=== PATIENT | female | born 1945 | race African-American/Black ===

== ENCOUNTER 2016-09-26 22:47 | Inpatient (IN) | payer MEDICARE, BC ==
[~2016-09-26] VITALS: Ht 157.5 cm; Wt 78.5 kg
[~2016-09-26 22:47] MED LIST: ATOR20TA PO; FURO80TA72 PO; ISOS60TA2 PO; LISI-338 PO; METO50TA2 PO; METO5TAB4 PO; NITR0.4T6 SL; NITR1PAT9 TD; OXYC-244 PO; POTA20TA12 PO
[2016-09-26 23:43] LABS: BASO % 0 % (0-3); EOS % 11 % (0-3); LYMPH # 1.3 x10^3/uL (1.0-4.8); LYMPH % 24 % (24-48); MEAN CORPUSCULAR HEMOGLOBIN 22 pg (25-35); MEAN CORPUSCULAR HGB CONC 33 g/dL (31-37); MEAN CORPUSCULAR VOLUME 68 fL (79-100); MONO % 6 % (0-9); NEUT % 59 % (31-73); PLATELET COUNT 396 x10^3/uL (140-400); RED BLOOD COUNT 2.91 x10^6/uL (3.50-5.40); RED CELL DISTRIBUTION WIDTH 16.3 % (11.5-14.5); WHITE BLOOD COUNT 5.6 x10^3/uL (4.0-11.0)
[2016-09-26] MEDS ORDERED: FUROSEMIDE 40 MG/4 ML VIAL. IV PRN (23:45)
[2016-09-26] MEDS ORDERED: ACETAMINOPHEN 325 MG TABLET. PO PRN (23:45)
[2016-09-27] VITALS (16 sets, daily range): BP systolic 112–156; BP diastolic 52–92
[2016-09-27] MEDS ORDERED: ONDANSETRON PF 4 MG/2 ML VIAL. IV PRN ×3 (00:45→11:00)
[2016-09-27] MEDS ORDERED: fentaNYL PF VIAL 100 MCG/2 ML VIAL IV PRN ×3 (01:30→11:00)
[2016-09-27] MEDS ORDERED: IV NORMAL SALINE 1000ML BAG 1,000 ML IV SCH (01:30)
[2016-09-27 01:52] LABS: HEMATOCRIT 19.8 % (36.0-47.0); HEMOGLOBIN 6.5 g/dL (12.0-15.5)
--- NOTE | 2016-09-27 02:04 | PHYS DOC ---
Past Medical History Past Medical History: GI Bleed, High Cholesterol, IA Past Surgical History: Hysterectomy Additional Past Surgical Histo: STOMACH SURGERY Alcohol Use: None Drug Use: None Adult General Chief Complaint Chief Complaint: GI PROBLEM HPI HPI Of note, [employer] system has been on downtime. A delay of care may be related to this downtime. Patient is a 71 year old female with a history significant for coronary artery disease, hypertension, cardiac myopathy, status post gastric bypass, status post hysterectomy, status post bilateral tubal ligation, status post stomach ulcer in the past, presents to the ER today secondary to a low hemoglobin that was documented by her primary care physician. Patient reports that on Saturday she would see her primary care physician secondary to blood that she noticed in the toilet paper. She reports she took to develop a particular family physician and he sent off a bunch of blood tests on her at that time. Patient reports that she was called on Saturday in order to see him secondary to low hemoglobin however she was unable to follow up until today. Patient reports that she went to the office today and he transferred her and recommended transfer to the ER for admission. She currently complains of some dizziness and weakness. Patient has any chest pain or shortness of breath. Patient has a nausea or vomiting. Patient has any fevers shakes chills. Patient complains of some mild midepigastric abdominal discomfort. Patient has a dysuria frequency or urgency. Patient denies any syncope. Patient's physical exam in the ER was significant for conjunctival pallor, skin appears to be pale, no diaphoresis. Patient's vital signs were normal. Patient' s heart rate was 75. It appears that this might be a paced rhythm as there looks to be pacer spikes on lead 2. Patient's rectal exam was brown heme positive stool. Patient's abdomen was soft nontender no rebound or guarding. There was no more color stool from the patient's rectum. There was no excessive bleeding at this time the patient's rectum. Patient's lungs were clear without any any evidence of wheezing rales or rhonchi. Assessment and plan. This is a 71-year-old female with a history significant for ulcers in the past as well as coronary disease and cardiac myopathy who presents here today with what appears to be a lower GI bleed and significant anemia. Patient's hemoglobin was 6.6 is noted in her doctor's office. Patient will be admitted to the hospital. Patient was typed and crossed for 2 units of packed red blood cells. Patient be admitted for further evaluation of her anemia. Critical care time of 35 minutes were utilizing a treatment and management of this patient's lower GI bleed and anemia. Review of Systems Review of Systems Constitutional: Denies fever or chills [] Eyes: Denies change in visual acuity, redness, or eye pain [] All other review systems are negative except as documented in the history of present illness portion. Current Medications Current Medications Current Medications Medications (Trade) Dose Ordered Sig/Catherine Start Time Stop Time Status Last Admin Dose Admin Acetaminophen (Tylenol) 650 mg 1X PRN PRN 09/26/16 23:45 09/27/16 23:44 Furosemide (Lasix) 40 mg 1X PRN PRN 09/26/16 23:45 09/27/16 23:44 Allergies Allergies Allergies Coded Allergies Type Severity Reaction Last Updated Verified aspirin Allergy Mild Nausea and Vomiting 08/17/15 Yes castor oil Allergy Mild Nausea and Vomiting 08/17/15 Yes Physical Exam Physical Exam Constitutional: Well developed, well nourished, no acute distress, non-toxic appearance. [] HENT: Normocephalic, atraumatic, bilateral external ears normal, oropharynx moist, no oral exudates, nose normal. [] Eyes: PERRLA, EOMI, conjunctiva normal, no discharge. [] Neck: Normal range of motion, no tenderness, supple, no stridor. [] Cardiovascular:Heart rate regular rhythm, Lungs & Thorax: Bilateral breath sounds clear to auscultation [] Abdomen: Bowel sounds normal, soft, no tenderness, no masses, no pulsatile masses. [] Skin: Warm, dry, no erythema, Back: No tenderness, no CVA tenderness. [] Extremities: No tenderness, no cyanosis, 1+ bipedal edema. Neurologic: Alert and oriented X 3, normal motor function, normal sensory function, no focal deficits noted. [] Psychologic: Affect normal, judgement normal, mood normal. [] Current Patient Data Vital Signs Vital Signs Date Time Temp Pulse Resp B/P (MAP) Pulse Ox O2 Delivery O2 Flow Rate FiO2 09/26/16 23:05 98.8 76 18 132/62 (85) 93 Room Air 98.8 EKG EKG [] Radiology/Procedures Radiology/Procedures [] Course & Med Decision Making Course & Med Decision Making Pertinent Labs and Imaging studies reviewed. (See chart for details) [] Dragon Disclaimer Dragon Disclaimer This electronic medical record was generated, in whole or in part, using a voice recognition dictation system. Departure Departure Impression: Primary Impression: Lower GI bleed Additional Impression: Anemia Disposition: ADMITTED INPATIENT Admitting Physician: Timmy Palacio Condition: GUARDED Referrals: BLAKE WHITNEY MD (PCP) Problem Qualifiers NEHEMIAH AGUILAR MD September 27, 2016 02:04
[2016-09-27 02:05] LABS: ALBUMIN/GLOBULIN RATIO 0.7 (1.0-1.7); CREATININE 2.6 mg/dL (0.6-1.0); GFR 21.8; POTASSIUM 4.5 mmol/L (3.5-5.1); TOTAL BILIRUBIN 0.5 mg/dL (0.2-1.0); TOTAL PROTEIN 7.4 g/dL (6.4-8.2)
[2016-09-27 02:58] LABS: NEG OBC FOB NEG; POS OBC FOB POS
[2016-09-27] MEDS: IV NORMAL SALINE 1000ML BAG 1,000 ML IV SCH ×3 (03:00→16:36)
[2016-09-27] MEDS ORDERED: DICY10CA3 PO (03:02)
[2016-09-27] MEDS ORDERED: POTA10TA12 PO (03:02)
[2016-09-27] MEDS ORDERED: NORT25CA PO (03:02)
[2016-09-27] MEDS ORDERED: LISI-338 PO (03:02)
[2016-09-27] MEDS ORDERED: OXYC-250 PO (03:02)
[2016-09-27] MEDS ORDERED: NITR1PAT9 TD (03:02)
[2016-09-27] MEDS ORDERED: DIAZ5TAB PO (03:02)
[2016-09-27] MEDS ORDERED: SUCR1TAB29 PO (03:02)
[2016-09-27] MEDS ORDERED: OMEP40CA5 PO (03:02)
[2016-09-27] MEDS: fentaNYL PF VIAL 100 MCG/2 ML VIAL IV PRN ×4 (03:26→13:38)
[2016-09-27 03:38] LABS: BILIRUBIN,URINE NEGATIVE (NEG); GLUCOSE,URINE NEGATIVE (NEG); NITRITE,URINE NEGATIVE (NEG); PH,URINE 7.5; PROTEIN,URINE NEGATIVE (NEG-TRACE); UROBILINOGEN,URINE 0.2 mg/dL (0.2 mg/dL)
[2016-09-27 03:39] LABS: BACTERIA,URINE FEW /HPF (0-FEW); RBC,URINE 0 /HPF (0-2); SQUAMOUS EPITHELIAL CELL,UR FEW /LPF
[2016-09-27 08:25] LABS: PLT ESTIMATE ADEQUATE (ADEQUATE)
[2016-09-27 08:26] LABS: ANISOCYTOSIS SLIGHT; HYPOCHROMIA MOD; MICROCYTOSIS MARKED
[2016-09-27] MEDS ORDERED: PANTOPRAZOLE IV PUSH 40 MG VIAL. IVP SCH (08:30)
--- NOTE | 2016-09-27 09:02 | PDOC2 ---
GI CONSULT Reason For Consult: GI bleed, anemia, blood in stool HPI: HPI: 71 y/o female admitted through the ER. Had previously seen PCP, was told she was anemic. Here, labs significant for Hgb 6.5 w/ low indices and elevated RDW. Hemoccult positive. For comparison, Hgb 9.9-11s a little over 1 year ago. BUN and Cr are elevated (34 and 2.6 respectively). Previously seen by nephrology for elevated Cr in 07/2015. Somewhat difficult history, tells me has seen streaks of bright red blood on the toilet tissue "for a long time." Usually flushes before she looks at stool itself. Vaguely describes abd pain but has "pain all over" attributed to RA for which she takes oxycodone. Denies NSAID use, says allergic to ASA. GI history significant for gastric bypass in the and PUD "a long time ago," although does recall a more recent EGD by Dr. Stacey Mera, believes normal. Takes omeprazole QD and carafate BID at home. H/o anemia, has previously had iron transfusions. Some nausea, no vomiting. No diarrhea or constipation. Has been eating, but mostly soups because she feels this "digests better." In general has "felt funny." Says no previous colonoscopy. PMH: PMH: gastric bypass, PUD, CHF, HTN, HLD, cardiomyopathy, [place], mitral/tricuspid regurg , renal insufficiency, arthritis - ?OA ?RA, anemia, PVD - ?Raynaud's, tubal ligation, hysterectomy, pacemaker FH: Family History: No pertinent hx Social History: Smoke: No ALCOHOL: none Drugs: None ROS: History difficult. GEN: Denies fevers, chills, sweats HEENT: Denies blurred vision, sore throat CV: Denies chest pain RESP: Denies shortness of air, cough GI: Per HPI : Denies hematuria, dysuria ENDO: Denies weight changes NEURO: +dizziness MSK: +generalized pain +weak SKIN: Denies jaundice, pruritus Vitals: Vitals: Vital Signs Date Time Temp Pulse Resp B/P (MAP) Pulse Ox O2 Delivery O2 Flow Rate FiO2 09/27/16 08:34 Room Air 09/27/16 07:55 97.9 67 16 119/52 97.9 09/27/16 06:19 94 Labs: Labs: Laboratory Tests Test 09/26/16 23:20 09/26/16 23:45 White Blood Count 5.6 x10^3/uL (4.0-11.0) Red Blood Count 2.91 x10^6/uL (3.50-5.40) Hemoglobin 6.5 g/dL (12.0-15.5) Hematocrit 19.8 % (36.0-47.0) Mean Corpuscular Volume 68 fL (79-100) Mean Corpuscular Hemoglobin 22 pg (25-35) Mean Corpuscular Hemoglobin Concent 33 g/dL (31-37) Red Cell Distribution Width 16.3 % (11.5-14.5) Platelet Count 396 x10^3/uL (140-400) Neutrophils (%) (Auto) 59 % (31-73) Lymphocytes (%) (Auto) 24 % (24-48) Monocytes (%) (Auto) 6 % (0-9) Eosinophils (%) (Auto) 11 % (0-3) Basophils (%) (Auto) 0 % (0-3) Neutrophils # (Auto) 3.3 x10^3uL (1.8-7.7) Lymphocytes # (Auto) 1.3 x10^3/uL (1.0-4.8) Monocytes # (Auto) 0.3 x10^3/uL (0.0-1.1) Eosinophils # (Auto) 0.6 x10^3/uL (0.0-0.7) Basophils # (Auto) 0.0 x10^3/uL (0.0-0.2) Platelet Estimate Adequate (ADEQUATE) Large Platelets Present Hypochromasia Mod Anisocytosis Slight Microcytosis Marked Prothrombin Time 13.0 SEC (11.7-14.0) Prothromb Time International Ratio 1.0 (0.8-1.1) Sodium Level 129 mmol/L (136-145) Potassium Level 4.5 mmol/L (3.5-5.1) Chloride Level 94 mmol/L (98-107) Carbon Dioxide Level 29 mmol/L (21-32) Anion Gap 6 (6-14) Blood Urea Nitrogen 34 mg/dL (7-20) Creatinine 2.6 mg/dL (0.6-1.0) Estimated GFR (Cockcroft-Gault) 21.8 BUN/Creatinine Ratio 13 (6-20) Glucose Level 99 mg/dL (70-99) Calcium Level 8.0 mg/dL (8.5-10.1) Total Bilirubin 0.5 mg/dL (0.2-1.0) Aspartate Amino Transf (AST/SGOT) 23 U/L (15-37) Alanine Aminotransferase (ALT/SGPT) 17 U/L (14-59) Alkaline Phosphatase 135 U/L (46-116) Troponin I Quantitative 0.025 ng/mL (0.000-0.055) EC-Osh-Z-Type Natriuretic Peptide 555 pg/mL (0-124) Total Protein 7.4 g/dL (6.4-8.2) Albumin 3.0 g/dL (3.4-5.0) Albumin/Globulin Ratio 0.7 (1.0-1.7) Lipase 157 U/L (73-393) Urine Collection Type Unknown Urine Color Yellow Urine Clarity Clear Urine pH 7.5 Urine Specific [place] 1.010 Urine Protein Negative mg/dL (NEG-TRACE) Urine Glucose (UA) Negative mg/dL (NEG) Urine Ketones (Stick) Negative mg/dL (NEG) Urine Blood Trace (NEG) Urine Nitrite Negative (NEG) Urine Bilirubin Negative (NEG) Urine Urobilinogen Dipstick 0.2 mg/dL (0.2 mg/dL) Urine Leukocyte Esterase Trace (NEG) Urine RBC 0 /HPF (0-2) Urine WBC 1-4 /HPF (0-4) Urine Squamous Epithelial Cells Few /LPF Urine Bacteria Few /HPF (0-FEW) Urine Hyaline Casts Moderate /HPF Stool Occult Blood Positive (NEG) Allergies: Coded Allergies: aspirin (Verified Allergy, Mild, Nausea and Vomiting, 08/17/15) castor oil (Verified Allergy, Mild, Nausea and Vomiting, 08/17/15) Medications: Current Medications Medications (Trade) Dose Ordered Sig/Catherine Route PRN Reason Start Time Stop Time Status Last Admin Dose Admin Furosemide (Lasix) 40 mg 1X PRN PRN IV blood transfusion 09/26/16 23:45 09/27/16 23:44 09/27/16 08:33 Fentanyl Citrate (Fentanyl 2ml Vial) 50 mcg PRN Q2HR PRN IV PAIN 09/27/16 00:45 09/28/16 00:44 09/27/16 08:34 Sodium Chloride 1,000 ml @ 125 mls/hr Q8H IV 09/27/16 00:36 09/28/16 00:35 09/27/16 03:00 Imaging: Imaging: - PE: GEN: NAD HEENT: Atraumatic, PERRL LUNGS: CTAB anteriorly HEART: distant ABD: diffusely tender EXTREMITY: No edema SKIN: No rashes, no jaundice NEURO/PSYCH: A & O 3, speaks slowly A/P: A/P: Anemia, rectal bleeding/hemoccult positive stool -Hgb 6.5, transfusions in process -reports streaks of bright red blood on the toilet tissue for "a long time" H/o gastric bypass, PUD, ?anorexia, nausea -on PPI + carafate at home -previous EGD w/ Dr. Stacey Mera -no NSAID use CRC screen -?no previous colonoscopy Elevated Cr CHF Chronic pain -- Keep NPO for EGD this afternoon. D/w RN, GI lab. Will give IV PPI and check anemia parameters. Will ask nephrology to see. CHRIS OLIVER September 27, 2016 09:02
--- NOTE | 2016-09-27 09:58 | RAD ---
Indication: Shortness of air. Time of exam 0055 hours. No prior studies available for comparison. The heart size is stable. Right hemidiaphragm is significantly elevated. Mild bibasilar subsegmental atelectasis is seen. No infiltrate, effusion or pneumothorax is detected. Impression: Right hemidiaphragmatic elevation with bibasilar subsegmental atelectasis.
[2016-09-27 10:17] LABS: % SAT IRON 24 % (15-34); IRON,SERUM 93 ug/dL (50-170)
--- NOTE | 2016-09-27 10:22 | EKG ---
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
[2016-09-27] MEDS ORDERED: IV RINGERS,LACTATED 1000ML 1,000 ML IV SCH (10:54)
[2016-09-27] MEDS ORDERED: HYDROmorphone 2 MG/ML VIAL IV PRN (11:00)
[2016-09-27] MEDS ORDERED: PROCHLORPERAZINE 10 MG/2 ML VIAL. IV PRN (11:00)
[2016-09-27] MEDS ORDERED: MORPHINE SULFATE 2 MG/ML DISP.SYRIN. IV PRN (11:00)
[2016-09-27] MEDS ORDERED: LIDOCAINE 1% 1 ML SYRINGE. ID PRN (11:00)
--- NOTE | 2016-09-27 11:28 | PDOC2 ---
CONSULT Date of Consult Date of Consult DATE: 09/27/16 TIME: 11:24 Reason for Consult Reason for Consult: GURPREET Referring Physician Referring Physician: FOREIGN Identification/Chief Complaint Chief Complaint ABD PAIN AND ABNORMAL LABS Source Source: Chart review, Patient History of Present Illness Reason for Visit: THIS IS A 71 YR OLD ADMITTED WITH ABD PAIN AND ANEMIA WITH A HGB OF 6.5. SHE HAS HAD A HX OF ULCER DZ. HER CR IS 2.6 NOW. HER USUAL CR IS 1.3-1.4 C/W STAGE 3 CKD. CKD MOST LIKELY DUE TO HTN RELATED ARTERIONEPHROSCLEROSIS Past Medical History Cardiovascular: HTN, Other Psych: Anxiety Renal/: Chronic renal insuff Family History Family History: No Significant Social History No ALCOHOL: none Drugs: None Current Problem List Problem List Problems Medical Problems: (1) Anemia Status: Acute (2) Lower GI bleed Status: Acute Current Medications Current Medications Current Medications Acetaminophen (Tylenol) 650 mg 1X PRN PRN PO PRN prior to blood transfusion; Start 09/26/16 at 23:45; Stop 09/27/16 at 23:44 Furosemide (Lasix) 40 mg 1X PRN PRN IV blood transfusion Last administered on 08:33; Start 09/26/16 at 23:45; Stop 09/27/16 at 23:44 Ondansetron HCl (Zofran) 4 mg PRN Q8HRS PRN IV NAUSEA/VOMITING; Start 09/27/16 at 00:45; Stop 09/28/16 at 00:44 Fentanyl Citrate (Fentanyl 2ml Vial) 50 mcg PRN Q2HR PRN IV PAIN Last administered on 09/27/16 11:12; Start 09/27/16 at 00:45; Stop 09/28/16 at 00:44 Sodium Chloride 1,000 ml @ 125 mls/hr Q8H IV Last administered on 09/27/16 03 :00; Start 09/27/16 at 00:36; Stop 09/28/16 at 00:35 Ondansetron HCl (Zofran) 4 mg PRN Q8HRS PRN IV NAUSEA/VOMITING; Start 09/27/16 at 01:30; Stop 09/27/16 at 02:18; Status DC Fentanyl Citrate (Fentanyl 2ml Vial) 50 mcg PRN Q2HRS PRN IV SEVERE PAIN; Start 09/27/16 at 01:30; Stop 09/27/16 at 02:18; Status DC Sodium Chloride 1,000 ml @ 125 mls/hr Q8H IV ; Start 09/27/16 at 01:30; Stop at 02:18; Status DC Pantoprazole Sodium (Protonix Vial) 40 mg DAILYAC IVP Last administered on 09/27t 09:15; Start 09/27/16 at 08:30 Ondansetron HCl (Zofran) 4 mg PRN Q6HRS PRN IV NAUSEA/VOMITING; Start 09/27/16 at 11:00; Stop 09/28/16 at 10:59 Fentanyl Citrate (Fentanyl 2ml Vial) 25 mcg PRN Q5MIN PRN IV MILD PAIN; Start 09/27/16 at 11:00; Stop 09/28/16 at 10:59 Fentanyl Citrate (Fentanyl 2ml Vial) 50 mcg PRN Q5MIN PRN IV MODERATE PAIN; Start 09/27/16 at 11:00; Stop 09/28/16 at 10:59 Morphine Sulfate 1 mg PRN Q10MIN PRN IV SEVERE PAIN; Start 09/27/16 at 11:00; Stop 09/28/16 at 10:59 Ringer's Solution 1,000 ml @ 30 mls/hr Q24H IV ; Start 09/27/16 at 10:54; Stop 09/27/16 at 22:53 Lidocaine HCl 2 ml PRN 1X PRN ID PRIOR TO IV START; Start 09/27/16 at 11:00; Stop 09/28/16 at 10:59 Hydromorphone HCl (Dilaudid) 0.5 mg PRN Q10MIN PRN IV SEV PAIN, Second choice; Start 09/27/16 at 11:00; Stop 09/28/16 at 10:59 Prochlorperazine Edisylate (Compazine) 5 mg PACU PRN PRN IV NAUSEA, MRX1; Start 09/27/16 at 11:00; Stop 09/28/16 at 10:59 Active Scripts Active Reported NITRO-DUR 0.4mg/hr (Nitroglycerin) 1 Each Patch.td24 1 Each TD DAILY Potassium Chloride 10 Meq Tablet.er 20 Meq PO 5XDAY Percocet 10-325 Mg Tablet (Oxycodone/Acetaminophen) 1 Each Tablet 1 Tab PO PRN Q6HRS PRN Lisinopril 5 Mg Tablet 1 Tab PO DAILY Carafate (Sucralfate) 1 Gm Tablet 1 Tab PO BID Dicyclomine Hcl 10 Mg Capsule 1 Cap PO PRN Q6HRS Valium (Diazepam) 5 Mg Tablet 5 Mg PO BID Omeprazole 40 Mg Capsule.dr 1 Cap PO DAILY Nortriptyline Hcl 25 Mg Capsule 25 Mg PO BID Lipitor (Atorvastatin Calcium) 20 Mg Tablet 20 Mg PO HS Percocet 7.5-325 Mg Tablet (Oxycodone/Acetaminophen) 1 Each Tablet 1-2 Tab PO PRN Q6HRS PRN NITROGLYCERIN SubLingual (Nitroglycerin) 0.4 Mg Tab.subl 0.4 Mg SL PRN Q5MIN PRN Metoprolol Tartrate 50 Mg Tablet 25 Mg PO BID Lisinopril 5 Mg Tablet 5 Mg PO DAILY NITRO-DUR 0.4mg/hr (Nitroglycerin) 1 Each Patch.td24 1 Each TD DAILY Isosorbide Mononitrate Er (Isosorbide Mononitrate) 60 Mg Tab.er.24h 60 Mg PO BID Metolazone 5 Mg Tablet 5 Mg PO DAILY Potassium Chloride 20 Meq Tab.er.prt 20 Meq PO 5XDAY Lasix (Furosemide) 80 Mg Tablet 80 Mg PO TID Allergies Allergies: Coded Allergies: aspirin (Verified Allergy, Mild, Nausea and Vomiting, 08/17/15) castor oil (Verified Allergy, Mild, Nausea and Vomiting, 08/17/15) ROS General: YES: Fatigue, Malaise, Appetite PSYCHOLOGICAL ROS: YES: Anxiety Eyes: Yes Decreased vision HEENT: YES: Heacaches Respiratory: YES: Cough Gastrointestinal: Yes Nausea, Yes Abdominal Pain Genitourinary: YES Other (NOCTURIA) Musculoskeletal: Yes Joint Stiffness, Yes Muscular Weakness Neurological: Yes Weakness Skin: Yes Dry Skin Physical Exam General: Alert, Oriented X3, Cooperative, No acute distress HEENT: Atraumatic, PERRLA, EOMI Lungs: Clear to auscultation Heart: Regular rate Abdomen: Normal bowel sounds, Other (EPI PAIN ON PALPATION) Skin: No breakdown Neuro: Normal gait MUSCULOSKELETAL: No joint tenderness, No swelling Vitals VITALS Vital Signs Date Time Temp Pulse Resp B/P (MAP) Pulse Ox O2 Delivery O2 Flow Rate FiO2 09/27/16 11:12 Room Air 09/27/16 11:00 98.1 69 14 156/70 (98) 98.1 09/27/16 06:19 94 Labs Labs Laboratory Tests Test 09/26/16 23:20 09/26/16 23:45 09/27/16 09:40 White Blood Count 5.6 x10^3/uL (4.0-11.0) Red Blood Count 2.91 x10^6/uL (3.50-5.40) Hemoglobin 6.5 g/dL (12.0-15.5) Hematocrit 19.8 % (36.0-47.0) Mean Corpuscular Volume 68 fL (79-100) Mean Corpuscular Hemoglobin 22 pg (25-35) Mean Corpuscular Hemoglobin Concent 33 g/dL (31-37) Red Cell Distribution Width 16.3 % (11.5-14.5) Platelet Count 396 x10^3/uL (140-400) Neutrophils (%) (Auto) 59 % (31-73) Lymphocytes (%) (Auto) 24 % (24-48) Monocytes (%) (Auto) 6 % (0-9) Eosinophils (%) (Auto) 11 % (0-3) Basophils (%) (Auto) 0 % (0-3) Neutrophils # (Auto) 3.3 x10^3uL (1.8-7.7) Lymphocytes # (Auto) 1.3 x10^3/uL (1.0-4.8) Monocytes # (Auto) 0.3 x10^3/uL (0.0-1.1) Eosinophils # (Auto) 0.6 x10^3/uL (0.0-0.7) Basophils # (Auto) 0.0 x10^3/uL (0.0-0.2) Platelet Estimate Adequate (ADEQUATE) Large Platelets Present Hypochromasia Mod Anisocytosis Slight Microcytosis Marked Prothrombin Time 13.0 SEC (11.7-14.0) Prothromb Time International Ratio 1.0 (0.8-1.1) Sodium Level 129 mmol/L (136-145) Potassium Level 4.5 mmol/L (3.5-5.1) Chloride Level 94 mmol/L (98-107) Carbon Dioxide Level 29 mmol/L (21-32) Anion Gap 6 (6-14) Blood Urea Nitrogen 34 mg/dL (7-20) Creatinine 2.6 mg/dL (0.6-1.0) Estimated GFR (Cockcroft-Gault) 21.8 BUN/Creatinine Ratio 13 (6-20) Glucose Level 99 mg/dL (70-99) Calcium Level 8.0 mg/dL (8.5-10.1) Total Bilirubin 0.5 mg/dL (0.2-1.0) Aspartate Amino Transf (AST/SGOT) 23 U/L (15-37) Alanine Aminotransferase (ALT/SGPT) 17 U/L (14-59) Alkaline Phosphatase 135 U/L (46-116) Troponin I Quantitative 0.025 ng/mL (0.000-0.055) SY-Uwy-D-Type Natriuretic Peptide 555 pg/mL (0-124) Total Protein 7.4 g/dL (6.4-8.2) Albumin 3.0 g/dL (3.4-5.0) Albumin/Globulin Ratio 0.7 (1.0-1.7) Lipase 157 U/L (73-393) Urine Collection Type Unknown Urine Color Yellow Urine Clarity Clear Urine pH 7.5 Urine Specific [place] 1.010 Urine Protein Negative mg/dL (NEG-TRACE) Urine Glucose (UA) Negative mg/dL (NEG) Urine Ketones (Stick) Negative mg/dL (NEG) Urine Blood Trace (NEG) Urine Nitrite Negative (NEG) Urine Bilirubin Negative (NEG) Urine Urobilinogen Dipstick 0.2 mg/dL (0.2 mg/dL) Urine Leukocyte Esterase Trace (NEG) Urine RBC 0 /HPF (0-2) Urine WBC 1-4 /HPF (0-4) Urine Squamous Epithelial Cells Few /LPF Urine Bacteria Few /HPF (0-FEW) Urine Hyaline Casts Moderate /HPF Stool Occult Blood Positive (NEG) Reticulocyte Count (auto) 1.6 % (0.5-2.5) Iron Level 93 ug/dL (50-170) Total Iron Binding Capacity 391 ug/dL (250-450) Iron Saturation 24 % (15-34) Laboratory Tests Test 09/26/16 23:20 09/26/16 23:45 09/27/16 09:40 White Blood Count 5.6 x10^3/uL (4.0-11.0) Red Blood Count 2.91 x10^6/uL (3.50-5.40) Hemoglobin 6.5 g/dL (12.0-15.5) Hematocrit 19.8 % (36.0-47.0) Mean Corpuscular Volume 68 fL (79-100) Mean Corpuscular Hemoglobin 22 pg (25-35) Mean Corpuscular Hemoglobin Concent 33 g/dL (31-37) Red Cell Distribution Width 16.3 % (11.5-14.5) Platelet Count 396 x10^3/uL (140-400) Neutrophils (%) (Auto) 59 % (31-73) Lymphocytes (%) (Auto) 24 % (24-48) Monocytes (%) (Auto) 6 % (0-9) Eosinophils (%) (Auto) 11 % (0-3) Basophils (%) (Auto) 0 % (0-3) Neutrophils # (Auto) 3.3 x10^3uL (1.8-7.7) Lymphocytes # (Auto) 1.3 x10^3/uL (1.0-4.8) Monocytes # (Auto) 0.3 x10^3/uL (0.0-1.1) Eosinophils # (Auto) 0.6 x10^3/uL (0.0-0.7) Basophils # (Auto) 0.0 x10^3/uL (0.0-0.2) Platelet Estimate Adequate (ADEQUATE) Large Platelets Present Hypochromasia Mod Anisocytosis Slight Microcytosis Marked Prothrombin Time 13.0 SEC (11.7-14.0) Prothromb Time International Ratio 1.0 (0.8-1.1) Sodium Level 129 mmol/L (136-145) Potassium Level 4.5 mmol/L (3.5-5.1) Chloride Level 94 mmol/L (98-107) Carbon Dioxide Level 29 mmol/L (21-32) Anion Gap 6 (6-14) Blood Urea Nitrogen 34 mg/dL (7-20) Creatinine 2.6 mg/dL (0.6-1.0) Estimated GFR (Cockcroft-Gault) 21.8 BUN/Creatinine Ratio 13 (6-20) Glucose Level 99 mg/dL (70-99) Calcium Level 8.0 mg/dL (8.5-10.1) Total Bilirubin 0.5 mg/dL (0.2-1.0) Aspartate Amino Transf (AST/SGOT) 23 U/L (15-37) Alanine Aminotransferase (ALT/SGPT) 17 U/L (14-59) Alkaline Phosphatase 135 U/L (46-116) Troponin I Quantitative 0.025 ng/mL (0.000-0.055) GO-Biy-C-Type Natriuretic Peptide 555 pg/mL (0-124) Total Protein 7.4 g/dL (6.4-8.2) Albumin 3.0 g/dL (3.4-5.0) Albumin/Globulin Ratio 0.7 (1.0-1.7) Lipase 157 U/L (73-393) Urine Collection Type Unknown Urine Color Yellow Urine Clarity Clear Urine pH 7.5 Urine Specific [place] 1.010 Urine Protein Negative mg/dL (NEG-TRACE) Urine Glucose (UA) Negative mg/dL (NEG) Urine Ketones (Stick) Negative mg/dL (NEG) Urine Blood Trace (NEG) Urine Nitrite Negative (NEG) Urine Bilirubin Negative (NEG) Urine Urobilinogen Dipstick 0.2 mg/dL (0.2 mg/dL) Urine Leukocyte Esterase Trace (NEG) Urine RBC 0 /HPF (0-2) Urine WBC 1-4 /HPF (0-4) Urine Squamous Epithelial Cells Few /LPF Urine Bacteria Few /HPF (0-FEW) Urine Hyaline Casts Moderate /HPF Stool Occult Blood Positive (NEG) Reticulocyte Count (auto) 1.6 % (0.5-2.5) Iron Level 93 ug/dL (50-170) Total Iron Binding Capacity 391 ug/dL (250-450) Iron Saturation 24 % (15-34) Assessment/Plan Assessment/Plan IMP ANEMIA GI BLEED CKD STAGE 3 WITH CR OF 1.3-1.4 GURPREET WITH CR OF 2.6 PLAN PRBC NEEDED GI EVAL AND TX ISOTONIC SALINE STOP HER LISINOPRIL AND METOLAZONE LABS IN CHRISS HILLMAN MD September 27, 2016 11:28
[2016-09-27] MEDS ORDERED: NITROGLYCERIN SUBLINGUAL 0.4 MG BOTTLE OF 25. SL PRN (12:15)
[2016-09-27] MEDS ORDERED: oxyCODONE/APAP 7.5/325 1 TAB TABLET PO PRN ×2 (12:15)
[2016-09-27] MEDS: diazePAM 5 MG TABLET PO SCH ×2 (12:30→21:51)
[2016-09-27] MEDS: METOPROLOL TART IMMED RELEASE 25 MG TABLET. PO SCH ×2 (12:30→21:50)
[2016-09-27] MEDS: ISOSORBIDE MONONITRATE ER 30 MG TAB.ER.24H PO SCH ×2 (12:30→21:50)
[2016-09-27] MEDS: NORTRIPTYLINE 25 MG CAPSULE PO SCH ×2 (12:30→21:58)
[2016-09-27] MEDS: FUROSEMIDE 80 MG TABLET. PO SCH ×2 (12:30→18:10)
[2016-09-27 13:50] LABS: FOLATE 10.69 ng/ml (3.2-20.0)
[2016-09-27 13:56] LABS: VITAMIN-B12 > 2000 pg/mL (247-911)
[2016-09-27] MEDS ORDERED: NON FORMULARY ITEM (Potassium Chloride 20 MEQ) PO SCH (14:00)
[2016-09-27] MEDS: POTASSIUM CHLORIDE 20 MEQ TABLET.ER. PO SCH ×3 (14:00→21:58)
[2016-09-27] MEDS ORDERED: PROPOFOL 20 ML IV ONE ×2 (14:21→14:38)
--- NOTE | 2016-09-27 14:44 | PDOC4 ---
Operative Note Operative Note EGD with biopsy Meds proprofol per anesthesia Pre-op dx chronic blood loss anemia Post-op dx gastric ulcer s/p bx non-erosive gastritis Plan PPI therapy serial cb[facility] hip films GUNNAR ORDONEZ MD September 27, 2016 14:44
[2016-09-27] MEDS: oxyCODONE/APAP 10/325 1 TAB TABLET PO PRN ×2 (16:02→21:51)
[2016-09-27] MEDS: SUCRALFATE 1 GM TABLET. PO SCH (16:30)
--- NOTE | 2016-09-27 16:34 | RAD ---
Indication: Bilateral hip pain. Time of exam 1616 hours. Femoral acetabular alignment is normal bilaterally. The femoral heads and necks are intact. The rami are intact. No fractures are seen. Mild superior joint space narrowing is noted bilaterally. Impression: Mild degenerative changes are noted bilaterally. No acute bony abnormality is detected.
[2016-09-27] MEDS: NITROGLYCERIN 0.4MG/HR PATCH. TD SCH (18:10)
[2016-09-27] MEDS: LISINOPRIL 5 MG TABLET. PO SCH (18:10)
[2016-09-27] MEDS: metOLazone 2.5 MG TABLET PO SCH (18:12)
[2016-09-27 19:32] LABS: HEMATOCRIT 31.3 % (36.0-47.0); HEMOGLOBIN 10.6 g/dL (12.0-15.5); RED BLOOD COUNT 4.34 x10^6/uL (3.50-5.40); WHITE BLOOD COUNT 6.6 x10^3/uL (4.0-11.0)
--- NOTE | 2016-09-27 19:34 | HP ---
ADMIT DATE: 09/27/2016 CHIEF COMPLAINT: Hematochezia. HISTORY OF PRESENT ILLNESS: The patient is a 71-year-old woman, who presented to the Emergency Room with bright red blood per rectum. She relates that she had noted small amounts of blood when wiping for a long time; however, in the past couple of days, she actually had noticed blood leaking and she kept "a tissue between her legs." These became fairly saturated and she actually decided to present to her primary care physician. Hemoglobin there showed her to be significantly anemic and she was referred to the Emergency Room. She denies any acute pain. Denies any hematemesis. Denies any melena. She does have a history of gastric bypass, as well as peptic ulcer disease in the distant past. She is taking PPI as well as Carafate. PAST MEDICAL HISTORY: PUD, gastric bypass, CHF, hypertension, CAD, status post [place], mitral-tricuspid regurgitation, CKD stage 3, and rheumatoid arthritis. PAST SURGICAL HISTORY: Status post hysterectomy, tubal ligation, and pacemaker placement. FAMILY HISTORY: No family members with bleeding. SOCIAL HISTORY: Lives with her . No toxic habits. ALLERGIES: ASPIRIN AND CASTOR OIL. MEDICATIONS: MAR reconciled with home medications. REVIEW OF SYSTEMS: The patient complains of pain all over. Cannot localize. Denies any abdominal pain or any rectal pain. Breathing just fine. No chest pain. Rest of organ-system review is negative. PHYSICAL EXAMINATION: VITAL SIGNS: From today, show blood pressure of 119/68, heart rate of 78, and respiratory rate at 16. She is afebrile. GENERAL: This is a 71-year-old pale-appearing woman, alert and oriented, in no acute distress. Her voice is very soft. HEENT: Shows no scleral icterus. NECK: Supple. LUNGS: Clear. HEART: Regular rate and rhythm. ABDOMEN: Has positive bowel sounds, soft, and nontender. EXTREMITIES: Show no edema, no clubbing, and no cyanosis. SKIN: Warm, soft, and dry. LABORATORY DATA: CBC at admit showed a WBC of 5.6, hemoglobin 6.5, and platelets of 396. Chemistry is with a BUN and creatinine of 34 and 2.6 (1 year ago, numbers were 26 and 1.3). Sodium at 129, potassium at 4.5. LFTs essentially within normal limits. Albumin 3.0. Coags within normal. ASSESSMENT AND PLAN: The patient is a 71-year-old woman with hematochezia. She unfortunately also has a history of peptic ulcer disease and is taking multiple pain medications, although denies non-steroidal anti-inflammatory drug use and CLAIMS ALLERGY TO ASPIRIN, unknown reaction. GI has been consulted. Plan for endoscopies is being made. Severe anemia is most likely secondary to gastrointestinal bleed. We will transfuse for now, monitor hemoglobin closely. We will also obtain iron labs as this probably is a chronic loss more than acute and may benefit from IV iron as well. The patient has chronic insufficiency with a currently significantly worse creatinine than 1 year ago. However, unsure what her most recent baseline was. We will monitor with IV hydration. Renal consult will be obtained. The patient has a history of congestive heart failure and has seen Dr. Alcazar in the past with cardiac catheterization almost exactly one year ago. At that time, her vessels were considered fairly clean. She did however have an ejection fraction of only 25% and was considered to have nonischemic cardiomyopathy of unknown etiology (question rheumatoid arthritis). At this time, breathing status is clear. We will have to monitor closely. Consult to Dr. Alcazar. ROBERT BAUTISTA MD DR: KARINA/nts JOB#: [id number] / [id number] BLAKE Light MD MTDD
--- NOTE | 2016-09-27 21:10 | ACF ---
Admission Forms Criteria GASTROINTESTINAL BLEEDING Clinical Indications for Inpatient Care (Place 'X' for any and all applicable criteria): Ongoing inpatient care may be indicated for gastrointestinal bleeding with ANY ONE of the following (4)(20)(21)(22)(23)(24): [X]I. Active bleeding (eg, fresh voluminous blood in emesis or nasogastric aspirate, or per rectum) [ ]II. Hemodynamic instability [ ]III. Anticoagulation therapy or coagulopathy ((eg, advanced liver disease, irreversible anticoagulation) [ ]IV. Ischemic colitis (22) [ ]V. Endoscopy showing arterial bleeding, adherent clot, nonbleeding visible vessel, varices, flat red spots, ulcer size greater than 2 cm, or portal hypertensive gastropathy [ ]. High-risk low platelet count [ ]VII. Anemia requiring inpatient care as indicated by ANY ONE of the following a)[ ] Cognitive impairment b)[ ] Syncope c)[ ] Heart failure d)[ ] Chest pain e)[ ] Dyspnea f)[ ] Other findings suggesting inadequate perfusion (eg, peripheral or myocardial ischemia, end organ dysfunction) [ ]VIII. High-risk low platelet count [ ]IX. Suspected variceal cause of bleeding as indicated by ANY ONE of the following(27)(28): a)[ ] Known varices b)[ ] Hepatomegaly or splenomegaly c)[ ] Ascites d)[ ] Jaundice or scleral icterus e)[ ] History of liver disease (eg, cirrhosis) f)[ ] Physical findings of portal hypertension (eg, caput medusa) g)[ ] Comorbid disorder indicating risk for portal vein thrombosis (eg , abdominal surgery, sepsis, shock, exchange transfusion, prior umbilical vein catheterization) Extended stay may be needed until ALL of the following are present(20)(38)(47): [ ]a) Hemodynamic stability [ ]b) No evidence of active bleeding (eg, stable Hematocrit) [ ]c) Platelet count, prothrombin time, and partial thromboplastin time acceptable for next level of care [ ]d) Surgical or other acute intervention not needed [ ]e) Oral hydration and diet tolerated The original [employer] content created by [employer] has been revised. The portions of the content which have been revised are identified through the use of italic text or in bold, and [employer] has neither reviewed nor approved the modified material. All other unmodified content is copyright [facility]. Please see references footnoted in the original [facility] edition 2016 Admission Criteria Met?: Yes BRANDEN AZUL September 27, 2016 21:10
[2016-09-27] MEDS: ATORVASTATIN CALCIUM 20 MG TABLET PO SCH (21:50)
[2016-09-28 03:00] VITALS: BP 102/59
[2016-09-28] MEDS: POTASSIUM CHLORIDE 20 MEQ TABLET.ER. PO SCH ×5 (05:50→21:06)
[2016-09-28] MEDS: oxyCODONE/APAP 10/325 1 TAB TABLET PO PRN ×4 (05:50→23:28)
[2016-09-28] MEDS: DICYCLOMINE HCL 10 MG CAPSULE PO PRN ×2 (06:22→19:40)
[2016-09-28 07:00] VITALS: BP 97/50
[2016-09-28 07:18] LABS: BASO % 0 % (0-3); EOS % 11 % (0-3); LYMPH # 1.6 x10^3/uL (1.0-4.8); LYMPH % 31 % (24-48); MEAN CORPUSCULAR HEMOGLOBIN 24 pg (25-35); MEAN CORPUSCULAR HGB CONC 32 g/dL (31-37); MEAN CORPUSCULAR VOLUME 73 fL (79-100); MONO % 5 % (0-9); NEUT % 54 % (31-73); PLATELET COUNT 408 x10^3/uL (140-400); RED BLOOD COUNT 4.22 x10^6/uL (3.50-5.40); RED CELL DISTRIBUTION WIDTH 18.4 % (11.5-14.5); WHITE BLOOD COUNT 5.2 x10^3/uL (4.0-11.0)
[2016-09-28 07:24] LABS: ALBUMIN/GLOBULIN RATIO 0.7 (1.0-1.7); CALCIUM 8.5 mg/dL (8.5-10.1); CREATININE 2.1 mg/dL (0.6-1.0); GFR 27.9; POTASSIUM 4.2 mmol/L (3.5-5.1); TOTAL BILIRUBIN 0.4 mg/dL (0.2-1.0); TOTAL PROTEIN 7.2 g/dL (6.4-8.2)
[2016-09-28] MEDS: PANTOPRAZOLE 40 MG TABLET.DR. PO SCH (08:22)
[2016-09-28] MEDS: FUROSEMIDE 80 MG TABLET. PO SCH (08:22)
[2016-09-28] MEDS: SUCRALFATE 1 GM TABLET. PO SCH ×2 (08:22→16:24)
[2016-09-28] MEDS: LISINOPRIL 5 MG TABLET. PO SCH (08:23)
[2016-09-28] MEDS: ISOSORBIDE MONONITRATE ER 30 MG TAB.ER.24H PO SCH ×2 (08:24→21:05)
[2016-09-28] MEDS: metOLazone 2.5 MG TABLET PO SCH (08:24)
[2016-09-28] MEDS: diazePAM 5 MG TABLET PO SCH ×2 (08:25→21:05)
[2016-09-28] MEDS: NORTRIPTYLINE 25 MG CAPSULE PO SCH ×2 (08:25→21:04)
[2016-09-28] MEDS: NITROGLYCERIN 0.4MG/HR PATCH. TD SCH (08:26)
[2016-09-28] MEDS ORDERED: NITROGLYCERIN 0.4MG/HR PATCH. TD SCH (09:00)
[2016-09-28] MEDS ORDERED: NON FORMULARY ITEM (Omeprazole 1 CAP) PO SCH (09:00)
[2016-09-28] MEDS ORDERED: LISINOPRIL 5 MG TABLET. PO SCH (09:00)
--- NOTE | 2016-09-28 09:34 | PDOC ---
Subjective: Subjective: Had abd pain earlier. Blood on toilet tissue last night. Eating okay. Objective: Objective: Per RN - tolerating PO (prefers soup) w/o further bleeding, had a BM last night. Vital Signs: Vital Signs Date Time Temp Pulse Resp B/P (MAP) Pulse Ox O2 Delivery O2 Flow Rate FiO2 09/28/16 08:24 77 114/55 09/28/16 07:00 98.5 16 93 Room Air 98.5 Labs: Laboratory Tests Test 09/27/16 11:57 Glucose (Fingerstick) 91 mg/dL (70-99) Imaging: EGD 09/27/16: gastric ulcer s/p bx, non-erosive gastritis Hip X-Ray 09/27/16 Impression: Mild degenerative changes are noted bilaterally. No acute bony abnormality is detected. PE: GEN: NAD LUNGS: clear, poor effort HEART: distant ABD: vaguely tender NEURO/PSYCH: A & O 3, speaks softly A/P: Gastric ulcer s/p EGD/bx 09/27/16 Anemia, rectal bleeding/hemoccult positive stool -Hgb improved/stable after transfusion -see streaks of red blood on toilet tissue -now reports previous colonoscopy w/ Dr. Stacey Mera H/o gastric bypass -on PPI + carafate at home/here CKD, CHF -per nephrology, cardiology -- Continue PPI. CHRIS OLIVER September 28, 2016 09:34
--- NOTE | 2016-09-28 10:57 | PDOC ---
PROGRESS NOTES Chief Complaint Chief Complaint Hematochezia ASSESSMENT AND PLAN: 1. GIB: s/p EGD yesterday with findings of nonbleeding ulcer, gastritis. no Cscope planned. 2. Anemia: chronic vs acute, chronic inflammation, chronic GIB. Hgb now stable after PRBC x2. oral iron daily 3. GURPREET: appreciate Dr Talbert's input. unfortunately, meds given this AM already. cautious with IVF. has high dose furosemide also 4. CKD3: baseline creat ~1.3 5. CHF: systolic (EF 25%); nonischemic cardiomyopathy. awaiting Dr Alcazar input 6. RA: continue home meds 7. Narcotic seeking: trying to bargain with RN to get double PO and or IV narcotics. continue home regimen, 10-15 mg oxy q6h PRN History of Present Illness History of Present Illness chronic pain, states worse here, requesting add.l meds Vitals Vitals Vital Signs Date Time Temp Pulse Resp B/P (MAP) Pulse Ox O2 Delivery O2 Flow Rate FiO2 09/28/16 08:24 77 114/55 09/28/16 08:00 Room Air 09/28/16 07:00 98.5 16 93 98.5 Physical Exam General: Alert, Oriented X3, Cooperative, No acute distress Heart: Regular rate Abdomen: Normal bowel sounds, Other (EPI PAIN ON PALPATION) Skin: No breakdown Labs LABS Laboratory Tests Test 09/27/16 11:57 09/27/16 19:15 09/28/16 06:29 Glucose (Fingerstick) 91 mg/dL (70-99) White Blood Count 6.6 x10^3/uL (4.0-11.0) 5.2 x10^3/uL (4.0-11.0) Red Blood Count 4.34 x10^6/uL (3.50-5.40) 4.22 x10^6/uL (3.50-5.40) Hemoglobin 10.6 g/dL (12.0-15.5) 10.0 g/dL (12.0-15.5) Hematocrit 31.3 % (36.0-47.0) 31.0 % (36.0-47.0) Mean Corpuscular Volume 72 fL (79-100) 73 fL (79-100) Mean Corpuscular Hemoglobin 25 pg (25-35) 24 pg (25-35) Mean Corpuscular Hemoglobin Concent 34 g/dL (31-37) 32 g/dL (31-37) Red Cell Distribution Width 18.0 % (11.5-14.5) 18.4 % (11.5-14.5) Platelet Count 398 x10^3/uL (140-400) 408 x10^3/uL (140-400) Neutrophils (%) (Auto) 54 % (31-73) Lymphocytes (%) (Auto) 31 % (24-48) Monocytes (%) (Auto) 5 % (0-9) Eosinophils (%) (Auto) 11 % (0-3) Basophils (%) (Auto) 0 % (0-3) Neutrophils # (Auto) 2.8 x10^3uL (1.8-7.7) Lymphocytes # (Auto) 1.6 x10^3/uL (1.0-4.8) Monocytes # (Auto) 0.3 x10^3/uL (0.0-1.1) Eosinophils # (Auto) 0.5 x10^3/uL (0.0-0.7) Basophils # (Auto) 0.0 x10^3/uL (0.0-0.2) Sodium Level 131 mmol/L (136-145) Potassium Level 4.2 mmol/L (3.5-5.1) Chloride Level 94 mmol/L (98-107) Carbon Dioxide Level 30 mmol/L (21-32) Anion Gap 7 (6-14) Blood Urea Nitrogen 32 mg/dL (7-20) Creatinine 2.1 mg/dL (0.6-1.0) Estimated GFR (Cockcroft-Gault) 27.9 BUN/Creatinine Ratio 15 (6-20) Glucose Level 98 mg/dL (70-99) Calcium Level 8.5 mg/dL (8.5-10.1) Total Bilirubin 0.4 mg/dL (0.2-1.0) Aspartate Amino Transf (AST/SGOT) 23 U/L (15-37) Alanine Aminotransferase (ALT/SGPT) 18 U/L (14-59) Alkaline Phosphatase 140 U/L (46-116) Total Protein 7.2 g/dL (6.4-8.2) Albumin 3.0 g/dL (3.4-5.0) Albumin/Globulin Ratio 0.7 (1.0-1.7) ROBERT BAUTISTA MD September 28, 2016 10:57
[2016-09-28 11:00] VITALS: BP 109/58
--- NOTE | 2016-09-28 11:07 | PDOC ---
Renal-Progress Notes Subjective Notes Notes FEELING BETTER History of Present Illness Hx of present illness STABLE Vitals Vitals Vital Signs Date Time Temp Pulse Resp B/P (MAP) Pulse Ox O2 Delivery O2 Flow Rate FiO2 09/28/16 08:24 77 114/55 09/28/16 08:00 Room Air 09/28/16 07:00 98.5 16 93 98.5 Weight Weight [ ] I.O. Intake and Output Intake and Output 09/28/16 07:00 Intake Total 1800 ml Output Total 4125 ml Balance -2325 ml Intake Oral 840 ml Blood Product IV Normal Saline Flush 960 ml Output Urine Total 4125 ml # Bowel Movements 1 Labs Labs Laboratory Tests Test 09/27/16 11:57 09/27/16 19:15 09/28/16 06:29 Glucose (Fingerstick) 91 mg/dL (70-99) White Blood Count 6.6 x10^3/uL (4.0-11.0) 5.2 x10^3/uL (4.0-11.0) Red Blood Count 4.34 x10^6/uL (3.50-5.40) 4.22 x10^6/uL (3.50-5.40) Hemoglobin 10.6 g/dL (12.0-15.5) 10.0 g/dL (12.0-15.5) Hematocrit 31.3 % (36.0-47.0) 31.0 % (36.0-47.0) Mean Corpuscular Volume 72 fL (79-100) 73 fL (79-100) Mean Corpuscular Hemoglobin 25 pg (25-35) 24 pg (25-35) Mean Corpuscular Hemoglobin Concent 34 g/dL (31-37) 32 g/dL (31-37) Red Cell Distribution Width 18.0 % (11.5-14.5) 18.4 % (11.5-14.5) Platelet Count 398 x10^3/uL (140-400) 408 x10^3/uL (140-400) Neutrophils (%) (Auto) 54 % (31-73) Lymphocytes (%) (Auto) 31 % (24-48) Monocytes (%) (Auto) 5 % (0-9) Eosinophils (%) (Auto) 11 % (0-3) Basophils (%) (Auto) 0 % (0-3) Neutrophils # (Auto) 2.8 x10^3uL (1.8-7.7) Lymphocytes # (Auto) 1.6 x10^3/uL (1.0-4.8) Monocytes # (Auto) 0.3 x10^3/uL (0.0-1.1) Eosinophils # (Auto) 0.5 x10^3/uL (0.0-0.7) Basophils # (Auto) 0.0 x10^3/uL (0.0-0.2) Sodium Level 131 mmol/L (136-145) Potassium Level 4.2 mmol/L (3.5-5.1) Chloride Level 94 mmol/L (98-107) Carbon Dioxide Level 30 mmol/L (21-32) Anion Gap 7 (6-14) Blood Urea Nitrogen 32 mg/dL (7-20) Creatinine 2.1 mg/dL (0.6-1.0) Estimated GFR (Cockcroft-Gault) 27.9 BUN/Creatinine Ratio 15 (6-20) Glucose Level 98 mg/dL (70-99) Calcium Level 8.5 mg/dL (8.5-10.1) Total Bilirubin 0.4 mg/dL (0.2-1.0) Aspartate Amino Transf (AST/SGOT) 23 U/L (15-37) Alanine Aminotransferase (ALT/SGPT) 18 U/L (14-59) Alkaline Phosphatase 140 U/L (46-116) Total Protein 7.2 g/dL (6.4-8.2) Albumin 3.0 g/dL (3.4-5.0) Albumin/Globulin Ratio 0.7 (1.0-1.7) Review of Systems Constitutional: yes: alert, oriented Ears/Nose/Throat: Yes: no symptom reported Eyes: Yes: no symptom reported Pulmonary: Yes no symptom reported Cardiovascular: Yes no symptom reported Gastrointestional: Yes: diarrhea Musculoskeletal: Yes: muscle stiffness Skin: Yes no symptom reported Physical Exam General Appearance: no apparent distress Skin: warm Respiratory: bilateral CTA Heart: S1S2 Abdomen: bowel sounds present Genitourinary: bladder flat Extremities: pulses present Neurology: alert Assessment Assessment IMP ANEMIA-BETTER AFTER PRBC GI BLEED CKD STAGE 3 WITH CR OF 1.3-1.4 AT BASELINE GURPREET WITH CR DOWN TO 2.1 PLAN LOW FLOW IVF'S CONT TO HOLD SWETHA-I AND DIURETICS FOR NOW CHRISS GIRARD MD September 28, 2016 11:07
[2016-09-28] MEDS: METOPROLOL TART IMMED RELEASE 25 MG TABLET. PO SCH ×2 (11:34→21:05)
[2016-09-28] MEDS: IV NORMAL SALINE 1000ML BAG 1,000 ML IV SCH (11:35)
--- NOTE | 2016-09-28 12:27 | PDOC ---
PROGRESS NOTES Chief Complaint Chief Complaint Hematochezia ASSESSMENT AND PLAN: 1. GIB: s/p EGD yesterday with findings of nonbleeding ulcer, gastritis. no Cscope planned. 2. Anemia: chronic vs acute, chronic inflammation, chronic GIB. Hgb now stable after PRBC x2. oral iron daily 3. GURPREET: appreciate Dr Talbert's input. unfortunately, meds given this AM already. cautious with IVF. has high dose furosemide also 4. CKD3: baseline creat ~1.3 5. CHF: systolic (EF 25%); nonischemic cardiomyopathy. awaiting Dr Alcazar input 6. RA: continue home meds 7. Narcotic seeking: trying to bargain with RN to get double PO and or IV narcotics. continue home regimen, 10-15 mg oxy q6h PRN History of Present Illness History of Present Illness in good spirits. no GI pain, but claims ongoing bleeding Vitals Vitals Vital Signs Date Time Temp Pulse Resp B/P (MAP) Pulse Ox O2 Delivery O2 Flow Rate FiO2 09/28/16 11:35 Room Air 09/28/16 11:34 96 109/58 09/28/16 11:00 98.9 20 93 98.9 Physical Exam General: Alert, Oriented X3, Cooperative, No acute distress Heart: Regular rate Lungs: Clear Abdomen: Normal bowel sounds, No tenderness, Other (EPI PAIN ON PALPATION) Extremities: Other (RA hand deformities) Skin: No rashes, No breakdown Labs LABS Laboratory Tests Test 09/27/16 19:15 09/28/16 06:29 White Blood Count 6.6 x10^3/uL (4.0-11.0) 5.2 x10^3/uL (4.0-11.0) Red Blood Count 4.34 x10^6/uL (3.50-5.40) 4.22 x10^6/uL (3.50-5.40) Hemoglobin 10.6 g/dL (12.0-15.5) 10.0 g/dL (12.0-15.5) Hematocrit 31.3 % (36.0-47.0) 31.0 % (36.0-47.0) Mean Corpuscular Volume 72 fL (79-100) 73 fL (79-100) Mean Corpuscular Hemoglobin 25 pg (25-35) 24 pg (25-35) Mean Corpuscular Hemoglobin Concent 34 g/dL (31-37) 32 g/dL (31-37) Red Cell Distribution Width 18.0 % (11.5-14.5) 18.4 % (11.5-14.5) Platelet Count 398 x10^3/uL (140-400) 408 x10^3/uL (140-400) Neutrophils (%) (Auto) 54 % (31-73) Lymphocytes (%) (Auto) 31 % (24-48) Monocytes (%) (Auto) 5 % (0-9) Eosinophils (%) (Auto) 11 % (0-3) Basophils (%) (Auto) 0 % (0-3) Neutrophils # (Auto) 2.8 x10^3uL (1.8-7.7) Lymphocytes # (Auto) 1.6 x10^3/uL (1.0-4.8) Monocytes # (Auto) 0.3 x10^3/uL (0.0-1.1) Eosinophils # (Auto) 0.5 x10^3/uL (0.0-0.7) Basophils # (Auto) 0.0 x10^3/uL (0.0-0.2) Sodium Level 131 mmol/L (136-145) Potassium Level 4.2 mmol/L (3.5-5.1) Chloride Level 94 mmol/L (98-107) Carbon Dioxide Level 30 mmol/L (21-32) Anion Gap 7 (6-14) Blood Urea Nitrogen 32 mg/dL (7-20) Creatinine 2.1 mg/dL (0.6-1.0) Estimated GFR (Cockcroft-Gault) 27.9 BUN/Creatinine Ratio 15 (6-20) Glucose Level 98 mg/dL (70-99) Calcium Level 8.5 mg/dL (8.5-10.1) Total Bilirubin 0.4 mg/dL (0.2-1.0) Aspartate Amino Transf (AST/SGOT) 23 U/L (15-37) Alanine Aminotransferase (ALT/SGPT) 18 U/L (14-59) Alkaline Phosphatase 140 U/L (46-116) Total Protein 7.2 g/dL (6.4-8.2) Albumin 3.0 g/dL (3.4-5.0) Albumin/Globulin Ratio 0.7 (1.0-1.7) Comment Review of Relevant I have reviewed the following items scott (where applicable) has been applied. Labs Laboratory Tests Test 09/26/16 23:20 09/26/16 23:45 09/27/16 09:40 09/27/16 11:57 White Blood Count 5.6 x10^3/uL (4.0-11.0) Red Blood Count 2.91 x10^6/uL (3.50-5.40) Hemoglobin 6.5 g/dL (12.0-15.5) Hematocrit 19.8 % (36.0-47.0) Mean Corpuscular Volume 68 fL (79-100) Mean Corpuscular Hemoglobin 22 pg (25-35) Mean Corpuscular Hemoglobin Concent 33 g/dL (31-37) Red Cell Distribution Width 16.3 % (11.5-14.5) Platelet Count 396 x10^3/uL (140-400) Neutrophils (%) (Auto) 59 % (31-73) Lymphocytes (%) (Auto) 24 % (24-48) Monocytes (%) (Auto) 6 % (0-9) Eosinophils (%) (Auto) 11 % (0-3) Basophils (%) (Auto) 0 % (0-3) Neutrophils # (Auto) 3.3 x10^3uL (1.8-7.7) Lymphocytes # (Auto) 1.3 x10^3/uL (1.0-4.8) Monocytes # (Auto) 0.3 x10^3/uL (0.0-1.1) Eosinophils # (Auto) 0.6 x10^3/uL (0.0-0.7) Basophils # (Auto) 0.0 x10^3/uL (0.0-0.2) Platelet Estimate Adequate (ADEQUATE) Large Platelets Present Hypochromasia Mod Anisocytosis Slight Microcytosis Marked Prothrombin Time 13.0 SEC (11.7-14.0) Prothromb Time International Ratio 1.0 (0.8-1.1) Sodium Level 129 mmol/L (136-145) Potassium Level 4.5 mmol/L (3.5-5.1) Chloride Level 94 mmol/L (98-107) Carbon Dioxide Level 29 mmol/L (21-32) Anion Gap 6 (6-14) Blood Urea Nitrogen 34 mg/dL (7-20) Creatinine 2.6 mg/dL (0.6-1.0) Estimated GFR (Cockcroft-Gault) 21.8 BUN/Creatinine Ratio 13 (6-20) Glucose Level 99 mg/dL (70-99) Calcium Level 8.0 mg/dL (8.5-10.1) Total Bilirubin 0.5 mg/dL (0.2-1.0) Aspartate Amino Transf (AST/SGOT) 23 U/L (15-37) Alanine Aminotransferase (ALT/SGPT) 17 U/L (14-59) Alkaline Phosphatase 135 U/L (46-116) Troponin I Quantitative 0.025 ng/mL (0.000-0.055) QR-Ryt-S-Type Natriuretic Peptide 555 pg/mL (0-124) Total Protein 7.4 g/dL (6.4-8.2) Albumin 3.0 g/dL (3.4-5.0) Albumin/Globulin Ratio 0.7 (1.0-1.7) Lipase 157 U/L (73-393) Urine Collection Type Unknown Urine Color Yellow Urine Clarity Clear Urine pH 7.5 Urine Specific [place] 1.010 Urine Protein Negative mg/dL (NEG-TRACE) Urine Glucose (UA) Negative mg/dL (NEG) Urine Ketones (Stick) Negative mg/dL (NEG) Urine Blood Trace (NEG) Urine Nitrite Negative (NEG) Urine Bilirubin Negative (NEG) Urine Urobilinogen Dipstick 0.2 mg/dL (0.2 mg/dL) Urine Leukocyte Esterase Trace (NEG) Urine RBC 0 /HPF (0-2) Urine WBC 1-4 /HPF (0-4) Urine Squamous Epithelial Cells Few /LPF Urine Bacteria Few /HPF (0-FEW) Urine Hyaline Casts Moderate /HPF Stool Occult Blood Positive (NEG) Reticulocyte Count (auto) 1.6 % (0.5-2.5) Iron Level 93 ug/dL (50-170) Total Iron Binding Capacity 391 ug/dL (250-450) Iron Saturation 24 % (15-34) Vitamin B12 Level > 2000 pg/mL (247-911) Serum Folate 10.69 ng/ml (3.2-20.0) Glucose (Fingerstick) 91 mg/dL (70-99) Test 09/27/16 19:15 09/28/16 06:29 White Blood Count 6.6 x10^3/uL (4.0-11.0) 5.2 x10^3/uL (4.0-11.0) Red Blood Count 4.34 x10^6/uL (3.50-5.40) 4.22 x10^6/uL (3.50-5.40) Hemoglobin 10.6 g/dL (12.0-15.5) 10.0 g/dL (12.0-15.5) Hematocrit 31.3 % (36.0-47.0) 31.0 % (36.0-47.0) Mean Corpuscular Volume 72 fL (79-100) 73 fL (79-100) Mean Corpuscular Hemoglobin 25 pg (25-35) 24 pg (25-35) Mean Corpuscular Hemoglobin Concent 34 g/dL (31-37) 32 g/dL (31-37) Red Cell Distribution Width 18.0 % (11.5-14.5) 18.4 % (11.5-14.5) Platelet Count 398 x10^3/uL (140-400) 408 x10^3/uL (140-400) Neutrophils (%) (Auto) 54 % (31-73) Lymphocytes (%) (Auto) 31 % (24-48) Monocytes (%) (Auto) 5 % (0-9) Eosinophils (%) (Auto) 11 % (0-3) Basophils (%) (Auto) 0 % (0-3) Neutrophils # (Auto) 2.8 x10^3uL (1.8-7.7) Lymphocytes # (Auto) 1.6 x10^3/uL (1.0-4.8) Monocytes # (Auto) 0.3 x10^3/uL (0.0-1.1) Eosinophils # (Auto) 0.5 x10^3/uL (0.0-0.7) Basophils # (Auto) 0.0 x10^3/uL (0.0-0.2) Sodium Level 131 mmol/L (136-145) Potassium Level 4.2 mmol/L (3.5-5.1) Chloride Level 94 mmol/L (98-107) Carbon Dioxide Level 30 mmol/L (21-32) Anion Gap 7 (6-14) Blood Urea Nitrogen 32 mg/dL (7-20) Creatinine 2.1 mg/dL (0.6-1.0) Estimated GFR (Cockcroft-Gault) 27.9 BUN/Creatinine Ratio 15 (6-20) Glucose Level 98 mg/dL (70-99) Calcium Level 8.5 mg/dL (8.5-10.1) Total Bilirubin 0.4 mg/dL (0.2-1.0) Aspartate Amino Transf (AST/SGOT) 23 U/L (15-37) Alanine Aminotransferase (ALT/SGPT) 18 U/L (14-59) Alkaline Phosphatase 140 U/L (46-116) Total Protein 7.2 g/dL (6.4-8.2) Albumin 3.0 g/dL (3.4-5.0) Albumin/Globulin Ratio 0.7 (1.0-1.7) Laboratory Tests Test 09/27/16 19:15 09/28/16 06:29 White Blood Count 6.6 x10^3/uL (4.0-11.0) 5.2 x10^3/uL (4.0-11.0) Red Blood Count 4.34 x10^6/uL (3.50-5.40) 4.22 x10^6/uL (3.50-5.40) Hemoglobin 10.6 g/dL (12.0-15.5) 10.0 g/dL (12.0-15.5) Hematocrit 31.3 % (36.0-47.0) 31.0 % (36.0-47.0) Mean Corpuscular Volume 72 fL (79-100) 73 fL (79-100) Mean Corpuscular Hemoglobin 25 pg (25-35) 24 pg (25-35) Mean Corpuscular Hemoglobin Concent 34 g/dL (31-37) 32 g/dL (31-37) Red Cell Distribution Width 18.0 % (11.5-14.5) 18.4 % (11.5-14.5) Platelet Count 398 x10^3/uL (140-400) 408 x10^3/uL (140-400) Neutrophils (%) (Auto) 54 % (31-73) Lymphocytes (%) (Auto) 31 % (24-48) Monocytes (%) (Auto) 5 % (0-9) Eosinophils (%) (Auto) 11 % (0-3) Basophils (%) (Auto) 0 % (0-3) Neutrophils # (Auto) 2.8 x10^3uL (1.8-7.7) Lymphocytes # (Auto) 1.6 x10^3/uL (1.0-4.8) Monocytes # (Auto) 0.3 x10^3/uL (0.0-1.1) Eosinophils # (Auto) 0.5 x10^3/uL (0.0-0.7) Basophils # (Auto) 0.0 x10^3/uL (0.0-0.2) Sodium Level 131 mmol/L (136-145) Potassium Level 4.2 mmol/L (3.5-5.1) Chloride Level 94 mmol/L (98-107) Carbon Dioxide Level 30 mmol/L (21-32) Anion Gap 7 (6-14) Blood Urea Nitrogen 32 mg/dL (7-20) Creatinine 2.1 mg/dL (0.6-1.0) Estimated GFR (Cockcroft-Gault) 27.9 BUN/Creatinine Ratio 15 (6-20) Glucose Level 98 mg/dL (70-99) Calcium Level 8.5 mg/dL (8.5-10.1) Total Bilirubin 0.4 mg/dL (0.2-1.0) Aspartate Amino Transf (AST/SGOT) 23 U/L (15-37) Alanine Aminotransferase (ALT/SGPT) 18 U/L (14-59) Alkaline Phosphatase 140 U/L (46-116) Total Protein 7.2 g/dL (6.4-8.2) Albumin 3.0 g/dL (3.4-5.0) Albumin/Globulin Ratio 0.7 (1.0-1.7) Medications Current Medications Acetaminophen (Tylenol) 650 mg 1X PRN PRN PO PRN prior to blood transfusion; Start 09/26/16 at 23:45; Stop 09/27/16 at 23:44; Status DC Furosemide (Lasix) 40 mg 1X PRN PRN IV blood transfusion Last administered on 08:33; Start 09/26/16 at 23:45; Stop 09/27/16 at 23:44; Status DC Ondansetron HCl (Zofran) 4 mg PRN Q8HRS PRN IV NAUSEA/VOMITING; Start 09/27/16 at 00:45; Stop 09/28/16 at 00:44; Status DC Fentanyl Citrate (Fentanyl 2ml Vial) 50 mcg PRN Q2HR PRN IV PAIN Last administered on 09/27/16 13:38; Start 09/27/16 at 00:45; Stop 09/28/16 at 00:44 ; Status DC Sodium Chloride 1,000 ml @ 125 mls/hr Q8H IV Last administered on 09/27/16 03 :00; Start 09/27/16 at 00:36; Stop 09/28/16 at 00:35; Status DC Ondansetron HCl (Zofran) 4 mg PRN Q8HRS PRN IV NAUSEA/VOMITING; Start 09/27/16 at 01:30; Stop 09/27/16 at 02:18; Status DC Fentanyl Citrate (Fentanyl 2ml Vial) 50 mcg PRN Q2HRS PRN IV SEVERE PAIN; Start 09/27/16 at 01:30; Stop 09/27/16 at 02:18; Status DC Sodium Chloride 1,000 ml @ 125 mls/hr Q8H IV ; Start 09/27/16 at 01:30; Stop at 02:18; Status DC Pantoprazole Sodium (Protonix Vial) 40 mg DAILYAC IVP Last administered on 09/27 09:15; Start 09/27/16 at 08:30; Stop 09/27/16 at 15:00; Status DC Ondansetron HCl (Zofran) 4 mg PRN Q6HRS PRN IV NAUSEA/VOMITING; Start 09/27/16 at 11:00; Stop 09/28/16 at 10:59; Status DC Fentanyl Citrate (Fentanyl 2ml Vial) 25 mcg PRN Q5MIN PRN IV MILD PAIN; Start 09/27/16 at 11:00; Stop 09/28/16 at 10:59; Status DC Fentanyl Citrate (Fentanyl 2ml Vial) 50 mcg PRN Q5MIN PRN IV MODERATE PAIN; Start 09/27/16 at 11:00; Stop 09/28/16 at 10:59; Status DC Morphine Sulfate 1 mg PRN Q10MIN PRN IV SEVERE PAIN; Start 09/27/16 at 11:00; Stop 09/28/16 at 10:59; Status DC Ringer's Solution 1,000 ml @ 30 mls/hr Q24H IV Last administered on 09/27/16 13:39; Start 09/27/16 at 10:54; Stop 09/27/16 at 22:53; Status DC Lidocaine HCl 2 ml PRN 1X PRN ID PRIOR TO IV START; Start 09/27/16 at 11:00; Stop 09/28/16 at 10:59; Status DC Hydromorphone HCl (Dilaudid) 0.5 mg PRN Q10MIN PRN IV SEV PAIN, Second choice; Start 09/27/16 at 11:00; Stop 09/28/16 at 10:59; Status DC Prochlorperazine Edisylate (Compazine) 5 mg PACU PRN PRN IV NAUSEA, MRX1; Start 09/27/16 at 11:00; Stop 09/28/16 at 10:59; Status DC Atorvastatin Calcium (Lipitor) 20 mg HS PO Last administered on 09/27/16 21:50 ; Start 09/27/16 at 21:00 Diazepam (Valium) 5 mg BID PO Last administered on 09/28/16 08:25; Start 09/27 at 12:30 Dicyclomine HCl (Bentyl) 10 mg PRN Q6HRS PRN PO ABDOMINAL CRAMPS Last administered on 09/28/16 06:22; Start 09/27/16 at 12:15 Furosemide (Lasix) 80 mg TIDWMEALS PO Last administered on 09/28/16 08:22; Start 09/27/16 at 12:30; Stop 09/28/16 at 11:10; Status DC Isosorbide Mononitrate (Imdur) 60 mg BID PO Last administered on 09/28/16 08: 24; Start 09/27/16 at 12:30 Lisinopril (Prinivil) 5 mg DAILY PO ; Start 09/28/16 at 09:00; Stop 09/28/16 at 09:00; Status DC Lisinopril (Prinivil) 5 mg DAILY PO Last administered on 09/28/16 08:23; Start 09/27/16 at 12:30; Stop 09/28/16 at 10:47; Status DC Metoprolol Tartrate (Lopressor) 25 mg BID PO Last administered on 09/28/16 11: 34; Start 09/27/16 at 12:30 Nitroglycerin (Nitro-Dur 0.4mg) 1 patch DAILY TD Last administered on 08:26; Start 09/27/16 at 12:30 Nitroglycerin (Nitro-Dur 0.4mg) 1 patch DAILY TD ; Start 09/28/16 at 09:00; Stop 09/28/16 at 09:00; Status DC Nitroglycerin (Nitrostat) 0.4 mg PRN Q5MIN PRN SL CHEST PAIN; Start 09/27/16 at 12:15 Nortriptyline HCl (Pamelor) 25 mg BID PO Last administered on 09/28/16 08:25; Start 09/27/16 at 12:30 Oxycodone/ Acetaminophen (Percocet 10/325) 1 tab PRN Q6HRS PRN PO MODERATE PAIN Last administered on 09/28/16 11:35; Start 09/27/16 at 12:15 Oxycodone/ Acetaminophen (Percocet 7.5/ 325) 1 tab PRN Q6HRS PRN PO MILD PAIN; Start 09/27/16 at 12:15 Potassium Chloride (Klor-Con) 20 meq 5XDAY PO Last administered on 09/28/16 11 :34; Start 09/27/16 at 14:00 Sucralfate (Carafate) 1 gm BIDAC PO Last administered on 09/28/16 08:22; Start 09/27/16 at 16:30 Metolazone (Zaroxolyn) 5 mg DAILY PO Last administered on 09/28/16 08:24; Start 09/27/16 at 12:30; Stop 09/28/16 at 10:47; Status DC Non-Formulary Medication 1 cap DAILY PO ; Start 09/28/16 at 09:00; Status UNV Non-Formulary Medication 20 meq 5XDAY PO ; Start 09/27/16 at 14:00; Status UNV Oxycodone/ Acetaminophen (Percocet 7.5/ 325) 2 tab PRN Q6HRS PRN PO SEVERE PAIN ; Start 09/27/16 at 12:15 Propofol 20 ml @ As Directed STK-MED ONCE IV ; Start 09/27/16 at 14:21; Stop 04/05 at 14:22; Status DC Propofol 20 ml @ As Directed STK-MED ONCE IV ; Start 09/27/16 at 14:38; Stop 04/05 at 14:39; Status DC Pantoprazole Sodium (Protonix) 40 mg DAILYAC PO Last administered on 09/28/16 08:22; Start 09/28/16 at 07:30 Sodium Chloride 1,000 ml @ 75 mls/hr [id number] IV Last administered on 11:35; Start 09/28/16 at 11:15 Active Scripts Active Reported NITRO-DUR 0.4mg/hr (Nitroglycerin) 1 Each Patch.td24 1 Each TD DAILY Potassium Chloride 10 Meq Tablet.er 20 Meq PO 5XDAY Percocet 10-325 Mg Tablet (Oxycodone/Acetaminophen) 1 Each Tablet 1 Tab PO PRN Q6HRS PRN Lisinopril 5 Mg Tablet 1 Tab PO DAILY Carafate (Sucralfate) 1 Gm Tablet 1 Tab PO BID Dicyclomine Hcl 10 Mg Capsule 1 Cap PO PRN Q6HRS Valium (Diazepam) 5 Mg Tablet 5 Mg PO BID Omeprazole 40 Mg Capsule.dr 1 Cap PO DAILY Nortriptyline Hcl 25 Mg Capsule 25 Mg PO BID Lipitor (Atorvastatin Calcium) 20 Mg Tablet 20 Mg PO HS Percocet 7.5-325 Mg Tablet (Oxycodone/Acetaminophen) 1 Each Tablet 1-2 Tab PO PRN Q6HRS PRN NITROGLYCERIN SubLingual (Nitroglycerin) 0.4 Mg Tab.subl 0.4 Mg SL PRN Q5MIN PRN Metoprolol Tartrate 50 Mg Tablet 25 Mg PO BID Lisinopril 5 Mg Tablet 5 Mg PO DAILY NITRO-DUR 0.4mg/hr (Nitroglycerin) 1 Each Patch.td24 1 Each TD DAILY Isosorbide Mononitrate Er (Isosorbide Mononitrate) 60 Mg Tab.er.24h 60 Mg PO BID Metolazone 5 Mg Tablet 5 Mg PO DAILY Potassium Chloride 20 Meq Tab.er.prt 20 Meq PO 5XDAY Lasix (Furosemide) 80 Mg Tablet 80 Mg PO TID Vitals/I & O Vital Sign - Last 24 Hours 09/27/16 09/27/16 09/27/16 09/27/16 13:25 13:27 13:38 14:45 Temp 98 97.4 98.0 97.4 Pulse 77 85 Resp 20 18 16 B/P (MAP) 144/74 Pulse Ox 94 94 O2 Delivery Room Air Room Air Room Air 09/27/16 09/27/16 09/27/16 09/27/16 14:55 15:00 15:07 16:02 Temp 98.3 98.3 Pulse 82 78 79 Resp 16 16 16 B/P (MAP) 145/75 119/68 (85) 140/68 Pulse Ox 94 96 94 O2 Delivery Room Air Room Air Room Air Room Air 09/27/16 09/27/16 09/27/16 09/27/16 17:57 18:10 19:00 20:06 Temp 98.4 98.4 Pulse 79 81 Resp 18 B/P (MAP) 140/68 124/62 (82) Pulse Ox 94 95 O2 Delivery Room Air Room Air Room Air 09/27/16 09/27/16 09/27/16 09/27/16 21:50 21:50 21:51 23:04 Temp 98.2 98.2 Pulse 81 81 77 Resp 20 20 B/P (MAP) 124/62 124/62 112/58 (76) Pulse Ox 95 92 O2 Delivery Room Air Room Air 09/28/16 09/28/16 09/28/16 09/28/16 03:00 05:50 06:56 07:00 Temp 98.3 98.5 98.3 98.5 Pulse 74 75 Resp 20 22 22 16 B/P (MAP) 102/59 (73) 97/50 (66) Pulse Ox 93 93 93 93 O2 Delivery Room Air Room Air Room Air Room Air 09/28/16 09/28/16 09/28/16 09/28/16 08:00 08:23 08:24 11:00 Temp 98.9 98.9 Pulse 76 77 96 Resp 20 B/P (MAP) 114/55 114/55 109/58 (75) Pulse Ox 93 O2 Delivery Room Air Room Air 09/28/16 09/28/16 11:34 11:35 Pulse 96 B/P (MAP) 109/58 O2 Delivery Room Air Intake and Output 09/27/16 09/27/16 09/28/16 15:00 23:00 07:00 Intake Total 960 ml 240 ml 600 ml Output Total 1700 ml 1475 ml 950 ml Balance -740 ml -1235 ml -350 ml ROBERT BAUTISTA MD September 28, 2016 12:27
--- NOTE | 2016-09-28 14:34 | PDOC2 ---
CONSULT Date of Consult Date of Consult DATE: 09/28/16 TIME: 14:26 Reason for Consult Reason for Consult: CHF Referring Physician Referring Physician: Dr. Long Identification/Chief Complaint Chief Complaint GI bleed History of Present Illness Reason for Visit: This patient is a 71-year-old lady with a known history of a non-ischemic cardiomyopathy that had a heart catheterization about it a year ago with a global left ventricular ejection fraction of 25% and no significant coronary artery disease. She has hypertension as well as a history of obesity and is post gastric bypass. I have been following the patient for some time. She has been getting very weak and her level of activity is markedly decreased. She used to be very active and now she can barely do any walking. The last time I saw her in the office she was very upset and irritated with her as well as her overall condition. We had a talk about her situation. She now comes in after having some GI bleeding. At the time that I examined her she denies having any dyspnea but complains of some leg edema. I had prescribed Lasix 80 mg once a day to the patient as an outpatient but apparently she has been taking 80 mg 3 times a day and her BUN/creatinine and creatinine are elevated. No chest pains, no palpitations, no loss of consciousness. Past Medical History Cardiovascular: CHF, HTN, Other GI: GERD Psych: Anxiety Musculoskeletal: Osteoarthritis, Weakness, Swelling Renal/: Chronic renal insuff Family History Family History: No Significant Social History No ALCOHOL: none Drugs: None Current Problem List Problem List Problems Medical Problems: (1) Anemia Status: Acute (2) Lower GI bleed Status: Acute Current Medications Current Medications Current Medications Acetaminophen (Tylenol) 650 mg 1X PRN PRN PO PRN prior to blood transfusion; Start 09/26/16 at 23:45; Stop 09/27/16 at 23:44; Status DC Furosemide (Lasix) 40 mg 1X PRN PRN IV blood transfusion Last administered on t 08:33; Start 09/26/16 at 23:45; Stop 09/27/16 at 23:44; Status DC Ondansetron HCl (Zofran) 4 mg PRN Q8HRS PRN IV NAUSEA/VOMITING; Start 09/27/16 at 00:45; Stop 09/28/16 at 00:44; Status DC Fentanyl Citrate (Fentanyl 2ml Vial) 50 mcg PRN Q2HR PRN IV PAIN Last administered on 09/27/16 13:38; Start 09/27/16 at 00:45; Stop 09/28/16 at 00:44 ; Status DC Sodium Chloride 1,000 ml @ 125 mls/hr Q8H IV Last administered on 09/27/16 03 :00; Start 09/27/16 at 00:36; Stop 09/28/16 at 00:35; Status DC Ondansetron HCl (Zofran) 4 mg PRN Q8HRS PRN IV NAUSEA/VOMITING; Start 09/27/16 at 01:30; Stop 09/27/16 at 02:18; Status DC Fentanyl Citrate (Fentanyl 2ml Vial) 50 mcg PRN Q2HRS PRN IV SEVERE PAIN; Start 09/27/16 at 01:30; Stop 09/27/16 at 02:18; Status DC Sodium Chloride 1,000 ml @ 125 mls/hr Q8H IV ; Start 09/27/16 at 01:30; Stop at 02:18; Status DC Pantoprazole Sodium (Protonix Vial) 40 mg DAILYAC IVP Last administered on 09/27 09:15; Start 09/27/16 at 08:30; Stop 09/27/16 at 15:00; Status DC Ondansetron HCl (Zofran) 4 mg PRN Q6HRS PRN IV NAUSEA/VOMITING; Start 09/27/16 at 11:00; Stop 09/28/16 at 10:59; Status DC Fentanyl Citrate (Fentanyl 2ml Vial) 25 mcg PRN Q5MIN PRN IV MILD PAIN; Start 09/27/16 at 11:00; Stop 09/28/16 at 10:59; Status DC Fentanyl Citrate (Fentanyl 2ml Vial) 50 mcg PRN Q5MIN PRN IV MODERATE PAIN; Start 09/27/16 at 11:00; Stop 09/28/16 at 10:59; Status DC Morphine Sulfate 1 mg PRN Q10MIN PRN IV SEVERE PAIN; Start 09/27/16 at 11:00; Stop 09/28/16 at 10:59; Status DC Ringer's Solution 1,000 ml @ 30 mls/hr Q24H IV Last administered on 09/27/16 13:39; Start 09/27/16 at 10:54; Stop 09/27/16 at 22:53; Status DC Lidocaine HCl 2 ml PRN 1X PRN ID PRIOR TO IV START; Start 09/27/16 at 11:00; Stop 09/28/16 at 10:59; Status DC Hydromorphone HCl (Dilaudid) 0.5 mg PRN Q10MIN PRN IV SEV PAIN, Second choice; Start 09/27/16 at 11:00; Stop 09/28/16 at 10:59; Status DC Prochlorperazine Edisylate (Compazine) 5 mg PACU PRN PRN IV NAUSEA, MRX1; Start 09/27/16 at 11:00; Stop 09/28/16 at 10:59; Status DC Atorvastatin Calcium (Lipitor) 20 mg HS PO Last administered on 09/27/16 21:50 ; Start 09/27/16 at 21:00 Diazepam (Valium) 5 mg BID PO Last administered on 09/28/16 08:25; Start 09/27 at 12:30 Dicyclomine HCl (Bentyl) 10 mg PRN Q6HRS PRN PO ABDOMINAL CRAMPS Last administered on 09/28/16 06:22; Start 09/27/16 at 12:15 Furosemide (Lasix) 80 mg TIDWMEALS PO Last administered on 09/28/16 08:22; Start 09/27/16 at 12:30; Stop 09/28/16 at 11:10; Status DC Isosorbide Mononitrate (Imdur) 60 mg BID PO Last administered on 09/28/16 08: 24; Start 09/27/16 at 12:30 Lisinopril (Prinivil) 5 mg DAILY PO ; Start 09/28/16 at 09:00; Stop 09/28/16 at 09:00; Status DC Lisinopril (Prinivil) 5 mg DAILY PO Last administered on 09/28/16 08:23; Start 09/27/16 at 12:30; Stop 09/28/16 at 10:47; Status DC Metoprolol Tartrate (Lopressor) 25 mg BID PO Last administered on 09/28/16 11: 34; Start 09/27/16 at 12:30 Nitroglycerin (Nitro-Dur 0.4mg) 1 patch DAILY TD Last administered on 08:26; Start 09/27/16 at 12:30 Nitroglycerin (Nitro-Dur 0.4mg) 1 patch DAILY TD ; Start 09/28/16 at 09:00; Stop 09/28/16 at 09:00; Status DC Nitroglycerin (Nitrostat) 0.4 mg PRN Q5MIN PRN SL CHEST PAIN; Start 09/27/16 at 12:15 Nortriptyline HCl (Pamelor) 25 mg BID PO Last administered on 09/28/16 08:25; Start 09/27/16 at 12:30 Oxycodone/ Acetaminophen (Percocet 10/325) 1 tab PRN Q6HRS PRN PO MODERATE PAIN Last administered on 09/28/16 11:35; Start 09/27/16 at 12:15 Oxycodone/ Acetaminophen (Percocet 7.5/ 325) 1 tab PRN Q6HRS PRN PO MILD PAIN; Start 09/27/16 at 12:15 Potassium Chloride (Klor-Con) 20 meq 5XDAY PO Last administered on 09/28/16 11 :34; Start 09/27/16 at 14:00 Sucralfate (Carafate) 1 gm BIDAC PO Last administered on 09/28/16 08:22; Start 09/27/16 at 16:30 Metolazone (Zaroxolyn) 5 mg DAILY PO Last administered on 09/28/16 08:24; Start 09/27/16 at 12:30; Stop 09/28/16 at 10:47; Status DC Non-Formulary Medication 1 cap DAILY PO ; Start 09/28/16 at 09:00; Status UNV Non-Formulary Medication 20 meq 5XDAY PO ; Start 09/27/16 at 14:00; Status UNV Oxycodone/ Acetaminophen (Percocet 7.5/ 325) 2 tab PRN Q6HRS PRN PO SEVERE PAIN ; Start 09/27/16 at 12:15 Propofol 20 ml @ As Directed STK-MED ONCE IV ; Start 09/27/16 at 14:21; Stop 04/05 at 14:22; Status DC Propofol 20 ml @ As Directed STK-MED ONCE IV ; Start 09/27/16 at 14:38; Stop 04/05 at 14:39; Status DC Pantoprazole Sodium (Protonix) 40 mg DAILYAC PO Last administered on 09/28/16 08:22; Start 09/28/16 at 07:30 Sodium Chloride 1,000 ml @ 75 mls/hr [id number] IV Last administered on 11:35; Start 09/28/16 at 11:15 Active Scripts Active Reported NITRO-DUR 0.4mg/hr (Nitroglycerin) 1 Each Patch.td24 1 Each TD DAILY Potassium Chloride 10 Meq Tablet.er 20 Meq PO 5XDAY Percocet 10-325 Mg Tablet (Oxycodone/Acetaminophen) 1 Each Tablet 1 Tab PO PRN Q6HRS PRN Lisinopril 5 Mg Tablet 1 Tab PO DAILY Carafate (Sucralfate) 1 Gm Tablet 1 Tab PO BID Dicyclomine Hcl 10 Mg Capsule 1 Cap PO PRN Q6HRS Valium (Diazepam) 5 Mg Tablet 5 Mg PO BID Omeprazole 40 Mg Capsule.dr 1 Cap PO DAILY Nortriptyline Hcl 25 Mg Capsule 25 Mg PO BID Lipitor (Atorvastatin Calcium) 20 Mg Tablet 20 Mg PO HS Percocet 7.5-325 Mg Tablet (Oxycodone/Acetaminophen) 1 Each Tablet 1-2 Tab PO PRN Q6HRS PRN NITROGLYCERIN SubLingual (Nitroglycerin) 0.4 Mg Tab.subl 0.4 Mg SL PRN Q5MIN PRN Metoprolol Tartrate 50 Mg Tablet 25 Mg PO BID Lisinopril 5 Mg Tablet 5 Mg PO DAILY NITRO-DUR 0.4mg/hr (Nitroglycerin) 1 Each Patch.td24 1 Each TD DAILY Isosorbide Mononitrate Er (Isosorbide Mononitrate) 60 Mg Tab.er.24h 60 Mg PO BID Metolazone 5 Mg Tablet 5 Mg PO DAILY Potassium Chloride 20 Meq Tab.er.prt 20 Meq PO 5XDAY Lasix (Furosemide) 80 Mg Tablet 80 Mg PO TID Allergies Allergies: Coded Allergies: aspirin (Verified Allergy, Mild, Nausea and Vomiting, 08/17/15) castor oil (Verified Allergy, Mild, Nausea and Vomiting, 08/17/15) Physical Exam Physical Exam H EENT pupils are reactive. Oral mucosa dry. Neck is supple no JVD. Lungs few crackles no Rales, no wheezing. Heart regular rate and rhythm S1-S2. 1/6 systolic murmur. Abdomen is soft, bowel sounds are present. Extremities 1+ edema, chronic stasis. Vitals VITALS Vital Signs Date Time Temp Pulse Resp B/P (MAP) Pulse Ox O2 Delivery O2 Flow Rate FiO2 09/28/16 12:53 Room Air 09/28/16 11:34 96 109/58 09/28/16 11:00 98.9 20 93 98.9 Labs Labs Laboratory Tests Test 09/26/16 23:20 09/26/16 23:45 09/27/16 09:40 09/27/16 11:57 White Blood Count 5.6 x10^3/uL (4.0-11.0) Red Blood Count 2.91 x10^6/uL (3.50-5.40) Hemoglobin 6.5 g/dL (12.0-15.5) Hematocrit 19.8 % (36.0-47.0) Mean Corpuscular Volume 68 fL (79-100) Mean Corpuscular Hemoglobin 22 pg (25-35) Mean Corpuscular Hemoglobin Concent 33 g/dL (31-37) Red Cell Distribution Width 16.3 % (11.5-14.5) Platelet Count 396 x10^3/uL (140-400) Neutrophils (%) (Auto) 59 % (31-73) Lymphocytes (%) (Auto) 24 % (24-48) Monocytes (%) (Auto) 6 % (0-9) Eosinophils (%) (Auto) 11 % (0-3) Basophils (%) (Auto) 0 % (0-3) Neutrophils # (Auto) 3.3 x10^3uL (1.8-7.7) Lymphocytes # (Auto) 1.3 x10^3/uL (1.0-4.8) Monocytes # (Auto) 0.3 x10^3/uL (0.0-1.1) Eosinophils # (Auto) 0.6 x10^3/uL (0.0-0.7) Basophils # (Auto) 0.0 x10^3/uL (0.0-0.2) Platelet Estimate Adequate (ADEQUATE) Large Platelets Present Hypochromasia Mod Anisocytosis Slight Microcytosis Marked Prothrombin Time 13.0 SEC (11.7-14.0) Prothromb Time International Ratio 1.0 (0.8-1.1) Sodium Level 129 mmol/L (136-145) Potassium Level 4.5 mmol/L (3.5-5.1) Chloride Level 94 mmol/L (98-107) Carbon Dioxide Level 29 mmol/L (21-32) Anion Gap 6 (6-14) Blood Urea Nitrogen 34 mg/dL (7-20) Creatinine 2.6 mg/dL (0.6-1.0) Estimated GFR (Cockcroft-Gault) 21.8 BUN/Creatinine Ratio 13 (6-20) Glucose Level 99 mg/dL (70-99) Calcium Level 8.0 mg/dL (8.5-10.1) Total Bilirubin 0.5 mg/dL (0.2-1.0) Aspartate Amino Transf (AST/SGOT) 23 U/L (15-37) Alanine Aminotransferase (ALT/SGPT) 17 U/L (14-59) Alkaline Phosphatase 135 U/L (46-116) Troponin I Quantitative 0.025 ng/mL (0.000-0.055) FN-Ukg-I-Type Natriuretic Peptide 555 pg/mL (0-124) Total Protein 7.4 g/dL (6.4-8.2) Albumin 3.0 g/dL (3.4-5.0) Albumin/Globulin Ratio 0.7 (1.0-1.7) Lipase 157 U/L (73-393) Urine Collection Type Unknown Urine Color Yellow Urine Clarity Clear Urine pH 7.5 Urine Specific [place] 1.010 Urine Protein Negative mg/dL (NEG-TRACE) Urine Glucose (UA) Negative mg/dL (NEG) Urine Ketones (Stick) Negative mg/dL (NEG) Urine Blood Trace (NEG) Urine Nitrite Negative (NEG) Urine Bilirubin Negative (NEG) Urine Urobilinogen Dipstick 0.2 mg/dL (0.2 mg/dL) Urine Leukocyte Esterase Trace (NEG) Urine RBC 0 /HPF (0-2) Urine WBC 1-4 /HPF (0-4) Urine Squamous Epithelial Cells Few /LPF Urine Bacteria Few /HPF (0-FEW) Urine Hyaline Casts Moderate /HPF Stool Occult Blood Positive (NEG) Reticulocyte Count (auto) 1.6 % (0.5-2.5) Iron Level 93 ug/dL (50-170) Total Iron Binding Capacity 391 ug/dL (250-450) Iron Saturation 24 % (15-34) Vitamin B12 Level > 2000 pg/mL (247-911) Serum Folate 10.69 ng/ml (3.2-20.0) Glucose (Fingerstick) 91 mg/dL (70-99) Test 09/27/16 19:15 09/28/16 06:29 White Blood Count 6.6 x10^3/uL (4.0-11.0) 5.2 x10^3/uL (4.0-11.0) Red Blood Count 4.34 x10^6/uL (3.50-5.40) 4.22 x10^6/uL (3.50-5.40) Hemoglobin 10.6 g/dL (12.0-15.5) 10.0 g/dL (12.0-15.5) Hematocrit 31.3 % (36.0-47.0) 31.0 % (36.0-47.0) Mean Corpuscular Volume 72 fL (79-100) 73 fL (79-100) Mean Corpuscular Hemoglobin 25 pg (25-35) 24 pg (25-35) Mean Corpuscular Hemoglobin Concent 34 g/dL (31-37) 32 g/dL (31-37) Red Cell Distribution Width 18.0 % (11.5-14.5) 18.4 % (11.5-14.5) Platelet Count 398 x10^3/uL (140-400) 408 x10^3/uL (140-400) Neutrophils (%) (Auto) 54 % (31-73) Lymphocytes (%) (Auto) 31 % (24-48) Monocytes (%) (Auto) 5 % (0-9) Eosinophils (%) (Auto) 11 % (0-3) Basophils (%) (Auto) 0 % (0-3) Neutrophils # (Auto) 2.8 x10^3uL (1.8-7.7) Lymphocytes # (Auto) 1.6 x10^3/uL (1.0-4.8) Monocytes # (Auto) 0.3 x10^3/uL (0.0-1.1) Eosinophils # (Auto) 0.5 x10^3/uL (0.0-0.7) Basophils # (Auto) 0.0 x10^3/uL (0.0-0.2) Sodium Level 131 mmol/L (136-145) Potassium Level 4.2 mmol/L (3.5-5.1) Chloride Level 94 mmol/L (98-107) Carbon Dioxide Level 30 mmol/L (21-32) Anion Gap 7 (6-14) Blood Urea Nitrogen 32 mg/dL (7-20) Creatinine 2.1 mg/dL (0.6-1.0) Estimated GFR (Cockcroft-Gault) 27.9 BUN/Creatinine Ratio 15 (6-20) Glucose Level 98 mg/dL (70-99) Calcium Level 8.5 mg/dL (8.5-10.1) Total Bilirubin 0.4 mg/dL (0.2-1.0) Aspartate Amino Transf (AST/SGOT) 23 U/L (15-37) Alanine Aminotransferase (ALT/SGPT) 18 U/L (14-59) Alkaline Phosphatase 140 U/L (46-116) Total Protein 7.2 g/dL (6.4-8.2) Albumin 3.0 g/dL (3.4-5.0) Albumin/Globulin Ratio 0.7 (1.0-1.7) Laboratory Tests Test 09/27/16 19:15 09/28/16 06:29 White Blood Count 6.6 x10^3/uL (4.0-11.0) 5.2 x10^3/uL (4.0-11.0) Red Blood Count 4.34 x10^6/uL (3.50-5.40) 4.22 x10^6/uL (3.50-5.40) Hemoglobin 10.6 g/dL (12.0-15.5) 10.0 g/dL (12.0-15.5) Hematocrit 31.3 % (36.0-47.0) 31.0 % (36.0-47.0) Mean Corpuscular Volume 72 fL (79-100) 73 fL (79-100) Mean Corpuscular Hemoglobin 25 pg (25-35) 24 pg (25-35) Mean Corpuscular Hemoglobin Concent 34 g/dL (31-37) 32 g/dL (31-37) Red Cell Distribution Width 18.0 % (11.5-14.5) 18.4 % (11.5-14.5) Platelet Count 398 x10^3/uL (140-400) 408 x10^3/uL (140-400) Neutrophils (%) (Auto) 54 % (31-73) Lymphocytes (%) (Auto) 31 % (24-48) Monocytes (%) (Auto) 5 % (0-9) Eosinophils (%) (Auto) 11 % (0-3) Basophils (%) (Auto) 0 % (0-3) Neutrophils # (Auto) 2.8 x10^3uL (1.8-7.7) Lymphocytes # (Auto) 1.6 x10^3/uL (1.0-4.8) Monocytes # (Auto) 0.3 x10^3/uL (0.0-1.1) Eosinophils # (Auto) 0.5 x10^3/uL (0.0-0.7) Basophils # (Auto) 0.0 x10^3/uL (0.0-0.2) Sodium Level 131 mmol/L (136-145) Potassium Level 4.2 mmol/L (3.5-5.1) Chloride Level 94 mmol/L (98-107) Carbon Dioxide Level 30 mmol/L (21-32) Anion Gap 7 (6-14) Blood Urea Nitrogen 32 mg/dL (7-20) Creatinine 2.1 mg/dL (0.6-1.0) Estimated GFR (Cockcroft-Gault) 27.9 BUN/Creatinine Ratio 15 (6-20) Glucose Level 98 mg/dL (70-99) Calcium Level 8.5 mg/dL (8.5-10.1) Total Bilirubin 0.4 mg/dL (0.2-1.0) Aspartate Amino Transf (AST/SGOT) 23 U/L (15-37) Alanine Aminotransferase (ALT/SGPT) 18 U/L (14-59) Alkaline Phosphatase 140 U/L (46-116) Total Protein 7.2 g/dL (6.4-8.2) Albumin 3.0 g/dL (3.4-5.0) Albumin/Globulin Ratio 0.7 (1.0-1.7) Assessment/Plan Assessment/Plan This patient comes in with a possible GI bleed and she has chronic renal insufficiency that is probably getting worse and due to the amount of Lasix every day. I would hold her Lasix at this time and actually give her some IV fluids gingerly. She needs a GI workup to evaluate to see if she has any significant bleeding. Thank you very much for asking me to participate in the care of this patient JEROMY MORALES MD September 28, 2016 14:33
[2016-09-28 15:00] VITALS: BP 93/55
[2016-09-28 19:15] VITALS: BP 102/56
[2016-09-28] MEDS: ATORVASTATIN CALCIUM 20 MG TABLET PO SCH (21:05)
[2016-09-28 23:29] VITALS: BP 126/66
[2016-09-29] MEDS: IV NORMAL SALINE 1000ML BAG 1,000 ML IV SCH ×2 (00:35→16:37)
[2016-09-29 02:45] VITALS: BP 112/62
[2016-09-29] MEDS: POTASSIUM CHLORIDE 20 MEQ TABLET.ER. PO SCH ×5 (05:28→21:18)
[2016-09-29] MEDS: oxyCODONE/APAP 10/325 1 TAB TABLET PO PRN ×3 (05:29→19:47)
[2016-09-29 05:53] LABS: CALCIUM 8.7 mg/dL (8.5-10.1); CREATININE 1.8 mg/dL (0.6-1.0); GFR 33.4; POTASSIUM 3.9 mmol/L (3.5-5.1)
[2016-09-29 07:30] VITALS: BP 116/59
[2016-09-29] MEDS: SUCRALFATE 1 GM TABLET. PO SCH ×2 (07:46→16:36)
[2016-09-29] MEDS: PANTOPRAZOLE 40 MG TABLET.DR. PO SCH (07:46)
[2016-09-29] MEDS: METOPROLOL TART IMMED RELEASE 25 MG TABLET. PO SCH ×2 (09:04→21:17)
[2016-09-29] MEDS: diazePAM 5 MG TABLET PO SCH ×2 (09:04→21:17)
[2016-09-29] MEDS: NORTRIPTYLINE 25 MG CAPSULE PO SCH ×2 (09:05→21:18)
[2016-09-29] MEDS: ISOSORBIDE MONONITRATE ER 30 MG TAB.ER.24H PO SCH ×2 (09:05→21:18)
[2016-09-29] MEDS: NITROGLYCERIN 0.4MG/HR PATCH. TD SCH (09:05)
--- NOTE | 2016-09-29 09:13 | PDOC ---
PROGRESS NOTES Subjective Subjective SEEN IN FOLLOW UP OF ARF ON CKD3 Objective Objective Vital Signs Date Time Temp Pulse Resp B/P (MAP) Pulse Ox O2 Delivery O2 Flow Rate FiO2 09/29/16 09:05 80 116/59 09/29/16 07:45 Room Air 09/29/16 07:30 98.2 20 92 98.2 Intake and Output 09/29/16 07:00 Intake Total 1360 ml Output Total 2200 ml Balance -840 ml Intake Oral 460 ml IV Total 900 ml Output Urine Total 2200 ml Physical Exam Abdomen: Normal bowel sounds, Soft, No tenderness, No hepatosplenomegaly, No masses Heart: Regular rate, Normal S1, Normal S2, No murmurs, Gallops Extremities: No clubbing, No cyanosis, No edema, Normal pulses, No tenderness/ swelling General: Alert, Oriented X3, Cooperative, No acute distress Lungs: Clear to auscultation, Normal air movement Psych/Mental Status: Mental status NL, Mood NL Diagnosis RENAL FAILURE: Acute, Chronic (CKD stage III), Other (DEHYDRATION) Assessment Assessment Problems Medical Problems: (1) Anemia Status: Acute (2) Lower GI bleed Status: Acute Plan Plan of Care RENAL FUNCTION IS IMPROVING. WONT FLUID BALANCE AND FOLLOW LAB Comment Review of Relevant I have reviewed the following items scott (where applicable) has been applied. Labs Laboratory Tests Test 09/27/16 09:40 09/27/16 11:57 09/27/16 19:15 09/28/16 06:29 Reticulocyte Count (auto) 1.6 % (0.5-2.5) Iron Level 93 ug/dL (50-170) Total Iron Binding Capacity 391 ug/dL (250-450) Iron Saturation 24 % (15-34) Vitamin B12 Level > 2000 pg/mL (247-911) Serum Folate 10.69 ng/ml (3.2-20.0) Glucose (Fingerstick) 91 mg/dL (70-99) White Blood Count 6.6 x10^3/uL (4.0-11.0) 5.2 x10^3/uL (4.0-11.0) Red Blood Count 4.34 x10^6/uL (3.50-5.40) 4.22 x10^6/uL (3.50-5.40) Hemoglobin 10.6 g/dL (12.0-15.5) 10.0 g/dL (12.0-15.5) Hematocrit 31.3 % (36.0-47.0) 31.0 % (36.0-47.0) Mean Corpuscular Volume 72 fL (79-100) 73 fL (79-100) Mean Corpuscular Hemoglobin 25 pg (25-35) 24 pg (25-35) Mean Corpuscular Hemoglobin Concent 34 g/dL (31-37) 32 g/dL (31-37) Red Cell Distribution Width 18.0 % (11.5-14.5) 18.4 % (11.5-14.5) Platelet Count 398 x10^3/uL (140-400) 408 x10^3/uL (140-400) Neutrophils (%) (Auto) 54 % (31-73) Lymphocytes (%) (Auto) 31 % (24-48) Monocytes (%) (Auto) 5 % (0-9) Eosinophils (%) (Auto) 11 % (0-3) Basophils (%) (Auto) 0 % (0-3) Neutrophils # (Auto) 2.8 x10^3uL (1.8-7.7) Lymphocytes # (Auto) 1.6 x10^3/uL (1.0-4.8) Monocytes # (Auto) 0.3 x10^3/uL (0.0-1.1) Eosinophils # (Auto) 0.5 x10^3/uL (0.0-0.7) Basophils # (Auto) 0.0 x10^3/uL (0.0-0.2) Sodium Level 131 mmol/L (136-145) Potassium Level 4.2 mmol/L (3.5-5.1) Chloride Level 94 mmol/L (98-107) Carbon Dioxide Level 30 mmol/L (21-32) Anion Gap 7 (6-14) Blood Urea Nitrogen 32 mg/dL (7-20) Creatinine 2.1 mg/dL (0.6-1.0) Estimated GFR (Cockcroft-Gault) 27.9 BUN/Creatinine Ratio 15 (6-20) Glucose Level 98 mg/dL (70-99) Calcium Level 8.5 mg/dL (8.5-10.1) Total Bilirubin 0.4 mg/dL (0.2-1.0) Aspartate Amino Transf (AST/SGOT) 23 U/L (15-37) Alanine Aminotransferase (ALT/SGPT) 18 U/L (14-59) Alkaline Phosphatase 140 U/L (46-116) Total Protein 7.2 g/dL (6.4-8.2) Albumin 3.0 g/dL (3.4-5.0) Albumin/Globulin Ratio 0.7 (1.0-1.7) Test 09/29/16 04:40 Sodium Level 134 mmol/L (136-145) Potassium Level 3.9 mmol/L (3.5-5.1) Chloride Level 97 mmol/L (98-107) Carbon Dioxide Level 30 mmol/L (21-32) Anion Gap 7 (6-14) Blood Urea Nitrogen 35 mg/dL (7-20) Creatinine 1.8 mg/dL (0.6-1.0) Estimated GFR (Cockcroft-Gault) 33.4 Glucose Level 93 mg/dL (70-99) Calcium Level 8.7 mg/dL (8.5-10.1) Laboratory Tests Test 09/29/16 04:40 Sodium Level 134 mmol/L (136-145) Potassium Level 3.9 mmol/L (3.5-5.1) Chloride Level 97 mmol/L (98-107) Carbon Dioxide Level 30 mmol/L (21-32) Anion Gap 7 (6-14) Blood Urea Nitrogen 35 mg/dL (7-20) Creatinine 1.8 mg/dL (0.6-1.0) Estimated GFR (Cockcroft-Gault) 33.4 Glucose Level 93 mg/dL (70-99) Calcium Level 8.7 mg/dL (8.5-10.1) Microbiology 09/27/16 Urine Culture - Preliminary, Resulted 09/27/16 Urine Culture Result 1 (TONI) - Preliminary, Resulted Medications Current Medications Acetaminophen (Tylenol) 650 mg 1X PRN PRN PO PRN prior to blood transfusion; Start 09/26/16 at 23:45; Stop 09/27/16 at 23:44; Status DC Furosemide (Lasix) 40 mg 1X PRN PRN IV blood transfusion Last administered on t 08:33; Start 09/26/16 at 23:45; Stop 09/27/16 at 23:44; Status DC Ondansetron HCl (Zofran) 4 mg PRN Q8HRS PRN IV NAUSEA/VOMITING; Start 09/27/16 at 00:45; Stop 09/28/16 at 00:44; Status DC Fentanyl Citrate (Fentanyl 2ml Vial) 50 mcg PRN Q2HR PRN IV PAIN Last administered on 09/27/16 13:38; Start 09/27/16 at 00:45; Stop 09/28/16 at 00:44 ; Status DC Sodium Chloride 1,000 ml @ 125 mls/hr Q8H IV Last administered on 09/27/16 03 :00; Start 09/27/16 at 00:36; Stop 09/28/16 at 00:35; Status DC Ondansetron HCl (Zofran) 4 mg PRN Q8HRS PRN IV NAUSEA/VOMITING; Start 09/27/16 at 01:30; Stop 09/27/16 at 02:18; Status DC Fentanyl Citrate (Fentanyl 2ml Vial) 50 mcg PRN Q2HRS PRN IV SEVERE PAIN; Start 09/27/16 at 01:30; Stop 09/27/16 at 02:18; Status DC Sodium Chloride 1,000 ml @ 125 mls/hr Q8H IV ; Start 09/27/16 at 01:30; Stop at 02:18; Status DC Pantoprazole Sodium (Protonix Vial) 40 mg DAILYAC IVP Last administered on 09/27t 09:15; Start 09/27/16 at 08:30; Stop 09/27/16 at 15:00; Status DC Ondansetron HCl (Zofran) 4 mg PRN Q6HRS PRN IV NAUSEA/VOMITING; Start 09/27/16 at 11:00; Stop 09/28/16 at 10:59; Status DC Fentanyl Citrate (Fentanyl 2ml Vial) 25 mcg PRN Q5MIN PRN IV MILD PAIN; Start 09/27/16 at 11:00; Stop 09/28/16 at 10:59; Status DC Fentanyl Citrate (Fentanyl 2ml Vial) 50 mcg PRN Q5MIN PRN IV MODERATE PAIN; Start 09/27/16 at 11:00; Stop 09/28/16 at 10:59; Status DC Morphine Sulfate 1 mg PRN Q10MIN PRN IV SEVERE PAIN; Start 09/27/16 at 11:00; Stop 09/28/16 at 10:59; Status DC Ringer's Solution 1,000 ml @ 30 mls/hr Q24H IV Last administered on 09/27/16 13:39; Start 09/27/16 at 10:54; Stop 09/27/16 at 22:53; Status DC Lidocaine HCl 2 ml PRN 1X PRN ID PRIOR TO IV START; Start 09/27/16 at 11:00; Stop 09/28/16 at 10:59; Status DC Hydromorphone HCl (Dilaudid) 0.5 mg PRN Q10MIN PRN IV SEV PAIN, Second choice; Start 09/27/16 at 11:00; Stop 09/28/16 at 10:59; Status DC Prochlorperazine Edisylate (Compazine) 5 mg PACU PRN PRN IV NAUSEA, MRX1; Start 09/27/16 at 11:00; Stop 09/28/16 at 10:59; Status DC Atorvastatin Calcium (Lipitor) 20 mg HS PO Last administered on 09/28/16 21:05 ; Start 09/27/16 at 21:00 Diazepam (Valium) 5 mg BID PO Last administered on 09/29/16 09:04; Start 09/27 at 12:30 Dicyclomine HCl (Bentyl) 10 mg PRN Q6HRS PRN PO ABDOMINAL CRAMPS Last administered on 09/28/16 19:40; Start 09/27/16 at 12:15 Furosemide (Lasix) 80 mg TIDWMEALS PO Last administered on 09/28/16 08:22; Start 09/27/16 at 12:30; Stop 09/28/16 at 11:10; Status DC Isosorbide Mononitrate (Imdur) 60 mg BID PO Last administered on 09/29/16 09: 05; Start 09/27/16 at 12:30 Lisinopril (Prinivil) 5 mg DAILY PO ; Start 09/28/16 at 09:00; Stop 09/28/16 at 09:00; Status DC Lisinopril (Prinivil) 5 mg DAILY PO Last administered on 09/28/16 08:23; Start 09/27/16 at 12:30; Stop 09/28/16 at 10:47; Status DC Metoprolol Tartrate (Lopressor) 25 mg BID PO Last administered on 09/29/16 09: 04; Start 09/27/16 at 12:30 Nitroglycerin (Nitro-Dur 0.4mg) 1 patch DAILY TD Last administered on 09:05; Start 09/27/16 at 12:30 Nitroglycerin (Nitro-Dur 0.4mg) 1 patch DAILY TD ; Start 09/28/16 at 09:00; Stop 09/28/16 at 09:00; Status DC Nitroglycerin (Nitrostat) 0.4 mg PRN Q5MIN PRN SL CHEST PAIN; Start 09/27/16 at 12:15 Nortriptyline HCl (Pamelor) 25 mg BID PO Last administered on 09/29/16 09:05; Start 09/27/16 at 12:30 Oxycodone/ Acetaminophen (Percocet 10/325) 1 tab PRN Q6HRS PRN PO MODERATE PAIN Last administered on 09/29/16 05:29; Start 09/27/16 at 12:15 Oxycodone/ Acetaminophen (Percocet 7.5/ 325) 1 tab PRN Q6HRS PRN PO MILD PAIN; Start 09/27/16 at 12:15 Potassium Chloride (Klor-Con) 20 meq 5XDAY PO Last administered on 09/29/16 09 :04; Start 09/27/16 at 14:00 Sucralfate (Carafate) 1 gm BIDAC PO Last administered on 09/29/16 07:46; Start 09/27/16 at 16:30 Metolazone (Zaroxolyn) 5 mg DAILY PO Last administered on 09/28/16 08:24; Start 09/27/16 at 12:30; Stop 09/28/16 at 10:47; Status DC Non-Formulary Medication 1 cap DAILY PO ; Start 09/28/16 at 09:00; Status UNV Non-Formulary Medication 20 meq 5XDAY PO ; Start 09/27/16 at 14:00; Status UNV Oxycodone/ Acetaminophen (Percocet 7.5/ 325) 2 tab PRN Q6HRS PRN PO SEVERE PAIN ; Start 09/27/16 at 12:15 Propofol 20 ml @ As Directed STK-MED ONCE IV ; Start 09/27/16 at 14:21; Stop 04/05 at 14:22; Status DC Propofol 20 ml @ As Directed STK-MED ONCE IV ; Start 09/27/16 at 14:38; Stop 04/05 at 14:39; Status DC Pantoprazole Sodium (Protonix) 40 mg DAILYAC PO Last administered on 09/29/16 07:46; Start 09/28/16 at 07:30 Sodium Chloride 1,000 ml @ 75 mls/hr [id number] IV Last administered on 00:35; Start 09/28/16 at 11:15 Active Scripts Active Reported NITRO-DUR 0.4mg/hr (Nitroglycerin) 1 Each Patch.td24 1 Each TD DAILY Potassium Chloride 10 Meq Tablet.er 20 Meq PO 5XDAY Percocet 10-325 Mg Tablet (Oxycodone/Acetaminophen) 1 Each Tablet 1 Tab PO PRN Q6HRS PRN Lisinopril 5 Mg Tablet 1 Tab PO DAILY Carafate (Sucralfate) 1 Gm Tablet 1 Tab PO BID Dicyclomine Hcl 10 Mg Capsule 1 Cap PO PRN Q6HRS Valium (Diazepam) 5 Mg Tablet 5 Mg PO BID Omeprazole 40 Mg Capsule.dr 1 Cap PO DAILY Nortriptyline Hcl 25 Mg Capsule 25 Mg PO BID Lipitor (Atorvastatin Calcium) 20 Mg Tablet 20 Mg PO HS Percocet 7.5-325 Mg Tablet (Oxycodone/Acetaminophen) 1 Each Tablet 1-2 Tab PO PRN Q6HRS PRN NITROGLYCERIN SubLingual (Nitroglycerin) 0.4 Mg Tab.subl 0.4 Mg SL PRN Q5MIN PRN Metoprolol Tartrate 50 Mg Tablet 25 Mg PO BID Lisinopril 5 Mg Tablet 5 Mg PO DAILY NITRO-DUR 0.4mg/hr (Nitroglycerin) 1 Each Patch.td24 1 Each TD DAILY Isosorbide Mononitrate Er (Isosorbide Mononitrate) 60 Mg Tab.er.24h 60 Mg PO BID Metolazone 5 Mg Tablet 5 Mg PO DAILY Potassium Chloride 20 Meq Tab.er.prt 20 Meq PO 5XDAY Lasix (Furosemide) 80 Mg Tablet 80 Mg PO TID Vitals/I & O Vital Sign - Last 24 Hours 09/28/16 09/28/16 09/28/16 09/28/16 11:00 11:34 11:35 15:00 Temp 98.9 98.4 98.9 98.4 Pulse 96 96 73 Resp 20 18 B/P (MAP) 109/58 (75) 109/58 93/55 (68) Pulse Ox 93 93 O2 Delivery Room Air Room Air Room Air 09/28/16 09/28/16 09/28/16 09/28/16 17:35 19:15 19:48 21:05 Temp 98.3 98.3 Pulse 79 79 Resp 17 B/P (MAP) 102/56 (71) 102/56 Pulse Ox 91 O2 Delivery Room Air Room Air Room Air 09/28/16 09/28/16 09/28/16 09/29/16 21:05 23:28 23:29 01:00 Temp 97.7 97.7 Pulse 79 82 Resp 18 20 18 B/P (MAP) 102/56 126/66 (86) Pulse Ox 94 O2 Delivery Room Air Room Air 09/29/16 09/29/16 09/29/16 09/29/16 02:45 05:29 06:40 07:30 Temp 97.7 98.2 97.7 98.2 Pulse 72 80 Resp 18 18 20 B/P (MAP) 112/62 (79) 116/59 (78) Pulse Ox 94 94 94 92 O2 Delivery Room Air Room Air Room Air Room Air 09/29/16 09/29/16 09/29/16 07:45 09:04 09:05 Pulse 80 80 B/P (MAP) 116/59 116/59 O2 Delivery Room Air Intake and Output 09/28/16 09/28/16 09/29/16 15:00 23:00 07:00 Intake Total 220 ml 1140 ml Output Total 2200 ml Balance 220 ml -1060 ml NOE REESE MD September 29, 2016 09:13
[2016-09-29 11:00] VITALS: BP 120/56
--- NOTE | 2016-09-29 12:24 | PDOC ---
PROGRESS NOTES Chief Complaint Chief Complaint Hematochezia ASSESSMENT AND PLAN: 1. GIB: s/p EGD on 09/27 with findings of nonbleeding ulcer, gastritis. no Cscope planned with min sx. PPI 2. Anemia: chronic vs acute, chronic inflammation, chronic GIB. Hgb now stable after PRBC x2. oral iron daily 3. GURPREET: improving. IVF; lasix on hold 4. CKD3: baseline creat ~1.3 5. CHF: systolic (EF 25%); nonischemic cardiomyopathy. appreciate Dr Alcazar input 6. RA: continue home meds. suspect this is reason for progressive FTT and other medical problems 7. Pain control: chronic (home) meds for chronic pain, liberalize PO meds, avoid IV narcotics for chronic pain (narc dependent). re-discussed with patient 8. Dispo: poss home in AM, with further improvement of renal status History of Present Illness History of Present Illness c/o pain in hands lynette. using heating pad Vitals Vitals Vital Signs Date Time Temp Pulse Resp B/P (MAP) Pulse Ox O2 Delivery O2 Flow Rate FiO2 09/29/16 11:33 92 Room Air 09/29/16 09:05 80 116/59 09/29/16 07:30 98.2 20 98.2 Physical Exam General: Alert, Oriented X3, Cooperative, No acute distress Heart: Regular rate, Normal S1, Normal S2, No murmurs, Gallops Lungs: Clear Abdomen: Normal bowel sounds, Soft, No tenderness, No hepatosplenomegaly, No masses Extremities: No clubbing, No cyanosis, No edema, Normal pulses, No tenderness/ swelling Skin: No rashes, No breakdown Labs LABS Laboratory Tests Test 09/29/16 04:40 Sodium Level 134 mmol/L (136-145) Potassium Level 3.9 mmol/L (3.5-5.1) Chloride Level 97 mmol/L (98-107) Carbon Dioxide Level 30 mmol/L (21-32) Anion Gap 7 (6-14) Blood Urea Nitrogen 35 mg/dL (7-20) Creatinine 1.8 mg/dL (0.6-1.0) Estimated GFR (Cockcroft-Gault) 33.4 Glucose Level 93 mg/dL (70-99) Calcium Level 8.7 mg/dL (8.5-10.1) ROBERT BAUTISTA MD September 29, 2016 12:24
[2016-09-29 15:00] VITALS: BP 118/61
--- NOTE | 2016-09-29 15:39 | PDOC ---
PROGRESS NOTES Subjective Subjective No cardiac complaints Objective Objective Vital Signs Date Time Temp Pulse Resp B/P (MAP) Pulse Ox O2 Delivery O2 Flow Rate FiO2 09/29/16 12:30 92 Room Air 09/29/16 11:00 98.6 70 18 120/56 (77) 98.6 Intake and Output 09/29/16 07:00 Intake Total 1360 ml Output Total 2200 ml Balance -840 ml Intake Oral 460 ml IV Total 900 ml Output Urine Total 2200 ml Physical Exam Physical Exam No changes in cardiac exam Assessment Assessment Patient seems to be improving slowly. I agree with present plan Comment Review of Relevant I have reviewed the following items scott (where applicable) has been applied. Labs Laboratory Tests Test 09/27/16 19:15 09/28/16 06:29 09/29/16 04:40 White Blood Count 6.6 x10^3/uL (4.0-11.0) 5.2 x10^3/uL (4.0-11.0) Red Blood Count 4.34 x10^6/uL (3.50-5.40) 4.22 x10^6/uL (3.50-5.40) Hemoglobin 10.6 g/dL (12.0-15.5) 10.0 g/dL (12.0-15.5) Hematocrit 31.3 % (36.0-47.0) 31.0 % (36.0-47.0) Mean Corpuscular Volume 72 fL (79-100) 73 fL (79-100) Mean Corpuscular Hemoglobin 25 pg (25-35) 24 pg (25-35) Mean Corpuscular Hemoglobin Concent 34 g/dL (31-37) 32 g/dL (31-37) Red Cell Distribution Width 18.0 % (11.5-14.5) 18.4 % (11.5-14.5) Platelet Count 398 x10^3/uL (140-400) 408 x10^3/uL (140-400) Neutrophils (%) (Auto) 54 % (31-73) Lymphocytes (%) (Auto) 31 % (24-48) Monocytes (%) (Auto) 5 % (0-9) Eosinophils (%) (Auto) 11 % (0-3) Basophils (%) (Auto) 0 % (0-3) Neutrophils # (Auto) 2.8 x10^3uL (1.8-7.7) Lymphocytes # (Auto) 1.6 x10^3/uL (1.0-4.8) Monocytes # (Auto) 0.3 x10^3/uL (0.0-1.1) Eosinophils # (Auto) 0.5 x10^3/uL (0.0-0.7) Basophils # (Auto) 0.0 x10^3/uL (0.0-0.2) Sodium Level 131 mmol/L (136-145) 134 mmol/L (136-145) Potassium Level 4.2 mmol/L (3.5-5.1) 3.9 mmol/L (3.5-5.1) Chloride Level 94 mmol/L (98-107) 97 mmol/L (98-107) Carbon Dioxide Level 30 mmol/L (21-32) 30 mmol/L (21-32) Anion Gap 7 (6-14) 7 (6-14) Blood Urea Nitrogen 32 mg/dL (7-20) 35 mg/dL (7-20) Creatinine 2.1 mg/dL (0.6-1.0) 1.8 mg/dL (0.6-1.0) Estimated GFR (Cockcroft-Gault) 27.9 33.4 BUN/Creatinine Ratio 15 (6-20) Glucose Level 98 mg/dL (70-99) 93 mg/dL (70-99) Calcium Level 8.5 mg/dL (8.5-10.1) 8.7 mg/dL (8.5-10.1) Total Bilirubin 0.4 mg/dL (0.2-1.0) Aspartate Amino Transf (AST/SGOT) 23 U/L (15-37) Alanine Aminotransferase (ALT/SGPT) 18 U/L (14-59) Alkaline Phosphatase 140 U/L (46-116) Total Protein 7.2 g/dL (6.4-8.2) Albumin 3.0 g/dL (3.4-5.0) Albumin/Globulin Ratio 0.7 (1.0-1.7) Laboratory Tests Test 09/29/16 04:40 Sodium Level 134 mmol/L (136-145) Potassium Level 3.9 mmol/L (3.5-5.1) Chloride Level 97 mmol/L (98-107) Carbon Dioxide Level 30 mmol/L (21-32) Anion Gap 7 (6-14) Blood Urea Nitrogen 35 mg/dL (7-20) Creatinine 1.8 mg/dL (0.6-1.0) Estimated GFR (Cockcroft-Gault) 33.4 Glucose Level 93 mg/dL (70-99) Calcium Level 8.7 mg/dL (8.5-10.1) Microbiology 09/27/16 Urine Culture - Final, Complete 09/27/16 Urine Culture Result 1 (TONI) - Final, Complete Medications Current Medications Acetaminophen (Tylenol) 650 mg 1X PRN PRN PO PRN prior to blood transfusion; Start 09/26/16 at 23:45; Stop 09/27/16 at 23:44; Status DC Furosemide (Lasix) 40 mg 1X PRN PRN IV blood transfusion Last administered on 08:33; Start 09/26/16 at 23:45; Stop 09/27/16 at 23:44; Status DC Ondansetron HCl (Zofran) 4 mg PRN Q8HRS PRN IV NAUSEA/VOMITING; Start 09/27/16 at 00:45; Stop 09/28/16 at 00:44; Status DC Fentanyl Citrate (Fentanyl 2ml Vial) 50 mcg PRN Q2HR PRN IV PAIN Last administered on 09/27/16 13:38; Start 09/27/16 at 00:45; Stop 09/28/16 at 00:44 ; Status DC Sodium Chloride 1,000 ml @ 125 mls/hr Q8H IV Last administered on 09/27/16 03 :00; Start 09/27/16 at 00:36; Stop 09/28/16 at 00:35; Status DC Ondansetron HCl (Zofran) 4 mg PRN Q8HRS PRN IV NAUSEA/VOMITING; Start 09/27/16 at 01:30; Stop 09/27/16 at 02:18; Status DC Fentanyl Citrate (Fentanyl 2ml Vial) 50 mcg PRN Q2HRS PRN IV SEVERE PAIN; Start 09/27/16 at 01:30; Stop 09/27/16 at 02:18; Status DC Sodium Chloride 1,000 ml @ 125 mls/hr Q8H IV ; Start 09/27/16 at 01:30; Stop at 02:18; Status DC Pantoprazole Sodium (Protonix Vial) 40 mg DAILYAC IVP Last administered on 09/27 09:15; Start 09/27/16 at 08:30; Stop 09/27/16 at 15:00; Status DC Ondansetron HCl (Zofran) 4 mg PRN Q6HRS PRN IV NAUSEA/VOMITING; Start 09/27/16 at 11:00; Stop 09/28/16 at 10:59; Status DC Fentanyl Citrate (Fentanyl 2ml Vial) 25 mcg PRN Q5MIN PRN IV MILD PAIN; Start 09/27/16 at 11:00; Stop 09/28/16 at 10:59; Status DC Fentanyl Citrate (Fentanyl 2ml Vial) 50 mcg PRN Q5MIN PRN IV MODERATE PAIN; Start 09/27/16 at 11:00; Stop 09/28/16 at 10:59; Status DC Morphine Sulfate 1 mg PRN Q10MIN PRN IV SEVERE PAIN; Start 09/27/16 at 11:00; Stop 09/28/16 at 10:59; Status DC Ringer's Solution 1,000 ml @ 30 mls/hr Q24H IV Last administered on 09/27/16 13:39; Start 09/27/16 at 10:54; Stop 09/27/16 at 22:53; Status DC Lidocaine HCl 2 ml PRN 1X PRN ID PRIOR TO IV START; Start 09/27/16 at 11:00; Stop 09/28/16 at 10:59; Status DC Hydromorphone HCl (Dilaudid) 0.5 mg PRN Q10MIN PRN IV SEV PAIN, Second choice; Start 09/27/16 at 11:00; Stop 09/28/16 at 10:59; Status DC Prochlorperazine Edisylate (Compazine) 5 mg PACU PRN PRN IV NAUSEA, MRX1; Start 09/27/16 at 11:00; Stop 09/28/16 at 10:59; Status DC Atorvastatin Calcium (Lipitor) 20 mg HS PO Last administered on 09/28/16 21:05 ; Start 09/27/16 at 21:00 Diazepam (Valium) 5 mg BID PO Last administered on 09/29/16 09:04; Start 09/27 at 12:30 Dicyclomine HCl (Bentyl) 10 mg PRN Q6HRS PRN PO ABDOMINAL CRAMPS Last administered on 09/28/16 19:40; Start 09/27/16 at 12:15 Furosemide (Lasix) 80 mg TIDWMEALS PO Last administered on 09/28/16 08:22; Start 09/27/16 at 12:30; Stop 09/28/16 at 11:10; Status DC Isosorbide Mononitrate (Imdur) 60 mg BID PO Last administered on 09/29/16 09: 05; Start 09/27/16 at 12:30 Lisinopril (Prinivil) 5 mg DAILY PO ; Start 09/28/16 at 09:00; Stop 09/28/16 at 09:00; Status DC Lisinopril (Prinivil) 5 mg DAILY PO Last administered on 09/28/16 08:23; Start 09/27/16 at 12:30; Stop 09/28/16 at 10:47; Status DC Metoprolol Tartrate (Lopressor) 25 mg BID PO Last administered on 09/29/16 09: 04; Start 09/27/16 at 12:30 Nitroglycerin (Nitro-Dur 0.4mg) 1 patch DAILY TD Last administered on 09:05; Start 09/27/16 at 12:30 Nitroglycerin (Nitro-Dur 0.4mg) 1 patch DAILY TD ; Start 09/28/16 at 09:00; Stop 09/28/16 at 09:00; Status DC Nitroglycerin (Nitrostat) 0.4 mg PRN Q5MIN PRN SL CHEST PAIN; Start 09/27/16 at 12:15 Nortriptyline HCl (Pamelor) 25 mg BID PO Last administered on 09/29/16 09:05; Start 09/27/16 at 12:30 Oxycodone/ Acetaminophen (Percocet 10/325) 1 tab PRN Q6HRS PRN PO MODERATE PAIN Last administered on 09/29/16 11:33; Start 09/27/16 at 12:15 Oxycodone/ Acetaminophen (Percocet 7.5/ 325) 1 tab PRN Q6HRS PRN PO MILD PAIN; Start 09/27/16 at 12:15 Potassium Chloride (Klor-Con) 20 meq 5XDAY PO Last administered on 09/29/16 14 :07; Start 09/27/16 at 14:00 Sucralfate (Carafate) 1 gm BIDAC PO Last administered on 09/29/16 07:46; Start 09/27/16 at 16:30 Metolazone (Zaroxolyn) 5 mg DAILY PO Last administered on 09/28/16 08:24; Start 09/27/16 at 12:30; Stop 09/28/16 at 10:47; Status DC Non-Formulary Medication 1 cap DAILY PO ; Start 09/28/16 at 09:00; Status UNV Non-Formulary Medication 20 meq 5XDAY PO ; Start 09/27/16 at 14:00; Status UNV Oxycodone/ Acetaminophen (Percocet 7.5/ 325) 2 tab PRN Q6HRS PRN PO SEVERE PAIN ; Start 09/27/16 at 12:15 Propofol 20 ml @ As Directed STK-MED ONCE IV ; Start 09/27/16 at 14:21; Stop 04/05 at 14:22; Status DC Propofol 20 ml @ As Directed STK-MED ONCE IV ; Start 09/27/16 at 14:38; Stop 04/05 at 14:39; Status DC Pantoprazole Sodium (Protonix) 40 mg DAILYAC PO Last administered on 09/29/16 07:46; Start 09/28/16 at 07:30 Sodium Chloride 1,000 ml @ 75 mls/hr [id number] IV Last administered on 00:35; Start 09/28/16 at 11:15 Active Scripts Active Reported NITRO-DUR 0.4mg/hr (Nitroglycerin) 1 Each Patch.td24 1 Each TD DAILY Potassium Chloride 10 Meq Tablet.er 20 Meq PO 5XDAY Percocet 10-325 Mg Tablet (Oxycodone/Acetaminophen) 1 Each Tablet 1 Tab PO PRN Q6HRS PRN Lisinopril 5 Mg Tablet 1 Tab PO DAILY Carafate (Sucralfate) 1 Gm Tablet 1 Tab PO BID Dicyclomine Hcl 10 Mg Capsule 1 Cap PO PRN Q6HRS Valium (Diazepam) 5 Mg Tablet 5 Mg PO BID Omeprazole 40 Mg Capsule.dr 1 Cap PO DAILY Nortriptyline Hcl 25 Mg Capsule 25 Mg PO BID Lipitor (Atorvastatin Calcium) 20 Mg Tablet 20 Mg PO HS Percocet 7.5-325 Mg Tablet (Oxycodone/Acetaminophen) 1 Each Tablet 1-2 Tab PO PRN Q6HRS PRN NITROGLYCERIN SubLingual (Nitroglycerin) 0.4 Mg Tab.subl 0.4 Mg SL PRN Q5MIN PRN Metoprolol Tartrate 50 Mg Tablet 25 Mg PO BID Lisinopril 5 Mg Tablet 5 Mg PO DAILY NITRO-DUR 0.4mg/hr (Nitroglycerin) 1 Each Patch.td24 1 Each TD DAILY Isosorbide Mononitrate Er (Isosorbide Mononitrate) 60 Mg Tab.er.24h 60 Mg PO BID Metolazone 5 Mg Tablet 5 Mg PO DAILY Potassium Chloride 20 Meq Tab.er.prt 20 Meq PO 5XDAY Lasix (Furosemide) 80 Mg Tablet 80 Mg PO TID Vitals/I & O Vital Sign - Last 24 Hours 09/28/16 09/28/16 09/28/16 09/28/16 17:35 19:15 19:48 21:05 Temp 98.3 98.3 Pulse 79 79 Resp 17 B/P (MAP) 102/56 (71) 102/56 Pulse Ox 91 O2 Delivery Room Air Room Air Room Air 09/28/16 09/28/16 09/28/16 09/29/16 21:05 23:28 23:29 01:00 Temp 97.7 97.7 Pulse 79 82 Resp 18 20 18 B/P (MAP) 102/56 126/66 (86) Pulse Ox 94 O2 Delivery Room Air Room Air 09/29/16 09/29/16 09/29/16 09/29/16 02:45 05:29 07:30 07:45 Temp 97.7 98.2 97.7 98.2 Pulse 72 80 Resp 18 18 20 B/P (MAP) 112/62 (79) 116/59 (78) Pulse Ox 94 94 92 O2 Delivery Room Air Room Air Room Air Room Air 09/29/16 09/29/16 09/29/16 09/29/16 09:04 09:05 11:00 11:33 Temp 98.6 98.6 Pulse 80 80 70 Resp 18 B/P (MAP) 116/59 116/59 120/56 (77) Pulse Ox 94 92 O2 Delivery Room Air Room Air 09/29/16 12:30 Pulse Ox 92 O2 Delivery Room Air Intake and Output 09/28/16 09/28/16 09/29/16 15:00 23:00 07:00 Intake Total 220 ml 1140 ml Output Total 2200 ml Balance 220 ml -1060 ml JEROMY MORALES MD September 29, 2016 15:39
[2016-09-29] MEDS: DICYCLOMINE HCL 10 MG CAPSULE PO PRN (16:45)
[2016-09-29 19:30] VITALS: BP 121/56
[2016-09-29] MEDS: ATORVASTATIN CALCIUM 20 MG TABLET PO SCH (21:17)
[2016-09-29 23:15] VITALS: BP 141/67
[2016-09-30] VITALS (7 sets, daily range): BP systolic 116–151; BP diastolic 55–86
[2016-09-30] MEDS: DICYCLOMINE HCL 10 MG CAPSULE PO PRN ×3 (02:05→14:00)
[2016-09-30] MEDS: oxyCODONE/APAP 10/325 1 TAB TABLET PO PRN ×4 (02:05→20:07)
[2016-09-30] MEDS: IV NORMAL SALINE 1000ML BAG 1,000 ML IV SCH ×2 (03:15→09:42)
[2016-09-30] MEDS: POTASSIUM CHLORIDE 20 MEQ TABLET.ER. PO SCH ×5 (06:22→20:07)
[2016-09-30] MEDS: PANTOPRAZOLE 40 MG TABLET.DR. PO SCH (07:39)
[2016-09-30] MEDS: SUCRALFATE 1 GM TABLET. PO SCH ×2 (07:39→16:50)
[2016-09-30] MEDS: diazePAM 5 MG TABLET PO SCH ×2 (08:06→20:07)
[2016-09-30] MEDS: METOPROLOL TART IMMED RELEASE 25 MG TABLET. PO SCH ×2 (08:07→20:08)
[2016-09-30] MEDS: NORTRIPTYLINE 25 MG CAPSULE PO SCH ×2 (08:07→20:08)
[2016-09-30] MEDS: ISOSORBIDE MONONITRATE ER 30 MG TAB.ER.24H PO SCH ×2 (08:07→20:08)
[2016-09-30] MEDS: NITROGLYCERIN 0.4MG/HR PATCH. TD SCH (08:08)
[2016-09-30 15:44] LABS: CALCIUM 8.4 mg/dL (8.5-10.1); CREATININE 1.3 mg/dL (0.6-1.0); GFR 48.6; POTASSIUM 4.5 mmol/L (3.5-5.1)
--- NOTE | 2016-09-30 17:45 | PDOC ---
PROGRESS NOTES Chief Complaint Chief Complaint Hematochezia ASSESSMENT AND PLAN: 1. GIB: s/p EGD on 09/27 with findings of nonbleeding ulcer, gastritis. no Cscope planned with min sx. PPI 2. Anemia: chronic vs acute, chronic inflammation, chronic GIB. Hgb now stable after PRBC x2. oral iron daily 3. GURPREET: resolved, creat at baseline. hold IVF, restart correct lasix dose in AM 4. CKD3: baseline creat ~1.3 5. CHF: systolic (EF 25%); nonischemic cardiomyopathy. no acute issues 6. RA: continue home meds. suspect this is reason for progressive FTT and other medical problems 7. Pain control: chronic (home) meds for chronic pain, liberalize PO meds, avoid IV narcotics for chronic pain (narc dependent). 8. Dispo: home in AM, has no ride today History of Present Illness History of Present Illness abd c/o earlier today, now resolved. Vitals Vitals Vital Signs Date Time Temp Pulse Resp B/P (MAP) Pulse Ox O2 Delivery O2 Flow Rate FiO2 09/30/16 15:00 98.3 96 21 140/65 (90) 95 Room Air 98.3 Physical Exam General: Alert, Oriented X3, Cooperative, No acute distress Heart: Regular rate Lungs: Clear Abdomen: Normal bowel sounds, Soft, No tenderness Extremities: No edema, Other (arthritic changes, lynette in hand joints) Skin: No rashes, No breakdown Labs LABS Laboratory Tests Test 09/30/16 15:25 Sodium Level 139 mmol/L (136-145) Potassium Level 4.5 mmol/L (3.5-5.1) Chloride Level 107 mmol/L (98-107) Carbon Dioxide Level 23 mmol/L (21-32) Anion Gap 9 (6-14) Blood Urea Nitrogen 23 mg/dL (7-20) Creatinine 1.3 mg/dL (0.6-1.0) Estimated GFR (Cockcroft-Gault) 48.6 Glucose Level 96 mg/dL (70-99) Calcium Level 8.4 mg/dL (8.5-10.1) ROBERT BAUTISTA MD September 30, 2016 17:45
[2016-09-30] MEDS: ATORVASTATIN CALCIUM 20 MG TABLET PO SCH (20:07)
[2016-10-01 03:11] VITALS: BP 119/58
[2016-10-01 05:54] LABS: CALCIUM 8.6 mg/dL (8.5-10.1); CREATININE 1.2 mg/dL (0.6-1.0); GFR 53.3; POTASSIUM 4.2 mmol/L (3.5-5.1)
[2016-10-01] MEDS: POTASSIUM CHLORIDE 20 MEQ TABLET.ER. PO SCH ×3 (06:17→14:16)
[2016-10-01 07:00] VITALS: BP 144/74
[2016-10-01] MEDS: oxyCODONE/APAP 10/325 1 TAB TABLET PO PRN ×2 (07:59→14:16)
[2016-10-01] MEDS: PANTOPRAZOLE 40 MG TABLET.DR. PO SCH (08:04)
[2016-10-01] MEDS: SUCRALFATE 1 GM TABLET. PO SCH ×2 (08:04→17:37)
[2016-10-01] MEDS: METOPROLOL TART IMMED RELEASE 25 MG TABLET. PO SCH (08:46)
[2016-10-01] MEDS: DICYCLOMINE HCL 10 MG CAPSULE PO PRN (08:46)
[2016-10-01] MEDS: ISOSORBIDE MONONITRATE ER 30 MG TAB.ER.24H PO SCH (08:47)
[2016-10-01] MEDS: NITROGLYCERIN 0.4MG/HR PATCH. TD SCH (08:47)
[2016-10-01] MEDS: NORTRIPTYLINE 25 MG CAPSULE PO SCH (08:47)
[2016-10-01] MEDS: diazePAM 5 MG TABLET PO SCH (10:15)
--- NOTE | 2016-10-01 10:33 | PDOC ---
Subjective: Subjective: Doing okay. Eating w/o issue. No bleeding. Objective: Objective: Per RN - likely DC today. Vital Signs: Vital Signs Date Time Temp Pulse Resp B/P (MAP) Pulse Ox O2 Delivery O2 Flow Rate FiO2 10/01/16 09:00 Room Air 10/01/16 08:47 93 144/74 10/01/16 07:00 97.5 12 95 97.5 Labs: Laboratory Tests Test 09/30/16 15:25 10/01/16 05:00 Sodium Level 139 mmol/L 140 mmol/L Potassium Level 4.5 mmol/L 4.2 mmol/L Chloride Level 107 mmol/L 108 mmol/L Carbon Dioxide Level 23 mmol/L 23 mmol/L Anion Gap 9 9 Blood Urea Nitrogen 23 mg/dL 23 mg/dL Creatinine 1.3 mg/dL 1.2 mg/dL Estimated GFR (Cockcroft-Gault) 48.6 53.3 Glucose Level 96 mg/dL 87 mg/dL Calcium Level 8.4 mg/dL 8.6 mg/dL PE: GEN: NAD LUNGS: clear anteriorly HEART: distant S1S2 ABD: NABS, S/ND/NT NEURO/PSYCH: A & O 3 A/P: Gastric ulcer s/p EGD/bx 09/27/16 Anemia -Hgb improved/stable H/o gastric bypass -on PPI + carafate Rectal bleeding (streaks on toilet tissue) - resolved -reports previous colonoscopy w/ Dr. Stacey Mera -- Continue PPI, okay to continue carafate as well. Outpt EGD in 2 months to confirm healing. Our office will arrange. CHRIS OLIVER October 01, 2016 10:33
--- NOTE | 2016-10-01 10:57 | PDOC ---
SUBJECTIVE ROS GURPREET/ CKD III doing well OBJECTIVE Vital Signs Vital Signs Date Time Temp Pulse Resp B/P (MAP) Pulse Ox O2 Delivery O2 Flow Rate FiO2 10/01/16 09:00 Room Air 10/01/16 08:47 93 144/74 10/01/16 07:00 97.5 12 95 97.5 I & 0 Intake and Output 10/01/16 07:00 Intake Total 880 ml Output Total 1750 ml Balance -870 ml Intake Oral 880 ml Output Urine Total 1750 ml PHYSICAL EXAM Physical Exam General Appearance: Awake Alert Oriented x 2-3 In no Distress Eyes: VIsion Unchanged Conjunctiva Normal EN: No EN Drainage Mucous Memb. moist Neck: no JVD min JVP Supple no Thyromegaly CVS: S1 S2 + Murmur No Gallop No Rub no Edema Resp: no Rales no Rhonchi no Acc. Muscle use GI: BAS +ve NO Bruit Non Tender Non Distended : no CVA tenderness; no Suprapubic Tenderness DIAGNOSIS/ASSESSMENT Assessment & Plan GURPREET - now resolved CKD III - creat at baseline; Previous US showed: Small kidneys consistent with chronic medical renal disease. Vol Dpeltion - resolved - Does she need so much diuretics ? No recent ECHO hypoNatremia - ? due to Zaroxlyn - now resolved with IV NS Problems: COMMENT/RELEVANT DATA Meds Current Medications Medications (Trade) Dose Ordered Sig/Catherine Start Time Stop Time Status Last Admin Dose Admin Acetaminophen (Tylenol) 650 mg 1X PRN PRN 09/26/16 23:45 09/27/16 23:44 DC Atorvastatin Calcium (Lipitor) 20 mg HS 09/27/16 21:00 09/30/16 20:07 20 MG Diazepam (Valium) 5 mg BID 09/27/16 12:30 10/01/16 10:15 5 MG Dicyclomine HCl (Bentyl) 10 mg PRN Q6HRS PRN 09/27/16 12:15 10/01/16 08:46 10 MG Fentanyl Citrate (Fentanyl 2ml Vial) 50 mcg PRN Q5MIN PRN 09/27/16 11:00 09/28/16 10:59 DC Furosemide (Lasix) 80 mg TIDWMEALS 09/27/16 12:30 09/28/16 11:10 DC 09/28/16 08:22 80 MG Hydromorphone HCl (Dilaudid) 0.5 mg PRN Q10MIN PRN 09/27/16 11:00 09/28/16 10:59 DC Isosorbide Mononitrate (Imdur) 60 mg BID 09/27/16 12:30 10/01/16 08:47 60 MG Lidocaine HCl 2 ml PRN 1X PRN 09/27/16 11:00 09/28/16 10:59 DC Lisinopril (Prinivil) 5 mg DAILY 09/27/16 12:30 09/28/16 10:47 DC 09/28/16 08:23 5 MG Metolazone (Zaroxolyn) 5 mg DAILY 09/27/16 12:30 09/28/16 10:47 DC 09/28/16 08:24 5 MG Metoprolol Tartrate (Lopressor) 25 mg BID 09/27/16 12:30 10/01/16 08:46 25 MG Morphine Sulfate 1 mg PRN Q10MIN PRN 09/27/16 11:00 09/28/16 10:59 DC Nitroglycerin (Nitro-Dur 0.4mg) 1 patch DAILY 09/28/16 09:00 09/28/16 09:00 DC Nitroglycerin (Nitrostat) 0.4 mg PRN Q5MIN PRN 09/27/16 12:15 09/30/16 14:07 0.4 MG Non-Formulary Medication 20 meq 5XDAY 09/27/16 14:00 UNV Nortriptyline HCl (Pamelor) 25 mg BID 09/27/16 12:30 10/01/16 08:47 25 MG Ondansetron HCl (Zofran) 4 mg PRN Q6HRS PRN 09/27/16 11:00 09/28/16 10:59 DC Oxycodone/ Acetaminophen (Percocet 10/325) 1 tab PRN Q6HRS PRN 09/27/16 12:15 10/01/16 07:59 1 TAB Oxycodone/ Acetaminophen (Percocet 7.5/ 325) 2 tab PRN Q6HRS PRN 09/27/16 12:15 10/01/16 01:58 2 TAB Pantoprazole Sodium (Protonix Vial) 40 mg DAILYAC 09/27/16 08:30 09/27/16 15:00 DC 09/27/16 09:15 40 MG Pantoprazole Sodium (Protonix) 40 mg DAILYAC 09/28/16 07:30 10/01/16 08:04 40 MG Potassium Chloride (Klor-Con) 20 meq 5XDAY 09/27/16 14:00 10/01/16 10:09 20 MEQ Prochlorperazine Edisylate (Compazine) 5 mg PACU PRN PRN 09/27/16 11:00 09/28/16 10:59 DC Propofol 20 ml @ As Directed STK-MED ONCE 09/27/16 14:38 09/27/16 14:39 DC Ringer's Solution 1,000 ml @ 30 mls/hr Q24H 09/27/16 10:54 09/27/16 22:53 DC 09/27/16 13:39 30 MLS/HR Sodium Chloride 1,000 ml @ 75 mls/hr [id number] 09/28/16 11:15 09/30/16 19:38 DC 09/30/16 09:42 75 MLS/HR Sucralfate (Carafate) 1 gm BIDAC 09/27/16 16:30 10/01/16 08:04 1 GM Lab Laboratory Tests Test 09/30/16 15:25 10/01/16 05:00 Sodium Level 139 mmol/L (136-145) 140 mmol/L (136-145) Potassium Level 4.5 mmol/L (3.5-5.1) 4.2 mmol/L (3.5-5.1) Chloride Level 107 mmol/L (98-107) 108 mmol/L (98-107) Carbon Dioxide Level 23 mmol/L (21-32) 23 mmol/L (21-32) Anion Gap 9 (6-14) 9 (6-14) Blood Urea Nitrogen 23 mg/dL (7-20) 23 mg/dL (7-20) Creatinine 1.3 mg/dL (0.6-1.0) 1.2 mg/dL (0.6-1.0) Estimated GFR (Cockcroft-Gault) 48.6 53.3 Glucose Level 96 mg/dL (70-99) 87 mg/dL (70-99) Calcium Level 8.4 mg/dL (8.5-10.1) 8.6 mg/dL (8.5-10.1) LIMA HAYWARD MD October 01, 2016 10:57
[2016-10-01 11:00] VITALS: BP 108/59
[2016-10-01 15:00] VITALS: BP 131/64
[2016-10-01] MEDS ORDERED: FURO80TA72 PO (15:36)
[2016-10-01] MEDS ORDERED: POTA20TA82 PO (15:40)
--- NOTE | 2016-10-02 10:25 | PATHOLOGY ---
PATHOLOGY REPORT * * * * * * * * FINAL DIAGNOSIS: Stomach, "gastric ulcer," biopsy: - Chronic superficial gastritis, moderate, with focal acute activity and ulceration. - No evidence of intestinal metaplasia, dysplasia, or carcinoma. - No evidence of Helicobacter pylori on immunoperoxidase stain. (HESHAM:; d/t: 10/01/16) REPORT ELECTRONICALLY SIGNED BY: Laura Kearney M.D. DATE/TIME: 10/02/2016 10:24 * * * * * * * * GROSS PATHOLOGY: Received in formalin labeled "Evelyn Gasca, gastric ulcer biopsies," are 3 segments of medeiros soft tissue measuring 0.8 x 0.5 x 0.3 cm in aggregate dimensions and ranging from 0.3 to 0.8 cm in maximum dimension. The specimen is submitted entirely in cassette A1. (KAH; 09/29/2016) INITIAL CPT CODE(S): A; 39592, 68059 Professional services performed [place] [address] Technical services performed by [facility] at [address] [place] [address]. SPECIMEN(S) RECEIVED: A.Gastric ulcer biopsies CLINICAL HISTORY: GI bleed, anemia PATIENT: EVELYN GASCA /AGE: 2 1945 (Age: 71) PATIENT #: [id number] ALT CASE #: SPECIMEN COLLECTION DATE: 09/27/2016 SPECIMEN RECEIVED DATE: 09/28/2016 [facility] - [address] [place] [address] - PHONE: [phone] * * * END OF REPORT * * *
--- NOTE | 2016-10-03 21:15 | DS ---
DATE OF DISCHARGE: 10/01/2016 CHIEF COMPLAINT: Hematochezia. HOSPITAL COURSE: The patient is a 71-year-old woman who presented with rectal bleed. She had a history of upper GI bleed with ulcers. EGD was therefore performed on 09/27/2016 with finding of a nonbleeding ulcer and gastritis. She was started on PPI. Anemia was addressed with PRBC x 2. Because of chronic inflammatory anemia, she was also started on oral iron. A component of acute kidney injury on top of chronic kidney disease stage 3 was noted and treated with fluids. She returned back to her baseline creatinine. Because of CHF at an EF of 25, she actually required Lasix dose before discharge for mild shortness of breath. Fluid status essentially returned back to baseline and she was deemed appropriate for home. PHYSICAL EXAMINATION: VITAL SIGNS: Blood pressure of 140/65, heart rate of 96, respiratory rate of 21. GENERAL: This is a 71-year-old -[place] woman, alert and oriented, no acute distress. LUNGS: Clear. HEART: Regular rate and rhythm. ABDOMEN: Positive bowel sounds, soft, nontender. EXTREMITIES: Show no edema. DISCHARGE DATE: 10/01/2016 DISCHARGE DIAGNOSIS: Gastrointestinal bleed. DISCHARGE DISPOSITION: To home. DISCHARGE CONDITION: Improved. DISCHARGE MEDICATIONS: Please refer to MAR. DISCHARGE INSTRUCTIONS: The patient will follow up with her primary care physician in 1 week. ROBERT BAUTISTA MD DR: UR/nts JOB#: [id number] / [id number] BLAKE Light MD
== END 2016-10-01 18:00 | disposition home or self-care (01) | DRG 377 ==
LOC: ER 22:47 → 2 SOUTH 09-27 00:53
PROVIDERS: ADMIT Internal Medicine; ATTEND Internal Medicine
PROC: 30233N1 Transfusion of Nonautologous Red Blood Cells into Peripheral Vein, Percutaneous Approach (ICD-10-PCS; 2016-09-27)
PROC: 0DB68ZX Excision of Stomach, Via Natural or Artificial Opening Endoscopic, Diagnostic (ICD-10-PCS; principal; 2016-09-27 14:00)
DX: K92.2 Gastrointestinal hemorrhage, unspecified (principal); N17.0 Acute kidney failure with tubular necrosis; I13.0 Hypertensive heart and chronic kidney disease with heart failure and stage 1 through stage 4 chronic kidney disease, or unspecified chronic kidney disease; I42.9 Cardiomyopathy, unspecified; I50.20 Unspecified systolic (congestive) heart failure; D50.0 Iron deficiency anemia secondary to blood loss (chronic); E78.00 Pure hypercholesterolemia, unspecified; E78.5 Hyperlipidemia, unspecified; G89.29 Other chronic pain; I07.1 Rheumatic tricuspid insufficiency; I25.10 Atherosclerotic heart disease of native coronary artery without angina pectoris; I73.00 Raynaud's syndrome without gangrene; K21.9 Gastro-esophageal reflux disease without esophagitis; K25.9 Gastric ulcer, unspecified as acute or chronic, without hemorrhage or perforation; M06.9 Rheumatoid arthritis, unspecified; M19.90 Unspecified osteoarthritis, unspecified site; N18.3 Chronic kidney disease, stage 3 (moderate); I25.2 Old myocardial infarction; Z87.11 Personal history of peptic ulcer disease; Z88.6 Allergy status to analgesic agent; Z90.710 Acquired absence of both cervix and uterus; Z95.0 Presence of cardiac pacemaker; Z98.51 Tubal ligation status; Z98.84 Bariatric surgery status; Z88.8 Allergy status to other drugs, medicaments and biological substances
CPT/HCPCS: 36415; 71010; 73521; 80048; 80053; 81001; 82274; 82607; 82746; 82947; 83540; 83550; 83690; 83880; 84484; 85007; 85027; 85045; 85610; 86850; 86900; 86901; 86920; 87086; 88305; 88342; 93005; C9113; J1940; J2704; J3010; J7030; J7120; P9016; 99285-25; G0641

== ENCOUNTER → 2016-11-27 | Day surgery (SDC) | payer MEDICARE, BC ==
[~2016-11-27] MED LIST changes: +DIAZ5TAB PO; +DICY10CA3 PO; +IV RINGERS,LACTATED 1000ML 1,000 ML IV SCH; +MIDAZOLAM HCL/PF 5 MG/5 ML VIAL. IV ONE; +MIDAZOLAM HCL/PF 5 MG/5 ML VIAL. ONE; +NITR0.4T22 SL; -NITR0.4T6 SL; +NORT25CA PO; +OMEP40CA5 PO; -OXYC-244 PO; +OXYC-327 PO; +OXYC-328 PO; +POTA10TA12 PO; +POTA20TA82 PO; +SUCR1TAB35 PO; +diphenhydrAMINE 50 MG/ML VIAL IV ONE; +diphenhydrAMINE 50 MG/ML VIAL ONE; +fentaNYL PF VIAL 100 MCG/2 ML VIAL IV ONE; +fentaNYL PF VIAL 100 MCG/2 ML VIAL ONE
--- NOTE | 2016-11-27 16:43 | PDOC2 ---
CONSULT Date of Consult Date of Consult DATE: 11/27/16 TIME: 16:39 Reason for Consult Reason for Consult: Gastric ulcer recheck Identification/Chief Complaint Chief Complaint recheck Problems: History of Present Illness Reason for Visit: 71 year old patient seen with gastric ulcer. She has been on PPI therapy for 2 months. EGD to confirm healing. No further bleeding is elicted. She otherwise is without additional complaints. Past Medical History Cardiovascular: CAD, CHF, HTN, Other GI: GERD, GI bleed Psych: Anxiety Musculoskeletal: Osteoarthritis, Weakness, Swelling Renal/: Chronic renal insuff Past Surgical History Past Surgical History: Hysterectomy, Other (pacemaker) Family History Family History: No Significant Social History No ALCOHOL: none Drugs: None Current Medications Current Medications Current Medications Ringer's Solution 1,000 ml @ 100 mls/hr Q10H IV ; Start 11/27/16 at 16:15 Midazolam HCl (Versed) 5 mg STK-MED ONCE .ROUTE ; Start 11/27/16 at 16:37; Stop 11/27/16 at 16:38; Status DC Fentanyl Citrate (Fentanyl 2ml Vial) 100 mcg STK-MED ONCE .ROUTE ; Start at 16:38; Stop 11/27/16 at 16:39; Status DC Diphenhydramine HCl (Benadryl) 50 mg STK-MED ONCE .ROUTE ; Start 11/27/16 at 16: 38; Stop 11/27/16 at 16:39; Status DC Active Scripts Active Potassium Chloride 20 Meq Tablet.er 20 Meq PO BID Lasix (Furosemide) 80 Mg Tablet 1 Tab PO DAILY Reported NITRO-DUR 0.4mg/hr (Nitroglycerin) 1 Each Patch.td24 1 Each TD DAILY Potassium Chloride 10 Meq Tablet.er 20 Meq PO 5XDAY Percocet 10-325 Mg Tablet (Oxycodone/Acetaminophen) 1 Each Tablet 1 Tab PO PRN Q6HRS PRN Lisinopril 5 Mg Tablet 1 Tab PO DAILY Carafate (Sucralfate) 1 Gm Tablet 1 Tab PO BID Dicyclomine Hcl 10 Mg Capsule 1 Cap PO PRN Q6HRS Valium (Diazepam) 5 Mg Tablet 5 Mg PO BID Omeprazole 40 Mg Capsule.dr 1 Cap PO DAILY Nortriptyline Hcl 25 Mg Capsule 25 Mg PO BID Lipitor (Atorvastatin Calcium) 20 Mg Tablet 20 Mg PO HS Percocet 7.5-325 Mg Tablet (Oxycodone/Acetaminophen) 1 Each Tablet 1-2 Tab PO PRN Q6HRS PRN NITROGLYCERIN SubLingual (Nitroglycerin) 0.4 Mg Tab.subl 0.4 Mg SL PRN Q5MIN PRN Metoprolol Tartrate 50 Mg Tablet 25 Mg PO BID Lisinopril 5 Mg Tablet 5 Mg PO DAILY NITRO-DUR 0.4mg/hr (Nitroglycerin) 1 Each Patch.td24 1 Each TD DAILY Isosorbide Mononitrate Er (Isosorbide Mononitrate) 60 Mg Tab.er.24h 60 Mg PO BID Allergies Allergies: Coded Allergies: aspirin (Verified Adverse Reaction, Intermediate, Nausea and Vomiting, 04/05) castor oil (Verified Adverse Reaction, Intermediate, Nausea and Vomiting, 11/27/16) Physical Exam General: Alert Heart: Normal S1, Normal S2 Abdomen: Normal bowel sounds, Soft, No tenderness Vitals VITALS Vital Signs Date Time Temp Pulse Resp B/P (MAP) Pulse Ox O2 Delivery O2 Flow Rate FiO2 11/27/16 16:00 97.1 78 20 94 97.1 Assessment/Plan Assessment/Plan Gastric ulcer- with anemia/prior gastric bypass, EGD to confirm healing as 2-4% of ulcers are early malignancy. GUNNAR ORDONEZ MD Nov 27, 2016 16:43
[2016-11-27 17:36] VITALS: BP 136/79
== END | disposition home or self-care (01) ==
LOC: SURG 15:42
PROVIDERS: ATTEND Internal Medicine Gastroenterology
DX: K29.50 Unspecified chronic gastritis without bleeding (principal); E78.00 Pure hypercholesterolemia, unspecified; I10 Essential (primary) hypertension; M19.90 Unspecified osteoarthritis, unspecified site; M06.862 Other specified rheumatoid arthritis, left knee; Z87.39 Personal history of other diseases of the musculoskeletal system and connective tissue; Z79.82 Long term (current) use of aspirin; Z91.018 Allergy to other foods
CPT/HCPCS: 43235; J1200; J2250; J3010

== ENCOUNTER 2018-07-30 04:06 | Inpatient (IN) | payer MEDICARE, BC ==
[~2018-07-30] VITALS: Ht 157.5 cm; Wt 57.2 kg
[2018-07-30] VITALS (15 sets, daily range): BP systolic 90–151; BP diastolic 60–81
[~2018-07-30 04:06] MED LIST changes: +DOCU-109 PO; +FERR325T72 PO; +GABA-585 PO; -IV RINGERS,LACTATED 1000ML 1,000 ML IV SCH; +LEVO750T31 PO; -METO50TA2 PO; +METO50TA6 PO; -MIDAZOLAM HCL/PF 5 MG/5 ML VIAL. IV ONE; -MIDAZOLAM HCL/PF 5 MG/5 ML VIAL. ONE; +NITR1PAT73 TD; -NITR1PAT9 TD; -OXYC-327 PO; -OXYC-328 PO; +OXYC1TAB19 PO; +OXYC1TAB22 PO; -diphenhydrAMINE 50 MG/ML VIAL IV ONE; -diphenhydrAMINE 50 MG/ML VIAL ONE; -fentaNYL PF VIAL 100 MCG/2 ML VIAL IV ONE; -fentaNYL PF VIAL 100 MCG/2 ML VIAL ONE
[2018-07-30 05:19] LABS: BILIRUBIN,URINE NEGATIVE (NEG); CLARITY,URINE CLEAR; COLOR,URINE YELLOW; NITRITE,URINE NEGATIVE (NEG); PH,URINE 7.5; PROTEIN,URINE NEGATIVE (NEG-TRACE); UROBILINOGEN,URINE 0.2 mg/dL (0.2 mg/dL)
--- NOTE | 2018-07-30 05:19 | PHYS DOC ---
Past Medical History Past Medical History: GI Bleed, High Cholesterol, AL, Other Additional Past Medical Histor: Cardiomyopathy Past Surgical History: Hysterectomy Additional Past Surgical Histo: STOMACH SURGERY Alcohol Use: None Drug Use: None Adult General Chief Complaint Chief Complaint: ALTERED MENTAL STATUS HPI HPI 73-year-old female presents by EMS for the evaluation of altered mental status. History obtained from . states patient has been in the bathroom sitting on the toilet for approximately 12 hours. Patient is confused. On exam she states her name is hipolito. She knows the name of her and the current month but does not know the year or the president. Review of Systems Review of Systems Unable to obtain review of systems due to patient's altered mental status Current Medications Current Medications Current Medications Medications (Trade) Dose Ordered Sig/Catherine Start Time Stop Time Status Last Admin Dose Admin Acetaminophen (Tylenol) 650 mg PRN Q4HRS PRN 07/30/18 06:45 07/31/18 06:44 Ondansetron HCl (Zofran) 4 mg PRN Q8HRS PRN 07/30/18 06:45 07/31/18 06:44 Potassium Chloride/Water 100 ml @ 100 mls/hr Q1H 07/30/18 06:00 07/30/18 07:59 07/30/18 06:09 100 MLS/HR Potassium Chloride (Klor-Con) 40 meq 1X ONCE 07/30/18 07:00 07/30/18 07:01 DC Sodium Chloride 100 ml @ 50 mls/hr 1X ONCE 07/30/18 07:00 07/30/18 08:59 Allergies Allergies Allergies Coded Allergies Type Severity Reaction Last Updated Verified aspirin Adverse Reaction Intermediate Nausea and Vomiting 11/27/16 Yes castor oil Adverse Reaction Intermediate Nausea and Vomiting 11/27/16 Yes Physical Exam Physical Exam HENT: Normocephalic, atraumatic, bilateral external ears normal, oropharynx moist, no oral exudates, nose normal. [] Eyes: PERRLA, EOMI, conjunctiva normal, no discharge. [] Neck: Normal range of motion, no tenderness, supple, no stridor. [] Cardiovascular:bradycardia, Lungs & Thorax: Bilateral breath sounds clear to auscultation [] Abdomen: Bowel sounds normal, soft, no tenderness, no masses, no pulsatile masses. [] Skin: Warm, dry, no erythema, no rash. [] Back: No tenderness, no CVA tenderness. [] Extremities: No tenderness, no cyanosis, no clubbing, ROM intact, no edema. [] Neurologic: Alert but confused, normal motor function, normal sensory function, no focal deficits noted. [] Current Patient Data Vital Signs Vital Signs Date Time Temp Pulse Resp B/P (MAP) Pulse Ox O2 Delivery O2 Flow Rate FiO2 07/30/18 06:30 88 20 96 07/30/18 04:06 96.7 149/76 (100) Room Air 96.7 Lab Values Laboratory Tests Test 07/30/18 04:25 07/30/18 04:35 Urine Collection Type U cath Urine Color Yellow Urine Clarity Clear Urine pH 7.5 Urine Specific [place] 1.010 Urine Protein Negative mg/dL (NEG-TRACE) Urine Glucose (UA) Negative mg/dL (NEG) Urine Ketones (Stick) Negative mg/dL (NEG) Urine Blood Negative (NEG) Urine Nitrite Negative (NEG) Urine Bilirubin Negative (NEG) Urine Urobilinogen Dipstick 0.2 mg/dL (0.2 mg/dL) Urine Leukocyte Esterase Negative (NEG) Urine RBC 0 /HPF (0-2) Urine WBC Occ /HPF (0-4) Urine Squamous Epithelial Cells Many /LPF Urine Renal Epithelial Cells Few /LPF Urine Bacteria Moderate /HPF (0-FEW) Urine Mucus Slight /LPF Urine Yeast Present /HPF Urine Opiates Screen Neg (NEG) Urine Methadone Screen Neg (NEG) Urine Barbiturates Neg (NEG) Urine Phencyclidine Screen Neg (NEG) Urine Amphetamine/Methamphetamine Neg (NEG) Urine Benzodiazepines Screen Neg (NEG) Urine Cocaine Screen Neg (NEG) Urine Cannabinoids Screen Neg (NEG) Urine Ethyl Alcohol Neg (NEG) White Blood Count 5.1 x10^3/uL (4.0-11.0) Red Blood Count 4.22 x10^6/uL (3.50-5.40) Hemoglobin 11.7 g/dL (12.0-15.5) L Hematocrit 34.5 % (36.0-47.0) L Mean Corpuscular Volume 82 fL (79-100) Mean Corpuscular Hemoglobin 28 pg (25-35) Mean Corpuscular Hemoglobin Concent 34 g/dL (31-37) Red Cell Distribution Width 13.6 % (11.5-14.5) Platelet Count 298 x10^3/uL (140-400) Neutrophils (%) (Auto) 75 % (31-73) H Lymphocytes (%) (Auto) 13 % (24-48) L Monocytes (%) (Auto) 11 % (0-9) H Eosinophils (%) (Auto) 0 % (0-3) Basophils (%) (Auto) 0 % (0-3) Neutrophils # (Auto) 3.8 x10^3uL (1.8-7.7) Lymphocytes # (Auto) 0.7 x10^3/uL (1.0-4.8) L Monocytes # (Auto) 0.6 x10^3/uL (0.0-1.1) Eosinophils # (Auto) 0.0 x10^3/uL (0.0-0.7) Basophils # (Auto) 0.0 x10^3/uL (0.0-0.2) Sodium Level 112 mmol/L (136-145) *L Potassium Level 1.9 mmol/L (3.5-5.1) *L Chloride Level 70 mmol/L (98-107) L Carbon Dioxide Level 30 mmol/L (21-32) Anion Gap 12 (6-14) Blood Urea Nitrogen 52 mg/dL (7-20) H Creatinine 2.5 mg/dL (0.6-1.0) H Estimated GFR (Cockcroft-Gault) 22.7 BUN/Creatinine Ratio 21 (6-20) H Glucose Level 158 mg/dL (70-99) H Calcium Level 8.5 mg/dL (8.5-10.1) Total Bilirubin 0.6 mg/dL (0.2-1.0) Aspartate Amino Transferase (AST) 97 U/L (15-37) H Alanine Aminotransferase (ALT) 63 U/L (14-59) H Alkaline Phosphatase 162 U/L (46-116) H Creatine Kinase 1432 U/L (26-192) H Troponin I Quantitative 0.063 ng/mL (0.000-0.055) Total Protein 8.1 g/dL (6.4-8.2) Albumin 3.8 g/dL (3.4-5.0) Albumin/Globulin Ratio 0.9 (1.0-1.7) L Ethyl Alcohol Level < 10 mg/dL (0-10) Laboratory Tests 07/30/18 04:35 Laboratory Tests 07/30/18 04:35 EKG EKG [] Interpretation Time: 0556 HEART rate [address] elevation no ST depression no acute AL Radiology/Procedures Radiology/Procedures [] Impressions: Chest x-ray wet read no acute abnormalities no focal infiltrates no bony abnormalities Course & Med Decision Making Course & Med Decision Making Pertinent Labs and Imaging studies reviewed. (See chart for details) []Patient was evaluated for chief complaint. Workup consisted of laboratory analysis radiologic imaging and EKG. Results reviewed and discussed with patient 's family. Patient noted to have several abnormal labs including sodium 112, potassium 1.9, creatinine 2.5 CPK 1400 and elevated troponin is 0.06. Treatment included IV fluids and IV potassium. Patient was admitted to the hospitalists and nephrology was consult. Nephrology requested 3% hypertonic saline 100 mL bolus as well as potassium 40mEq by mouth. Patient was admitted to the ICU. Dragon Disclaimer Dragon Disclaimer This electronic medical record was generated, in whole or in part, using a voice recognition dictation system. Departure Departure Impression: Primary Impression: Altered mental status Additional Impressions: Hyponatremia Hypokalemia Rhabdomyolysis Disposition: ADMITTED INPATIENT Admitting Physician: Anjel Polo Condition: CRITICAL Referrals: BLAKE WHITNEY MD (PCP) Problem Qualifiers HAO TROTTER DO Jul 30, 2018 05:19
[2018-07-30 05:21] LABS: BASO % 0 % (0-3); EOS % 0 % (0-3); HEMATOCRIT 34.5 % (36.0-47.0); HEMOGLOBIN 11.7 g/dL (12.0-15.5); LYMPH # 0.7 x10^3/uL (1.0-4.8); LYMPH % 13 % (24-48); MEAN CORPUSCULAR HEMOGLOBIN 28 pg (25-35); MEAN CORPUSCULAR HGB CONC 34 g/dL (31-37); MEAN CORPUSCULAR VOLUME 82 fL (79-100); MONO # 0.6 x10^3/uL (0.0-1.1); MONO % 11 % (0-9); NEUT # 3.8 x10^3uL (1.8-7.7); NEUT % 75 % (31-73); PLATELET COUNT 298 x10^3/uL (140-400); RED BLOOD COUNT 4.22 x10^6/uL (3.50-5.40); RED CELL DISTRIBUTION WIDTH 13.6 % (11.5-14.5); WHITE BLOOD COUNT 5.1 x10^3/uL (4.0-11.0)
[2018-07-30 05:27] LABS: BARBITURATES NEG (NEG); BENZODIAZEPINES NEG (NEG); CANNABINOIDS NEG (NEG); COCAINE NEG (NEG); METHADONE NEG (NEG); OPIATES NEG (NEG); PHENCYCLIDINE NEG (NEG)
[2018-07-30] MEDS ORDERED: IV NORMAL SALINE 1000ML BAG 1,000 ML IV ONE (05:30)
[2018-07-30 05:34] LABS: SQUAMOUS EPITHELIAL CELL,UR MANY /LPF
[2018-07-30 05:35] LABS: BACTERIA,URINE MODERATE /HPF (0-FEW); RBC,URINE 0 /HPF (0-2); WBC,URINE OCC /HPF (0-4); YEAST,URINE PRESENT /HPF
[2018-07-30 05:37] LABS: ALBUMIN 3.8 g/dL (3.4-5.0); ALBUMIN/GLOBULIN RATIO 0.9 (1.0-1.7); CALCIUM 8.5 mg/dL (8.5-10.1); CREATININE 2.5 mg/dL (0.6-1.0); GFR 22.7; TOTAL BILIRUBIN 0.6 mg/dL (0.2-1.0); TOTAL PROTEIN 8.1 g/dL (6.4-8.2)
[2018-07-30 05:41] LABS: AMPHETAMINE/METHAMPHETAMINE NEG (NEG)
[2018-07-30 05:41] LABS: POTASSIUM 1.9 mmol/L (3.5-5.1)
--- NOTE | 2018-07-30 05:50 | RAD ---
Indication:ams TECHNIQUE:Portable AP chest X-ray COMPARISON:03/11/2017 FINDINGS: Heart is normal in size. Stable elevation of right hemidiaphragm. Stable right basilar patchy opacities. Otherwise, lungs are clear. No pneumothorax or pleural effusion. Visualized bony thorax within normal limits. IMPRESSION: No acute pulmonary process. Electronically signed by: Cameron Edward DO (07/30/2018 5:47 AM) [facility]
[2018-07-30] MEDS: POTASSIUM CHLORIDE 10MEQ 100 ML IV SCH ×2 (06:09→07:45)
[2018-07-30] MEDS ORDERED: ONDANSETRON PF 4 MG/2 ML VIAL. IV PRN (06:45)
[2018-07-30] MEDS ORDERED: ACETAMINOPHEN 325 MG TABLET. PO PRN (06:45)
[2018-07-30] MEDS ORDERED: SODIUM CHLORIDE 3 % 100 ML IV ONE (07:00)
[2018-07-30] MEDS ORDERED: POTASSIUM CHLORIDE 20 MEQ TABLET.ER. PO ONE ×2 (07:00→12:00)
--- NOTE | 2018-07-30 08:08 | EKG ---
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
[2018-07-30 10:26] LABS: ALBUMIN 3.3 g/dL (3.4-5.0); ALBUMIN/GLOBULIN RATIO 0.7 (1.0-1.7); CREATININE 2.1 mg/dL (0.6-1.0); GFR 27.8; TOTAL BILIRUBIN 0.5 mg/dL (0.2-1.0); TOTAL PROTEIN 7.8 g/dL (6.4-8.2)
[2018-07-30] MEDS ORDERED: ATOR20TA58 PO (10:45)
--- NOTE | 2018-07-30 11:28 | PDOC2 ---
CARDIOLOGY CONSULT NOTE CHEIF COMPLAINT: Elevated troponin HPI: 73-year-old woman who was been admitted to the ICU in the setting of possible rhabdomyolysis and severe metabolic derangements was asked to be seen by cardiology due to an elevated troponin. History is extremely limited due to the patient's mental status but at this present time she appears to be denying any specific cardiac limitations. Per chart review she was admitted after apparently being on the toilet try to take her medications for 12 hours according to her who may have provided history in the ER. Unfortunately there is no family at the bedside at the time of her evaluation to discuss the accurate events. Patient does have a previous history of nonischemic cardio myopathy with a negative cardiac catheterization in 2016. PMHX: Limited history based on chart review is notable for Anemia CHF Possible COPD Hypertension Chronic degenerative joint disease SOCHX: She lives at home with her . FAMHX: Noncontributory CURRENT MEDS: Current Medications Medications (Trade) Dose Ordered Sig/Catherine Start Time Stop Time Status Last Admin Dose Admin Acetaminophen (Tylenol) 650 mg PRN Q4HRS PRN 07/30/18 06:45 07/31/18 06:44 Ondansetron HCl (Zofran) 4 mg PRN Q8HRS PRN 07/30/18 06:45 07/31/18 06:44 Potassium Chloride/Water 100 ml @ 100 mls/hr Q1H 07/30/18 06:00 07/30/18 07:59 DC 07/30/18 07:45 100 MLS/HR Potassium Chloride (Klor-Con) 40 meq 1X ONCE 07/30/18 07:00 07/30/18 07:01 DC 07/30/18 07:46 40 MEQ Sodium Chloride 100 ml @ 50 mls/hr 1X ONCE 07/30/18 07:00 07/30/18 08:59 DC 07/30/18 07:44 50 MLS/HR ALLERGIES: Allergies Coded Allergies Type Severity Reaction Last Updated Verified aspirin Adverse Reaction Intermediate Nausea and Vomiting 11/27/16 Yes castor oil Adverse Reaction Intermediate Nausea and Vomiting 11/27/16 Yes ROS: Unable to be obtained PHYSICAL EXAM: Vital Signs: Vital Signs Date Time Temp Pulse Resp B/P (MAP) Pulse Ox O2 Delivery O2 Flow Rate FiO2 07/30/18 11:00 89 30 90/73 (79) 96 Nasal Cannula 2.0 07/30/18 09:30 98.1 98.1 Physical Exam: Frail elderly woman in no acute distress. She is confused. Heart tones are notable for tachycardia no obvious murmurs Lungs with decreased breath sounds bilaterally with poor inspiratory effort Soft abdomen no rebound or guarding No obvious lower extremity edema DIAGNOSTIC TESTING: EKG reveals sinus rhythm with a left bundle-branch block morphology Lab Laboratory Tests Test 07/30/18 04:25 07/30/18 04:35 07/30/18 09:40 Urine Collection Type U cath Urine Color Yellow Urine Clarity Clear Urine pH 7.5 Urine Specific [place] 1.010 Urine Protein Negative mg/dL (NEG-TRACE) Urine Glucose (UA) Negative mg/dL (NEG) Urine Ketones (Stick) Negative mg/dL (NEG) Urine Blood Negative (NEG) Urine Nitrite Negative (NEG) Urine Bilirubin Negative (NEG) Urine Urobilinogen Dipstick 0.2 mg/dL (0.2 mg/dL) Urine Leukocyte Esterase Negative (NEG) Urine RBC 0 /HPF (0-2) Urine WBC Occ /HPF (0-4) Urine Squamous Epithelial Cells Many /LPF Urine Renal Epithelial Cells Few /LPF Urine Bacteria Moderate /HPF (0-FEW) Urine Mucus Slight /LPF Urine Yeast Present /HPF Urine Opiates Screen Neg (NEG) Urine Methadone Screen Neg (NEG) Urine Barbiturates Neg (NEG) Urine Phencyclidine Screen Neg (NEG) Urine Amphetamine/Methamphetamine Neg (NEG) Urine Benzodiazepines Screen Neg (NEG) Urine Cocaine Screen Neg (NEG) Urine Cannabinoids Screen Neg (NEG) Urine Ethyl Alcohol Neg (NEG) White Blood Count 5.1 x10^3/uL (4.0-11.0) Red Blood Count 4.22 x10^6/uL (3.50-5.40) Hemoglobin 11.7 g/dL (12.0-15.5) L Hematocrit 34.5 % (36.0-47.0) L Mean Corpuscular Volume 82 fL (79-100) Mean Corpuscular Hemoglobin 28 pg (25-35) Mean Corpuscular Hemoglobin Concent 34 g/dL (31-37) Red Cell Distribution Width 13.6 % (11.5-14.5) Platelet Count 298 x10^3/uL (140-400) Neutrophils (%) (Auto) 75 % (31-73) H Lymphocytes (%) (Auto) 13 % (24-48) L Monocytes (%) (Auto) 11 % (0-9) H Eosinophils (%) (Auto) 0 % (0-3) Basophils (%) (Auto) 0 % (0-3) Neutrophils # (Auto) 3.8 x10^3uL (1.8-7.7) Lymphocytes # (Auto) 0.7 x10^3/uL (1.0-4.8) L Monocytes # (Auto) 0.6 x10^3/uL (0.0-1.1) Eosinophils # (Auto) 0.0 x10^3/uL (0.0-0.7) Basophils # (Auto) 0.0 x10^3/uL (0.0-0.2) Sodium Level 112 mmol/L (136-145) *L 115 mmol/L (136-145) *L Potassium Level 1.9 mmol/L (3.5-5.1) *L 2.0 mmol/L (3.5-5.1) *L Chloride Level 70 mmol/L (98-107) L 75 mmol/L (98-107) L Carbon Dioxide Level 30 mmol/L (21-32) 32 mmol/L (21-32) Anion Gap 12 (6-14) 8 (6-14) Blood Urea Nitrogen 52 mg/dL (7-20) H 47 mg/dL (7-20) H Creatinine 2.5 mg/dL (0.6-1.0) H 2.1 mg/dL (0.6-1.0) H Estimated GFR (Cockcroft-Gault) 22.7 27.8 BUN/Creatinine Ratio 21 (6-20) H 22 (6-20) H Glucose Level 158 mg/dL (70-99) H 138 mg/dL (70-99) H Calcium Level 8.5 mg/dL (8.5-10.1) 8.0 mg/dL (8.5-10.1) L Total Bilirubin 0.6 mg/dL (0.2-1.0) 0.5 mg/dL (0.2-1.0) Aspartate Amino Transf (AST/SGOT) 97 U/L (15-37) H 92 U/L (15-37) H Alkaline Phosphatase 162 U/L (46-116) H 157 U/L (46-116) H Creatine Kinase 1432 U/L (26-192) H Total Protein 8.1 g/dL (6.4-8.2) 7.8 g/dL (6.4-8.2) Albumin 3.8 g/dL (3.4-5.0) 3.3 g/dL (3.4-5.0) L Albumin/Globulin Ratio 0.9 (1.0-1.7) L 0.7 (1.0-1.7) L Ethyl Alcohol Level < 10 mg/dL (0-10) ASSESSMENT: 1. Severe metabolic derangement and rhabdomyolysis 2. Elevated troponin likely secondary to #1 3. History of nonischemic cardio myopathy currently appears to be compensated PLAN: 1. Continue supportive care with correction of metabolic issues. 2. We will obtain a routine echocardiogram when she is more stable and alert to assess for any worsening of her cardiac function. RADHA DAIGLE MD Jul 30, 2018 11:28
--- NOTE | 2018-07-30 11:43 | PDOC1 ---
History and Physical Date of Admission Date of Admission DATE: 07/30/18 TIME: 11:43 Identification/Chief Complaint Chief Complaint SEEN IN ER EARLY THIS AM , states patient has been in the bathroom sitting on the toilet for approximately 12 hours. Patient confused. knows the name of her and the current month but does not know the year or the CURRENT president. Past Medical History Past Medical History Past Medical History Past Medical History: GI Bleed, High Cholesterol, [place], Other Additional Past Medical Histor: Cardiomyopathy Past Surgical History: Hysterectomy Additional Past Surgical Histo: STOMACH SURGERY Alcohol Use: None Drug Use: None family hx ashd Cardiovascular: CAD, CHF, HTN, Other Pulmonary: COPD CENTRAL NERVOUS SYSTEM: CVA, Dementia GI: GERD, GI bleed Psych: Anxiety Musculoskeletal: Osteoarthritis, Weakness, Swelling Renal/: Chronic renal insuff Past Surgical History Past Surgical History: Hysterectomy, Other Family History Family History: No Significant Social History Smoke: No ALCOHOL: none Drugs: None Current Medications Current Medications Current Medications Sodium Chloride 1,000 ml @ 1,000 mls/hr 1X ONCE IV Last administered on at 06:08; Start 07/30/18 at 05:30; Stop 07/30/18 at 06:29; Status DC Potassium Chloride/Water 100 ml @ 100 mls/hr Q1H IV Last administered on at 07:45; Start 07/30/18 at 06:00; Stop 07/30/18 at 07:59; Status DC Ondansetron HCl (Zofran) 4 mg PRN Q8HRS PRN IV NAUSEA/VOMITING; Start 07/30/18 at 06:45; Stop 07/31/18 at 06:44 Acetaminophen (Tylenol) 650 mg PRN Q4HRS PRN PO FEVER; Start 07/30/18 at 06:45 ; Stop 07/31/18 at 06:44 Sodium Chloride 100 ml @ 50 mls/hr 1X ONCE IV Last administered on 07/30/18at 07:44; Start 07/30/18 at 07:00; Stop 07/30/18 at 08:59; Status DC Potassium Chloride (Klor-Con) 40 meq 1X ONCE PO Last administered on at 07:46; Start 07/30/18 at 07:00; Stop 07/30/18 at 07:01; Status DC Active Scripts Active Colace (Docusate Sodium) 100 Mg Capsule 100 Mg PO PRN DAILY PRN Potassium Chloride 20 Meq Tablet.er 20 Meq PO BID Lasix (Furosemide) 80 Mg Tablet 1 Tab PO DAILY Reported Carafate (Sucralfate) 1 Gm Tablet 1 Tab PO BID Valium (Diazepam) 5 Mg Tablet 5 Mg PO BID Omeprazole 40 Mg Capsule.dr 1 Cap PO DAILY Lipitor (Atorvastatin Calcium) 20 Mg Tablet 20 Mg PO HS Allergies Allergies: Coded Allergies: aspirin (Verified Adverse Reaction, Intermediate, Nausea and Vomiting, 04/05) castor oil (Verified Adverse Reaction, Intermediate, Nausea and Vomiting, 11/27/16) ROS Review of System Physical Exam Physical Exam HENT: Normocephalic, atraumatic, bilateral external ears normal, oropharynx moist, no oral exudates, nose normal. [] Eyes: PERRLA, EOMI, conjunctiva normal, no discharge. [] Neck: Normal range of motion, no tenderness, supple, no stridor. [] Cardiovascular:bradycardia, Lungs & Thorax: Bilateral breath sounds clear to auscultation [] Abdomen: Bowel sounds normal, soft, no tenderness, no masses, no pulsatile masses. [] Skin: Warm, dry, no erythema, no rash. [] Back: No tenderness, no CVA tenderness. [] Extremities: No tenderness, no cyanosis, no clubbing, ROM intact, no edema. [] Neurologic: confused, no focal deficits noted. General: YES: Fatigue, Malaise PSYCHOLOGICAL ROS: YES: Concentration difficultie, Disorientation Eyes: No Blurry vision, No Decreased vision, No Double vision, No Dry eyes, No Excessive tearing, No Eye Pain, No Itchy Eyes, No Loss of vision, No Photophobia , No Scotomata, No Uses contacts, No Uses glasses, No Other HEENT: No: Heacaches, Visual Changes, Hearing change, Nasal congestion, Nasal discharge, Oral lesions, Sinus pain, Sore Throat, Epistaxis, Sneezing, Snoring, Tinnitus, Vertigo, Vocal changes, Other ALLERGY AND IMMUNOLOGY: No: Hives, Insect Bite Sensitivity, Itchy/Watery Eyes, Nasal Congestion, Post Nasal Drip, Seasonal Allergies, Other ENDOCRINE: No: Breast Changes, Galactorrhea, Hair Pattern Changes, Hot Flashes , Malaise/lethargy, Mood Swings, Palpitations, Polydipsia/polyuria, Skin Changes , Temperature Intolerance, Unexpected Weight Changes, Other Respiratory: No: Cough, Hemoptysis, Orthopnea, Pleuritic Pain, Shortness of breath, SOB with excertion, Sputum Changes, Stridor, Tachypnea, Wheezing, Other Gastrointestinal: No Nausea, No Vomiting, No Abdominal Pain, No Diarrhea, No Constipation, No Melena, No Hematochezia, No Other Musculoskeletal: Yes Gait Disturbance, Yes Joint Stiffness Neurological: Yes Behavorial Changes, Yes Confusion Skin: No Dry Skin, No Eczema, No Hair Changes, No Lumps, No Mole Changes, No Mottling, No Nail Changes, No Pruritus, No Rash, No Skin Lesion Changes, No Other, No Acne Physical Exam Physical Exam Neck: Normal range of motion, no tenderness, supple, no stridor. [] Cardiovascular: RR Lungs & Thorax: Bilateral breath sounds clear to auscultation [] Abdomen: Bowel sounds normal, soft, no tenderness, no masses, no pulsatile masses. [] Skin: Warm, dry, no erythema, no rash. [] Back: No tenderness, no CVA tenderness. [] Extremities: No tenderness, no cyanosis, no clubbing, ROM intact, no edema. [] Neurologic: confused, no focal deficits noted. [] General: moderate distress HEENT: Atraumatic, EOMI Breasts: Not examined Abdomen: Normal bowel sounds, Soft Extremities: No cyanosis Neuro: Cranial nerves 3-12 NL Vitals Vitals Vital Signs Date Time Temp Pulse Resp B/P (MAP) Pulse Ox O2 Delivery O2 Flow Rate FiO2 07/30/18 11:00 89 30 90/73 (79) 96 Nasal Cannula 2.0 07/30/18 09:30 98.1 98.1 Labs Labs Laboratory Tests Test 07/30/18 04:25 07/30/18 04:35 07/30/18 09:40 Urine Collection Type U cath Urine Color Yellow Urine Clarity Clear Urine pH 7.5 Urine Specific [place] 1.010 Urine Protein Negative mg/dL (NEG-TRACE) Urine Glucose (UA) Negative mg/dL (NEG) Urine Ketones (Stick) Negative mg/dL (NEG) Urine Blood Negative (NEG) Urine Nitrite Negative (NEG) Urine Bilirubin Negative (NEG) Urine Urobilinogen Dipstick 0.2 mg/dL (0.2 mg/dL) Urine Leukocyte Esterase Negative (NEG) Urine RBC 0 /HPF (0-2) Urine WBC Occ /HPF (0-4) Urine Squamous Epithelial Cells Many /LPF Urine Renal Epithelial Cells Few /LPF Urine Bacteria Moderate /HPF (0-FEW) Urine Mucus Slight /LPF Urine Yeast Present /HPF Urine Opiates Screen Neg (NEG) Urine Methadone Screen Neg (NEG) Urine Barbiturates Neg (NEG) Urine Phencyclidine Screen Neg (NEG) Urine Amphetamine/Methamphetamine Neg (NEG) Urine Benzodiazepines Screen Neg (NEG) Urine Cocaine Screen Neg (NEG) Urine Cannabinoids Screen Neg (NEG) Urine Ethyl Alcohol Neg (NEG) White Blood Count 5.1 x10^3/uL (4.0-11.0) Red Blood Count 4.22 x10^6/uL (3.50-5.40) Hemoglobin 11.7 g/dL (12.0-15.5) Hematocrit 34.5 % (36.0-47.0) Mean Corpuscular Volume 82 fL (79-100) Mean Corpuscular Hemoglobin 28 pg (25-35) Mean Corpuscular Hemoglobin Concent 34 g/dL (31-37) Red Cell Distribution Width 13.6 % (11.5-14.5) Platelet Count 298 x10^3/uL (140-400) Neutrophils (%) (Auto) 75 % (31-73) Lymphocytes (%) (Auto) 13 % (24-48) Monocytes (%) (Auto) 11 % (0-9) Eosinophils (%) (Auto) 0 % (0-3) Basophils (%) (Auto) 0 % (0-3) Neutrophils # (Auto) 3.8 x10^3uL (1.8-7.7) Lymphocytes # (Auto) 0.7 x10^3/uL (1.0-4.8) Monocytes # (Auto) 0.6 x10^3/uL (0.0-1.1) Eosinophils # (Auto) 0.0 x10^3/uL (0.0-0.7) Basophils # (Auto) 0.0 x10^3/uL (0.0-0.2) Sodium Level 112 mmol/L (136-145) 115 mmol/L (136-145) Potassium Level 1.9 mmol/L (3.5-5.1) 2.0 mmol/L (3.5-5.1) Chloride Level 70 mmol/L (98-107) 75 mmol/L (98-107) Carbon Dioxide Level 30 mmol/L (21-32) 32 mmol/L (21-32) Anion Gap 12 (6-14) 8 (6-14) Blood Urea Nitrogen 52 mg/dL (7-20) 47 mg/dL (7-20) Creatinine 2.5 mg/dL (0.6-1.0) 2.1 mg/dL (0.6-1.0) Estimated GFR (Cockcroft-Gault) 22.7 27.8 BUN/Creatinine Ratio 21 (6-20) 22 (6-20) Glucose Level 158 mg/dL (70-99) 138 mg/dL (70-99) Calcium Level 8.5 mg/dL (8.5-10.1) 8.0 mg/dL (8.5-10.1) Total Bilirubin 0.6 mg/dL (0.2-1.0) 0.5 mg/dL (0.2-1.0) Aspartate Amino Transf (AST/SGOT) 97 U/L (15-37) 92 U/L (15-37) Alanine Aminotransferase (ALT/SGPT) 63 U/L (14-59) 55 U/L (14-59) Alkaline Phosphatase 162 U/L (46-116) 157 U/L (46-116) Creatine Kinase 1432 U/L (26-192) Troponin I Quantitative 0.063 ng/mL (0.000-0.055) 0.211 ng/mL (0.000-0.055) Total Protein 8.1 g/dL (6.4-8.2) 7.8 g/dL (6.4-8.2) Albumin 3.8 g/dL (3.4-5.0) 3.3 g/dL (3.4-5.0) Albumin/Globulin Ratio 0.9 (1.0-1.7) 0.7 (1.0-1.7) Ethyl Alcohol Level < 10 mg/dL (0-10) Laboratory Tests Test 07/30/18 04:25 07/30/18 04:35 3/13/19 09:40 Urine Collection Type U cath Urine Color Yellow Urine Clarity Clear Urine pH 7.5 Urine Specific [place] 1.010 Urine Protein Negative mg/dL (NEG-TRACE) Urine Glucose (UA) Negative mg/dL (NEG) Urine Ketones (Stick) Negative mg/dL (NEG) Urine Blood Negative (NEG) Urine Nitrite Negative (NEG) Urine Bilirubin Negative (NEG) Urine Urobilinogen Dipstick 0.2 mg/dL (0.2 mg/dL) Urine Leukocyte Esterase Negative (NEG) Urine RBC 0 /HPF (0-2) Urine WBC Occ /HPF (0-4) Urine Squamous Epithelial Cells Many /LPF Urine Renal Epithelial Cells Few /LPF Urine Bacteria Moderate /HPF (0-FEW) Urine Mucus Slight /LPF Urine Yeast Present /HPF Urine Opiates Screen Neg (NEG) Urine Methadone Screen Neg (NEG) Urine Barbiturates Neg (NEG) Urine Phencyclidine Screen Neg (NEG) Urine Amphetamine/Methamphetamine Neg (NEG) Urine Benzodiazepines Screen Neg (NEG) Urine Cocaine Screen Neg (NEG) Urine Cannabinoids Screen Neg (NEG) Urine Ethyl Alcohol Neg (NEG) White Blood Count 5.1 x10^3/uL (4.0-11.0) Red Blood Count 4.22 x10^6/uL (3.50-5.40) Hemoglobin 11.7 g/dL (12.0-15.5) Hematocrit 34.5 % (36.0-47.0) Mean Corpuscular Volume 82 fL (79-100) Mean Corpuscular Hemoglobin 28 pg (25-35) Mean Corpuscular Hemoglobin Concent 34 g/dL (31-37) Red Cell Distribution Width 13.6 % (11.5-14.5) Platelet Count 298 x10^3/uL (140-400) Neutrophils (%) (Auto) 75 % (31-73) Lymphocytes (%) (Auto) 13 % (24-48) Monocytes (%) (Auto) 11 % (0-9) Eosinophils (%) (Auto) 0 % (0-3) Basophils (%) (Auto) 0 % (0-3) Neutrophils # (Auto) 3.8 x10^3uL (1.8-7.7) Lymphocytes # (Auto) 0.7 x10^3/uL (1.0-4.8) Monocytes # (Auto) 0.6 x10^3/uL (0.0-1.1) Eosinophils # (Auto) 0.0 x10^3/uL (0.0-0.7) Basophils # (Auto) 0.0 x10^3/uL (0.0-0.2) Sodium Level 112 mmol/L (136-145) 115 mmol/L (136-145) Potassium Level 1.9 mmol/L (3.5-5.1) 2.0 mmol/L (3.5-5.1) Chloride Level 70 mmol/L (98-107) 75 mmol/L (98-107) Carbon Dioxide Level 30 mmol/L (21-32) 32 mmol/L (21-32) Anion Gap 12 (6-14) 8 (6-14) Blood Urea Nitrogen 52 mg/dL (7-20) 47 mg/dL (7-20) Creatinine 2.5 mg/dL (0.6-1.0) 2.1 mg/dL (0.6-1.0) Estimated GFR (Cockcroft-Gault) 22.7 27.8 BUN/Creatinine Ratio 21 (6-20) 22 (6-20) Glucose Level 158 mg/dL (70-99) 138 mg/dL (70-99) Calcium Level 8.5 mg/dL (8.5-10.1) 8.0 mg/dL (8.5-10.1) Total Bilirubin 0.6 mg/dL (0.2-1.0) 0.5 mg/dL (0.2-1.0) Aspartate Amino Transf (AST/SGOT) 97 U/L (15-37) 92 U/L (15-37) Alanine Aminotransferase (ALT/SGPT) 63 U/L (14-59) 55 U/L (14-59) Alkaline Phosphatase 162 U/L (46-116) 157 U/L (46-116) Creatine Kinase 1432 U/L (26-192) Troponin I Quantitative 0.063 ng/mL (0.000-0.055) 0.211 ng/mL (0.000-0.055) Total Protein 8.1 g/dL (6.4-8.2) 7.8 g/dL (6.4-8.2) Albumin 3.8 g/dL (3.4-5.0) 3.3 g/dL (3.4-5.0) Albumin/Globulin Ratio 0.9 (1.0-1.7) 0.7 (1.0-1.7) Ethyl Alcohol Level < 10 mg/dL (0-10) Images Images Indication:ams TECHNIQUE:Portable AP chest X-ray COMPARISON:03/11/2017 FINDINGS: Heart is normal in size. Stable elevation of right hemidiaphragm. Stable right basilar patchy opacities. Otherwise, lungs are clear. No pneumothorax or pleural effusion. Visualized bony thorax within normal limits. IMPRESSION: No acute pulmonary process. Electronically signed by: Cameron Edward DO (07/30/2018 5:47 AM) [facility] DICTATED and SIGNED BY: CAMERON EDWARD DO DATE: 07/30/18 0582 A left Ramu catheter was then utilized to engage the left coronary os and views of the left coronary artery were then done. A right Ramu catheter was then utilized to engage the right coronary os and views of the right coronary artery were then done. A pigtail catheter was then utilized to do a ventriculogram. After reviewing the pictures I decided to terminate the procedure therefore the sheath was pulled and Angio-Seal collagen plug was deployed. No apparent bleeding was seen. A dressing was applied to the groin and the patient was transferred back to her room in satisfactory condition after tolerating the procedure rather well. Findings: Coronaries: The left main is very large and normal. The LAD is a large vessel that is normal. The diagonal branches are normal. Circumflex is a dominant vessel that is normal. The marginals were normal. The RCA is a small hypoplastic vessel that was normal. Ventriculogram: The left ventricle is dilated and hypokinetic the global left ventricular ejection fraction was estimated to be 25% and the LVEDP was 10 mmHg. There was no gradient across the aortic valve on the pullback. Impression: This patient has a non-ischemic cardiomyopathy. Etiology unknown at this time. I recommend medical treatment. JEROMY MORALES MD Aug 19, 2015 17:02 DICTATED and SIGNED BY: JEROMY MORALES MD DATE: 10/11/15 1094 CC: BLAKE WHITNEY MD; JEROMY MORALES MD ~ VTE Prophylaxis Ordered VTE Prophylaxis Devices: Yes VTE Pharmacological Prophylaxi: Yes Assessment/Plan Assessment/Plan impression 1. severe nonischemic cardiomyopathy 2. elevated troponin i 3. chronic anemia, iron deficiency 4. critical hyponatremia 5. CRITICAL hypokalemia, hypomagnesemia 6. GURPREET, vasomotor 7. ckd3 8. acute metabolic encephalopathy 9. moderate severe malnutrition, 10. EF 25% 11. GERD 12. 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 Rhabdomyolysis PLAN ICU BED CAREFUL REPLACEMENT NA/K IV NEUROLOGY CONSULT EEG, consider NEPHROLOGY CONSULT CBC COMP NOW RANDOM SERUM CORTISOL D/W CHILDREN IN ROOM, ALL QUESTIONS ANSWERED 68 min cc time RODNEY BEEBE MD Jul 30, 2018 11:43
[2018-07-30] MEDS ORDERED: MIDAZOLAM HCL/PF 5 MG/5 ML VIAL. ONE ×2 (12:30→12:34)
[2018-07-30] MEDS ORDERED: MIDAZOLAM HCL/PF 2 MG/2 ML VIAL. IV ONE (12:45)
[2018-07-30] MEDS ORDERED: fentaNYL PF VIAL 100 MCG/2 ML VIAL IV ONE (12:45)
[2018-07-30] MEDS ORDERED: SODIUM CHLORIDE 3 % 150 ML IV ONE (13:00)
[2018-07-30] MEDS ORDERED: POTASSIUM CHL 20MEQ PREMIX 50 ML IV ONE (13:00)
--- NOTE | 2018-07-30 13:26 | NUR ---
SS following for discharge planning. SS reviewed pt chart. Pt is from home with spouse and is currently requiring oxygen. No discharge needs noted at this time. SS will continue to follow for pending discharge needs.
[2018-07-30] MEDS ORDERED: POTASSIUM CHLORIDE 10MEQ 100 ML IV SCH ×2 (15:00)
[2018-07-30] MEDS ORDERED: POTASSIUM CHL 20MEQ PREMIX 50 ML IV SCH ×3 (15:00)
--- NOTE | 2018-07-30 15:05 | RAD ---
Procedure: Ultrasound and fluoroscopic guided Central line placement Clinical Indication: Patient requiring central venous access Sedation: Local anesthesia only Antibiotics: None Fluoro Time: 0.2 minutes. Images: 1 Contrast: None Sterility: All elements of maximal sterile barrier technique including the use of a cap, mask, sterile gown, sterile gloves, large sterile sheet, appropriate hand hygiene, and 2% chlorhexidine for cutaneous antisepsis (or acceptable alternative antiseptic per current guidelines) were followed for this procedure. Consent: The procedure was explained in its entirety to the patient or the patients designated solar sales representative and assessor by a member of the treatment team, including a discussion of the risks, benefits and commonly accepted alternatives to the procedure, as well as the expected consequences of no therapy whatsoever. Discussion of the risks included, but was not limited to, those that are most frequent and those that are rare but possibly severe or life-threatening, as well as the possibility of unforeseen complications. Technique and Findings: Following informed consent, the patient was prepped and draped in usual sterile fashion. Ultrasound interrogation of the right neck revealed patency and compressibility of the targeted jugular vein. A hard copy ultrasound image was recorded as a 21-gauge micro puncture needle was used to gain access to this vein with a single stick. The needle was exchanged over a wire for a small dilator followed by a triple lumen central line. All 3 lumens flushed and aspirated with ease and the catheter was sutured to the skin. Complications: No immediate Impression: 1. Central line placement as described
--- NOTE | 2018-07-30 15:12 | PDOC2 ---
CONSULT Date of Consult Date of Consult DATE: 07/30/18 TIME: 15:00 Reason for Consult Reason for Consult: ELECTROLYTE ABNORMALITY Referring Physician Referring Physician: CONCEPCIÓN Identification/Chief Complaint Chief Complaint CONFUSION Source Source: Caregiver History of Present Illness Reason for Visit: THIS IS A 73 YR OLD WITH CONFUSION. PER SHE SAT ON THE TOILET FOR ABOUT 12 HOURS. HE PROVIDES SOME HX BUT SEEMS LIKE HE IS NOT A VERY GOOD HISTORIAN. DOESN'T KNOW MUCH OF WHAT SHE DOES DURING THE DAY. HE DOES HIS THING AND SO DOES SHE PER . HE STATES THAT SHE DOES NOT EAT MUCH AND THINKS IT MAY HAVE BEEN WORSE OVER LAST SEVERAL DAY. STATES SHE HAS HAD A STOMACH SURGERY TO LOSE WT YEARS AGO AND NOW CANT TAKE IN MORE THAN A BITE OF FOOD. LABS HERE SHOWED SEVERE HYPONATREMIA AND HYPOKALEMIA AND GURPREET WITH CR OF 2.5. SHE HAS CKD STAGE 3 WITH BASELINE CR OF ABOUT 1.6. SHE IS CONFUSED Past Medical History Cardiovascular: CAD, CHF, HTN, Other Pulmonary: COPD CENTRAL NERVOUS SYSTEM: CVA, Dementia GI: GERD, GI bleed Psych: Anxiety Musculoskeletal: Osteoarthritis, Weakness, Swelling Renal/: Chronic renal insuff Past Surgical History Past Surgical History: Hysterectomy, Other Family History Family History: No Significant Social History ALCOHOL: none Drugs: None Current Medications Current Medications Current Medications Sodium Chloride 1,000 ml @ 1,000 mls/hr 1X ONCE IV Last administered on at 06:08; Start 07/30/18 at 05:30; Stop 07/30/18 at 06:29; Status DC Potassium Chloride/Water 100 ml @ 100 mls/hr Q1H IV Last administered on at 07:45; Start 07/30/18 at 06:00; Stop 07/30/18 at 07:59; Status DC Ondansetron HCl (Zofran) 4 mg PRN Q8HRS PRN IV NAUSEA/VOMITING; Start 07/30/18 at 06:45; Stop 07/31/18 at 06:44 Acetaminophen (Tylenol) 650 mg PRN Q4HRS PRN PO FEVER; Start 07/30/18 at 06:45 ; Stop 07/31/18 at 06:44 Sodium Chloride 100 ml @ 50 mls/hr 1X ONCE IV Last administered on 07/30/18at 07:44; Start 07/30/18 at 07:00; Stop 07/30/18 at 08:59; Status DC Potassium Chloride (Klor-Con) 40 meq 1X ONCE PO Last administered on at 07:46; Start 07/30/18 at 07:00; Stop 07/30/18 at 07:01; Status DC Potassium Chloride (Klor-Con) 40 meq 1X ONCE PO ; Start 07/30/18 at 12:00; Stop 07/30/18 at 12:01; Status DC Potassium Chloride/Water 50 ml @ 50 mls/hr 1X ONCE IV Last administered on at 14:25; Start 07/30/18 at 13:00; Stop 07/30/18 at 13:59; Status DC Sodium Chloride 150 ml @ 50 mls/hr 1X ONCE IV Last administered on 07/30/18at 14:25; Start 07/30/18 at 13:00; Stop 07/30/18 at 15:59 Fentanyl Citrate (Fentanyl 2ml Vial) 50 mcg 1X ONCE IV Last administered on at 13:17; Start 07/30/18 at 12:45; Stop 07/30/18 at 12:46; Status DC Midazolam HCl (Versed) 2 mg 1X ONCE IV Last administered on 07/30/18at 12:45; Start 07/30/18 at 12:45; Stop 07/30/18 at 12:46; Status DC Midazolam HCl (Versed) 5 mg STK-MED ONCE .ROUTE ; Start 07/30/18 at 12:34; Stop 07/30/18 at 12:35; Status DC Potassium Chloride/Water 50 ml @ 50 mls/hr Q1H IV ; Start 07/30/18 at 16:00; Stop 07/30/18 at 20:59 Active Scripts Active Colace (Docusate Sodium) 100 Mg Capsule 100 Mg PO PRN DAILY PRN Potassium Chloride 20 Meq Tablet.er 20 Meq PO BID Lasix (Furosemide) 80 Mg Tablet 1 Tab PO DAILY Reported Carafate (Sucralfate) 1 Gm Tablet 1 Tab PO BID Valium (Diazepam) 5 Mg Tablet 5 Mg PO BID Omeprazole 40 Mg Capsule.dr 1 Cap PO DAILY Lipitor (Atorvastatin Calcium) 20 Mg Tablet 20 Mg PO HS Allergies Allergies: Coded Allergies: aspirin (Verified Adverse Reaction, Intermediate, Nausea and Vomiting, 04/05) castor oil (Verified Adverse Reaction, Intermediate, Nausea and Vomiting, 11/27/16) ROS Review of System UNABLE TO OBTAIN Physical Exam General: Other (CONFUSED) HEENT: Atraumatic Lungs: Clear to auscultation Heart: Regular rate Abdomen: Normal bowel sounds, Soft Extremities: No clubbing, No edema Skin: No rashes, No breakdown Neuro: Other (CONFUSED) Psych/Mental Status: Other MUSCULOSKELETAL: Other (DIFFUSE MUSCLE ATROPHY) Vitals VITALS Vital Signs Date Time Temp Pulse Resp B/P (MAP) Pulse Ox O2 Delivery O2 Flow Rate FiO2 07/30/18 14:00 87 27 123/70 (87) 100 Nasal Cannula 2.0 07/30/18 12:00 98.2 98.2 Labs Labs Laboratory Tests Test 07/30/18 04:25 07/30/18 04:35 07/30/18 09:40 07/30/18 12:25 Urine Collection Type U cath Urine Color Yellow Urine Clarity Clear Urine pH 7.5 Urine Specific [place] 1.010 Urine Protein Negative mg/dL (NEG-TRACE) Urine Glucose (UA) Negative mg/dL (NEG) Urine Ketones (Stick) Negative mg/dL (NEG) Urine Blood Negative (NEG) Urine Nitrite Negative (NEG) Urine Bilirubin Negative (NEG) Urine Urobilinogen Dipstick 0.2 mg/dL (0.2 mg/dL) Urine Leukocyte Esterase Negative (NEG) Urine RBC 0 /HPF (0-2) Urine WBC Occ /HPF (0-4) Urine Squamous Epithelial Cells Many /LPF Urine Renal Epithelial Cells Few /LPF Urine Bacteria Moderate /HPF (0-FEW) Urine Mucus Slight /LPF Urine Yeast Present /HPF Urine Opiates Screen Neg (NEG) Urine Methadone Screen Neg (NEG) Urine Barbiturates Neg (NEG) Urine Phencyclidine Screen Neg (NEG) Urine Amphetamine/Methamphetamine Neg (NEG) Urine Benzodiazepines Screen Neg (NEG) Urine Cocaine Screen Neg (NEG) Urine Cannabinoids Screen Neg (NEG) Urine Ethyl Alcohol Neg (NEG) White Blood Count 5.1 x10^3/uL (4.0-11.0) Red Blood Count 4.22 x10^6/uL (3.50-5.40) Hemoglobin 11.7 g/dL (12.0-15.5) Hematocrit 34.5 % (36.0-47.0) Mean Corpuscular Volume 82 fL (79-100) Mean Corpuscular Hemoglobin 28 pg (25-35) Mean Corpuscular Hemoglobin Concent 34 g/dL (31-37) Red Cell Distribution Width 13.6 % (11.5-14.5) Platelet Count 298 x10^3/uL (140-400) Neutrophils (%) (Auto) 75 % (31-73) Lymphocytes (%) (Auto) 13 % (24-48) Monocytes (%) (Auto) 11 % (0-9) Eosinophils (%) (Auto) 0 % (0-3) Basophils (%) (Auto) 0 % (0-3) Neutrophils # (Auto) 3.8 x10^3uL (1.8-7.7) Lymphocytes # (Auto) 0.7 x10^3/uL (1.0-4.8) Monocytes # (Auto) 0.6 x10^3/uL (0.0-1.1) Eosinophils # (Auto) 0.0 x10^3/uL (0.0-0.7) Basophils # (Auto) 0.0 x10^3/uL (0.0-0.2) Sodium Level 112 mmol/L (136-145) 115 mmol/L (136-145) Potassium Level 1.9 mmol/L (3.5-5.1) 2.0 mmol/L (3.5-5.1) Chloride Level 70 mmol/L (98-107) 75 mmol/L (98-107) Carbon Dioxide Level 30 mmol/L (21-32) 32 mmol/L (21-32) Anion Gap 12 (6-14) 8 (6-14) Blood Urea Nitrogen 52 mg/dL (7-20) 47 mg/dL (7-20) Creatinine 2.5 mg/dL (0.6-1.0) 2.1 mg/dL (0.6-1.0) Estimated GFR (Cockcroft-Gault) 22.7 27.8 BUN/Creatinine Ratio 21 (6-20) 22 (6-20) Glucose Level 158 mg/dL (70-99) 138 mg/dL (70-99) Calcium Level 8.5 mg/dL (8.5-10.1) 8.0 mg/dL (8.5-10.1) Total Bilirubin 0.6 mg/dL (0.2-1.0) 0.5 mg/dL (0.2-1.0) Aspartate Amino Transf (AST/SGOT) 97 U/L (15-37) 92 U/L (15-37) Alanine Aminotransferase (ALT/SGPT) 63 U/L (14-59) 55 U/L (14-59) Alkaline Phosphatase 162 U/L (46-116) 157 U/L (46-116) Creatine Kinase 1432 U/L (26-192) Troponin I Quantitative 0.063 ng/mL (0.000-0.055) 0.211 ng/mL (0.000-0.055) 0.245 ng/mL (0.000-0.055) Total Protein 8.1 g/dL (6.4-8.2) 7.8 g/dL (6.4-8.2) Albumin 3.8 g/dL (3.4-5.0) 3.3 g/dL (3.4-5.0) Albumin/Globulin Ratio 0.9 (1.0-1.7) 0.7 (1.0-1.7) Ethyl Alcohol Level < 10 mg/dL (0-10) Laboratory Tests Test 07/30/18 04:25 07/30/18 04:35 07/30/18 09:40 07/30/18 12:25 Urine Collection Type U cath Urine Color Yellow Urine Clarity Clear Urine pH 7.5 Urine Specific [place] 1.010 Urine Protein Negative mg/dL (NEG-TRACE) Urine Glucose (UA) Negative mg/dL (NEG) Urine Ketones (Stick) Negative mg/dL (NEG) Urine Blood Negative (NEG) Urine Nitrite Negative (NEG) Urine Bilirubin Negative (NEG) Urine Urobilinogen Dipstick 0.2 mg/dL (0.2 mg/dL) Urine Leukocyte Esterase Negative (NEG) Urine RBC 0 /HPF (0-2) Urine WBC Occ /HPF (0-4) Urine Squamous Epithelial Cells Many /LPF Urine Renal Epithelial Cells Few /LPF Urine Bacteria Moderate /HPF (0-FEW) Urine Mucus Slight /LPF Urine Yeast Present /HPF Urine Opiates Screen Neg (NEG) Urine Methadone Screen Neg (NEG) Urine Barbiturates Neg (NEG) Urine Phencyclidine Screen Neg (NEG) Urine Amphetamine/Methamphetamine Neg (NEG) Urine Benzodiazepines Screen Neg (NEG) Urine Cocaine Screen Neg (NEG) Urine Cannabinoids Screen Neg (NEG) Urine Ethyl Alcohol Neg (NEG) White Blood Count 5.1 x10^3/uL (4.0-11.0) Red Blood Count 4.22 x10^6/uL (3.50-5.40) Hemoglobin 11.7 g/dL (12.0-15.5) Hematocrit 34.5 % (36.0-47.0) Mean Corpuscular Volume 82 fL (79-100) Mean Corpuscular Hemoglobin 28 pg (25-35) Mean Corpuscular Hemoglobin Concent 34 g/dL (31-37) Red Cell Distribution Width 13.6 % (11.5-14.5) Platelet Count 298 x10^3/uL (140-400) Neutrophils (%) (Auto) 75 % (31-73) Lymphocytes (%) (Auto) 13 % (24-48) Monocytes (%) (Auto) 11 % (0-9) Eosinophils (%) (Auto) 0 % (0-3) Basophils (%) (Auto) 0 % (0-3) Neutrophils # (Auto) 3.8 x10^3uL (1.8-7.7) Lymphocytes # (Auto) 0.7 x10^3/uL (1.0-4.8) Monocytes # (Auto) 0.6 x10^3/uL (0.0-1.1) Eosinophils # (Auto) 0.0 x10^3/uL (0.0-0.7) Basophils # (Auto) 0.0 x10^3/uL (0.0-0.2) Sodium Level 112 mmol/L (136-145) 115 mmol/L (136-145) Potassium Level 1.9 mmol/L (3.5-5.1) 2.0 mmol/L (3.5-5.1) Chloride Level 70 mmol/L (98-107) 75 mmol/L (98-107) Carbon Dioxide Level 30 mmol/L (21-32) 32 mmol/L (21-32) Anion Gap 12 (6-14) 8 (6-14) Blood Urea Nitrogen 52 mg/dL (7-20) 47 mg/dL (7-20) Creatinine 2.5 mg/dL (0.6-1.0) 2.1 mg/dL (0.6-1.0) Estimated GFR (Cockcroft-Gault) 22.7 27.8 BUN/Creatinine Ratio 21 (6-20) 22 (6-20) Glucose Level 158 mg/dL (70-99) 138 mg/dL (70-99) Calcium Level 8.5 mg/dL (8.5-10.1) 8.0 mg/dL (8.5-10.1) Total Bilirubin 0.6 mg/dL (0.2-1.0) 0.5 mg/dL (0.2-1.0) Aspartate Amino Transf (AST/SGOT) 97 U/L (15-37) 92 U/L (15-37) Alanine Aminotransferase (ALT/SGPT) 63 U/L (14-59) 55 U/L (14-59) Alkaline Phosphatase 162 U/L (46-116) 157 U/L (46-116) Creatine Kinase 1432 U/L (26-192) Troponin I Quantitative 0.063 ng/mL (0.000-0.055) 0.211 ng/mL (0.000-0.055) 0.245 ng/mL (0.000-0.055) Total Protein 8.1 g/dL (6.4-8.2) 7.8 g/dL (6.4-8.2) Albumin 3.8 g/dL (3.4-5.0) 3.3 g/dL (3.4-5.0) Albumin/Globulin Ratio 0.9 (1.0-1.7) 0.7 (1.0-1.7) Ethyl Alcohol Level < 10 mg/dL (0-10) Images Images CXRAY NOTED Assessment/Plan Assessment/Plan IMP SEVERE HYPONATREMIA LIFE THREATENING HYPOKALEMIA MET ENCEPHALOPATHY DEHYDRATION RHABDOMYOLYSIS CACHEXIA MALNUTRITION INCREASED LFT'S GURPREET WITH CR OF 2.5 CKD STAGE 3 WITH CR OF 1.6 PLAN HYDRATE 3% SALINE LOW FLOW PPN REPLACE K CHECK MAG UPDATED CONSIDER GI W/U-? ISSUES WITH SWALLOWING VS OBSTRUCTION WITH HX OF WT LOSS SURGERY-PT PT CANT TAKE MORE THAN ONE BITE OF FOOD CHRISS GIRARD MD Jul 30, 2018 15:12
[2018-07-30] MEDS ORDERED: ELECTROLYTE (ICU) PROTOCOL. MC PRN (15:15)
--- NOTE | 2018-07-30 15:36 | PDOC ---
Renal-Progress Notes Vitals Vitals Vital Signs Date Time Temp Pulse Resp B/P (MAP) Pulse Ox O2 Delivery O2 Flow Rate FiO2 07/30/18 14:00 87 27 123/70 (87) 100 Nasal Cannula 2.0 07/30/18 12:00 98.2 98.2 Weight Weight [ ] Labs Labs Laboratory Tests Test 07/30/18 04:25 07/30/18 04:35 07/30/18 09:40 07/30/18 12:25 Urine Collection Type U cath Urine Color Yellow Urine Clarity Clear Urine pH 7.5 Urine Specific [place] 1.010 Urine Protein Negative mg/dL (NEG-TRACE) Urine Glucose (UA) Negative mg/dL (NEG) Urine Ketones (Stick) Negative mg/dL (NEG) Urine Blood Negative (NEG) Urine Nitrite Negative (NEG) Urine Bilirubin Negative (NEG) Urine Urobilinogen Dipstick 0.2 mg/dL (0.2 mg/dL) Urine Leukocyte Esterase Negative (NEG) Urine RBC 0 /HPF (0-2) Urine WBC Occ /HPF (0-4) Urine Squamous Epithelial Cells Many /LPF Urine Renal Epithelial Cells Few /LPF Urine Bacteria Moderate /HPF (0-FEW) Urine Mucus Slight /LPF Urine Yeast Present /HPF Urine Opiates Screen Neg (NEG) Urine Methadone Screen Neg (NEG) Urine Barbiturates Neg (NEG) Urine Phencyclidine Screen Neg (NEG) Urine Amphetamine/Methamphetamine Neg (NEG) Urine Benzodiazepines Screen Neg (NEG) Urine Cocaine Screen Neg (NEG) Urine Cannabinoids Screen Neg (NEG) Urine Ethyl Alcohol Neg (NEG) White Blood Count 5.1 x10^3/uL (4.0-11.0) Red Blood Count 4.22 x10^6/uL (3.50-5.40) Hemoglobin 11.7 g/dL (12.0-15.5) Hematocrit 34.5 % (36.0-47.0) Mean Corpuscular Volume 82 fL (79-100) Mean Corpuscular Hemoglobin 28 pg (25-35) Mean Corpuscular Hemoglobin Concent 34 g/dL (31-37) Red Cell Distribution Width 13.6 % (11.5-14.5) Platelet Count 298 x10^3/uL (140-400) Neutrophils (%) (Auto) 75 % (31-73) Lymphocytes (%) (Auto) 13 % (24-48) Monocytes (%) (Auto) 11 % (0-9) Eosinophils (%) (Auto) 0 % (0-3) Basophils (%) (Auto) 0 % (0-3) Neutrophils # (Auto) 3.8 x10^3uL (1.8-7.7) Lymphocytes # (Auto) 0.7 x10^3/uL (1.0-4.8) Monocytes # (Auto) 0.6 x10^3/uL (0.0-1.1) Eosinophils # (Auto) 0.0 x10^3/uL (0.0-0.7) Basophils # (Auto) 0.0 x10^3/uL (0.0-0.2) Sodium Level 112 mmol/L (136-145) 115 mmol/L (136-145) Potassium Level 1.9 mmol/L (3.5-5.1) 2.0 mmol/L (3.5-5.1) Chloride Level 70 mmol/L (98-107) 75 mmol/L (98-107) Carbon Dioxide Level 30 mmol/L (21-32) 32 mmol/L (21-32) Anion Gap 12 (6-14) 8 (6-14) Blood Urea Nitrogen 52 mg/dL (7-20) 47 mg/dL (7-20) Creatinine 2.5 mg/dL (0.6-1.0) 2.1 mg/dL (0.6-1.0) Estimated GFR (Cockcroft-Gault) 22.7 27.8 BUN/Creatinine Ratio 21 (6-20) 22 (6-20) Glucose Level 158 mg/dL (70-99) 138 mg/dL (70-99) Calcium Level 8.5 mg/dL (8.5-10.1) 8.0 mg/dL (8.5-10.1) Total Bilirubin 0.6 mg/dL (0.2-1.0) 0.5 mg/dL (0.2-1.0) Aspartate Amino Transf (AST/SGOT) 97 U/L (15-37) 92 U/L (15-37) Alanine Aminotransferase (ALT/SGPT) 63 U/L (14-59) 55 U/L (14-59) Alkaline Phosphatase 162 U/L (46-116) 157 U/L (46-116) Creatine Kinase 1432 U/L (26-192) Troponin I Quantitative 0.063 ng/mL (0.000-0.055) 0.211 ng/mL (0.000-0.055) 0.245 ng/mL (0.000-0.055) Total Protein 8.1 g/dL (6.4-8.2) 7.8 g/dL (6.4-8.2) Albumin 3.8 g/dL (3.4-5.0) 3.3 g/dL (3.4-5.0) Albumin/Globulin Ratio 0.9 (1.0-1.7) 0.7 (1.0-1.7) Ethyl Alcohol Level < 10 mg/dL (0-10) Physical Exam Musculoskeletal: Osteoarthritis, Weakness, Swelling Assessment Assessment PLEASE NOTE THE GI HX DOCUMENTED BY ME ON THIS PT IS INCORRECT. SHE HAS NO HX OF GASTRIC BYPASS CHRISS GIRARD MD Jul 30, 2018 15:36
[2018-07-30] MEDS: POTASSIUM CHL 20MEQ PREMIX 50 ML IV SCH ×5 (15:38→18:54)
[2018-07-30] MEDS: AMINO AC 3%/ELECTROLYTE/GLYCER 1,000 ML IV SCH (15:46)
--- NOTE | 2018-07-30 16:00 | NUR ---
Central line placed by IR and ok to use per Dr whitley, NS3%infusing now along with KCL supplements all thru CL. CT head done w/o diff. Pt will answer questions slowly but approp. Family here earlier. VSS.
--- NOTE | 2018-07-30 17:00 | RAD ---
EXAM: Head CT without contrast. HISTORY: Altered mental status. TECHNIQUE: Computed tomographic images of the head were obtained without intravenous contrast. *One or more of the following individualized dose reduction techniques were utilized for this examination: 1. Automated exposure control. 2. Adjustment of the mA and/or kV according to patient size. 3. Use of iterative reconstruction technique. COMPARISON: None. FINDINGS: There is no acute or subacute extra-axial or intraparenchymal hemorrhage. There is no mass effect or midline shift. There is no hydrocephalus. No abnormal enhancing lesion is seen. There are areas of decreased attenuation within the cerebral white matter, nonspecific and likely related to chronic small vessel disease. There are few tiny foci of hyperdensity along the bilateral cerebral cortex which are artifactual. There is mild age-appropriate cerebral volume loss. There is a suspected expanded empty or partially empty sella. The visualized portions of the orbits, paranasal sinuses and mastoid air cells are unremarkable. No suspicious calvarial lesion is seen. IMPRESSION: No acute intercranial finding. Note is made that MRI is more sensitive for acute infarction. Electronically signed by: Doris Spears MD (07/30/2018 4:57 PM) [id number]
[2018-07-30 18:06] LABS: BASO % 0 % (0-3); EOS % 0 % (0-3); HEMATOCRIT 33.4 % (36.0-47.0); HEMOGLOBIN 11.3 g/dL (12.0-15.5); LYMPH # 0.5 x10^3/uL (1.0-4.8); LYMPH % 10 % (24-48); MEAN CORPUSCULAR HEMOGLOBIN 28 pg (25-35); MEAN CORPUSCULAR HGB CONC 34 g/dL (31-37); MEAN CORPUSCULAR VOLUME 82 fL (79-100); MONO # 0.6 x10^3/uL (0.0-1.1); MONO % 12 % (0-9); NEUT # 3.9 x10^3uL (1.8-7.7); NEUT % 77 % (31-73); PLATELET COUNT 264 x10^3/uL (140-400); RED BLOOD COUNT 4.07 x10^6/uL (3.50-5.40); RED CELL DISTRIBUTION WIDTH 14.2 % (11.5-14.5)
[2018-07-30 18:37] LABS: ALBUMIN 3.2 g/dL (3.4-5.0); ALBUMIN/GLOBULIN RATIO 0.8 (1.0-1.7); CALCIUM 7.9 mg/dL (8.5-10.1); CREATININE 1.8 mg/dL (0.6-1.0); GFR 33.2; POTASSIUM 3.9 mmol/L (3.5-5.1); TOTAL BILIRUBIN 0.5 mg/dL (0.2-1.0); TOTAL PROTEIN 7.4 g/dL (6.4-8.2)
--- NOTE | 2018-07-30 20:28 | PDOC2 ---
NEUROLOGY CONSULT Date of Admission Date of Admission DATE: 07/30/18 TIME: 20:13 Reason for Consult Reason for Consult: IMPRESSION: Metabolic encephalopathy. Confusion x 3 to 4 days. Hyponatremia, Na+ 112. Hypokalemia, K+ 1.9. Hypochloride Cl- 70. GI bleeding, Hx. Renal failure. Elevated hepatic enzymes.Elevated troponin. CAD, s/p NE. CHF. HTN. COPD. HLD. RECOMMENDATIONS/PLAN: Continue life support in ICU. Correct electrolytes imbalances. HCT performed no acute findings. Lab: see orders. EEG. Treat medical diseases. Discussed with her at bedside in ICU on 07/30/18. HISTORY OF THE PRESENT ILLNESS: This is a 73-year-old AA female patient who was brought by EMS to the ER of [facility] for the evaluation of altered mental status. History obtained from her . Her states patient has been in the bathroom sitting on the toilet for approximately 12 hours. Patient is confused. On exam she states her name is peaches. No focalized sensory or motor deficits noted. PAST MEDICAL HISTORY: GI Bleed, High Cholesterol, NE, Cardiomyopathy Cardiovascular: CAD, CHF, HTN, Other Pulmonary: COPD CENTRAL NERVOUS SYSTEM: CVA, Dementia GI: GERD, GI bleed Psych: Anxiety Musculoskeletal: Osteoarthritis, Weakness, Swelling Renal/: Chronic renal insuff Past Surgical History Hysterectomy STOMACH SURGERY Family History No Significant Allergies Coded Allergies: aspirin (Verified Adverse Reaction, Intermediate, Nausea and Vomiting, 04/05) castor oil (Verified Adverse Reaction, Intermediate, Nausea and Vomiting, 11/27/16) MEDICATIONS: Refer to MAR. SOCIAL HISTORY: Lives with her . Denies current smoking, drinking, and illicit drug use. REVIEW OF SYSTEMS: Constitutional: No cachexia. Head: No traumatic brain or head injury. Skin: No edema, or rash. Ear: Hearing decreased.. Eyes: No vision loss or color blindness. Nose: No bleeding or purulent discharges. Hearing: Hearing decrease. Neck: No injury. Breast: No history of cancer, masses,or discharges. Cardiac: CAD, CHF, HTN. Pulmonary: COPD. GI: GI bleeding. Urinary/genital: UTI. Endocrinologic: No cousin face, craniofacial dysmorphism, polydactyly. Skeletomuscular: No muscular atrophy, deformity. Neurological: see HP. Psychiatric: Denies drug use/abuse. Otherwise, not [id number] review of systems. PHYSICAL EXAMINATION: General appearance is in subacute distress. HEENT: Normocephalic and nontraumatic. Eyes, nose, ears, and throat are unremarkable. Neck is supple. No lymphadenopathy. No crepitus. Cardiovascular: S1, S2, regular rate and rhythm. Pulmonary: Clear to auscultation bilaterally. Abdomen: Bowel sounds are positive. Extremities: No rash, lesions, or edema. No restriction of range of motion NEUROLOGICAL EXAMINATION: Awake. Reactions are very slow. Not oriented to time, place but knew her . PERRL. EOMI. CN: no focal findings. Muscle tone: Increased. Muscle strength: 4+ DTR: 1-2 Plantar reflex: Neutral response bilaterally Gait: not examined in bed. Sensory exam: no abnormal findings. No other cerebellar signs elicited. F-T-N test not performed. Current Medications Current Medications Current Medications Sodium Chloride 1,000 ml @ 1,000 mls/hr 1X ONCE IV Last administered on at 06:08; Start 07/30/18 at 05:30; Stop 07/30/18 at 06:29; Status DC Potassium Chloride/Water 100 ml @ 100 mls/hr Q1H IV Last administered on at 07:45; Start 07/30/18 at 06:00; Stop 07/30/18 at 07:59; Status DC Ondansetron HCl (Zofran) 4 mg PRN Q8HRS PRN IV NAUSEA/VOMITING; Start 07/30/18 at 06:45; Stop 07/31/18 at 06:44 Acetaminophen (Tylenol) 650 mg PRN Q4HRS PRN PO FEVER; Start 07/30/18 at 06:45 ; Stop 07/31/18 at 06:44 Sodium Chloride 100 ml @ 50 mls/hr 1X ONCE IV Last administered on 07/30/18at 07:44; Start 07/30/18 at 07:00; Stop 07/30/18 at 08:59; Status DC Potassium Chloride (Klor-Con) 40 meq 1X ONCE PO Last administered on at 07:46; Start 07/30/18 at 07:00; Stop 07/30/18 at 07:01; Status DC Potassium Chloride (Klor-Con) 40 meq 1X ONCE PO ; Start 07/30/18 at 12:00; Stop 07/30/18 at 12:01; Status DC Potassium Chloride/Water 50 ml @ 50 mls/hr 1X ONCE IV Last administered on at 14:25; Start 07/30/18 at 13:00; Stop 07/30/18 at 13:59; Status DC Sodium Chloride 150 ml @ 50 mls/hr 1X ONCE IV Last administered on 07/30/18at 14:25; Start 07/30/18 at 13:00; Stop 07/30/18 at 15:59; Status DC Fentanyl Citrate (Fentanyl 2ml Vial) 50 mcg 1X ONCE IV Last administered on at 13:17; Start 07/30/18 at 12:45; Stop 07/30/18 at 12:46; Status DC Midazolam HCl (Versed) 2 mg 1X ONCE IV Last administered on 07/30/18at 12:45; Start 07/30/18 at 12:45; Stop 07/30/18 at 12:46; Status DC Midazolam HCl (Versed) 5 mg STK-MED ONCE .ROUTE ; Start 07/30/18 at 12:34; Stop 07/30/18 at 12:35; Status DC Potassium Chloride/Water 50 ml @ 50 mls/hr Q1H IV Last administered on at 18:54; Start 07/30/18 at 16:00; Stop 07/30/18 at 20:59 Potassium Chloride/Water 100 ml @ 100 mls/hr Q1H IV ; Start 07/30/18 at 15:00; Stop 07/30/18 at 18:59; Status UNV Potassium Chloride/Water 50 ml @ 50 mls/hr Q1H IV ; Start 07/30/18 at 15:00; Stop 07/30/18 at 16:59; Status UNV Potassium Chloride/Water 100 ml @ 100 mls/hr Q1H IV ; Start 07/30/18 at 15:00; Stop 07/30/18 at 22:59; Status UNV Potassium Chloride/Water 50 ml @ 50 mls/hr Q1H IV ; Start 07/30/18 at 15:00; Stop 07/30/18 at 18:59; Status UNV Potassium Chloride/Water 50 ml @ 50 mls/hr Q1HR IV ; Start 07/30/18 at 15:00; Stop 07/30/18 at 20:59; Status UNV Info (Icu Electrolyte Protocol) 1 ea CONT PRN PRN MC SEE COMMENTS; Start at 15:15 Amino Acids/ Glycerin/ Electrolytes 1,000 ml @ 80 mls/hr [id number] IV Last administered on 07/30/18at 15:46; Start 07/30/18 at 15:15 Active Scripts Active Colace (Docusate Sodium) 100 Mg Capsule 100 Mg PO PRN DAILY PRN Potassium Chloride 20 Meq Tablet.er 20 Meq PO BID Lasix (Furosemide) 80 Mg Tablet 1 Tab PO DAILY Reported Carafate (Sucralfate) 1 Gm Tablet 1 Tab PO BID Valium (Diazepam) 5 Mg Tablet 5 Mg PO BID Omeprazole 40 Mg Capsule.dr 1 Cap PO DAILY Lipitor (Atorvastatin Calcium) 20 Mg Tablet 20 Mg PO HS Allergies Allergies: Allergies Coded Allergies Type Severity Reaction Last Updated Verified aspirin Adverse Reaction Intermediate Nausea and Vomiting 11/27/16 Yes castor oil Adverse Reaction Intermediate Nausea and Vomiting 11/27/16 Yes ROS Review of System The patient denies any associated fevers, chills, headache, ear pain, rhinorrhea , sore throat, stiff neck, productive cough, chest pain, shortness of breath, back or flank pain, abdominal pain, nausea, vomiting, diarrhea, constipation, dysuria, rash, numbness, weakness, tingling, incontinence, difficulty ambulating, or diaphoresis. Physical Exam Physical Exam General: Well developed, well nourished, no acute distress, well appearing HEENT: Pupils equally round and reactive to light, EOMI, no discharge, normal conjunctiva Neck: Supple, no nuchal rigidity, no JVD, trachea midline, no tenderness Cardiac: RRR, no murmurs, no gallops, no rubs Chest/Lungs: CTAB, no wheeze, no rhonchi, no crackles Abdomen: soft, non-distended, no guarding, no peritoneal signs, non-tender Back: No tenderness Extremities: no edema, pulses intact, non-tender,capillary refill <3 sec bilateral upper and lower extremities, Neuro: Alert and oriented x 4, no focal deficits, normal speech Vitals Vitals: Vital Signs Date Time Temp Pulse Resp B/P (MAP) Pulse Ox O2 Delivery O2 Flow Rate FiO2 3/13/19 20:00 98.4 89 13 132/69 (90) 99 Nasal Cannula 2.0 98.4 Labs Labs Laboratory Tests Test 07/30/18 04:25 07/30/18 04:35 07/30/18 09:40 07/30/18 12:25 Urine Collection Type U cath Urine Color Yellow Urine Clarity Clear Urine pH 7.5 Urine Specific [place] 1.010 Urine Protein Negative mg/dL (NEG-TRACE) Urine Glucose (UA) Negative mg/dL (NEG) Urine Ketones (Stick) Negative mg/dL (NEG) Urine Blood Negative (NEG) Urine Nitrite Negative (NEG) Urine Bilirubin Negative (NEG) Urine Urobilinogen Dipstick 0.2 mg/dL (0.2 mg/dL) Urine Leukocyte Esterase Negative (NEG) Urine RBC 0 /HPF (0-2) Urine WBC Occ /HPF (0-4) Urine Squamous Epithelial Cells Many /LPF Urine Renal Epithelial Cells Few /LPF Urine Bacteria Moderate /HPF (0-FEW) Urine Mucus Slight /LPF Urine Yeast Present /HPF Urine Opiates Screen Neg (NEG) Urine Methadone Screen Neg (NEG) Urine Barbiturates Neg (NEG) Urine Phencyclidine Screen Neg (NEG) Urine Amphetamine/Methamphetamine Neg (NEG) Urine Benzodiazepines Screen Neg (NEG) Urine Cocaine Screen Neg (NEG) Urine Cannabinoids Screen Neg (NEG) Urine Ethyl Alcohol Neg (NEG) White Blood Count 5.1 x10^3/uL (4.0-11.0) Red Blood Count 4.22 x10^6/uL (3.50-5.40) Hemoglobin 11.7 g/dL (12.0-15.5) Hematocrit 34.5 % (36.0-47.0) Mean Corpuscular Volume 82 fL (79-100) Mean Corpuscular Hemoglobin 28 pg (25-35) Mean Corpuscular Hemoglobin Concent 34 g/dL (31-37) Red Cell Distribution Width 13.6 % (11.5-14.5) Platelet Count 298 x10^3/uL (140-400) Neutrophils (%) (Auto) 75 % (31-73) Lymphocytes (%) (Auto) 13 % (24-48) Monocytes (%) (Auto) 11 % (0-9) Eosinophils (%) (Auto) 0 % (0-3) Basophils (%) (Auto) 0 % (0-3) Neutrophils # (Auto) 3.8 x10^3uL (1.8-7.7) Lymphocytes # (Auto) 0.7 x10^3/uL (1.0-4.8) Monocytes # (Auto) 0.6 x10^3/uL (0.0-1.1) Eosinophils # (Auto) 0.0 x10^3/uL (0.0-0.7) Basophils # (Auto) 0.0 x10^3/uL (0.0-0.2) Sodium Level 112 mmol/L (136-145) 115 mmol/L (136-145) Potassium Level 1.9 mmol/L (3.5-5.1) 2.0 mmol/L (3.5-5.1) Chloride Level 70 mmol/L (98-107) 75 mmol/L (98-107) Carbon Dioxide Level 30 mmol/L (21-32) 32 mmol/L (21-32) Anion Gap 12 (6-14) 8 (6-14) Blood Urea Nitrogen 52 mg/dL (7-20) 47 mg/dL (7-20) Creatinine 2.5 mg/dL (0.6-1.0) 2.1 mg/dL (0.6-1.0) Estimated GFR (Cockcroft-Gault) 22.7 27.8 BUN/Creatinine Ratio 21 (6-20) 22 (6-20) Glucose Level 158 mg/dL (70-99) 138 mg/dL (70-99) Calcium Level 8.5 mg/dL (8.5-10.1) 8.0 mg/dL (8.5-10.1) Total Bilirubin 0.6 mg/dL (0.2-1.0) 0.5 mg/dL (0.2-1.0) Aspartate Amino Transf (AST/SGOT) 97 U/L (15-37) 92 U/L (15-37) Alanine Aminotransferase (ALT/SGPT) 63 U/L (14-59) 55 U/L (14-59) Alkaline Phosphatase 162 U/L (46-116) 157 U/L (46-116) Creatine Kinase 1432 U/L (26-192) Troponin I Quantitative 0.063 ng/mL (0.000-0.055) 0.211 ng/mL (0.000-0.055) 0.245 ng/mL (0.000-0.055) Total Protein 8.1 g/dL (6.4-8.2) 7.8 g/dL (6.4-8.2) Albumin 3.8 g/dL (3.4-5.0) 3.3 g/dL (3.4-5.0) Albumin/Globulin Ratio 0.9 (1.0-1.7) 0.7 (1.0-1.7) Cortisol AM Sample 43.4 ug/dL (4.3-22.4) Ethyl Alcohol Level < 10 mg/dL (0-10) Thyroid Stimulating Hormone (TSH) 0.537 uIU/mL (0.358-3.74) Free Thyroxine 1.60 ng/dL (0.76-1.46) Test 07/30/18 17:53 White Blood Count 5.0 x10^3/uL (4.0-11.0) Red Blood Count 4.07 x10^6/uL (3.50-5.40) Hemoglobin 11.3 g/dL (12.0-15.5) Hematocrit 33.4 % (36.0-47.0) Mean Corpuscular Volume 82 fL (79-100) Mean Corpuscular Hemoglobin 28 pg (25-35) Mean Corpuscular Hemoglobin Concent 34 g/dL (31-37) Red Cell Distribution Width 14.2 % (11.5-14.5) Platelet Count 264 x10^3/uL (140-400) Neutrophils (%) (Auto) 77 % (31-73) Lymphocytes (%) (Auto) 10 % (24-48) Monocytes (%) (Auto) 12 % (0-9) Eosinophils (%) (Auto) 0 % (0-3) Basophils (%) (Auto) 0 % (0-3) Neutrophils # (Auto) 3.9 x10^3uL (1.8-7.7) Lymphocytes # (Auto) 0.5 x10^3/uL (1.0-4.8) Monocytes # (Auto) 0.6 x10^3/uL (0.0-1.1) Eosinophils # (Auto) 0.0 x10^3/uL (0.0-0.7) Basophils # (Auto) 0.0 x10^3/uL (0.0-0.2) Sodium Level 122 mmol/L (136-145) Potassium Level 3.9 mmol/L (3.5-5.1) Chloride Level 85 mmol/L (98-107) Carbon Dioxide Level 30 mmol/L (21-32) Anion Gap 7 (6-14) Blood Urea Nitrogen 45 mg/dL (7-20) Creatinine 1.8 mg/dL (0.6-1.0) Estimated GFR (Cockcroft-Gault) 33.2 BUN/Creatinine Ratio 25 (6-20) Glucose Level 124 mg/dL (70-99) Calcium Level 7.9 mg/dL (8.5-10.1) Magnesium Level 4.0 mg/dL (1.8-2.4) Total Bilirubin 0.5 mg/dL (0.2-1.0) Aspartate Amino Transf (AST/SGOT) 81 U/L (15-37) Alanine Aminotransferase (ALT/SGPT) 54 U/L (14-59) Alkaline Phosphatase 147 U/L (46-116) Total Protein 7.4 g/dL (6.4-8.2) Albumin 3.2 g/dL (3.4-5.0) Albumin/Globulin Ratio 0.8 (1.0-1.7) Cortisol PM Sample 19.8 ug/dL (3.1-16.7) Laboratory Tests Test 07/30/18 04:25 07/30/18 04:35 07/30/18 09:40 07/30/18 12:25 Urine Collection Type U cath Urine Color Yellow Urine Clarity Clear Urine pH 7.5 Urine Specific [place] 1.010 Urine Protein Negative mg/dL (NEG-TRACE) Urine Glucose (UA) Negative mg/dL (NEG) Urine Ketones (Stick) Negative mg/dL (NEG) Urine Blood Negative (NEG) Urine Nitrite Negative (NEG) Urine Bilirubin Negative (NEG) Urine Urobilinogen Dipstick 0.2 mg/dL (0.2 mg/dL) Urine Leukocyte Esterase Negative (NEG) Urine RBC 0 /HPF (0-2) Urine WBC Occ /HPF (0-4) Urine Squamous Epithelial Cells Many /LPF Urine Renal Epithelial Cells Few /LPF Urine Bacteria Moderate /HPF (0-FEW) Urine Mucus Slight /LPF Urine Yeast Present /HPF Urine Opiates Screen Neg (NEG) Urine Methadone Screen Neg (NEG) Urine Barbiturates Neg (NEG) Urine Phencyclidine Screen Neg (NEG) Urine Amphetamine/Methamphetamine Neg (NEG) Urine Benzodiazepines Screen Neg (NEG) Urine Cocaine Screen Neg (NEG) Urine Cannabinoids Screen Neg (NEG) Urine Ethyl Alcohol Neg (NEG) White Blood Count 5.1 x10^3/uL (4.0-11.0) Red Blood Count 4.22 x10^6/uL (3.50-5.40) Hemoglobin 11.7 g/dL (12.0-15.5) Hematocrit 34.5 % (36.0-47.0) Mean Corpuscular Volume 82 fL (79-100) Mean Corpuscular Hemoglobin 28 pg (25-35) Mean Corpuscular Hemoglobin Concent 34 g/dL (31-37) Red Cell Distribution Width 13.6 % (11.5-14.5) Platelet Count 298 x10^3/uL (140-400) Neutrophils (%) (Auto) 75 % (31-73) Lymphocytes (%) (Auto) 13 % (24-48) Monocytes (%) (Auto) 11 % (0-9) Eosinophils (%) (Auto) 0 % (0-3) Basophils (%) (Auto) 0 % (0-3) Neutrophils # (Auto) 3.8 x10^3uL (1.8-7.7) Lymphocytes # (Auto) 0.7 x10^3/uL (1.0-4.8) Monocytes # (Auto) 0.6 x10^3/uL (0.0-1.1) Eosinophils # (Auto) 0.0 x10^3/uL (0.0-0.7) Basophils # (Auto) 0.0 x10^3/uL (0.0-0.2) Sodium Level 112 mmol/L (136-145) 115 mmol/L (136-145) Potassium Level 1.9 mmol/L (3.5-5.1) 2.0 mmol/L (3.5-5.1) Chloride Level 70 mmol/L (98-107) 75 mmol/L (98-107) Carbon Dioxide Level 30 mmol/L (21-32) 32 mmol/L (21-32) Anion Gap 12 (6-14) 8 (6-14) Blood Urea Nitrogen 52 mg/dL (7-20) 47 mg/dL (7-20) Creatinine 2.5 mg/dL (0.6-1.0) 2.1 mg/dL (0.6-1.0) Estimated GFR (Cockcroft-Gault) 22.7 27.8 BUN/Creatinine Ratio 21 (6-20) 22 (6-20) Glucose Level 158 mg/dL (70-99) 138 mg/dL (70-99) Calcium Level 8.5 mg/dL (8.5-10.1) 8.0 mg/dL (8.5-10.1) Total Bilirubin 0.6 mg/dL (0.2-1.0) 0.5 mg/dL (0.2-1.0) Aspartate Amino Transf (AST/SGOT) 97 U/L (15-37) 92 U/L (15-37) Alanine Aminotransferase (ALT/SGPT) 63 U/L (14-59) 55 U/L (14-59) Alkaline Phosphatase 162 U/L (46-116) 157 U/L (46-116) Creatine Kinase 1432 U/L (26-192) Troponin I Quantitative 0.063 ng/mL (0.000-0.055) 0.211 ng/mL (0.000-0.055) 0.245 ng/mL (0.000-0.055) Total Protein 8.1 g/dL (6.4-8.2) 7.8 g/dL (6.4-8.2) Albumin 3.8 g/dL (3.4-5.0) 3.3 g/dL (3.4-5.0) Albumin/Globulin Ratio 0.9 (1.0-1.7) 0.7 (1.0-1.7) Cortisol AM Sample 43.4 ug/dL (4.3-22.4) Ethyl Alcohol Level < 10 mg/dL (0-10) Thyroid Stimulating Hormone (TSH) 0.537 uIU/mL (0.358-3.74) Free Thyroxine 1.60 ng/dL (0.76-1.46) Test 3/13/19 17:53 White Blood Count 5.0 x10^3/uL (4.0-11.0) Red Blood Count 4.07 x10^6/uL (3.50-5.40) Hemoglobin 11.3 g/dL (12.0-15.5) Hematocrit 33.4 % (36.0-47.0) Mean Corpuscular Volume 82 fL (79-100) Mean Corpuscular Hemoglobin 28 pg (25-35) Mean Corpuscular Hemoglobin Concent 34 g/dL (31-37) Red Cell Distribution Width 14.2 % (11.5-14.5) Platelet Count 264 x10^3/uL (140-400) Neutrophils (%) (Auto) 77 % (31-73) Lymphocytes (%) (Auto) 10 % (24-48) Monocytes (%) (Auto) 12 % (0-9) Eosinophils (%) (Auto) 0 % (0-3) Basophils (%) (Auto) 0 % (0-3) Neutrophils # (Auto) 3.9 x10^3uL (1.8-7.7) Lymphocytes # (Auto) 0.5 x10^3/uL (1.0-4.8) Monocytes # (Auto) 0.6 x10^3/uL (0.0-1.1) Eosinophils # (Auto) 0.0 x10^3/uL (0.0-0.7) Basophils # (Auto) 0.0 x10^3/uL (0.0-0.2) Sodium Level 122 mmol/L (136-145) Potassium Level 3.9 mmol/L (3.5-5.1) Chloride Level 85 mmol/L (98-107) Carbon Dioxide Level 30 mmol/L (21-32) Anion Gap 7 (6-14) Blood Urea Nitrogen 45 mg/dL (7-20) Creatinine 1.8 mg/dL (0.6-1.0) Estimated GFR (Cockcroft-Gault) 33.2 BUN/Creatinine Ratio 25 (6-20) Glucose Level 124 mg/dL (70-99) Calcium Level 7.9 mg/dL (8.5-10.1) Magnesium Level 4.0 mg/dL (1.8-2.4) Total Bilirubin 0.5 mg/dL (0.2-1.0) Aspartate Amino Transf (AST/SGOT) 81 U/L (15-37) Alanine Aminotransferase (ALT/SGPT) 54 U/L (14-59) Alkaline Phosphatase 147 U/L (46-116) Total Protein 7.4 g/dL (6.4-8.2) Albumin 3.2 g/dL (3.4-5.0) Albumin/Globulin Ratio 0.8 (1.0-1.7) Cortisol PM Sample 19.8 ug/dL (3.1-16.7) ROSELYN HERNANDEZ MD Jul 30, 2018 20:28
[2018-07-31] VITALS (23 sets, daily range): BP systolic 107–145; BP diastolic 54–89
[2018-07-31] MEDS: AMINO AC 3%/ELECTROLYTE/GLYCER 1,000 ML IV SCH ×2 (04:09→16:51)
[2018-07-31 06:15] LABS: BASO % 1 % (0-3); EOS % 0 % (0-3); HEMATOCRIT 32.8 % (36.0-47.0); LYMPH # 0.8 x10^3/uL (1.0-4.8); LYMPH % 16 % (24-48); MEAN CORPUSCULAR HEMOGLOBIN 28 pg (25-35); MEAN CORPUSCULAR HGB CONC 33 g/dL (31-37); MEAN CORPUSCULAR VOLUME 83 fL (79-100); MONO # 0.8 x10^3/uL (0.0-1.1); MONO % 15 % (0-9); NEUT # 3.6 x10^3uL (1.8-7.7); NEUT % 69 % (31-73); PLATELET COUNT 292 x10^3/uL (140-400); RED BLOOD COUNT 3.94 x10^6/uL (3.50-5.40); RED CELL DISTRIBUTION WIDTH 14.4 % (11.5-14.5); WHITE BLOOD COUNT 5.3 x10^3/uL (4.0-11.0)
[2018-07-31 06:35] LABS: CALCIUM 8.4 mg/dL (8.5-10.1); CREATININE 1.6 mg/dL (0.6-1.0); PHOSPHORUS 2.4 mg/dL (2.6-4.7)
[2018-07-31] MEDS ORDERED: ISOS60TA2 PO (09:16)
[2018-07-31] MEDS ORDERED: NORT25CA PO (09:18)
[2018-07-31] MEDS ORDERED: METO25TA4 PO (09:19)
[2018-07-31] MEDS ORDERED: DICY20TA3 PO (09:21)
--- NOTE | 2018-07-31 09:48 | PDOC ---
CARDIO Progress Notes Date and Time Date of Service 07/31/2018 Time of Evaluation 0940 Subjective Subjective: Other (awake an tracjking with eyes but wont speak and not in pain) Vitals Vitals Vital Signs Date Time Temp Pulse Resp B/P (MAP) Pulse Ox O2 Delivery O2 Flow Rate FiO2 07/31/18 08:00 Room Air 07/31/18 08:00 89 14 140/81 (100) 98 07/31/18 04:00 98.8 98.8 07/31/18 01:00 2.0 Weight Weight [ ] Input and Output Intake and Output Intake and Output 07/31/18 06:59 Intake Total 2772 ml Output Total 3775 ml Balance -1003 ml Intake Oral 0 ml IV Total 2772 ml Output Urine Total 3775 ml Laboratory Labs Laboratory Tests Test 07/30/18 09:50 07/30/18 12:25 07/30/18 17:53 07/31/18 06:00 Nasal Screen MRSA (PCR) Negative (Negative) Troponin I Quantitative 0.245 ng/mL (0.000-0.055) Free Thyroxine 1.60 ng/dL (0.76-1.46) White Blood Count 5.0 x10^3/uL (4.0-11.0) 5.3 x10^3/uL (4.0-11.0) Red Blood Count 4.07 x10^6/uL (3.50-5.40) 3.94 x10^6/uL (3.50-5.40) Hemoglobin 11.3 g/dL (12.0-15.5) 11.0 g/dL (12.0-15.5) Hematocrit 33.4 % (36.0-47.0) 32.8 % (36.0-47.0) Mean Corpuscular Volume 82 fL (79-100) 83 fL (79-100) Mean Corpuscular Hemoglobin 28 pg (25-35) 28 pg (25-35) Mean Corpuscular Hemoglobin Concent 34 g/dL (31-37) 33 g/dL (31-37) Red Cell Distribution Width 14.2 % (11.5-14.5) 14.4 % (11.5-14.5) Platelet Count 264 x10^3/uL (140-400) 292 x10^3/uL (140-400) Neutrophils (%) (Auto) 77 % (31-73) 69 % (31-73) Lymphocytes (%) (Auto) 10 % (24-48) 16 % (24-48) Monocytes (%) (Auto) 12 % (0-9) 15 % (0-9) Eosinophils (%) (Auto) 0 % (0-3) 0 % (0-3) Basophils (%) (Auto) 0 % (0-3) 1 % (0-3) Neutrophils # (Auto) 3.9 x10^3uL (1.8-7.7) 3.6 x10^3uL (1.8-7.7) Lymphocytes # (Auto) 0.5 x10^3/uL (1.0-4.8) 0.8 x10^3/uL (1.0-4.8) Monocytes # (Auto) 0.6 x10^3/uL (0.0-1.1) 0.8 x10^3/uL (0.0-1.1) Eosinophils # (Auto) 0.0 x10^3/uL (0.0-0.7) 0.0 x10^3/uL (0.0-0.7) Basophils # (Auto) 0.0 x10^3/uL (0.0-0.2) 0.0 x10^3/uL (0.0-0.2) Sodium Level 122 mmol/L (136-145) 123 mmol/L (136-145) Potassium Level 3.9 mmol/L (3.5-5.1) 4.0 mmol/L (3.5-5.1) Chloride Level 85 mmol/L (98-107) 88 mmol/L (98-107) Carbon Dioxide Level 30 mmol/L (21-32) 30 mmol/L (21-32) Anion Gap 7 (6-14) 5 (6-14) Blood Urea Nitrogen 45 mg/dL (7-20) 38 mg/dL (7-20) Creatinine 1.8 mg/dL (0.6-1.0) 1.6 mg/dL (0.6-1.0) Estimated GFR (Cockcroft-Gault) 33.2 38.0 BUN/Creatinine Ratio 25 (6-20) Glucose Level 124 mg/dL (70-99) 126 mg/dL (70-99) Calcium Level 7.9 mg/dL (8.5-10.1) 8.4 mg/dL (8.5-10.1) Magnesium Level 4.0 mg/dL (1.8-2.4) Total Bilirubin 0.5 mg/dL (0.2-1.0) Aspartate Amino Transf (AST/SGOT) 81 U/L (15-37) Alanine Aminotransferase (ALT/SGPT) 54 U/L (14-59) Alkaline Phosphatase 147 U/L (46-116) Total Protein 7.4 g/dL (6.4-8.2) Albumin 3.2 g/dL (3.4-5.0) Albumin/Globulin Ratio 0.8 (1.0-1.7) Cortisol PM Sample 19.8 ug/dL (3.1-16.7) Phosphorus Level 2.4 mg/dL (2.6-4.7) Physical Exam HEENT: Neck Supple W Full Motion Chest: Symmetric LUNGS: Other (diminished bases) Heart: RRR (SR with LBBB) Abdomen: Soft N/T Extremities: No Edema, No Calf Tenderness Neurology: other (tracking with eyes, nonverbal) Assessment Assessment 1. Severe hyponatremia, GURPREET, and rhabdomyolysis: improving, per nephrology 2. Metabolic encephalopathy: wont speak, tracking and has been refusing meds. 3. Elevated troponin likely secondary to #1, suspect type 2 4. Hx of NICM: appears compensated 5. Fall? Recommendations 1. TTE if pt allows. 2. Replace K. BP stable and controlled. Supportive care, 3. Consider palliative consult and establish goals of care. ALOK DOWNS APRN Jul 31, 2018 09:48
--- NOTE | 2018-07-31 10:34 | PDOC ---
PROGRESS NOTES History of Present Illness History of Present Illness Assessment/Plan Assessment/Plan impression 1. severe nonischemic cardiomyopathy 2. elevated troponin i 3. chronic anemia, iron deficiency 4. critical hyponatremia, improving with 3% ns 5. CRITICAL hypokalemia, hypomagnesemia 6. GURPREET, vasomotor 7. ckd3 8. acute metabolic encephalopathy No acute intercranial finding. Note is made that MRI is more sensitive for acute infarction. 9. moderate severe malnutrition, 10. EF 25% 11. GERD 12. 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 Rhabdomyolysis 15 There is a suspected expanded empty or partially empty sella. PLAN ICU BED CAREFUL REPLACEMENT NA/K IV NEUROLOGY CONSULT EEG, consider NEPHROLOGY CONSULT CBC COMP NOW RANDOM SERUM CORTISOL acth, t4, tsh D/W CHILDREN IN ROOM pt has not been eating well x months with significant weight loss noted, ALL QUESTIONS ANSWERED 34 min cc time Vitals Vitals Vital Signs Date Time Temp Pulse Resp B/P (MAP) Pulse Ox O2 Delivery O2 Flow Rate FiO2 07/31/18 09:00 98.2 90 14 131/65 (87) 98.2 07/31/18 08:00 Room Air 07/31/18 08:00 98 07/31/18 01:00 2.0 Physical Exam General: Alert (confused to details, more alert today), Cooperative, No acute distress Heart: Regular rate, Normal S1 Lungs: Clear Abdomen: Normal bowel sounds, Soft Extremities: No cyanosis, No edema Skin: No rashes, No breakdown, No significant lesion Labs LABS EXAM: Head CT without contrast. HISTORY: Altered mental status. TECHNIQUE: Computed tomographic images of the head were obtained without intravenous contrast. *One or more of the following individualized dose reduction techniques were utilized for this examination: 1. Automated exposure control. 2. Adjustment of the mA and/or kV according to patient size. 3. Use of iterative reconstruction technique. COMPARISON: None. FINDINGS: There is no acute or subacute extra-axial or intraparenchymal hemorrhage. There is no mass effect or midline shift. There is no hydrocephalus. No abnormal enhancing lesion is seen. There are areas of decreased attenuation within the cerebral white matter, nonspecific and likely related to chronic small vessel disease. There are few tiny foci of hyperdensity along the bilateral cerebral cortex which are artifactual. There is mild age-appropriate cerebral volume loss. There is a suspected expanded empty or partially empty sella. The visualized portions of the orbits, paranasal sinuses and mastoid air cells are unremarkable. No suspicious calvarial lesion is seen. IMPRESSION: No acute intercranial finding. Note is made that MRI is more sensitive for acute infarction. Electronically signed by: Doris Spears MD (07/30/2018 4:57 PM) [id number] Laboratory Tests Test 07/30/18 12:25 07/30/18 17:53 07/31/18 06:00 Troponin I Quantitative 0.245 ng/mL (0.000-0.055) Free Thyroxine 1.60 ng/dL (0.76-1.46) White Blood Count 5.0 x10^3/uL (4.0-11.0) 5.3 x10^3/uL (4.0-11.0) Red Blood Count 4.07 x10^6/uL (3.50-5.40) 3.94 x10^6/uL (3.50-5.40) Hemoglobin 11.3 g/dL (12.0-15.5) 11.0 g/dL (12.0-15.5) Hematocrit 33.4 % (36.0-47.0) 32.8 % (36.0-47.0) Mean Corpuscular Volume 82 fL (79-100) 83 fL (79-100) Mean Corpuscular Hemoglobin 28 pg (25-35) 28 pg (25-35) Mean Corpuscular Hemoglobin Concent 34 g/dL (31-37) 33 g/dL (31-37) Red Cell Distribution Width 14.2 % (11.5-14.5) 14.4 % (11.5-14.5) Platelet Count 264 x10^3/uL (140-400) 292 x10^3/uL (140-400) Neutrophils (%) (Auto) 77 % (31-73) 69 % (31-73) Lymphocytes (%) (Auto) 10 % (24-48) 16 % (24-48) Monocytes (%) (Auto) 12 % (0-9) 15 % (0-9) Eosinophils (%) (Auto) 0 % (0-3) 0 % (0-3) Basophils (%) (Auto) 0 % (0-3) 1 % (0-3) Neutrophils # (Auto) 3.9 x10^3uL (1.8-7.7) 3.6 x10^3uL (1.8-7.7) Lymphocytes # (Auto) 0.5 x10^3/uL (1.0-4.8) 0.8 x10^3/uL (1.0-4.8) Monocytes # (Auto) 0.6 x10^3/uL (0.0-1.1) 0.8 x10^3/uL (0.0-1.1) Eosinophils # (Auto) 0.0 x10^3/uL (0.0-0.7) 0.0 x10^3/uL (0.0-0.7) Basophils # (Auto) 0.0 x10^3/uL (0.0-0.2) 0.0 x10^3/uL (0.0-0.2) Sodium Level 122 mmol/L (136-145) 123 mmol/L (136-145) Potassium Level 3.9 mmol/L (3.5-5.1) 4.0 mmol/L (3.5-5.1) Chloride Level 85 mmol/L (98-107) 88 mmol/L (98-107) Carbon Dioxide Level 30 mmol/L (21-32) 30 mmol/L (21-32) Anion Gap 7 (6-14) 5 (6-14) Blood Urea Nitrogen 45 mg/dL (7-20) 38 mg/dL (7-20) Creatinine 1.8 mg/dL (0.6-1.0) 1.6 mg/dL (0.6-1.0) Estimated GFR (Cockcroft-Gault) 33.2 38.0 BUN/Creatinine Ratio 25 (6-20) Glucose Level 124 mg/dL (70-99) 126 mg/dL (70-99) Calcium Level 7.9 mg/dL (8.5-10.1) 8.4 mg/dL (8.5-10.1) Magnesium Level 4.0 mg/dL (1.8-2.4) Total Bilirubin 0.5 mg/dL (0.2-1.0) Aspartate Amino Transf (AST/SGOT) 81 U/L (15-37) Alanine Aminotransferase (ALT/SGPT) 54 U/L (14-59) Alkaline Phosphatase 147 U/L (46-116) Total Protein 7.4 g/dL (6.4-8.2) Albumin 3.2 g/dL (3.4-5.0) Albumin/Globulin Ratio 0.8 (1.0-1.7) Cortisol PM Sample 19.8 ug/dL (3.1-16.7) Phosphorus Level 2.4 mg/dL (2.6-4.7) Assessment and Plan Assessmemt and Plan EXAM: Head CT without contrast. HISTORY: Altered mental status. TECHNIQUE: Computed tomographic images of the head were obtained without intravenous contrast. *One or more of the following individualized dose reduction techniques were utilized for this examination: 1. Automated exposure control. 2. Adjustment of the mA and/or kV according to patient size. 3. Use of iterative reconstruction technique. COMPARISON: None. FINDINGS: There is no acute or subacute extra-axial or intraparenchymal hemorrhage. There is no mass effect or midline shift. There is no hydrocephalus. No abnormal enhancing lesion is seen. There are areas of decreased attenuation within the cerebral white matter, nonspecific and likely related to chronic small vessel disease. There are few tiny foci of hyperdensity along the bilateral cerebral cortex which are artifactual. There is mild age-appropriate cerebral volume loss. There is a suspected expanded empty or partially empty sella. The visualized portions of the orbits, paranasal sinuses and mastoid air cells are unremarkable. No suspicious calvarial lesion is seen. IMPRESSION: No acute intercranial finding. Note is made that MRI is more sensitive for acute infarction. Electronically signed by: Doris Spears MD (07/30/2018 4:57 PM) [email or web address] Comment Review of Relevant I have reviewed the following items scott (where applicable) has been applied. Labs Laboratory Tests Test 07/30/18 04:25 07/30/18 04:35 07/30/18 09:40 07/30/18 09:50 Urine Collection Type U cath Urine Color Yellow Urine Clarity Clear Urine pH 7.5 Urine Specific [place] 1.010 Urine Protein Negative mg/dL (NEG-TRACE) Urine Glucose (UA) Negative mg/dL (NEG) Urine Ketones (Stick) Negative mg/dL (NEG) Urine Blood Negative (NEG) Urine Nitrite Negative (NEG) Urine Bilirubin Negative (NEG) Urine Urobilinogen Dipstick 0.2 mg/dL (0.2 mg/dL) Urine Leukocyte Esterase Negative (NEG) Urine RBC 0 /HPF (0-2) Urine WBC Occ /HPF (0-4) Urine Squamous Epithelial Cells Many /LPF Urine Renal Epithelial Cells Few /LPF Urine Bacteria Moderate /HPF (0-FEW) Urine Mucus Slight /LPF Urine Yeast Present /HPF Urine Opiates Screen Neg (NEG) Urine Methadone Screen Neg (NEG) Urine Barbiturates Neg (NEG) Urine Phencyclidine Screen Neg (NEG) Urine Amphetamine/Methamphetamine Neg (NEG) Urine Benzodiazepines Screen Neg (NEG) Urine Cocaine Screen Neg (NEG) Urine Cannabinoids Screen Neg (NEG) Urine Ethyl Alcohol Neg (NEG) White Blood Count 5.1 x10^3/uL (4.0-11.0) Red Blood Count 4.22 x10^6/uL (3.50-5.40) Hemoglobin 11.7 g/dL (12.0-15.5) Hematocrit 34.5 % (36.0-47.0) Mean Corpuscular Volume 82 fL (79-100) Mean Corpuscular Hemoglobin 28 pg (25-35) Mean Corpuscular Hemoglobin Concent 34 g/dL (31-37) Red Cell Distribution Width 13.6 % (11.5-14.5) Platelet Count 298 x10^3/uL (140-400) Neutrophils (%) (Auto) 75 % (31-73) Lymphocytes (%) (Auto) 13 % (24-48) Monocytes (%) (Auto) 11 % (0-9) Eosinophils (%) (Auto) 0 % (0-3) Basophils (%) (Auto) 0 % (0-3) Neutrophils # (Auto) 3.8 x10^3uL (1.8-7.7) Lymphocytes # (Auto) 0.7 x10^3/uL (1.0-4.8) Monocytes # (Auto) 0.6 x10^3/uL (0.0-1.1) Eosinophils # (Auto) 0.0 x10^3/uL (0.0-0.7) Basophils # (Auto) 0.0 x10^3/uL (0.0-0.2) Sodium Level 112 mmol/L (136-145) 115 mmol/L (136-145) Potassium Level 1.9 mmol/L (3.5-5.1) 2.0 mmol/L (3.5-5.1) Chloride Level 70 mmol/L (98-107) 75 mmol/L (98-107) Carbon Dioxide Level 30 mmol/L (21-32) 32 mmol/L (21-32) Anion Gap 12 (6-14) 8 (6-14) Blood Urea Nitrogen 52 mg/dL (7-20) 47 mg/dL (7-20) Creatinine 2.5 mg/dL (0.6-1.0) 2.1 mg/dL (0.6-1.0) Estimated GFR (Cockcroft-Gault) 22.7 27.8 BUN/Creatinine Ratio 21 (6-20) 22 (6-20) Glucose Level 158 mg/dL (70-99) 138 mg/dL (70-99) Calcium Level 8.5 mg/dL (8.5-10.1) 8.0 mg/dL (8.5-10.1) Total Bilirubin 0.6 mg/dL (0.2-1.0) 0.5 mg/dL (0.2-1.0) Aspartate Amino Transf (AST/SGOT) 97 U/L (15-37) 92 U/L (15-37) Alanine Aminotransferase (ALT/SGPT) 63 U/L (14-59) 55 U/L (14-59) Alkaline Phosphatase 162 U/L (46-116) 157 U/L (46-116) Creatine Kinase 1432 U/L (26-192) Troponin I Quantitative 0.063 ng/mL (0.000-0.055) 0.211 ng/mL (0.000-0.055) Total Protein 8.1 g/dL (6.4-8.2) 7.8 g/dL (6.4-8.2) Albumin 3.8 g/dL (3.4-5.0) 3.3 g/dL (3.4-5.0) Albumin/Globulin Ratio 0.9 (1.0-1.7) 0.7 (1.0-1.7) Cortisol AM Sample 43.4 ug/dL (4.3-22.4) Ethyl Alcohol Level < 10 mg/dL (0-10) Vitamin B12 Level > 2000 pg/mL (247-911) Thyroid Stimulating Hormone (TSH) 0.537 uIU/mL (0.358-3.74) Nasal Screen MRSA (PCR) Negative (Negative) Test 07/30/18 12:25 07/30/18 17:53 07/31/18 06:00 Troponin I Quantitative 0.245 ng/mL (0.000-0.055) Free Thyroxine 1.60 ng/dL (0.76-1.46) White Blood Count 5.0 x10^3/uL (4.0-11.0) 5.3 x10^3/uL (4.0-11.0) Red Blood Count 4.07 x10^6/uL (3.50-5.40) 3.94 x10^6/uL (3.50-5.40) Hemoglobin 11.3 g/dL (12.0-15.5) 11.0 g/dL (12.0-15.5) Hematocrit 33.4 % (36.0-47.0) 32.8 % (36.0-47.0) Mean Corpuscular Volume 82 fL (79-100) 83 fL (79-100) Mean Corpuscular Hemoglobin 28 pg (25-35) 28 pg (25-35) Mean Corpuscular Hemoglobin Concent 34 g/dL (31-37) 33 g/dL (31-37) Red Cell Distribution Width 14.2 % (11.5-14.5) 14.4 % (11.5-14.5) Platelet Count 264 x10^3/uL (140-400) 292 x10^3/uL (140-400) Neutrophils (%) (Auto) 77 % (31-73) 69 % (31-73) Lymphocytes (%) (Auto) 10 % (24-48) 16 % (24-48) Monocytes (%) (Auto) 12 % (0-9) 15 % (0-9) Eosinophils (%) (Auto) 0 % (0-3) 0 % (0-3) Basophils (%) (Auto) 0 % (0-3) 1 % (0-3) Neutrophils # (Auto) 3.9 x10^3uL (1.8-7.7) 3.6 x10^3uL (1.8-7.7) Lymphocytes # (Auto) 0.5 x10^3/uL (1.0-4.8) 0.8 x10^3/uL (1.0-4.8) Monocytes # (Auto) 0.6 x10^3/uL (0.0-1.1) 0.8 x10^3/uL (0.0-1.1) Eosinophils # (Auto) 0.0 x10^3/uL (0.0-0.7) 0.0 x10^3/uL (0.0-0.7) Basophils # (Auto) 0.0 x10^3/uL (0.0-0.2) 0.0 x10^3/uL (0.0-0.2) Sodium Level 122 mmol/L (136-145) 123 mmol/L (136-145) Potassium Level 3.9 mmol/L (3.5-5.1) 4.0 mmol/L (3.5-5.1) Chloride Level 85 mmol/L (98-107) 88 mmol/L (98-107) Carbon Dioxide Level 30 mmol/L (21-32) 30 mmol/L (21-32) Anion Gap 7 (6-14) 5 (6-14) Blood Urea Nitrogen 45 mg/dL (7-20) 38 mg/dL (7-20) Creatinine 1.8 mg/dL (0.6-1.0) 1.6 mg/dL (0.6-1.0) Estimated GFR (Cockcroft-Gault) 33.2 38.0 BUN/Creatinine Ratio 25 (6-20) Glucose Level 124 mg/dL (70-99) 126 mg/dL (70-99) Calcium Level 7.9 mg/dL (8.5-10.1) 8.4 mg/dL (8.5-10.1) Magnesium Level 4.0 mg/dL (1.8-2.4) Total Bilirubin 0.5 mg/dL (0.2-1.0) Aspartate Amino Transf (AST/SGOT) 81 U/L (15-37) Alanine Aminotransferase (ALT/SGPT) 54 U/L (14-59) Alkaline Phosphatase 147 U/L (46-116) Total Protein 7.4 g/dL (6.4-8.2) Albumin 3.2 g/dL (3.4-5.0) Albumin/Globulin Ratio 0.8 (1.0-1.7) Cortisol PM Sample 19.8 ug/dL (3.1-16.7) Phosphorus Level 2.4 mg/dL (2.6-4.7) Laboratory Tests Test 07/30/18 12:25 07/30/18 17:53 07/31/18 06:00 Troponin I Quantitative 0.245 ng/mL (0.000-0.055) Free Thyroxine 1.60 ng/dL (0.76-1.46) White Blood Count 5.0 x10^3/uL (4.0-11.0) 5.3 x10^3/uL (4.0-11.0) Red Blood Count 4.07 x10^6/uL (3.50-5.40) 3.94 x10^6/uL (3.50-5.40) Hemoglobin 11.3 g/dL (12.0-15.5) 11.0 g/dL (12.0-15.5) Hematocrit 33.4 % (36.0-47.0) 32.8 % (36.0-47.0) Mean Corpuscular Volume 82 fL (79-100) 83 fL (79-100) Mean Corpuscular Hemoglobin 28 pg (25-35) 28 pg (25-35) Mean Corpuscular Hemoglobin Concent 34 g/dL (31-37) 33 g/dL (31-37) Red Cell Distribution Width 14.2 % (11.5-14.5) 14.4 % (11.5-14.5) Platelet Count 264 x10^3/uL (140-400) 292 x10^3/uL (140-400) Neutrophils (%) (Auto) 77 % (31-73) 69 % (31-73) Lymphocytes (%) (Auto) 10 % (24-48) 16 % (24-48) Monocytes (%) (Auto) 12 % (0-9) 15 % (0-9) Eosinophils (%) (Auto) 0 % (0-3) 0 % (0-3) Basophils (%) (Auto) 0 % (0-3) 1 % (0-3) Neutrophils # (Auto) 3.9 x10^3uL (1.8-7.7) 3.6 x10^3uL (1.8-7.7) Lymphocytes # (Auto) 0.5 x10^3/uL (1.0-4.8) 0.8 x10^3/uL (1.0-4.8) Monocytes # (Auto) 0.6 x10^3/uL (0.0-1.1) 0.8 x10^3/uL (0.0-1.1) Eosinophils # (Auto) 0.0 x10^3/uL (0.0-0.7) 0.0 x10^3/uL (0.0-0.7) Basophils # (Auto) 0.0 x10^3/uL (0.0-0.2) 0.0 x10^3/uL (0.0-0.2) Sodium Level 122 mmol/L (136-145) 123 mmol/L (136-145) Potassium Level 3.9 mmol/L (3.5-5.1) 4.0 mmol/L (3.5-5.1) Chloride Level 85 mmol/L (98-107) 88 mmol/L (98-107) Carbon Dioxide Level 30 mmol/L (21-32) 30 mmol/L (21-32) Anion Gap 7 (6-14) 5 (6-14) Blood Urea Nitrogen 45 mg/dL (7-20) 38 mg/dL (7-20) Creatinine 1.8 mg/dL (0.6-1.0) 1.6 mg/dL (0.6-1.0) Estimated GFR (Cockcroft-Gault) 33.2 38.0 BUN/Creatinine Ratio 25 (6-20) Glucose Level 124 mg/dL (70-99) 126 mg/dL (70-99) Calcium Level 7.9 mg/dL (8.5-10.1) 8.4 mg/dL (8.5-10.1) Magnesium Level 4.0 mg/dL (1.8-2.4) Total Bilirubin 0.5 mg/dL (0.2-1.0) Aspartate Amino Transf (AST/SGOT) 81 U/L (15-37) Alanine Aminotransferase (ALT/SGPT) 54 U/L (14-59) Alkaline Phosphatase 147 U/L (46-116) Total Protein 7.4 g/dL (6.4-8.2) Albumin 3.2 g/dL (3.4-5.0) Albumin/Globulin Ratio 0.8 (1.0-1.7) Cortisol PM Sample 19.8 ug/dL (3.1-16.7) Phosphorus Level 2.4 mg/dL (2.6-4.7) Medications Current Medications Sodium Chloride 1,000 ml @ 1,000 mls/hr 1X ONCE IV Last administered on at 06:08; Start 07/30/18 at 05:30; Stop 07/30/18 at 06:29; Status DC Potassium Chloride/Water 100 ml @ 100 mls/hr Q1H IV Last administered on at 07:45; Start 07/30/18 at 06:00; Stop 07/30/18 at 07:59; Status DC Ondansetron HCl (Zofran) 4 mg PRN Q8HRS PRN IV NAUSEA/VOMITING; Start 07/30/18 at 06:45; Stop 07/31/18 at 06:44; Status DC Acetaminophen (Tylenol) 650 mg PRN Q4HRS PRN PO FEVER; Start 07/30/18 at 06:45 ; Stop 07/31/18 at 06:44; Status DC Sodium Chloride 100 ml @ 50 mls/hr 1X ONCE IV Last administered on 07/30/18at 07:44; Start 07/30/18 at 07:00; Stop 07/30/18 at 08:59; Status DC Potassium Chloride (Klor-Con) 40 meq 1X ONCE PO Last administered on at 07:46; Start 07/30/18 at 07:00; Stop 07/30/18 at 07:01; Status DC Potassium Chloride (Klor-Con) 40 meq 1X ONCE PO ; Start 07/30/18 at 12:00; Stop 07/30/18 at 12:01; Status DC Potassium Chloride/Water 50 ml @ 50 mls/hr 1X ONCE IV Last administered on at 14:25; Start 07/30/18 at 13:00; Stop 07/30/18 at 13:59; Status DC Sodium Chloride 150 ml @ 50 mls/hr 1X ONCE IV Last administered on 07/30/18at 14:25; Start 07/30/18 at 13:00; Stop 07/30/18 at 15:59; Status DC Fentanyl Citrate (Fentanyl 2ml Vial) 50 mcg 1X ONCE IV Last administered on at 13:17; Start 07/30/18 at 12:45; Stop 07/30/18 at 12:46; Status DC Midazolam HCl (Versed) 2 mg 1X ONCE IV Last administered on 07/30/18at 12:45; Start 07/30/18 at 12:45; Stop 07/30/18 at 12:46; Status DC Midazolam HCl (Versed) 5 mg STK-MED ONCE .ROUTE ; Start 07/30/18 at 12:34; Stop 07/30/18 at 12:35; Status DC Potassium Chloride/Water 50 ml @ 50 mls/hr Q1H IV Last administered on at 18:54; Start 07/30/18 at 16:00; Stop 07/30/18 at 20:59; Status DC Potassium Chloride/Water 100 ml @ 100 mls/hr Q1H IV ; Start 07/30/18 at 15:00; Stop 07/30/18 at 18:59; Status UNV Potassium Chloride/Water 50 ml @ 50 mls/hr Q1H IV ; Start 07/30/18 at 15:00; Stop 07/30/18 at 16:59; Status UNV Potassium Chloride/Water 100 ml @ 100 mls/hr Q1H IV ; Start 07/30/18 at 15:00; Stop 07/30/18 at 22:59; Status UNV Potassium Chloride/Water 50 ml @ 50 mls/hr Q1H IV ; Start 07/30/18 at 15:00; Stop 07/30/18 at 18:59; Status UNV Potassium Chloride/Water 50 ml @ 50 mls/hr Q1HR IV ; Start 07/30/18 at 15:00; Stop 07/30/18 at 20:59; Status UNV Info (Icu Electrolyte Protocol) 1 ea CONT PRN PRN MC SEE COMMENTS; Start at 15:15 Amino Acids/ Glycerin/ Electrolytes 1,000 ml @ 80 mls/hr [id number] IV Last administered on 07/31/18at 04:09; Start 07/30/18 at 15:15 Midazolam HCl (Versed) 5 mg STK-MED ONCE .ROUTE ; Start 07/30/18 at 12:30; Stop 07/31/18 at 09:07; Status DC Active Scripts Active Colace (Docusate Sodium) 100 Mg Capsule 100 Mg PO PRN DAILY PRN Potassium Chloride 20 Meq Tablet.er 20 Meq PO BID Lasix (Furosemide) 80 Mg Tablet 1 Tab PO DAILY Reported Dicyclomine Hcl 20 Mg Tablet 1 Tab PO BID Metoprolol Tartrate 25 Mg Tablet 0.5 Tab PO BID Nortriptyline Hcl 25 Mg Capsule 25 Mg PO BID Isosorbide Mononitrate Er (Isosorbide Mononitrate) 60 Mg Tab.er.24h 60 Mg PO BID Carafate (Sucralfate) 1 Gm Tablet 1 Tab PO BID Valium (Diazepam) 5 Mg Tablet 5 Mg PO BID Omeprazole 40 Mg Capsule.dr 1 Cap PO DAILY Lipitor (Atorvastatin Calcium) 20 Mg Tablet 20 Mg PO HS Vitals/I & O Vital Sign - Last 24 Hours 07/30/18 07/30/18 07/30/18 07/30/18 11:00 12:00 12:00 13:00 Temp 98.2 98.2 Pulse 89 86 87 Resp 30 32 20 B/P (MAP) 90/73 (79) 96/60 (72) 120/64 (82) Pulse Ox 96 96 95 O2 Delivery Nasal Cannula Nasal Cannula Nasal Cannula Nasal Cannula O2 Flow Rate 2.0 2.0 2.0 2.0 07/30/18 07/30/18 07/30/18 07/30/18 13:17 13:33 14:00 15:00 Pulse 87 84 Resp 27 17 B/P (MAP) 123/70 (87) 112/62 (79) Pulse Ox 95 95 100 100 O2 Delivery Nasal Cannula Nasal Cannula Nasal Cannula Nasal Cannula O2 Flow Rate 2.0 2.0 2.0 2.0 07/30/18 07/30/18 07/30/18 07/30/18 16:00 16:00 17:00 17:13 Pulse 86 88 Resp 28 23 B/P (MAP) 151/76 (101) 116/62 (80) Pulse Ox 100 100 O2 Delivery Nasal Cannula Nasal Cannula Nasal Cannula Nasal Cannula O2 Flow Rate 1.5 2.0 2.0 1.5 07/30/18 07/30/18 07/30/18 07/30/18 18:00 19:00 19:52 20:00 Temp 98.4 98.4 Pulse 86 88 89 Resp 12 13 13 B/P (MAP) 122/69 (86) 139/63 (88) 132/69 (90) Pulse Ox 100 100 99 O2 Delivery Nasal Cannula Nasal Cannula Nasal Cannula Nasal Cannula O2 Flow Rate 2.0 2.0 2.0 2.0 07/30/18 07/30/18 07/30/18 07/31/18 21:00 22:00 23:00 00:00 Temp 98.2 98.2 Pulse 89 88 90 91 Resp 13 16 14 20 B/P (MAP) 119/74 (89) 140/65 (90) 123/66 (85) 120/64 (82) Pulse Ox 94 95 97 98 O2 Delivery Nasal Cannula Nasal Cannula Nasal Cannula Nasal Cannula O2 Flow Rate 2.0 2.0 2.0 2.0 07/31/18 07/31/18 07/31/18 07/31/18 00:00 01:00 02:00 03:00 Pulse 98 93 95 Resp 12 13 12 B/P (MAP) 140/76 (97) 113/55 (74) 145/75 (98) Pulse Ox 98 100 98 O2 Delivery Nasal Cannula Nasal Cannula Room Air Room Air O2 Flow Rate 2.0 2.0 07/31/18 07/31/18 07/31/18 07/31/18 03:37 04:00 05:00 06:00 Temp 98.8 98.8 Pulse 97 90 90 Resp 19 10 12 B/P (MAP) 142/67 (92) 140/63 (88) 138/62 (87) Pulse Ox 99 99 99 O2 Delivery Room Air Room Air Room Air Room Air 07/31/18 07/31/18 07/31/18 07/31/18 07:00 08:00 08:00 09:00 Temp 98.2 98.2 Pulse 90 89 90 Resp 14 B/P (MAP) 137/68 (91) 140/81 (100) 131/65 (87) Pulse Ox 98 98 O2 Delivery Room Air Room Air Room Air Intake and Output 07/30/18 07/30/18 07/31/18 15:00 23:00 07:00 Intake Total 1300 ml 494 ml 978 ml Output Total 2150 ml 825 ml 865 ml Balance -850 ml -331 ml 113 ml RODNEY BEEBE MD Jul 31, 2018 10:34
[2018-07-31] MEDS ORDERED: SODIUM CHLORIDE 3 % 100 ML IV ONE (11:00)
--- NOTE | 2018-07-31 11:46 | PDOC ---
Renal-Progress Notes Subjective Notes Notes STILL CONFUSED History of Present Illness Hx of present illness NOT ANY BETTER Vitals Vitals Vital Signs Date Time Temp Pulse Resp B/P (MAP) Pulse Ox O2 Delivery O2 Flow Rate FiO2 07/31/18 11:00 86 14 140/69 (92) 100 Room Air 07/31/18 09:00 98.2 98.2 07/31/18 01:00 2.0 Weight Weight [ ] I.O. Intake and Output Intake and Output 07/31/18 06:59 Intake Total 2772 ml Output Total 3775 ml Balance -1003 ml Intake Oral 0 ml IV Total 2772 ml Output Urine Total 3775 ml Labs Labs Laboratory Tests Test 07/30/18 12:25 07/30/18 17:53 07/31/18 06:00 Troponin I Quantitative 0.245 ng/mL (0.000-0.055) Free Thyroxine 1.60 ng/dL (0.76-1.46) White Blood Count 5.0 x10^3/uL (4.0-11.0) 5.3 x10^3/uL (4.0-11.0) Red Blood Count 4.07 x10^6/uL (3.50-5.40) 3.94 x10^6/uL (3.50-5.40) Hemoglobin 11.3 g/dL (12.0-15.5) 11.0 g/dL (12.0-15.5) Hematocrit 33.4 % (36.0-47.0) 32.8 % (36.0-47.0) Mean Corpuscular Volume 82 fL (79-100) 83 fL (79-100) Mean Corpuscular Hemoglobin 28 pg (25-35) 28 pg (25-35) Mean Corpuscular Hemoglobin Concent 34 g/dL (31-37) 33 g/dL (31-37) Red Cell Distribution Width 14.2 % (11.5-14.5) 14.4 % (11.5-14.5) Platelet Count 264 x10^3/uL (140-400) 292 x10^3/uL (140-400) Neutrophils (%) (Auto) 77 % (31-73) 69 % (31-73) Lymphocytes (%) (Auto) 10 % (24-48) 16 % (24-48) Monocytes (%) (Auto) 12 % (0-9) 15 % (0-9) Eosinophils (%) (Auto) 0 % (0-3) 0 % (0-3) Basophils (%) (Auto) 0 % (0-3) 1 % (0-3) Neutrophils # (Auto) 3.9 x10^3uL (1.8-7.7) 3.6 x10^3uL (1.8-7.7) Lymphocytes # (Auto) 0.5 x10^3/uL (1.0-4.8) 0.8 x10^3/uL (1.0-4.8) Monocytes # (Auto) 0.6 x10^3/uL (0.0-1.1) 0.8 x10^3/uL (0.0-1.1) Eosinophils # (Auto) 0.0 x10^3/uL (0.0-0.7) 0.0 x10^3/uL (0.0-0.7) Basophils # (Auto) 0.0 x10^3/uL (0.0-0.2) 0.0 x10^3/uL (0.0-0.2) Sodium Level 122 mmol/L (136-145) 123 mmol/L (136-145) Potassium Level 3.9 mmol/L (3.5-5.1) 4.0 mmol/L (3.5-5.1) Chloride Level 85 mmol/L (98-107) 88 mmol/L (98-107) Carbon Dioxide Level 30 mmol/L (21-32) 30 mmol/L (21-32) Anion Gap 7 (6-14) 5 (6-14) Blood Urea Nitrogen 45 mg/dL (7-20) 38 mg/dL (7-20) Creatinine 1.8 mg/dL (0.6-1.0) 1.6 mg/dL (0.6-1.0) Estimated GFR (Cockcroft-Gault) 33.2 38.0 BUN/Creatinine Ratio 25 (6-20) Glucose Level 124 mg/dL (70-99) 126 mg/dL (70-99) Calcium Level 7.9 mg/dL (8.5-10.1) 8.4 mg/dL (8.5-10.1) Magnesium Level 4.0 mg/dL (1.8-2.4) Total Bilirubin 0.5 mg/dL (0.2-1.0) Aspartate Amino Transf (AST/SGOT) 81 U/L (15-37) Alanine Aminotransferase (ALT/SGPT) 54 U/L (14-59) Alkaline Phosphatase 147 U/L (46-116) Total Protein 7.4 g/dL (6.4-8.2) Albumin 3.2 g/dL (3.4-5.0) Albumin/Globulin Ratio 0.8 (1.0-1.7) Cortisol PM Sample 19.8 ug/dL (3.1-16.7) Phosphorus Level 2.4 mg/dL (2.6-4.7) Review of Systems Constitutional: yes: other (CONFUSED) Physical Exam General Appearance: no apparent distress Skin: warm Respiratory: bilateral CTA Heart: S1S2 Abdomen: soft, bowel sounds present Genitourinary: bladder flat Extremities: pulses present Neurology: confused Musculoskeletal: Osteoarthritis, Weakness, Swelling Assessment Assessment IMP HYPOKALEMIA MET ENCEPHALOPATHY DEHYDRATION CACHEXIA MALNUTRITION GURPREET NEARLY RESOLVED CKD STAGE 3 WITH CR OF 1.6 PLAN MORE 3% SALINE JONNATHANN CHRISS GIRARD MD Jul 31, 2018 11:46
--- NOTE | 2018-07-31 13:31 | PDOC ---
PROGRESS NOTES Assessment Assessment Metabolic encephalopathy. Confusion x 3 to 4 days. Hyponatremia, Na+ 112. Hypokalemia, K+ 1.9. Hypochloride Cl- 70. GI bleeding, Hx. Renal failure. Elevated hepatic enzymes. Elevated troponin. CAD, s/p AR. CHF. HTN. COPD. HLD. RECOMMENDATIONS/PLAN: Continue life support in ICU. Correct electrolytes imbalances. HCT performed no acute findings. Lab: see orders. EEG. Treat medical diseases. Discussed with her at bedside in ICU on 07/30/18. HISTORY OF THE PRESENT ILLNESS: This is a 73-year-old AA female patient who was brought by EMS to the ER of [facility] for the evaluation of altered mental status. History obtained from her . Her states patient has been in the bathroom sitting on the toilet for approximately 12 hours. Patient is confused. On exam she states her name is peasumeet. No focalized sensory or motor deficits noted. PAST MEDICAL HISTORY: GI Bleed, High Cholesterol, AR, Cardiomyopathy Cardiovascular: CAD, CHF, HTN, Other Pulmonary: COPD CENTRAL NERVOUS SYSTEM: CVA, Dementia GI: GERD, GI bleed Psych: Anxiety Musculoskeletal: Osteoarthritis, Weakness, Swelling Renal/: Chronic renal insuff Past Surgical History Hysterectomy STOMACH SURGERY Family History No Significant Allergies Coded Allergies: aspirin (Verified Adverse Reaction, Intermediate, Nausea and Vomiting, 04/05) castor oil (Verified Adverse Reaction, Intermediate, Nausea and Vomiting, 11/27/16) MEDICATIONS: Refer to MAR. SOCIAL HISTORY: Lives with her . Denies current smoking, drinking, and illicit drug use. REVIEW OF SYSTEMS: Constitutional: No cachexia. Head: No traumatic brain or head injury. Skin: No edema, or rash. Ear: Hearing decreased.. Eyes: No vision loss or color blindness. Nose: No bleeding or purulent discharges. Hearing: Hearing decrease. Neck: No injury. Breast: No history of cancer, masses,or discharges. Cardiac: CAD, CHF, HTN. Pulmonary: COPD. GI: GI bleeding. Urinary/genital: UTI. Endocrinologic: No cousin face, craniofacial dysmorphism, polydactyly. Skeletomuscular: No muscular atrophy, deformity. Neurological: see HP. Psychiatric: Denies drug use/abuse. Otherwise, not [id number] review of systems. PHYSICAL EXAMINATION: General appearance is in subacute distress. HEENT: Normocephalic and nontraumatic. Eyes, nose, ears, and throat are unremarkable. Neck is supple. No lymphadenopathy. No crepitus. Cardiovascular: S1, S2, regular rate and rhythm. Pulmonary: Clear to auscultation bilaterally. Abdomen: Bowel sounds are positive. Extremities: No rash, lesions, or edema. No restriction of range of motion NEUROLOGICAL EXAMINATION: Sleepiness. Not oriented to time, place and person. PERRL. EOMI. CN: no focal findings. Muscle tone: Increased. Muscle strength: 4+ DTR: 1-2 Plantar reflex: Neutral response bilaterally Gait: not examined in bed. Sensory exam: no abnormal findings. No other cerebellar signs elicited. F-T-N test not performed. Objective Objective Vital Signs Date Time Temp Pulse Resp B/P (MAP) Pulse Ox O2 Delivery O2 Flow Rate FiO2 07/31/18 12:00 Room Air 07/31/18 12:00 90 12 129/60 (83) 100 07/31/18 09:00 98.2 98.2 07/31/18 01:00 2.0 Intake and Output 07/31/18 06:59 Intake Total 2772 ml Output Total 3775 ml Balance -1003 ml Intake Oral 0 ml IV Total 2772 ml Output Urine Total 3775 ml Vitals Signs Vitals VS - Last 72 Hours, by Label Date Time Temp Pulse Resp B/P (MAP) Pulse Ox O2 Delivery O2 Flow Rate FiO2 07/31/18 12:00 Room Air 07/31/18 12:00 90 12 129/60 (83) 100 Room Air 07/31/18 11:00 86 14 140/69 (92) 100 Room Air 07/31/18 09:00 98.2 90 14 131/65 (87) 98.2 07/31/18 08:00 Room Air 07/31/18 08:00 89 14 140/81 (100) 98 Room Air 07/31/18 07:00 90 14 137/68 (91) 98 Room Air 07/31/18 06:00 90 12 138/62 (87) 99 Room Air 07/31/18 05:00 90 10 140/63 (88) 99 Room Air 07/31/18 04:00 98.8 97 19 142/67 (92) 99 Room Air 98.8 07/31/18 03:37 Room Air 07/31/18 03:00 95 12 145/75 (98) 98 Room Air 07/31/18 02:00 93 13 113/55 (74) 100 Room Air 07/31/18 01:00 98 12 140/76 (97) 98 Nasal Cannula 2.0 07/31/18 00:00 Nasal Cannula 2.0 07/31/18 00:00 98.2 91 20 120/64 (82) 98 Nasal Cannula 2.0 98.2 07/30/18 23:00 90 14 123/66 (85) 97 Nasal Cannula 2.0 07/30/18 22:00 88 16 140/65 (90) 95 Nasal Cannula 2.0 07/30/18 21:00 89 13 119/74 (89) 94 Nasal Cannula 2.0 07/30/18 20:00 98.4 89 13 132/69 (90) 99 Nasal Cannula 2.0 98.4 07/30/18 19:52 Nasal Cannula 2.0 07/30/18 19:00 88 13 139/63 (88) 100 Nasal Cannula 2.0 07/30/18 18:00 86 12 122/69 (86) 100 Nasal Cannula 2.0 07/30/18 17:13 Nasal Cannula 1.5 07/30/18 17:00 88 23 116/62 (80) 100 Nasal Cannula 2.0 07/30/18 16:00 86 28 151/76 (101) 100 Nasal Cannula 2.0 07/30/18 16:00 Nasal Cannula 1.5 07/30/18 15:00 84 17 112/62 (79) 100 Nasal Cannula 2.0 07/30/18 14:00 87 27 123/70 (87) 100 Nasal Cannula 2.0 07/30/18 13:33 95 Nasal Cannula 2.0 07/30/18 13:17 95 Nasal Cannula 2.0 07/30/18 13:00 87 20 120/64 (82) 95 Nasal Cannula 2.0 07/30/18 12:00 Nasal Cannula 2.0 07/30/18 12:00 98.2 86 32 96/60 (72) 96 Nasal Cannula 2.0 98.2 07/30/18 11:00 89 30 90/73 (79) 96 Nasal Cannula 2.0 07/30/18 10:00 80 21 115/81 (92) 93 Room Air 3/13/19 09:30 Nasal Cannula 2.0 07/30/18 09:30 98.1 81 24 138/80 (99) 92 Room Air 98.1 Laboratory Laboratory Laboratory Tests Test 07/30/18 17:53 07/31/18 06:00 White Blood Count 5.0 x10^3/uL (4.0-11.0) 5.3 x10^3/uL (4.0-11.0) Red Blood Count 4.07 x10^6/uL (3.50-5.40) 3.94 x10^6/uL (3.50-5.40) Hemoglobin 11.3 g/dL (12.0-15.5) 11.0 g/dL (12.0-15.5) Hematocrit 33.4 % (36.0-47.0) 32.8 % (36.0-47.0) Mean Corpuscular Volume 82 fL (79-100) 83 fL (79-100) Mean Corpuscular Hemoglobin 28 pg (25-35) 28 pg (25-35) Mean Corpuscular Hemoglobin Concent 34 g/dL (31-37) 33 g/dL (31-37) Red Cell Distribution Width 14.2 % (11.5-14.5) 14.4 % (11.5-14.5) Platelet Count 264 x10^3/uL (140-400) 292 x10^3/uL (140-400) Neutrophils (%) (Auto) 77 % (31-73) 69 % (31-73) Lymphocytes (%) (Auto) 10 % (24-48) 16 % (24-48) Monocytes (%) (Auto) 12 % (0-9) 15 % (0-9) Eosinophils (%) (Auto) 0 % (0-3) 0 % (0-3) Basophils (%) (Auto) 0 % (0-3) 1 % (0-3) Neutrophils # (Auto) 3.9 x10^3uL (1.8-7.7) 3.6 x10^3uL (1.8-7.7) Lymphocytes # (Auto) 0.5 x10^3/uL (1.0-4.8) 0.8 x10^3/uL (1.0-4.8) Monocytes # (Auto) 0.6 x10^3/uL (0.0-1.1) 0.8 x10^3/uL (0.0-1.1) Eosinophils # (Auto) 0.0 x10^3/uL (0.0-0.7) 0.0 x10^3/uL (0.0-0.7) Basophils # (Auto) 0.0 x10^3/uL (0.0-0.2) 0.0 x10^3/uL (0.0-0.2) Sodium Level 122 mmol/L (136-145) 123 mmol/L (136-145) Potassium Level 3.9 mmol/L (3.5-5.1) 4.0 mmol/L (3.5-5.1) Chloride Level 85 mmol/L (98-107) 88 mmol/L (98-107) Carbon Dioxide Level 30 mmol/L (21-32) 30 mmol/L (21-32) Anion Gap 7 (6-14) 5 (6-14) Blood Urea Nitrogen 45 mg/dL (7-20) 38 mg/dL (7-20) Creatinine 1.8 mg/dL (0.6-1.0) 1.6 mg/dL (0.6-1.0) Estimated GFR (Cockcroft-Gault) 33.2 38.0 BUN/Creatinine Ratio 25 (6-20) Glucose Level 124 mg/dL (70-99) 126 mg/dL (70-99) Calcium Level 7.9 mg/dL (8.5-10.1) 8.4 mg/dL (8.5-10.1) Magnesium Level 4.0 mg/dL (1.8-2.4) Total Bilirubin 0.5 mg/dL (0.2-1.0) Aspartate Amino Transf (AST/SGOT) 81 U/L (15-37) Alanine Aminotransferase (ALT/SGPT) 54 U/L (14-59) Alkaline Phosphatase 147 U/L (46-116) Total Protein 7.4 g/dL (6.4-8.2) Albumin 3.2 g/dL (3.4-5.0) Albumin/Globulin Ratio 0.8 (1.0-1.7) Cortisol PM Sample 19.8 ug/dL (3.1-16.7) Phosphorus Level 2.4 mg/dL (2.6-4.7) Medication Medications Current Medications Amino Acids/ Glycerin/ Electrolytes 1,000 ml @ 80 mls/hr [id number] IV Last administered on 07/31/18at 04:09; Start 07/30/18 at 15:15 Info (Icu Electrolyte Protocol) 1 ea CONT PRN PRN MC SEE COMMENTS; Start at 15:15 Potassium Chloride/Water 50 ml @ 50 mls/hr Q1H IV ; Start 07/30/18 at 15:00; Stop 07/30/18 at 16:59; Status UNV Potassium Chloride/Water 50 ml @ 50 mls/hr Q1H IV ; Start 07/30/18 at 15:00; Stop 07/30/18 at 18:59; Status UNV Potassium Chloride/Water 50 ml @ 50 mls/hr Q1H IV Last administered on at 18:54; Start 07/30/18 at 16:00; Stop 07/30/18 at 20:59; Status DC Potassium Chloride/Water 50 ml @ 50 mls/hr Q1HR IV ; Start 07/30/18 at 15:00; Stop 07/30/18 at 20:59; Status UNV Potassium Chloride/Water 100 ml @ 100 mls/hr Q1H IV ; Start 07/30/18 at 15:00; Stop 07/30/18 at 18:59; Status UNV Potassium Chloride/Water 100 ml @ 100 mls/hr Q1H IV ; Start 07/30/18 at 15:00; Stop 07/30/18 at 22:59; Status UNV Sodium Chloride 100 ml @ 50 mls/hr 1X ONCE IV Last administered on 07/31/18at 11:19; Start 07/31/18 at 11:00; Stop 07/31/18 at 12:59; Status DC Comment Review of Relevant I have reviewed the following items scott (where applicable) has been applied. ROSELYN HERNANDEZ MD Jul 31, 2018 13:30
[2018-07-31] MEDS: HEPARIN for SUB-Q USE 5,000 UNIT/ML VIAL. SQ SCH ×2 (16:48→22:08)
--- NOTE | 2018-07-31 17:12 | CARD ---
MR#: [id number] Date of Study: 07/31/2018 Ordering Physician: ALOK DOWNS, Referring Physician: RODNEY BEEBE, Tech: Lary Noonan APPROVED REPORT EXAM: Two-dimensional and M-mode echocardiogram with Doppler and color Doppler. Other Information Quality : AverageHR: 77bpm Technically limited study due to body habitus. INDICATION Cardiomyopathy 2D DIMENSIONS Left Atrium(2D)2.8 (1.6-4.0cm)IVSd1.1 (0.7-1.1cm) Aortic Root(2D)2.9 (2.0-3.7cm)LVDd3.9 (3.9-5.9cm) LVOT Diameter2.0 (1.8-2.4cm)PWd1.0 (0.7-1.1cm) LVDs2.7 (2.5-4.0cm)FS (%) 31.1 % SV39.3 mlLVEF(%)59.5 (>50%) Aortic Valve AoV Peak Horacio.148.0cm/sAoV VTI27.0cm AO Peak GR.8.8mmHgLVOT VTI 20.45cm AO Mean GR.5mmHg TDI Lateral E' P. V7.14cm/sMedial E' P. V5.79cm/s Tricuspid Valve TR P. [id number]/sRAP [id number] TR Peak Gr.[id number] Pulmonary Vein S1 Kyfwtszp12.1cm/sS2 Hcxtbijl17.67cm/s D2 Lyanjehv49.7cm/sPVa [id number] LEFT VENTRICLE The left ventricle is normal size. There is borderline concentric left ventricular hypertrophy. The l eft ventricular systolic function is normal and the ejection fraction is low normal. EF 50% There is normal LV segmental wall motion. Septal motion suggestive of conduction defect. Transmitral Doppler f low pattern is Grade I-abnormal relaxation pattern. RIGHT VENTRICLE The right ventricle is normal size. There is normal right ventricular wall thickness. The right ventr icular systolic function is normal. ATRIA The left atrium size is normal. The right atrium size is normal. The interatrial septum is intact wit h no evidence for an atrial septal defect or patent foramen ovale as noted on 2-D or Doppler imaging. AORTIC VALVE The aortic valve is not well visualized. Doppler and Color Flow revealed no significant aortic regurg itation. There is no significant aortic valvular stenosis. MITRAL VALVE The mitral valve is thickened but opens well. There is no evidence of mitral valve prolapse. There is no mitral valve stenosis. Doppler and Color-flow revealed trace mitral regurgitation. TRICUSPID VALVE The tricuspid valve is normal in structure and function. Doppler and Color Flow revealed trace tricus pid regurgitation with an estimated PAP of 32 mmHg. There is no tricuspid valve stenosis. PULMONIC VALVE The pulmonic valve is not well visualized. Doppler and Color Flow revealed no pulmonic valvular regur gitation. GREAT VESSELS The aortic root is normal in size. The IVC is normal in size and collapses >50% with inspiration. PERICARDIAL EFFUSION There is no evidence of significant pericardial effusion. Critical Notification Critical Value: No <Conclusion> The left ventricular systolic function is grossly normal and the ejection fraction is low normal. EF 50% There is normal LV segmental wall motion. Septal motion suggestive of conduction defect. Technically difficult study. Signed by : Wero Mendoza, Electronically Approved : 07/31/2018 17:11:19
[2018-07-31] MEDS: ACETAMINOPHEN 325 MG TABLET. PO PRN ×2 (17:37→23:46)
--- NOTE | 2018-07-31 18:00 | NUR ---
Bag of meds that came to hospital with pt taken to pharmacy since family forgot to take home after asked to.
--- NOTE | 2018-07-31 18:25 | EEG ---
DATE OF SERVICE: 07/31/2018 ELECTROENCEPHALOGRAM NUMBER: [id number] OBJECTIVE: This is a 73-year-old female patient with history of prolonged mental status changes and confusion. EEG was requested to evaluate her cerebral activity and help rule out subclinical seizure. METHODS: Twenty electrodes were applied according to the international 10-20 electrode placement system. EKG monitoring, hyperventilation, intermittent photic stimulation, monopolar and bipolar montages are routinely utilized. The record was obtained on a digital system with video monitoring. FINDINGS: 1. Background: The patient was recorded in the awake, drowsy, and sleep states. The overall background amplitude is 5-15 microvolts. A posterior dominant rhythm of 8 Hz is observed with superimposed slowing mainly in the theta frequency. 2. Abnormalities: No specific epileptiform discharge or electrographic seizure is seen. The overlapped slowing in theta frequency is less than 50%. 3. Activation: Hyperventilation was not performed because the patient was unable to follow the commands. Intermittent photic stimulation was performed with photic driving. No specific epileptiform discharge or electrographic seizure induced by intermittent photic stimulation. IMPRESSION: This EEG falls into the abnormal category of the study for the awake, drowsy, and sleep states. There is a superimposed slowing mainly in the theta frequency, but is less than 50% of the time, maybe 25%. No focal, lateralizing, specific epileptiform discharge or electrographic seizure is seen. This pattern of EEG may suggest mild encephalopathy. ROSELYN HERNANDEZ MD DR: SILVIA/serenity JOB#: [id number] / [id number]
[2018-08-01] VITALS (19 sets, daily range): BP systolic 103–145; BP diastolic 52–82
[2018-08-01] MEDS: traMADol 50 MG TABLET PO PRN ×2 (04:26→18:08)
[2018-08-01] MEDS: AMINO AC 3%/ELECTROLYTE/GLYCER 1,000 ML IV SCH ×2 (04:27→17:58)
[2018-08-01] MEDS: HEPARIN for SUB-Q USE 5,000 UNIT/ML VIAL. SQ SCH ×3 (06:15→22:14)
[2018-08-01 06:39] LABS: CALCIUM 8.3 mg/dL (8.5-10.1); CREATININE 1.2 mg/dL (0.6-1.0); POTASSIUM 4.1 mmol/L (3.5-5.1)
[2018-08-01 07:02] LABS: BASO % 0 % (0-3); EOS # 0.1 x10^3/uL (0.0-0.7); EOS % 1 % (0-3); HEMATOCRIT 30.4 % (36.0-47.0); LYMPH # 1.9 x10^3/uL (1.0-4.8); LYMPH % 32 % (24-48); MEAN CORPUSCULAR HEMOGLOBIN 27 pg (25-35); MEAN CORPUSCULAR HGB CONC 33 g/dL (31-37); MEAN CORPUSCULAR VOLUME 83 fL (79-100); MONO # 0.7 x10^3/uL (0.0-1.1); MONO % 12 % (0-9); NEUT # 3.3 x10^3uL (1.8-7.7); NEUT % 55 % (31-73); PLATELET COUNT 265 x10^3/uL (140-400); RED BLOOD COUNT 3.64 x10^6/uL (3.50-5.40); RED CELL DISTRIBUTION WIDTH 14.8 % (11.5-14.5); WHITE BLOOD COUNT 6.1 x10^3/uL (4.0-11.0)
[2018-08-01] MEDS: ACETAMINOPHEN 325 MG TABLET. PO PRN ×2 (08:10→21:22)
[2018-08-01] MEDS: ASPIRIN 325 MG TABLET PO SCH (08:29)
[2018-08-01] MEDS ORDERED: ASPIRIN RECTAL 300 MG SUPP. PR SCH (09:00)
--- NOTE | 2018-08-01 10:09 | PDOC ---
PROGRESS NOTES History of Present Illness History of Present Illness Assessment/Plan Assessment/Plan impression 1. severe nonischemic cardiomyopathy 2. elevated troponin i 3. chronic anemia, iron deficiency 4. critical hyponatremia, improving with 3% ns 5. CRITICAL hypokalemia, hypomagnesemia 6. GURPREET, vasomotor 7. ckd3 8. acute metabolic encephalopathy No acute intercranial finding. Note is made that MRI is more sensitive for acute infarction. 9. moderate severe malnutrition, 10. EF 25% 11. GERD 12. 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 Rhabdomyolysis 15 There is a suspected expanded empty or partially empty sella. PLAN ICU BED CAREFUL REPLACEMENT NA/K IV NEUROLOGY CONSULT EEG, consider NEPHROLOGY CONSULT CBC COMP NOW RANDOM SERUM CORTISOL acth, t4, tsh acth 24 HR URINE CORTICOSTEROIDS D/W CHILDREN IN ROOM pt has not been eating well x months with significant weight loss noted, ALL QUESTIONS ANSWERED 08/01 34 min cc time Vitals Vitals Vital Signs Date Time Temp Pulse Resp B/P (MAP) Pulse Ox O2 Delivery O2 Flow Rate FiO2 08/01/18 09:00 95 12 109/82 (91) Room Air 08/01/18 08:00 98.9 94 98.9 Physical Exam General: Alert (confused to details, more alert today), Cooperative, No acute distress Heart: Regular rate, Normal S1 Lungs: Clear Abdomen: Normal bowel sounds, Soft Extremities: No clubbing, No cyanosis, No edema Skin: No rashes, No breakdown, No significant lesion Labs LABS Laboratory Tests Test 08/01/18 06:20 White Blood Count 6.1 x10^3/uL (4.0-11.0) Red Blood Count 3.64 x10^6/uL (3.50-5.40) Hemoglobin 10.0 g/dL (12.0-15.5) Hematocrit 30.4 % (36.0-47.0) Mean Corpuscular Volume 83 fL (79-100) Mean Corpuscular Hemoglobin 27 pg (25-35) Mean Corpuscular Hemoglobin Concent 33 g/dL (31-37) Red Cell Distribution Width 14.8 % (11.5-14.5) Platelet Count 265 x10^3/uL (140-400) Neutrophils (%) (Auto) 55 % (31-73) Lymphocytes (%) (Auto) 32 % (24-48) Monocytes (%) (Auto) 12 % (0-9) Eosinophils (%) (Auto) 1 % (0-3) Basophils (%) (Auto) 0 % (0-3) Neutrophils # (Auto) 3.3 x10^3uL (1.8-7.7) Lymphocytes # (Auto) 1.9 x10^3/uL (1.0-4.8) Monocytes # (Auto) 0.7 x10^3/uL (0.0-1.1) Eosinophils # (Auto) 0.1 x10^3/uL (0.0-0.7) Basophils # (Auto) 0.0 x10^3/uL (0.0-0.2) Sodium Level 130 mmol/L (136-145) Potassium Level 4.1 mmol/L (3.5-5.1) Chloride Level 93 mmol/L (98-107) Carbon Dioxide Level 32 mmol/L (21-32) Anion Gap 5 (6-14) Blood Urea Nitrogen 33 mg/dL (7-20) Creatinine 1.2 mg/dL (0.6-1.0) Estimated GFR (Cockcroft-Gault) 53.0 Glucose Level 97 mg/dL (70-99) Calcium Level 8.3 mg/dL (8.5-10.1) Comment Review of Relevant I have reviewed the following items scott (where applicable) has been applied. Labs Laboratory Tests Test 07/30/18 12:25 07/30/18 17:53 07/31/18 06:00 08/01/18 06:20 Troponin I Quantitative 0.245 ng/mL (0.000-0.055) Free Thyroxine 1.60 ng/dL (0.76-1.46) White Blood Count 5.0 x10^3/uL (4.0-11.0) 5.3 x10^3/uL (4.0-11.0) 6.1 x10^3/uL (4.0-11.0) Red Blood Count 4.07 x10^6/uL (3.50-5.40) 3.94 x10^6/uL (3.50-5.40) 3.64 x10^6/uL (3.50-5.40) Hemoglobin 11.3 g/dL (12.0-15.5) 11.0 g/dL (12.0-15.5) 10.0 g/dL (12.0-15.5) Hematocrit 33.4 % (36.0-47.0) 32.8 % (36.0-47.0) 30.4 % (36.0-47.0) Mean Corpuscular Volume 82 fL (79-100) 83 fL (79-100) 83 fL (79-100) Mean Corpuscular Hemoglobin 28 pg (25-35) 28 pg (25-35) 27 pg (25-35) Mean Corpuscular Hemoglobin Concent 34 g/dL (31-37) 33 g/dL (31-37) 33 g/dL (31-37) Red Cell Distribution Width 14.2 % (11.5-14.5) 14.4 % (11.5-14.5) 14.8 % (11.5-14.5) Platelet Count 264 x10^3/uL (140-400) 292 x10^3/uL (140-400) 265 x10^3/uL (140-400) Neutrophils (%) (Auto) 77 % (31-73) 69 % (31-73) 55 % (31-73) Lymphocytes (%) (Auto) 10 % (24-48) 16 % (24-48) 32 % (24-48) Monocytes (%) (Auto) 12 % (0-9) 15 % (0-9) 12 % (0-9) Eosinophils (%) (Auto) 0 % (0-3) 0 % (0-3) 1 % (0-3) Basophils (%) (Auto) 0 % (0-3) 1 % (0-3) 0 % (0-3) Neutrophils # (Auto) 3.9 x10^3uL (1.8-7.7) 3.6 x10^3uL (1.8-7.7) 3.3 x10^3uL (1.8-7.7) Lymphocytes # (Auto) 0.5 x10^3/uL (1.0-4.8) 0.8 x10^3/uL (1.0-4.8) 1.9 x10^3/uL (1.0-4.8) Monocytes # (Auto) 0.6 x10^3/uL (0.0-1.1) 0.8 x10^3/uL (0.0-1.1) 0.7 x10^3/uL (0.0-1.1) Eosinophils # (Auto) 0.0 x10^3/uL (0.0-0.7) 0.0 x10^3/uL (0.0-0.7) 0.1 x10^3/uL (0.0-0.7) Basophils # (Auto) 0.0 x10^3/uL (0.0-0.2) 0.0 x10^3/uL (0.0-0.2) 0.0 x10^3/uL (0.0-0.2) Sodium Level 122 mmol/L (136-145) 123 mmol/L (136-145) 130 mmol/L (136-145) Potassium Level 3.9 mmol/L (3.5-5.1) 4.0 mmol/L (3.5-5.1) 4.1 mmol/L (3.5-5.1) Chloride Level 85 mmol/L (98-107) 88 mmol/L (98-107) 93 mmol/L (98-107) Carbon Dioxide Level 30 mmol/L (21-32) 30 mmol/L (21-32) 32 mmol/L (21-32) Anion Gap 7 (6-14) 5 (6-14) 5 (6-14) Blood Urea Nitrogen 45 mg/dL (7-20) 38 mg/dL (7-20) 33 mg/dL (7-20) Creatinine 1.8 mg/dL (0.6-1.0) 1.6 mg/dL (0.6-1.0) 1.2 mg/dL (0.6-1.0) Estimated GFR (Cockcroft-Gault) 33.2 38.0 53.0 BUN/Creatinine Ratio 25 (6-20) Glucose Level 124 mg/dL (70-99) 126 mg/dL (70-99) 97 mg/dL (70-99) Calcium Level 7.9 mg/dL (8.5-10.1) 8.4 mg/dL (8.5-10.1) 8.3 mg/dL (8.5-10.1) Magnesium Level 4.0 mg/dL (1.8-2.4) Total Bilirubin 0.5 mg/dL (0.2-1.0) Aspartate Amino Transf (AST/SGOT) 81 U/L (15-37) Alanine Aminotransferase (ALT/SGPT) 54 U/L (14-59) Alkaline Phosphatase 147 U/L (46-116) Total Protein 7.4 g/dL (6.4-8.2) Albumin 3.2 g/dL (3.4-5.0) Albumin/Globulin Ratio 0.8 (1.0-1.7) Cortisol PM Sample 19.8 ug/dL (3.1-16.7) Phosphorus Level 2.4 mg/dL (2.6-4.7) Vitamin B12 Level > 2000 pg/mL (247-911) Laboratory Tests Test 08/01/18 06:20 White Blood Count 6.1 x10^3/uL (4.0-11.0) Red Blood Count 3.64 x10^6/uL (3.50-5.40) Hemoglobin 10.0 g/dL (12.0-15.5) Hematocrit 30.4 % (36.0-47.0) Mean Corpuscular Volume 83 fL (79-100) Mean Corpuscular Hemoglobin 27 pg (25-35) Mean Corpuscular Hemoglobin Concent 33 g/dL (31-37) Red Cell Distribution Width 14.8 % (11.5-14.5) Platelet Count 265 x10^3/uL (140-400) Neutrophils (%) (Auto) 55 % (31-73) Lymphocytes (%) (Auto) 32 % (24-48) Monocytes (%) (Auto) 12 % (0-9) Eosinophils (%) (Auto) 1 % (0-3) Basophils (%) (Auto) 0 % (0-3) Neutrophils # (Auto) 3.3 x10^3uL (1.8-7.7) Lymphocytes # (Auto) 1.9 x10^3/uL (1.0-4.8) Monocytes # (Auto) 0.7 x10^3/uL (0.0-1.1) Eosinophils # (Auto) 0.1 x10^3/uL (0.0-0.7) Basophils # (Auto) 0.0 x10^3/uL (0.0-0.2) Sodium Level 130 mmol/L (136-145) Potassium Level 4.1 mmol/L (3.5-5.1) Chloride Level 93 mmol/L (98-107) Carbon Dioxide Level 32 mmol/L (21-32) Anion Gap 5 (6-14) Blood Urea Nitrogen 33 mg/dL (7-20) Creatinine 1.2 mg/dL (0.6-1.0) Estimated GFR (Cockcroft-Gault) 53.0 Glucose Level 97 mg/dL (70-99) Calcium Level 8.3 mg/dL (8.5-10.1) Microbiology 07/30/18 Urine Culture - Preliminary, Resulted 07/30/18 Urine Culture Result 1 (TONI) - Preliminary, Resulted Medications Current Medications Sodium Chloride 1,000 ml @ 1,000 mls/hr 1X ONCE IV Last administered on at 06:08; Start 07/30/18 at 05:30; Stop 07/30/18 at 06:29; Status DC Potassium Chloride/Water 100 ml @ 100 mls/hr Q1H IV Last administered on at 07:45; Start 07/30/18 at 06:00; Stop 07/30/18 at 07:59; Status DC Ondansetron HCl (Zofran) 4 mg PRN Q8HRS PRN IV NAUSEA/VOMITING; Start 07/30/18 at 06:45; Stop 07/31/18 at 06:44; Status DC Acetaminophen (Tylenol) 650 mg PRN Q4HRS PRN PO FEVER; Start 07/30/18 at 06:45 ; Stop 07/31/18 at 06:44; Status DC Sodium Chloride 100 ml @ 50 mls/hr 1X ONCE IV Last administered on 07/30/18at 07:44; Start 07/30/18 at 07:00; Stop 07/30/18 at 08:59; Status DC Potassium Chloride (Klor-Con) 40 meq 1X ONCE PO Last administered on at 07:46; Start 07/30/18 at 07:00; Stop 07/30/18 at 07:01; Status DC Potassium Chloride (Klor-Con) 40 meq 1X ONCE PO ; Start 07/30/18 at 12:00; Stop 07/30/18 at 12:01; Status DC Potassium Chloride/Water 50 ml @ 50 mls/hr 1X ONCE IV Last administered on at 14:25; Start 07/30/18 at 13:00; Stop 07/30/18 at 13:59; Status DC Sodium Chloride 150 ml @ 50 mls/hr 1X ONCE IV Last administered on 07/30/18at 14:25; Start 07/30/18 at 13:00; Stop 07/30/18 at 15:59; Status DC Fentanyl Citrate (Fentanyl 2ml Vial) 50 mcg 1X ONCE IV Last administered on at 13:17; Start 07/30/18 at 12:45; Stop 07/30/18 at 12:46; Status DC Midazolam HCl (Versed) 2 mg 1X ONCE IV Last administered on 07/30/18at 12:45; Start 07/30/18 at 12:45; Stop 07/30/18 at 12:46; Status DC Midazolam HCl (Versed) 5 mg STK-MED ONCE .ROUTE ; Start 07/30/18 at 12:34; Stop 07/30/18 at 12:35; Status DC Potassium Chloride/Water 50 ml @ 50 mls/hr Q1H IV Last administered on at 18:54; Start 07/30/18 at 16:00; Stop 07/30/18 at 20:59; Status DC Potassium Chloride/Water 100 ml @ 100 mls/hr Q1H IV ; Start 07/30/18 at 15:00; Stop 07/30/18 at 18:59; Status UNV Potassium Chloride/Water 50 ml @ 50 mls/hr Q1H IV ; Start 07/30/18 at 15:00; Stop 07/30/18 at 16:59; Status UNV Potassium Chloride/Water 100 ml @ 100 mls/hr Q1H IV ; Start 07/30/18 at 15:00; Stop 07/30/18 at 22:59; Status UNV Potassium Chloride/Water 50 ml @ 50 mls/hr Q1H IV ; Start 07/30/18 at 15:00; Stop 07/30/18 at 18:59; Status UNV Potassium Chloride/Water 50 ml @ 50 mls/hr Q1HR IV ; Start 07/30/18 at 15:00; Stop 07/30/18 at 20:59; Status UNV Info (Icu Electrolyte Protocol) 1 ea CONT PRN PRN MC SEE COMMENTS; Start at 15:15 Amino Acids/ Glycerin/ Electrolytes 1,000 ml @ 80 mls/hr [id number] IV Last administered on 08/01/18at 04:27; Start 07/30/18 at 15:15 Midazolam HCl (Versed) 5 mg STK-MED ONCE .ROUTE ; Start 07/30/18 at 12:30; Stop 07/31/18 at 09:07; Status DC Sodium Chloride 100 ml @ 50 mls/hr 1X ONCE IV Last administered on 07/31/18at 11:19; Start 07/31/18 at 11:00; Stop 07/31/18 at 12:59; Status DC Aspirin (Aspirin) 300 mg DAILY MS ; Start 08/01/18 at 09:00; Stop 08/01/18 at 09 :00; Status DC Heparin Sodium (Porcine) (Heparin Sodium) 5,000 unit Q8HRS SQ Last administered on 08/01/18at 06:15; Start 07/31/18 at 15:00 Acetaminophen (Tylenol) 650 mg PRN Q6HRS PRN PO pain Last administered on at 08:10; Start 07/31/18 at 17:30 Tramadol HCl (Ultram) 50 mg PRN Q6HRS PRN PO MODERATE PAIN Last administered on 08/01/18at 04:26; Start 08/01/18 at 04:30 Aspirin (Amanda Aspirin) 325 mg [id number] PO Last administered on 08/01/18at 08: 29; Start 08/01/18 at 08:30 Active Scripts Active Colace (Docusate Sodium) 100 Mg Capsule 100 Mg PO PRN DAILY PRN Potassium Chloride 20 Meq Tablet.er 20 Meq PO BID Lasix (Furosemide) 80 Mg Tablet 1 Tab PO DAILY Reported Dicyclomine Hcl 20 Mg Tablet 1 Tab PO BID Metoprolol Tartrate 25 Mg Tablet 0.5 Tab PO BID Nortriptyline Hcl 25 Mg Capsule 25 Mg PO BID Isosorbide Mononitrate Er (Isosorbide Mononitrate) 60 Mg Tab.er.24h 60 Mg PO BID Carafate (Sucralfate) 1 Gm Tablet 1 Tab PO BID Valium (Diazepam) 5 Mg Tablet 5 Mg PO BID Omeprazole 40 Mg Capsule.dr 1 Cap PO DAILY Lipitor (Atorvastatin Calcium) 20 Mg Tablet 20 Mg PO HS Vitals/I & O Vital Sign - Last 24 Hours 07/31/18 07/31/18 07/31/18 07/31/18 11:00 12:00 12:00 13:00 Temp 98.3 98.3 Pulse 86 90 86 Resp 12 15 B/P (MAP) 140/69 (92) 129/60 (83) 121/70 (87) Pulse Ox 100 100 100 O2 Delivery Room Air Room Air Room Air Room Air 07/31/18 07/31/18 07/31/18 07/31/18 14:00 15:00 16:00 16:00 Temp 98.5 98.3 98.5 98.5 98.3 98.5 Pulse 88 102 86 Resp 11 B/P (MAP) 127/67 (87) 144/72 (96) 125/66 (85) Pulse Ox 100 100 100 O2 Delivery Room Air Room Air Room Air Room Air 07/31/18 07/31/18 07/31/18 07/31/18 17:01 18:00 19:00 20:00 Temp 98.4 98.5 98.4 98.5 Pulse 76 86 72 Resp 12 12 11 B/P (MAP) 119/63 (81) 107/89 (95) 109/63 (78) Pulse Ox 100 100 O2 Delivery Room Air Room Air Room Air Room Air 07/31/18 07/31/18 07/31/18 07/31/18 20:00 21:00 22:00 23:00 Temp 97.8 97.8 Pulse 78 92 73 74 Resp 13 15 13 12 B/P (MAP) 128/68 (88) 109/70 (83) 127/54 (78) 135/66 (89) Pulse Ox 95 O2 Delivery Room Air Room Air Room Air Room Air 07/31/18 08/01/18 08/01/18 08/01/18 23:59 00:00 01:00 02:00 Temp 98.5 98.5 Pulse 78 90 79 Resp 12 13 13 B/P (MAP) 128/63 (84) 133/65 (87) 105/52 (69) O2 Delivery Room Air Room Air Room Air Room Air 08/01/18 08/01/18 08/01/18 08/01/18 03:00 04:00 04:00 04:26 Temp 98.2 98.2 Pulse 78 90 Resp 19 18 12 B/P (MAP) 113/52 (72) 109/52 (71) Pulse Ox 95 O2 Delivery Room Air Room Air Room Air Room Air 08/01/18 08/01/18 08/01/18 08/01/18 05:00 06:00 07:00 07:58 Pulse 94 82 75 Resp 24 12 14 B/P (MAP) 103/69 (80) 118/59 (78) 124/70 (88) Pulse Ox 95 O2 Delivery Room Air Room Air Room Air Room Air 08/01/18 08/01/18 08:00 09:00 Temp 98.9 98.9 Pulse 78 95 Resp 12 12 B/P (MAP) 116/54 (74) 109/82 (91) Pulse Ox 94 O2 Delivery Room Air Room Air Intake and Output 07/31/18 07/31/18 08/01/18 15:00 23:00 07:00 Intake Total 100 ml 982 ml 1133 ml Output Total 855 ml 965 ml 780 ml Balance -755 ml 17 ml 353 ml Nutrition Consultation Dietary Evaluation: Recommendations by RD: Increase Calorie Intake, Protein supplementation, PPN/ TPN Comments: continue ppn at this time encourage po intake Expected Outcomes/Goals: to meet > 50% est nutr needs via po intake Interpretation of weight loss: >20% in 1 year Malnutrition Findings: Food and Nutrition Intake (Sev: <50% est energy req 5days Body Fat Depletion (Non Severe: Mild Depletion Weight Status: Underweight RODNEY BEEBE MD Aug 01, 2018 10:09
--- NOTE | 2018-08-01 10:42 | PDOC ---
Renal-Progress Notes Subjective Notes Notes NONE History of Present Illness Hx of present illness CONFUSED Vitals Vitals Vital Signs Date Time Temp Pulse Resp B/P (MAP) Pulse Ox O2 Delivery O2 Flow Rate FiO2 08/01/18 10:00 93 18 124/68 (86) Room Air 08/01/18 08:00 98.9 94 98.9 Weight Weight [ ] I.O. Intake and Output Intake and Output 08/01/18 06:59 Intake Total 2215 ml Output Total 2690 ml Balance -475 ml Intake Oral 100 ml IV Total 2115 ml Output Urine Total 2690 ml Labs Labs Laboratory Tests Test 08/01/18 06:20 White Blood Count 6.1 x10^3/uL (4.0-11.0) Red Blood Count 3.64 x10^6/uL (3.50-5.40) Hemoglobin 10.0 g/dL (12.0-15.5) Hematocrit 30.4 % (36.0-47.0) Mean Corpuscular Volume 83 fL (79-100) Mean Corpuscular Hemoglobin 27 pg (25-35) Mean Corpuscular Hemoglobin Concent 33 g/dL (31-37) Red Cell Distribution Width 14.8 % (11.5-14.5) Platelet Count 265 x10^3/uL (140-400) Neutrophils (%) (Auto) 55 % (31-73) Lymphocytes (%) (Auto) 32 % (24-48) Monocytes (%) (Auto) 12 % (0-9) Eosinophils (%) (Auto) 1 % (0-3) Basophils (%) (Auto) 0 % (0-3) Neutrophils # (Auto) 3.3 x10^3uL (1.8-7.7) Lymphocytes # (Auto) 1.9 x10^3/uL (1.0-4.8) Monocytes # (Auto) 0.7 x10^3/uL (0.0-1.1) Eosinophils # (Auto) 0.1 x10^3/uL (0.0-0.7) Basophils # (Auto) 0.0 x10^3/uL (0.0-0.2) Sodium Level 130 mmol/L (136-145) Potassium Level 4.1 mmol/L (3.5-5.1) Chloride Level 93 mmol/L (98-107) Carbon Dioxide Level 32 mmol/L (21-32) Anion Gap 5 (6-14) Blood Urea Nitrogen 33 mg/dL (7-20) Creatinine 1.2 mg/dL (0.6-1.0) Estimated GFR (Cockcroft-Gault) 53.0 Glucose Level 97 mg/dL (70-99) Calcium Level 8.3 mg/dL (8.5-10.1) Micro Micro Microbiology 07/30/18 Urine Culture - Preliminary, Resulted 07/30/18 Urine Culture Result 1 (TONI) - Preliminary, Resulted Review of Systems Constitutional: yes: other (CONFUSED) Physical Exam General Appearance: no apparent distress Skin: warm Respiratory: bilateral CTA Heart: S1S2 Abdomen: soft, bowel sounds present Genitourinary: bladder flat Extremities: pulses present Neurology: other (tracking with eyes, nonverbal) Musculoskeletal: Osteoarthritis, Weakness, Swelling Assessment Assessment IMP HYPONATREMIA-IMPROVED HYPOKALEMIA-RESOLVED MET ENCEPHALOPATHY DEHYDRATION CACHEXIA MALNUTRITION GURPREET RESOLVED CKD STAGE 3 WITH CR OF 1.6 PLAN ENC PO CHRISS PRICE MD Aug 01, 2018 10:42
--- NOTE | 2018-08-01 12:28 | NUR ---
SS following up with discharge planning. PT recommended halfway unit. SS met with pt in room and discussed halfway unit. Pt agreeable to halfway unit and reported having no preference of facility. Pt reported that she would be agreeable to [facility], ; fax [phone]. mission planner, Nadeen Larios, sending referral to [facility]. SS will await acceptance decision and will proceed accordingly.
--- NOTE | 2018-08-01 14:24 | PDOC ---
PROGRESS NOTES Assessment Assessment Metabolic encephalopathy. Confusion x 3 to 4 days before admission. Hyponatremia, Na+ 112. Hypokalemia, K+ 1.9. Hypochloride Cl- 70. GI bleeding, Hx. Renal failure. Elevated hepatic enzymes. Elevated troponin. CAD, s/p [place]. CHF. HTN. COPD. HLD. RECOMMENDATIONS/PLAN: Correct electrolytes imbalances. HCT performed no acute findings. Treat medical diseases. Feet pain evaluation by medical team. Discussed with her at bedside in ICU on 07/30/18. EEG on 07/31/18: Encephalopathy. Nos seizure activity. HISTORY OF THE PRESENT ILLNESS: This is a 73-year-old AA female patient who was brought by EMS to the ER of [facility] for the evaluation of altered mental status. History obtained from her . Her states patient has been in the bathroom sitting on the toilet for approximately 12 hours. Patient is confused. On exam she states her name is hipolito. No focalized sensory or motor deficits noted. PAST MEDICAL HISTORY: GI Bleed, High Cholesterol, [place], Cardiomyopathy Cardiovascular: CAD, CHF, HTN, Other Pulmonary: COPD CENTRAL NERVOUS SYSTEM: CVA, Dementia GI: GERD, GI bleed Psych: Anxiety Musculoskeletal: Osteoarthritis, Weakness, Swelling Renal/: Chronic renal insuff Past Surgical History Hysterectomy STOMACH SURGERY Family History No Significant Allergies Coded Allergies: aspirin (Verified Adverse Reaction, Intermediate, Nausea and Vomiting, 04/05) castor oil (Verified Adverse Reaction, Intermediate, Nausea and Vomiting, 11/27/16) MEDICATIONS: Refer to MAR. SOCIAL HISTORY: Lives with her . Denies current smoking, drinking, and illicit drug use. REVIEW OF SYSTEMS: Constitutional: No cachexia. Head: No traumatic brain or head injury. Skin: No edema, or rash. Ear: Hearing decreased.. Eyes: No vision loss or color blindness. Nose: No bleeding or purulent discharges. Hearing: Hearing decrease. Neck: No injury. Breast: No history of cancer, masses,or discharges. Cardiac: CAD, CHF, HTN. Pulmonary: COPD. GI: GI bleeding. Urinary/genital: UTI. Endocrinologic: No cousin face, craniofacial dysmorphism, polydactyly. Skeletomuscular: No muscular atrophy, deformity. Neurological: see HP. Psychiatric: Denies drug use/abuse. Otherwise, not [id number] review of systems. PHYSICAL EXAMINATION: General appearance is in subacute distress. HEENT: Normocephalic and nontraumatic. Eyes, nose, ears, and throat are unremarkable. Neck is supple. No lymphadenopathy. No crepitus. Cardiovascular: S1, S2, regular rate and rhythm. Pulmonary: Clear to auscultation bilaterally. Abdomen: Bowel sounds are positive. Extremities: No rash, lesions, or edema. No restriction of range of motion NEUROLOGICAL EXAMINATION: Awake. Sitting in bed. Not oriented to time, but knew place and person. PERRL. EOMI. CN: no focal findings. Muscle tone: Increased. Muscle strength: 5- DTR: 1-2 Plantar reflex: Neutral response bilaterally Gait: not examined in bed. Sensory exam: no abnormal findings. No other cerebellar signs elicited. F-T-N test not performed. Objective Objective Vital Signs Date Time Temp Pulse Resp B/P (MAP) Pulse Ox O2 Delivery O2 Flow Rate FiO2 08/01/18 13:00 86 18 132/67 (88) 95 Room Air 08/01/18 12:00 98.7 98.7 Intake and Output 08/01/18 07:00 Intake Total 2215 ml Output Total 2600 ml Balance -385 ml Intake Oral 100 ml IV Total 2115 ml Output Urine Total 2600 ml Vitals Signs Vitals VS - Last 72 Hours, by Label Date Time Temp Pulse Resp B/P (MAP) Pulse Ox O2 Delivery O2 Flow Rate FiO2 08/01/18 13:00 86 18 132/67 (88) 95 Room Air 08/01/18 12:00 98.7 74 12 122/63 (82) 96 Room Air 98.7 08/01/18 12:00 Room Air 08/01/18 11:00 78 12 123/61 (81) Room Air 08/01/18 10:00 93 18 124/68 (86) Room Air 08/01/18 09:00 95 12 109/82 (91) Room Air 08/01/18 08:00 98.9 78 12 116/54 (74) 94 Room Air 98.9 08/01/18 07:58 Room Air 08/01/18 07:00 75 14 124/70 (88) 95 Room Air 08/01/18 06:00 82 12 118/59 (78) Room Air 08/01/18 05:00 94 24 103/69 (80) Room Air 08/01/18 04:26 12 Room Air 08/01/18 04:00 98.2 90 18 109/52 (71) Room Air 98.2 08/01/18 04:00 Room Air 08/01/18 03:00 78 19 113/52 (72) 95 Room Air 08/01/18 02:00 79 13 105/52 (69) Room Air 08/01/18 01:00 90 13 133/65 (87) Room Air 08/01/18 00:00 98.5 78 12 128/63 (84) Room Air 98.5 07/31/18 23:59 Room Air 07/31/18 23:00 74 12 135/66 (89) Room Air 07/31/18 22:00 73 13 127/54 (78) Room Air 07/31/18 21:00 92 15 109/70 (83) Room Air 07/31/18 20:00 97.8 78 13 128/68 (88) 95 Room Air 97.8 07/31/18 20:00 Room Air 07/31/18 19:00 72 11 109/63 (78) Room Air 07/31/18 18:00 98.5 86 12 107/89 (95) 100 Room Air 98.5 07/31/18 17:01 98.4 76 12 119/63 (81) 100 Room Air 98.4 07/31/18 16:00 98.5 86 11 125/66 (85) 100 Room Air 98.5 07/31/18 16:00 Room Air 07/31/18 15:00 98.3 102 14 144/72 (96) 100 Room Air 98.3 07/31/18 14:00 98.5 88 14 127/67 (87) 100 Room Air 98.5 07/31/18 13:00 98.3 86 15 121/70 (87) 100 Room Air 98.3 07/31/18 12:00 Room Air 07/31/18 12:00 90 12 129/60 (83) 100 Room Air 07/31/18 11:00 86 14 140/69 (92) 100 Room Air 07/31/18 09:00 98.2 90 14 131/65 (87) 98.2 07/31/18 08:00 Room Air 07/31/18 08:00 89 14 140/81 (100) 98 Room Air 07/31/18 07:00 90 14 137/68 (91) 98 Room Air Laboratory Laboratory Laboratory Tests Test 08/01/18 06:20 White Blood Count 6.1 x10^3/uL (4.0-11.0) Red Blood Count 3.64 x10^6/uL (3.50-5.40) Hemoglobin 10.0 g/dL (12.0-15.5) Hematocrit 30.4 % (36.0-47.0) Mean Corpuscular Volume 83 fL (79-100) Mean Corpuscular Hemoglobin 27 pg (25-35) Mean Corpuscular Hemoglobin Concent 33 g/dL (31-37) Red Cell Distribution Width 14.8 % (11.5-14.5) Platelet Count 265 x10^3/uL (140-400) Neutrophils (%) (Auto) 55 % (31-73) Lymphocytes (%) (Auto) 32 % (24-48) Monocytes (%) (Auto) 12 % (0-9) Eosinophils (%) (Auto) 1 % (0-3) Basophils (%) (Auto) 0 % (0-3) Neutrophils # (Auto) 3.3 x10^3uL (1.8-7.7) Lymphocytes # (Auto) 1.9 x10^3/uL (1.0-4.8) Monocytes # (Auto) 0.7 x10^3/uL (0.0-1.1) Eosinophils # (Auto) 0.1 x10^3/uL (0.0-0.7) Basophils # (Auto) 0.0 x10^3/uL (0.0-0.2) Sodium Level 130 mmol/L (136-145) Potassium Level 4.1 mmol/L (3.5-5.1) Chloride Level 93 mmol/L (98-107) Carbon Dioxide Level 32 mmol/L (21-32) Anion Gap 5 (6-14) Blood Urea Nitrogen 33 mg/dL (7-20) Creatinine 1.2 mg/dL (0.6-1.0) Estimated GFR (Cockcroft-Gault) 53.0 Glucose Level 97 mg/dL (70-99) Calcium Level 8.3 mg/dL (8.5-10.1) Microbiology 07/30/18 Urine Culture - Preliminary, Resulted 07/30/18 Urine Culture Result 1 (TONI) - Preliminary, Resulted Medication Medications Current Medications Acetaminophen (Tylenol) 650 mg PRN Q6HRS PRN PO pain Last administered on at 08:10; Start 07/31/18 at 17:30 Aspirin (Aspirin) 300 mg DAILY PA ; Start 08/01/18 at 09:00; Stop 08/01/18 at 09 :00; Status DC Aspirin (Medlumics Aspirin) 325 mg DAILYWBKFT PO Last administered on 08/01/18at 08: 29; Start 08/01/18 at 08:30 Heparin Sodium (Porcine) (Heparin Sodium) 5,000 unit Q8HRS SQ Last administered on 08/01/18at 06:15; Start 07/31/18 at 15:00 Tramadol HCl (Ultram) 50 mg PRN Q6HRS PRN PO MODERATE PAIN Last administered on 08/01/18at 04:26; Start 08/01/18 at 04:30 Comment Review of Relevant I have reviewed the following items scott (where applicable) has been applied. ROSELYN HERNANDEZ MD Aug 01, 2018 14:24
--- NOTE | 2018-08-01 15:09 | PDOC ---
CARDIOLOGY PROGRESS NOTE SUBJECTIVE: Patient is more alert and oriented. Denies any chest pain. OBJECTIVE: Vital SIgns: Vital Signs Date Time Temp Pulse Resp B/P (MAP) Pulse Ox O2 Delivery O2 Flow Rate FiO2 08/01/18 15:00 77 19 138/68 (91) Room Air 08/01/18 13:00 95 08/01/18 12:00 98.7 98.7 I & O Intake and Output 08/01/18 07:00 Intake Total 2215 ml Output Total 2600 ml Balance -385 ml Intake Oral 100 ml IV Total 2115 ml Output Urine Total 2600 ml Objective: emaciated, cachectic lady soft MR murmur. lungs with rhonchi no edema. CURRENT MEDICATIONS: Current Medications Medications (Trade) Dose Ordered Sig/Catherine Start Time Stop Time Status Last Admin Dose Admin Acetaminophen (Tylenol) 650 mg PRN Q6HRS PRN 07/31/18 17:30 08/01/18 08:10 650 MG Amino Acids/ Glycerin/ Electrolytes 1,000 ml @ 80 mls/hr [id number] 07/30/18 15:15 08/01/18 04:27 80 MLS/HR Aspirin (Aspirin) 300 mg DAILY 08/01/18 09:00 08/01/18 09:00 DC Aspirin (Amanda Aspirin) 325 mg [id number] 08/01/18 08:30 08/01/18 08:29 325 MG Fentanyl Citrate (Fentanyl 2ml Vial) 50 mcg 1X ONCE 07/30/18 12:45 07/30/18 12:46 DC 07/30/18 13:17 50 MCG Heparin Sodium (Porcine) (Heparin Sodium) 5,000 unit Q8HRS 07/31/18 15:00 08/01/18 06:15 5,000 UNIT Info (Icu Electrolyte Protocol) 1 ea CONT PRN PRN 07/30/18 15:15 Midazolam HCl (Versed) 5 mg STK-MED ONCE 07/30/18 12:30 07/31/18 09:07 DC Ondansetron HCl (Zofran) 4 mg PRN Q8HRS PRN 07/30/18 06:45 07/31/18 06:44 DC Potassium Chloride/Water 50 ml @ 50 mls/hr Q1HR 07/30/18 15:00 07/30/18 20:59 UNV Potassium Chloride (Klor-Con) 40 meq 1X ONCE 07/30/18 12:00 07/30/18 12:01 DC Sodium Chloride 100 ml @ 50 mls/hr 1X ONCE 07/31/18 11:00 07/31/18 12:59 DC 07/31/18 11:19 50 MLS/HR Tramadol HCl (Ultram) 50 mg PRN Q6HRS PRN 08/01/18 04:30 08/01/18 04:26 50 MG DIAGNOSTIC TESTING: Hgb 10, Cr 1.2 EF 50% on echo ASSESSMENT: 1. AMS due to electrolyte disturbance 2. Elevated troponin due to rhabdo 3. LBBB PLAN: 1. Continue aspirin. Outpatient f/u in the office and based on symptoms, further testing prn. RADHA DAIGLE MD Aug 01, 2018 15:09
[2018-08-02 03:13] VITALS: BP 130/58
[2018-08-02 04:42] LABS: ALBUMIN 2.8 g/dL (3.4-5.0); ALBUMIN/GLOBULIN RATIO 0.7 (1.0-1.7); CALCIUM 8.6 mg/dL (8.5-10.1); CREATININE 1.2 mg/dL (0.6-1.0); POTASSIUM 4.6 mmol/L (3.5-5.1); TOTAL BILIRUBIN 0.3 mg/dL (0.2-1.0); TOTAL PROTEIN 7.1 g/dL (6.4-8.2)
[2018-08-02 04:43] LABS: MAGNESIUM 3.3 mg/dL (1.8-2.4); PHOSPHORUS 2.4 mg/dL (2.6-4.7)
[2018-08-02] MEDS: AMINO AC 3%/ELECTROLYTE/GLYCER 1,000 ML IV SCH ×2 (05:46→17:33)
[2018-08-02] MEDS: HEPARIN for SUB-Q USE 5,000 UNIT/ML VIAL. SQ SCH ×3 (05:58→22:24)
[2018-08-02 07:00] VITALS: BP 135/82
[2018-08-02] MEDS: ASPIRIN 325 MG TABLET PO SCH (08:07)
[2018-08-02 11:00] VITALS: BP 125/65
--- NOTE | 2018-08-02 11:28 | PDOC ---
PROGRESS NOTES Chief Complaint Chief Complaint acute metabolic encephalopathy 1. severe nonischemic cardiomyopathy 2. elevated troponin i 3. chronic anemia, iron deficiency 4. critical hyponatremia, improved and stabilizing, 5. CRITICAL hypokalemia, hypomagnesemia 6. GURPREET, vasomotor 7. ckd3 8. acute metabolic encephalopathy No acute intercranial finding. Note is made that MRI is more sensitive for acute infarction. 9. moderate severe malnutrition, 10. EF 25% 11. GERD 12. 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 Rhabdomyolysis History of Present Illness History of Present Illness out of ICU, labs much improved, some PO intake start PT and OT mult consults following, appreciate input Vitals Vitals Vital Signs Date Time Temp Pulse Resp B/P (MAP) Pulse Ox O2 Delivery O2 Flow Rate FiO2 08/02/18 08:00 Room Air 08/02/18 07:00 98.1 97 18 135/82 (99) 98.1 08/02/18 03:13 93 08/01/18 20:00 2.0 Physical Exam General: Alert (confused to details, more alert today), Cooperative, No acute distress Heart: Regular rate, Normal S1 Lungs: Clear Abdomen: Normal bowel sounds, Soft Extremities: No clubbing, No cyanosis, No edema Skin: No rashes, No breakdown, No significant lesion Labs LABS Laboratory Tests Test 08/02/18 04:10 Sodium Level 130 mmol/L (136-145) Potassium Level 4.6 mmol/L (3.5-5.1) Chloride Level 94 mmol/L (98-107) Carbon Dioxide Level 28 mmol/L (21-32) Anion Gap 8 (6-14) Blood Urea Nitrogen 36 mg/dL (7-20) Creatinine 1.2 mg/dL (0.6-1.0) Estimated GFR (Cockcroft-Gault) 53.0 BUN/Creatinine Ratio 30 (6-20) Glucose Level 88 mg/dL (70-99) Calcium Level 8.6 mg/dL (8.5-10.1) Phosphorus Level 2.4 mg/dL (2.6-4.7) Magnesium Level 3.3 mg/dL (1.8-2.4) Total Bilirubin 0.3 mg/dL (0.2-1.0) Aspartate Amino Transf (AST/SGOT) 46 U/L (15-37) Alanine Aminotransferase (ALT/SGPT) 36 U/L (14-59) Alkaline Phosphatase 117 U/L (46-116) Total Protein 7.1 g/dL (6.4-8.2) Albumin 2.8 g/dL (3.4-5.0) Albumin/Globulin Ratio 0.7 (1.0-1.7) Review of Systems Review of Systems feels better, still weak Comment Review of Relevant I have reviewed the following items scott (where applicable) has been applied. Labs Laboratory Tests Test 08/01/18 06:20 08/01/18 07:30 08/02/18 04:10 White Blood Count 6.1 x10^3/uL (4.0-11.0) Red Blood Count 3.64 x10^6/uL (3.50-5.40) Hemoglobin 10.0 g/dL (12.0-15.5) Hematocrit 30.4 % (36.0-47.0) Mean Corpuscular Volume 83 fL (79-100) Mean Corpuscular Hemoglobin 27 pg (25-35) Mean Corpuscular Hemoglobin Concent 33 g/dL (31-37) Red Cell Distribution Width 14.8 % (11.5-14.5) Platelet Count 265 x10^3/uL (140-400) Neutrophils (%) (Auto) 55 % (31-73) Lymphocytes (%) (Auto) 32 % (24-48) Monocytes (%) (Auto) 12 % (0-9) Eosinophils (%) (Auto) 1 % (0-3) Basophils (%) (Auto) 0 % (0-3) Neutrophils # (Auto) 3.3 x10^3uL (1.8-7.7) Lymphocytes # (Auto) 1.9 x10^3/uL (1.0-4.8) Monocytes # (Auto) 0.7 x10^3/uL (0.0-1.1) Eosinophils # (Auto) 0.1 x10^3/uL (0.0-0.7) Basophils # (Auto) 0.0 x10^3/uL (0.0-0.2) Sodium Level 130 mmol/L (136-145) 130 mmol/L (136-145) Potassium Level 4.1 mmol/L (3.5-5.1) 4.6 mmol/L (3.5-5.1) Chloride Level 93 mmol/L (98-107) 94 mmol/L (98-107) Carbon Dioxide Level 32 mmol/L (21-32) 28 mmol/L (21-32) Anion Gap 5 (6-14) 8 (6-14) Blood Urea Nitrogen 33 mg/dL (7-20) 36 mg/dL (7-20) Creatinine 1.2 mg/dL (0.6-1.0) 1.2 mg/dL (0.6-1.0) Estimated GFR (Cockcroft-Gault) 53.0 53.0 Glucose Level 97 mg/dL (70-99) 88 mg/dL (70-99) Calcium Level 8.3 mg/dL (8.5-10.1) 8.6 mg/dL (8.5-10.1) Creatine Kinase 674 U/L (26-192) ACTH Baseline 34.2 pg/mL (7.2-63.3) BUN/Creatinine Ratio 30 (6-20) Phosphorus Level 2.4 mg/dL (2.6-4.7) Magnesium Level 3.3 mg/dL (1.8-2.4) Total Bilirubin 0.3 mg/dL (0.2-1.0) Aspartate Amino Transf (AST/SGOT) 46 U/L (15-37) Alanine Aminotransferase (ALT/SGPT) 36 U/L (14-59) Alkaline Phosphatase 117 U/L (46-116) Total Protein 7.1 g/dL (6.4-8.2) Albumin 2.8 g/dL (3.4-5.0) Albumin/Globulin Ratio 0.7 (1.0-1.7) Laboratory Tests Test 08/02/18 04:10 Sodium Level 130 mmol/L (136-145) Potassium Level 4.6 mmol/L (3.5-5.1) Chloride Level 94 mmol/L (98-107) Carbon Dioxide Level 28 mmol/L (21-32) Anion Gap 8 (6-14) Blood Urea Nitrogen 36 mg/dL (7-20) Creatinine 1.2 mg/dL (0.6-1.0) Estimated GFR (Cockcroft-Gault) 53.0 BUN/Creatinine Ratio 30 (6-20) Glucose Level 88 mg/dL (70-99) Calcium Level 8.6 mg/dL (8.5-10.1) Phosphorus Level 2.4 mg/dL (2.6-4.7) Magnesium Level 3.3 mg/dL (1.8-2.4) Total Bilirubin 0.3 mg/dL (0.2-1.0) Aspartate Amino Transf (AST/SGOT) 46 U/L (15-37) Alanine Aminotransferase (ALT/SGPT) 36 U/L (14-59) Alkaline Phosphatase 117 U/L (46-116) Total Protein 7.1 g/dL (6.4-8.2) Albumin 2.8 g/dL (3.4-5.0) Albumin/Globulin Ratio 0.7 (1.0-1.7) Microbiology 07/30/18 Urine Culture - Final, Complete 07/30/18 Urine Culture Result 1 (TONI) - Final, Complete 07/30/18 Antimicrobic Susceptibility - Final, Complete Medications Current Medications Sodium Chloride 1,000 ml @ 1,000 mls/hr 1X ONCE IV Last administered on at 06:08; Start 07/30/18 at 05:30; Stop 07/30/18 at 06:29; Status DC Potassium Chloride/Water 100 ml @ 100 mls/hr Q1H IV Last administered on at 07:45; Start 07/30/18 at 06:00; Stop 07/30/18 at 07:59; Status DC Ondansetron HCl (Zofran) 4 mg PRN Q8HRS PRN IV NAUSEA/VOMITING; Start 07/30/18 at 06:45; Stop 07/31/18 at 06:44; Status DC Acetaminophen (Tylenol) 650 mg PRN Q4HRS PRN PO FEVER; Start 07/30/18 at 06:45 ; Stop 07/31/18 at 06:44; Status DC Sodium Chloride 100 ml @ 50 mls/hr 1X ONCE IV Last administered on 07/30/18at 07:44; Start 07/30/18 at 07:00; Stop 07/30/18 at 08:59; Status DC Potassium Chloride (Klor-Con) 40 meq 1X ONCE PO Last administered on at 07:46; Start 07/30/18 at 07:00; Stop 07/30/18 at 07:01; Status DC Potassium Chloride (Klor-Con) 40 meq 1X ONCE PO ; Start 07/30/18 at 12:00; Stop 07/30/18 at 12:01; Status DC Potassium Chloride/Water 50 ml @ 50 mls/hr 1X ONCE IV Last administered on at 14:25; Start 07/30/18 at 13:00; Stop 07/30/18 at 13:59; Status DC Sodium Chloride 150 ml @ 50 mls/hr 1X ONCE IV Last administered on 07/30/18at 14:25; Start 07/30/18 at 13:00; Stop 07/30/18 at 15:59; Status DC Fentanyl Citrate (Fentanyl 2ml Vial) 50 mcg 1X ONCE IV Last administered on at 13:17; Start 07/30/18 at 12:45; Stop 07/30/18 at 12:46; Status DC Midazolam HCl (Versed) 2 mg 1X ONCE IV Last administered on 07/30/18at 12:45; Start 07/30/18 at 12:45; Stop 07/30/18 at 12:46; Status DC Midazolam HCl (Versed) 5 mg STK-MED ONCE .ROUTE ; Start 07/30/18 at 12:34; Stop 07/30/18 at 12:35; Status DC Potassium Chloride/Water 50 ml @ 50 mls/hr Q1H IV Last administered on at 18:54; Start 07/30/18 at 16:00; Stop 07/30/18 at 20:59; Status DC Potassium Chloride/Water 100 ml @ 100 mls/hr Q1H IV ; Start 07/30/18 at 15:00; Stop 07/30/18 at 18:59; Status UNV Potassium Chloride/Water 50 ml @ 50 mls/hr Q1H IV ; Start 07/30/18 at 15:00; Stop 07/30/18 at 16:59; Status UNV Potassium Chloride/Water 100 ml @ 100 mls/hr Q1H IV ; Start 07/30/18 at 15:00; Stop 07/30/18 at 22:59; Status UNV Potassium Chloride/Water 50 ml @ 50 mls/hr Q1H IV ; Start 07/30/18 at 15:00; Stop 07/30/18 at 18:59; Status UNV Potassium Chloride/Water 50 ml @ 50 mls/hr Q1HR IV ; Start 07/30/18 at 15:00; Stop 07/30/18 at 20:59; Status UNV Info (Icu Electrolyte Protocol) 1 ea CONT PRN PRN MC SEE COMMENTS; Start at 15:15 Amino Acids/ Glycerin/ Electrolytes 1,000 ml @ 80 mls/hr [id number] IV Last administered on 08/02/18at 05:46; Start 07/30/18 at 15:15 Midazolam HCl (Versed) 5 mg STK-MED ONCE .ROUTE ; Start 07/30/18 at 12:30; Stop 07/31/18 at 09:07; Status DC Sodium Chloride 100 ml @ 50 mls/hr 1X ONCE IV Last administered on 07/31/18at 11:19; Start 07/31/18 at 11:00; Stop 07/31/18 at 12:59; Status DC Aspirin (Aspirin) 300 mg DAILY AK ; Start 08/01/18 at 09:00; Stop 08/01/18 at 09 :00; Status DC Heparin Sodium (Porcine) (Heparin Sodium) 5,000 unit Q8HRS SQ Last administered on 08/02/18at 05:58; Start 07/31/18 at 15:00 Acetaminophen (Tylenol) 650 mg PRN Q6HRS PRN PO pain Last administered on at 21:22; Start 07/31/18 at 17:30 Tramadol HCl (Ultram) 50 mg PRN Q6HRS PRN PO MODERATE PAIN Last administered on 08/01/18at 18:08; Start 08/01/18 at 04:30 Aspirin (Amanda Aspirin) 325 mg [id number] PO Last administered on 08/02/18at 08: 07; Start 08/01/18 at 08:30 Active Scripts Active Colace (Docusate Sodium) 100 Mg Capsule 100 Mg PO PRN DAILY PRN Potassium Chloride 20 Meq Tablet.er 20 Meq PO BID Lasix (Furosemide) 80 Mg Tablet 1 Tab PO DAILY Reported Dicyclomine Hcl 20 Mg Tablet 1 Tab PO BID Metoprolol Tartrate 25 Mg Tablet 0.5 Tab PO BID Nortriptyline Hcl 25 Mg Capsule 25 Mg PO BID Isosorbide Mononitrate Er (Isosorbide Mononitrate) 60 Mg Tab.er.24h 60 Mg PO BID Carafate (Sucralfate) 1 Gm Tablet 1 Tab PO BID Valium (Diazepam) 5 Mg Tablet 5 Mg PO BID Omeprazole 40 Mg Capsule.dr 1 Cap PO DAILY Lipitor (Atorvastatin Calcium) 20 Mg Tablet 20 Mg PO HS Vitals/I & O Vital Sign - Last 24 Hours 08/01/18 08/01/18 08/01/18 08/01/18 12:00 12:00 13:00 14:00 Temp 98.7 98.7 Pulse 74 86 79 Resp 12 18 14 B/P (MAP) 122/63 (82) 132/67 (88) 135/72 (93) Pulse Ox 96 95 O2 Delivery Room Air Room Air Room Air Room Air 08/01/18 08/01/18 08/01/18 08/01/18 15:00 16:43 18:08 19:00 Temp 98.5 97.7 98.5 97.7 Pulse 77 83 83 Resp 19 18 20 B/P (MAP) 138/68 (91) 117/52 (73) 145/64 (91) Pulse Ox 95 99 O2 Delivery Room Air Room Air Room Air Room Air 08/01/18 08/01/18 08/01/18 08/02/18 19:08 20:00 23:00 03:13 Temp 98.5 99.5 98.5 99.5 Pulse 87 86 Resp 20 20 B/P (MAP) 122/58 (79) 130/58 (82) Pulse Ox 99 93 93 O2 Delivery Room Air Room Air Room Air Room Air O2 Flow Rate 2.0 2.0 08/02/18 08/02/18 07:00 08:00 Temp 98.1 98.1 Pulse 97 Resp 18 B/P (MAP) 135/82 (99) O2 Delivery Room Air Room Air Intake and Output 08/01/18 08/01/18 08/02/18 14:59 22:59 06:59 Intake Total 360 ml 713 ml Output Total 590 ml 130 ml 800 ml Balance -230 ml 583 ml -800 ml Nutrition Consultation Dietary Evaluation: Recommendations by RD: Increase Calorie Intake, Protein supplementation, PPN/ TPN Comments: continue ppn at this time encourage po intake Expected Outcomes/Goals: to meet > 50% est nutr needs via po intake Interpretation of weight loss: >20% in 1 year Malnutrition Findings: Food and Nutrition Intake (Sev: <50% est energy req 5days Body Fat Depletion (Non Severe: Mild Depletion Weight Status: Underweight DADA CAO MD Aug 02, 2018 11:28
--- NOTE | 2018-08-02 11:33 | PDOC ---
Renal-Progress Notes Subjective Notes Notes NONE History of Present Illness Hx of present illness BETTER Vitals Vitals Vital Signs Date Time Temp Pulse Resp B/P (MAP) Pulse Ox O2 Delivery O2 Flow Rate FiO2 08/02/18 08:00 Room Air 08/02/18 07:00 98.1 97 18 135/82 (99) 98.1 08/02/18 03:13 93 08/01/18 20:00 2.0 Weight Weight [ ] I.O. Intake and Output Intake and Output 08/02/18 06:59 Intake Total 1073 ml Output Total 1520 ml Balance -447 ml Intake Oral 360 ml IV Total 713 ml Output Urine Total 1520 ml Labs Labs Laboratory Tests Test 08/02/18 04:10 Sodium Level 130 mmol/L (136-145) Potassium Level 4.6 mmol/L (3.5-5.1) Chloride Level 94 mmol/L (98-107) Carbon Dioxide Level 28 mmol/L (21-32) Anion Gap 8 (6-14) Blood Urea Nitrogen 36 mg/dL (7-20) Creatinine 1.2 mg/dL (0.6-1.0) Estimated GFR (Cockcroft-Gault) 53.0 BUN/Creatinine Ratio 30 (6-20) Glucose Level 88 mg/dL (70-99) Calcium Level 8.6 mg/dL (8.5-10.1) Phosphorus Level 2.4 mg/dL (2.6-4.7) Magnesium Level 3.3 mg/dL (1.8-2.4) Total Bilirubin 0.3 mg/dL (0.2-1.0) Aspartate Amino Transf (AST/SGOT) 46 U/L (15-37) Alanine Aminotransferase (ALT/SGPT) 36 U/L (14-59) Alkaline Phosphatase 117 U/L (46-116) Total Protein 7.1 g/dL (6.4-8.2) Albumin 2.8 g/dL (3.4-5.0) Albumin/Globulin Ratio 0.7 (1.0-1.7) Micro Micro Microbiology 07/30/18 Urine Culture - Final, Complete 07/30/18 Urine Culture Result 1 (TONI) - Final, Complete 07/30/18 Antimicrobic Susceptibility - Final, Complete Review of Systems Constitutional: yes: other (CONFUSED) Physical Exam General Appearance: no apparent distress Skin: warm Respiratory: bilateral CTA Heart: S1S2 Abdomen: soft, bowel sounds present Genitourinary: bladder flat Extremities: pulses present Neurology: other (tracking with eyes, nonverbal) Musculoskeletal: Osteoarthritis, Weakness, Swelling Assessment Assessment IMP HYPONATREMIA-IMPROVED OVERALL HYPOKALEMIA-RESOLVED MET ENCEPHALOPATHY DEHYDRATION-BETTER CACHEXIA MALNUTRITION GURPREET RESOLVED CKD STAGE 3 WITH CR OF 1.6 PLAN ENC PO PPN TILL PO IS GOOD MAY NEED PLACEMENT WOULD BENEFIT FROM THERAPY/LTAC CHRISS GIRARD MD Aug 02, 2018 11:33
[2018-08-02 15:00] VITALS: BP 118/64
[2018-08-02 19:00] VITALS: BP 136/76
[2018-08-02 22:37] VITALS: BP 134/74
[2018-08-03] MEDS: traMADol 50 MG TABLET PO PRN ×3 (00:44→22:13)
[2018-08-03 03:00] VITALS: BP 141/69
[2018-08-03] MEDS: HEPARIN for SUB-Q USE 5,000 UNIT/ML VIAL. SQ SCH ×3 (06:23→22:15)
[2018-08-03 07:00] VITALS: BP 133/65
[2018-08-03 07:22] LABS: CALCIUM 8.4 mg/dL (8.5-10.1); GFR 65.4; POTASSIUM 4.5 mmol/L (3.5-5.1)
[2018-08-03] MEDS: ASPIRIN 325 MG TABLET PO SCH (08:00)
[2018-08-03] MEDS: AMINO AC 3%/ELECTROLYTE/GLYCER 1,000 ML IV SCH ×2 (09:32→22:18)
[2018-08-03 10:56] VITALS: BP 127/70
--- NOTE | 2018-08-03 11:50 | PDOC ---
Renal-Progress Notes Subjective Notes Notes NOTHING NEW History of Present Illness Hx of present illness LABS BETTER BUT OVERALL ABOUT THE SAME Vitals Vitals Vital Signs Date Time Temp Pulse Resp B/P (MAP) Pulse Ox O2 Delivery O2 Flow Rate FiO2 08/03/18 10:56 54 18 127/70 (89) 98 Room Air 08/03/18 07:00 98.7 98.7 Weight Weight [ ] I.O. Intake and Output Intake and Output 08/03/18 06:59 Intake Total 220 ml Output Total 2800 ml Balance -2580 ml Intake Oral 220 ml Output Urine Total 2800 ml Labs Labs Laboratory Tests Test 08/03/18 07:00 Sodium Level 132 mmol/L (136-145) Potassium Level 4.5 mmol/L (3.5-5.1) Chloride Level 96 mmol/L (98-107) Carbon Dioxide Level 29 mmol/L (21-32) Anion Gap 7 (6-14) Blood Urea Nitrogen 32 mg/dL (7-20) Creatinine 1.0 mg/dL (0.6-1.0) Estimated GFR (Cockcroft-Gault) 65.4 Glucose Level 110 mg/dL (70-99) Calcium Level 8.4 mg/dL (8.5-10.1) Micro Micro Microbiology 07/30/18 Urine Culture - Final, Complete 07/30/18 Urine Culture Result 1 (TONI) - Final, Complete 07/30/18 Antimicrobic Susceptibility - Final, Complete Review of Systems Constitutional: yes: other (CONFUSED) Physical Exam General Appearance: no apparent distress Skin: warm Respiratory: bilateral CTA Heart: S1S2 Abdomen: soft, bowel sounds present Genitourinary: bladder flat Extremities: pulses present Neurology: other (tracking with eyes, nonverbal) Musculoskeletal: Osteoarthritis, Weakness, Swelling Assessment Assessment IMP HYPONATREMIA-IMPROVED OVERALL NOW 132 HYPOKALEMIA-RESOLVED MET ENCEPHALOPATHY DEHYDRATION-BETTER CACHEXIA MALNUTRITION GURPREET RESOLVED CKD STAGE 3 WITH CR OF 1.6 PLAN ENC PO PPN TILL PO IS GOOD MAY NEED PLACEMENT WOULD BENEFIT FROM THERAPY/LTAC CHRISS GIRARD MD Aug 03, 2018 11:50
--- NOTE | 2018-08-03 12:49 | PDOC ---
PROGRESS NOTES Chief Complaint Chief Complaint acute metabolic encephalopathy 1. severe nonischemic cardiomyopathy 2. elevated troponin i 3. chronic anemia, iron deficiency 4. critical hyponatremia, improved and stabilizing, 5. CRITICAL hypokalemia, hypomagnesemia 6. GURPREET, vasomotor 7. ckd3 8. acute metabolic encephalopathy No acute intercranial finding. Note is made that MRI is more sensitive for acute infarction. 9. moderate severe malnutrition, 10. EF 25% 11. GERD 12. 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 Rhabdomyolysis History of Present Illness History of Present Illness doing well, eating better will stop PPN when PO intake better labs much improved, start PT and OT mult consults following, appreciate input Vitals Vitals Vital Signs Date Time Temp Pulse Resp B/P (MAP) Pulse Ox O2 Delivery O2 Flow Rate FiO2 08/03/18 10:56 54 18 127/70 (89) 98 Room Air 08/03/18 07:00 98.7 98.7 Physical Exam General: Alert (confused to details, more alert today), Cooperative, No acute distress Heart: Regular rate, Normal S1 Lungs: Clear Abdomen: Normal bowel sounds, Soft Extremities: No clubbing, No cyanosis, No edema Skin: No rashes, No breakdown, No significant lesion Labs LABS Laboratory Tests Test 08/03/18 07:00 Sodium Level 132 mmol/L (136-145) Potassium Level 4.5 mmol/L (3.5-5.1) Chloride Level 96 mmol/L (98-107) Carbon Dioxide Level 29 mmol/L (21-32) Anion Gap 7 (6-14) Blood Urea Nitrogen 32 mg/dL (7-20) Creatinine 1.0 mg/dL (0.6-1.0) Estimated GFR (Cockcroft-Gault) 65.4 Glucose Level 110 mg/dL (70-99) Calcium Level 8.4 mg/dL (8.5-10.1) Comment Review of Relevant I have reviewed the following items scott (where applicable) has been applied. Labs Laboratory Tests Test 08/02/18 04:10 08/03/18 07:00 Sodium Level 130 mmol/L (136-145) 132 mmol/L (136-145) Potassium Level 4.6 mmol/L (3.5-5.1) 4.5 mmol/L (3.5-5.1) Chloride Level 94 mmol/L (98-107) 96 mmol/L (98-107) Carbon Dioxide Level 28 mmol/L (21-32) 29 mmol/L (21-32) Anion Gap 8 (6-14) 7 (6-14) Blood Urea Nitrogen 36 mg/dL (7-20) 32 mg/dL (7-20) Creatinine 1.2 mg/dL (0.6-1.0) 1.0 mg/dL (0.6-1.0) Estimated GFR (Cockcroft-Gault) 53.0 65.4 BUN/Creatinine Ratio 30 (6-20) Glucose Level 88 mg/dL (70-99) 110 mg/dL (70-99) Calcium Level 8.6 mg/dL (8.5-10.1) 8.4 mg/dL (8.5-10.1) Phosphorus Level 2.4 mg/dL (2.6-4.7) Magnesium Level 3.3 mg/dL (1.8-2.4) Total Bilirubin 0.3 mg/dL (0.2-1.0) Aspartate Amino Transf (AST/SGOT) 46 U/L (15-37) Alanine Aminotransferase (ALT/SGPT) 36 U/L (14-59) Alkaline Phosphatase 117 U/L (46-116) Total Protein 7.1 g/dL (6.4-8.2) Albumin 2.8 g/dL (3.4-5.0) Albumin/Globulin Ratio 0.7 (1.0-1.7) Laboratory Tests Test 08/03/18 07:00 Sodium Level 132 mmol/L (136-145) Potassium Level 4.5 mmol/L (3.5-5.1) Chloride Level 96 mmol/L (98-107) Carbon Dioxide Level 29 mmol/L (21-32) Anion Gap 7 (6-14) Blood Urea Nitrogen 32 mg/dL (7-20) Creatinine 1.0 mg/dL (0.6-1.0) Estimated GFR (Cockcroft-Gault) 65.4 Glucose Level 110 mg/dL (70-99) Calcium Level 8.4 mg/dL (8.5-10.1) Microbiology 07/30/18 Urine Culture - Final, Complete 07/30/18 Urine Culture Result 1 (TONI) - Final, Complete 07/30/18 Antimicrobic Susceptibility - Final, Complete Medications Current Medications Sodium Chloride 1,000 ml @ 1,000 mls/hr 1X ONCE IV Last administered on 06:08; Start 07/30/18 at 05:30; Stop 07/30/18 at 06:29; Status DC Potassium Chloride/Water 100 ml @ 100 mls/hr Q1H IV Last administered on at 07:45; Start 07/30/18 at 06:00; Stop 07/30/18 at 07:59; Status DC Ondansetron HCl (Zofran) 4 mg PRN Q8HRS PRN IV NAUSEA/VOMITING; Start 07/30/18 at 06:45; Stop 07/31/18 at 06:44; Status DC Acetaminophen (Tylenol) 650 mg PRN Q4HRS PRN PO FEVER; Start 07/30/18 at 06:45 ; Stop 07/31/18 at 06:44; Status DC Sodium Chloride 100 ml @ 50 mls/hr 1X ONCE IV Last administered on 07/30/18at 07:44; Start 07/30/18 at 07:00; Stop 07/30/18 at 08:59; Status DC Potassium Chloride (Klor-Con) 40 meq 1X ONCE PO Last administered on at 07:46; Start 07/30/18 at 07:00; Stop 07/30/18 at 07:01; Status DC Potassium Chloride (Klor-Con) 40 meq 1X ONCE PO ; Start 07/30/18 at 12:00; Stop 07/30/18 at 12:01; Status DC Potassium Chloride/Water 50 ml @ 50 mls/hr 1X ONCE IV Last administered on at 14:25; Start 07/30/18 at 13:00; Stop 07/30/18 at 13:59; Status DC Sodium Chloride 150 ml @ 50 mls/hr 1X ONCE IV Last administered on 07/30/18at 14:25; Start 07/30/18 at 13:00; Stop 07/30/18 at 15:59; Status DC Fentanyl Citrate (Fentanyl 2ml Vial) 50 mcg 1X ONCE IV Last administered on at 13:17; Start 07/30/18 at 12:45; Stop 07/30/18 at 12:46; Status DC Midazolam HCl (Versed) 2 mg 1X ONCE IV Last administered on 07/30/18at 12:45; Start 07/30/18 at 12:45; Stop 07/30/18 at 12:46; Status DC Midazolam HCl (Versed) 5 mg STK-MED ONCE .ROUTE ; Start 07/30/18 at 12:34; Stop 07/30/18 at 12:35; Status DC Potassium Chloride/Water 50 ml @ 50 mls/hr Q1H IV Last administered on at 18:54; Start 07/30/18 at 16:00; Stop 07/30/18 at 20:59; Status DC Potassium Chloride/Water 100 ml @ 100 mls/hr Q1H IV ; Start 07/30/18 at 15:00; Stop 07/30/18 at 18:59; Status UNV Potassium Chloride/Water 50 ml @ 50 mls/hr Q1H IV ; Start 07/30/18 at 15:00; Stop 07/30/18 at 16:59; Status UNV Potassium Chloride/Water 100 ml @ 100 mls/hr Q1H IV ; Start 07/30/18 at 15:00; Stop 07/30/18 at 22:59; Status UNV Potassium Chloride/Water 50 ml @ 50 mls/hr Q1H IV ; Start 07/30/18 at 15:00; Stop 07/30/18 at 18:59; Status UNV Potassium Chloride/Water 50 ml @ 50 mls/hr Q1HR IV ; Start 07/30/18 at 15:00; Stop 07/30/18 at 20:59; Status UNV Info (Icu Electrolyte Protocol) 1 ea CONT PRN PRN MC SEE COMMENTS; Start at 15:15 Amino Acids/ Glycerin/ Electrolytes 1,000 ml @ 80 mls/hr [id number] IV Last administered on 08/03/18at 09:32; Start 07/30/18 at 15:15 Midazolam HCl (Versed) 5 mg STK-MED ONCE .ROUTE ; Start 07/30/18 at 12:30; Stop 07/31/18 at 09:07; Status DC Sodium Chloride 100 ml @ 50 mls/hr 1X ONCE IV Last administered on 07/31/18at 11:19; Start 07/31/18 at 11:00; Stop 07/31/18 at 12:59; Status DC Aspirin (Aspirin) 300 mg DAILY CO ; Start 08/01/18 at 09:00; Stop 08/01/18 at 09 :00; Status DC Heparin Sodium (Porcine) (Heparin Sodium) 5,000 unit Q8HRS SQ Last administered on 08/03/18at 06:23; Start 07/31/18 at 15:00 Acetaminophen (Tylenol) 650 mg PRN Q6HRS PRN PO pain Last administered on at 21:22; Start 07/31/18 at 17:30 Tramadol HCl (Ultram) 50 mg PRN Q6HRS PRN PO MODERATE PAIN Last administered on 08/03/18at 00:44; Start 08/01/18 at 04:30 Aspirin (Amanda Aspirin) 325 mg [id number] PO Last administered on 08/02/18at 08: 07; Start 08/01/18 at 08:30 Active Scripts Active Colace (Docusate Sodium) 100 Mg Capsule 100 Mg PO PRN DAILY PRN Potassium Chloride 20 Meq Tablet.er 20 Meq PO BID Lasix (Furosemide) 80 Mg Tablet 1 Tab PO DAILY Reported Dicyclomine Hcl 20 Mg Tablet 1 Tab PO BID Metoprolol Tartrate 25 Mg Tablet 0.5 Tab PO BID Nortriptyline Hcl 25 Mg Capsule 25 Mg PO BID Isosorbide Mononitrate Er (Isosorbide Mononitrate) 60 Mg Tab.er.24h 60 Mg PO BID Carafate (Sucralfate) 1 Gm Tablet 1 Tab PO BID Valium (Diazepam) 5 Mg Tablet 5 Mg PO BID Omeprazole 40 Mg Capsule.dr 1 Cap PO DAILY Lipitor (Atorvastatin Calcium) 20 Mg Tablet 20 Mg PO HS Vitals/I & O Vital Sign - Last 24 Hours 08/02/18 08/02/18 08/02/18 08/02/18 15:00 19:00 20:30 22:37 Temp 97.9 98.9 99.3 97.9 98.9 99.3 Pulse 95 90 91 Resp 16 15 18 B/P (MAP) 118/64 (82) 136/76 (96) 134/74 (94) Pulse Ox 93 96 97 O2 Delivery Room Air Room Air Room Air Room Air 08/03/18 08/03/18 08/03/18/17/19 00:44 03:00 07:00 10:56 Temp 98.0 98.7 98.0 98.7 Pulse 77 82 54 Resp 16 14 18 B/P (MAP) 141/69 (93) 133/65 (87) 127/70 (89) Pulse Ox 94 96 98 O2 Delivery Room Air Room Air Room Air Room Air Intake and Output 08/02/18 08/02/18 08/03/18 15:00 23:00 07:00 Intake Total 220 ml Output Total 1550 ml 1250 ml Balance -1550 ml -1030 ml Nutrition Consultation Dietary Evaluation: Recommendations by RD: Increase Calorie Intake, Protein supplementation, PPN/ TPN Comments: continue ppn at this time encourage po intake Expected Outcomes/Goals: to meet > 50% est nutr needs via po intake Interpretation of weight loss: >20% in 1 year Malnutrition Findings: Food and Nutrition Intake (Sev: <50% est energy req 5days Body Fat Depletion (Non Severe: Mild Depletion Weight Status: Underweight DADA CAO MD Aug 03, 2018 12:49
[2018-08-03] MEDS ORDERED: fentaNYL PF VIAL 100 MCG/2 ML VIAL IV ONE (13:15)
[2018-08-03 15:00] VITALS: BP 135/66
[2018-08-03 19:00] VITALS: BP 122/65
--- NOTE | 2018-08-03 20:50 | NUR ---
NURSING NOTE Just prior to transferring pt from room 536 to room 552, it was noticed that pt had a 24 urine collection bottle in the bathroom. It was written on the bottle that it was to conclude today at 1730. Pt and her belongings transferred to new room of 552. Pt repositioned in bed to left side, additional pillows placed for pt comfort between legs and under heels. Assessment completed at this time. Directly after assessment was done, approximately 5 minutes after transferring, this RN went to get the 24 hour urine collection bottle out of the bathroom in room 536, and housekeeping had already starting cleaning the room and had dumped out the 24 hour urine collection and threw away the bottle. New collection started for a time of 2100. Informed pt of situation.
[2018-08-03 23:00] VITALS: BP 138/69
[2018-08-04] MEDS: traMADol 50 MG TABLET PO PRN ×3 (02:21→12:35)
[2018-08-04 03:00] VITALS: BP 134/79
[2018-08-04] MEDS: HEPARIN for SUB-Q USE 5,000 UNIT/ML VIAL. SQ SCH ×2 (06:20→12:06)
[2018-08-04 06:43] LABS: CALCIUM 8.3 mg/dL (8.5-10.1); GFR 65.4; POTASSIUM 4.7 mmol/L (3.5-5.1)
[2018-08-04 07:00] VITALS: BP 120/62
[2018-08-04] MEDS: AMINO AC 3%/ELECTROLYTE/GLYCER 1,000 ML IV SCH (07:43)
[2018-08-04] MEDS: ASPIRIN 325 MG TABLET PO SCH (07:43)
--- NOTE | 2018-08-04 08:38 | PDOC ---
PROGRESS NOTES Chief Complaint Chief Complaint Acute metabolic encephalopathy Severe nonischemic cardiomyopathy Elevated troponin i Chronic anemia, iron deficiency Critical hyponatremia, improved and stabilizing, CRITICAL hypokalemia, hypomagnesemia Hyponatremia, Na+ 112. Hypokalemia, K+ 1.9. Hypochloride Cl- 70. GI bleeding, Hx. Renal failure. Elevated hepatic enzymes. GURPREET, vasomotor CKD2-3 Acute metabolic encephalopathy Moderate severe malnutrition, sCHF - EF 25% GERD H/O GAstric ulcer post EGD X2 2017 non bleeding gastric ulcer and gastritis Ozzie leg neuropathy Rhabdomyolysis History of Present Illness History of Present Illness doing well, eating better will stop PPN when PO intake better labs much improved, start PT and OT mult consults following, appreciate input D/C with home health today Vitals Vitals Vital Signs Date Time Temp Pulse Resp B/P (MAP) Pulse Ox O2 Delivery O2 Flow Rate FiO2 08/04/18 08:00 Room Air 2.0 08/04/18 07:04 20 98 08/04/18 07:00 98.8 98 120/62 (81) 98.8 Physical Exam General: Alert (confused to details, more alert today), Cooperative, No acute distress Heart: Regular rate, Normal S1 Lungs: Clear Abdomen: Normal bowel sounds, Soft Extremities: No clubbing, No cyanosis, No edema Skin: No rashes, No breakdown, No significant lesion Labs LABS Laboratory Tests Test 08/04/18 06:15 Sodium Level 133 mmol/L (136-145) Potassium Level 4.7 mmol/L (3.5-5.1) Chloride Level 99 mmol/L (98-107) Carbon Dioxide Level 27 mmol/L (21-32) Anion Gap 7 (6-14) Blood Urea Nitrogen 29 mg/dL (7-20) Creatinine 1.0 mg/dL (0.6-1.0) Estimated GFR (Cockcroft-Gault) 65.4 Glucose Level 95 mg/dL (70-99) Calcium Level 8.3 mg/dL (8.5-10.1) Comment Review of Relevant I have reviewed the following items scott (where applicable) has been applied. Labs Laboratory Tests Test 08/03/18 07:00 08/04/18 06:15 Sodium Level 132 mmol/L (136-145) 133 mmol/L (136-145) Potassium Level 4.5 mmol/L (3.5-5.1) 4.7 mmol/L (3.5-5.1) Chloride Level 96 mmol/L (98-107) 99 mmol/L (98-107) Carbon Dioxide Level 29 mmol/L (21-32) 27 mmol/L (21-32) Anion Gap 7 (6-14) 7 (6-14) Blood Urea Nitrogen 32 mg/dL (7-20) 29 mg/dL (7-20) Creatinine 1.0 mg/dL (0.6-1.0) 1.0 mg/dL (0.6-1.0) Estimated GFR (Cockcroft-Gault) 65.4 65.4 Glucose Level 110 mg/dL (70-99) 95 mg/dL (70-99) Calcium Level 8.4 mg/dL (8.5-10.1) 8.3 mg/dL (8.5-10.1) Laboratory Tests Test 08/04/18 06:15 Sodium Level 133 mmol/L (136-145) Potassium Level 4.7 mmol/L (3.5-5.1) Chloride Level 99 mmol/L (98-107) Carbon Dioxide Level 27 mmol/L (21-32) Anion Gap 7 (6-14) Blood Urea Nitrogen 29 mg/dL (7-20) Creatinine 1.0 mg/dL (0.6-1.0) Estimated GFR (Cockcroft-Gault) 65.4 Glucose Level 95 mg/dL (70-99) Calcium Level 8.3 mg/dL (8.5-10.1) Microbiology 07/30/18 Urine Culture - Final, Complete 07/30/18 Urine Culture Result 1 (TONI) - Final, Complete 07/30/18 Antimicrobic Susceptibility - Final, Complete Medications Current Medications Sodium Chloride 1,000 ml @ 1,000 mls/hr 1X ONCE IV Last administered on at 06:08; Start 07/30/18 at 05:30; Stop 07/30/18 at 06:29; Status DC Potassium Chloride/Water 100 ml @ 100 mls/hr Q1H IV Last administered on at 07:45; Start 07/30/18 at 06:00; Stop 07/30/18 at 07:59; Status DC Ondansetron HCl (Zofran) 4 mg PRN Q8HRS PRN IV NAUSEA/VOMITING; Start 07/30/18 at 06:45; Stop 07/31/18 at 06:44; Status DC Acetaminophen (Tylenol) 650 mg PRN Q4HRS PRN PO FEVER; Start 07/30/18 at 06:45 ; Stop 07/31/18 at 06:44; Status DC Sodium Chloride 100 ml @ 50 mls/hr 1X ONCE IV Last administered on 07/30/18at 07:44; Start 07/30/18 at 07:00; Stop 07/30/18 at 08:59; Status DC Potassium Chloride (Klor-Con) 40 meq 1X ONCE PO Last administered on at 07:46; Start 07/30/18 at 07:00; Stop 07/30/18 at 07:01; Status DC Potassium Chloride (Klor-Con) 40 meq 1X ONCE PO ; Start 07/30/18 at 12:00; Stop 07/30/18 at 12:01; Status DC Potassium Chloride/Water 50 ml @ 50 mls/hr 1X ONCE IV Last administered on at 14:25; Start 07/30/18 at 13:00; Stop 07/30/18 at 13:59; Status DC Sodium Chloride 150 ml @ 50 mls/hr 1X ONCE IV Last administered on 07/30/18at 14:25; Start 07/30/18 at 13:00; Stop 07/30/18 at 15:59; Status DC Fentanyl Citrate (Fentanyl 2ml Vial) 50 mcg 1X ONCE IV Last administered on at 13:17; Start 07/30/18 at 12:45; Stop 07/30/18 at 12:46; Status DC Midazolam HCl (Versed) 2 mg 1X ONCE IV Last administered on 07/30/18at 12:45; Start 07/30/18 at 12:45; Stop 07/30/18 at 12:46; Status DC Midazolam HCl (Versed) 5 mg STK-MED ONCE .ROUTE ; Start 07/30/18 at 12:34; Stop 07/30/18 at 12:35; Status DC Potassium Chloride/Water 50 ml @ 50 mls/hr Q1H IV Last administered on at 18:54; Start 07/30/18 at 16:00; Stop 07/30/18 at 20:59; Status DC Potassium Chloride/Water 100 ml @ 100 mls/hr Q1H IV ; Start 07/30/18 at 15:00; Stop 07/30/18 at 18:59; Status UNV Potassium Chloride/Water 50 ml @ 50 mls/hr Q1H IV ; Start 07/30/18 at 15:00; Stop 07/30/18 at 16:59; Status UNV Potassium Chloride/Water 100 ml @ 100 mls/hr Q1H IV ; Start 07/30/18 at 15:00; Stop 07/30/18 at 22:59; Status UNV Potassium Chloride/Water 50 ml @ 50 mls/hr Q1H IV ; Start 07/30/18 at 15:00; Stop 07/30/18 at 18:59; Status UNV Potassium Chloride/Water 50 ml @ 50 mls/hr Q1HR IV ; Start 07/30/18 at 15:00; Stop 07/30/18 at 20:59; Status UNV Info (Icu Electrolyte Protocol) 1 ea CONT PRN PRN MC SEE COMMENTS; Start at 15:15 Amino Acids/ Glycerin/ Electrolytes 1,000 ml @ 80 mls/hr [id number] IV Last administered on 08/04/18at 07:43; Start 07/30/18 at 15:15 Midazolam HCl (Versed) 5 mg STK-MED ONCE .ROUTE ; Start 07/30/18 at 12:30; Stop 07/31/18 at 09:07; Status DC Sodium Chloride 100 ml @ 50 mls/hr 1X ONCE IV Last administered on 07/31/18at 11:19; Start 07/31/18 at 11:00; Stop 07/31/18 at 12:59; Status DC Aspirin (Aspirin) 300 mg DAILY IN ; Start 08/01/18 at 09:00; Stop 08/01/18 at 09 :00; Status DC Heparin Sodium (Porcine) (Heparin Sodium) 5,000 unit Q8HRS SQ Last administered on 08/04/18at 06:20; Start 07/31/18 at 15:00 Acetaminophen (Tylenol) 650 mg PRN Q6HRS PRN PO MILD PAIN Last administered on 08/01/18at 21:22; Start 07/31/18 at 17:30 Tramadol HCl (Ultram) 50 mg PRN Q6HRS PRN PO MODERATE PAIN Last administered on 08/03/18at 22:13; Start 08/01/18 at 04:30; Stop 08/04/18 at 02:14; Status DC Aspirin (Amanda Aspirin) 325 mg [id number] PO Last administered on 08/04/18at 07: 43; Start 08/01/18 at 08:30 Fentanyl Citrate (Fentanyl 2ml Vial) 25 mcg 1X ONCE IV Last administered on at 13:24; Start 08/03/18 at 13:15; Stop 08/03/18 at 13:16; Status DC Tramadol HCl (Ultram) 50 mg PRN Q4HRS PRN PO MODERATE PAIN Last administered on 08/04/18at 06:11; Start 08/04/18 at 02:15 Active Scripts Active Colace (Docusate Sodium) 100 Mg Capsule 100 Mg PO PRN DAILY PRN Potassium Chloride 20 Meq Tablet.er 20 Meq PO BID Lasix (Furosemide) 80 Mg Tablet 1 Tab PO DAILY Reported Dicyclomine Hcl 20 Mg Tablet 1 Tab PO BID Metoprolol Tartrate 25 Mg Tablet 0.5 Tab PO BID Nortriptyline Hcl 25 Mg Capsule 25 Mg PO BID Isosorbide Mononitrate Er (Isosorbide Mononitrate) 60 Mg Tab.er.24h 60 Mg PO BID Carafate (Sucralfate) 1 Gm Tablet 1 Tab PO BID Valium (Diazepam) 5 Mg Tablet 5 Mg PO BID Omeprazole 40 Mg Capsule.dr 1 Cap PO DAILY Lipitor (Atorvastatin Calcium) 20 Mg Tablet 20 Mg PO HS Vitals/I & O Vital Sign - Last 24 Hours 08/03/18 08/03/18 08/03/18 08/03/18 10:56 13:24 13:54 15:00 Pulse 54 62 Resp 18 14 14 18 B/P (MAP) 127/70 (89) 135/66 (89) Pulse Ox 98 98 98 O2 Delivery Room Air Room Air Room Air Room Air 08/03/18 08/03/18 08/03/18 08/03/18 15:48 16:48 19:00 20:19 Temp 98.6 98.6 Pulse 89 Resp 16 16 B/P (MAP) 122/65 (84) Pulse Ox 98 98 96 O2 Delivery Room Air Room Air Room Air O2 Flow Rate 2.0 08/03/18 08/03/18 08/03/18 08/03/18 20:50 22:13 23:00 23:13 Temp 99.5 99.5 Pulse 83 Resp 18 20 B/P (MAP) 138/69 (92) Pulse Ox 2 O2 Delivery Room Air Room Air Nasal Cannula Nasal Cannula O2 Flow Rate 97.0 2.0 08/04/18 08/04/18 08/04/18 08/04/18 02:21 03:00 06:11 07:00 Temp 98.9 98.8 98.9 98.8 Pulse 91 98 Resp 20 18 B/P (MAP) 134/79 (97) 120/62 (81) Pulse Ox 98 98 O2 Delivery Room Air Nasal Cannula Nasal Cannula Room Air O2 Flow Rate 2.0 2.0 08/04/18 08/04/18 07:04 08:00 Resp 20 Pulse Ox 98 O2 Delivery Room Air Room Air O2 Flow Rate 2.0 2.0 Intake and Output 08/03/18 08/03/18 08/04/18 14:59 22:59 06:59 Intake Total 50 ml Output Total 1550 ml 400 ml Balance -1550 ml -350 ml Nutrition Consultation Dietary Evaluation: Recommendations by RD: Increase Calorie Intake, Protein supplementation, PPN/ TPN Comments: continue ppn at this time encourage po intake Expected Outcomes/Goals: to meet > 50% est nutr needs via po intake Interpretation of weight loss: >20% in 1 year Malnutrition Findings: Food and Nutrition Intake (Sev: <50% est energy req 5days Body Fat Depletion (Non Severe: Mild Depletion Weight Status: Underweight WOODROW ROUSE MD Aug 04, 2018 08:38
[2018-08-04] MEDS ORDERED: OXYC1TAB22 PO (08:41)
[2018-08-04] MEDS ORDERED: oxyCODONE/APAP 5/325 1 TAB TABLET PO PRN (08:45)
[2018-08-04] MEDS ORDERED: DOCUSATE SODIUM 100 MG CAPSULE. PO PRN (08:45)
[2018-08-04] MEDS ORDERED: ISOSORBIDE MONONITRATE ER 30 MG TAB.ER.24H PO SCH (09:00)
[2018-08-04] MEDS ORDERED: METOPROLOL TART IMMED RELEASE 25 MG TABLET. PO SCH (09:00)
[2018-08-04] MEDS ORDERED: SUCRALFATE 1 GM TABLET. PO SCH (09:00)
[2018-08-04] MEDS ORDERED: PANTOPRAZOLE 40 MG TABLET.DR. PO SCH (09:00)
--- NOTE | 2018-08-04 10:14 | PDOC ---
SUBJECTIVE ROS Stable OBJECTIVE Vital Signs Vital Signs Date Time Temp Pulse Resp B/P (MAP) Pulse Ox O2 Delivery O2 Flow Rate FiO2 08/04/18 09:54 20 98 Room Air 2.0 08/04/18 08:54 98 120/62 08/04/18 07:00 98.8 98.8 I & 0 Intake and Output 08/04/18 07:00 Intake Total 50 ml Output Total 1950 ml Balance -1900 ml Intake Oral 50 ml Output Urine Total 1950 ml PHYSICAL EXAM Physical Exam General: No acute distress Heart: Regular rate, Normal S1 Lungs: Clear Abdomen: Normal bowel sounds, Soft Extremities: No clubbing, No cyanosis, No edema Skin: No rashes, No breakdown, No significant lesion DIAGNOSIS/ASSESSMENT Assessment & Plan Hyponatremia- Improving Mildly low GURPREET - resolved Creatinine Normal CKD stage 3 -Baseline Cr ?1.6 Hypokalemia- Resolved Met Encephalopathy Dehydration- Better Malnutrition Will sign off COMMENT/RELEVANT DATA Meds Current Medications Medications (Trade) Dose Ordered Sig/Catherine Start Time Stop Time Status Last Admin Dose Admin Acetaminophen (Tylenol) 650 mg PRN Q6HRS PRN 07/31/18 17:30 08/01/18 21:22 650 MG Amino Acids/ Glycerin/ Electrolytes 1,000 ml @ 80 mls/hr [id number] 07/30/18 15:15 08/04/18 07:43 80 MLS/HR Aspirin (Aspirin) 300 mg DAILY 08/01/18 09:00 08/01/18 09:00 DC Aspirin (Amanda Aspirin) 325 mg [id number] 08/01/18 08:30 08/04/18 07:43 325 MG Atorvastatin Calcium (Lipitor) 20 mg HS 08/04/18 21:00 Docusate Sodium (Colace) 100 mg PRN DAILY PRN 08/04/18 08:45 Fentanyl Citrate (Fentanyl 2ml Vial) 25 mcg 1X ONCE 08/03/18 13:15 08/03/18 13:16 DC 08/03/18 13:24 25 MCG Heparin Sodium (Porcine) (Heparin Sodium) 5,000 unit Q8HRS 07/31/18 15:00 08/04/18 06:20 5,000 UNIT Info (Icu Electrolyte Protocol) 1 ea CONT PRN PRN 07/30/18 15:15 Isosorbide Mononitrate (Imdur) 60 mg BID 08/04/18 09:00 08/04/18 08:54 60 MG Metoprolol Tartrate (Lopressor) 12.5 mg BID 08/04/18 09:00 08/04/18 08:54 12.5 MG Midazolam HCl (Versed) 5 mg STK-MED ONCE 07/30/18 12:30 07/31/18 09:07 DC Ondansetron HCl (Zofran) 4 mg PRN Q8HRS PRN 07/30/18 06:45 07/31/18 06:44 DC Oxycodone/ Acetaminophen (Percocet 5/325) 1 tab PRN Q6HRS PRN 08/04/18 08:45 08/04/18 08:54 1 TAB Pantoprazole Sodium (Protonix) 40 mg DAILYAC 08/04/18 09:00 08/04/18 08:54 40 MG Potassium Chloride/Water 50 ml @ 50 mls/hr Q1HR 07/30/18 15:00 07/30/18 20:59 UNV Potassium Chloride (Klor-Con) 40 meq 1X ONCE 07/30/18 12:00 07/30/18 12:01 DC Sodium Chloride 100 ml @ 50 mls/hr 1X ONCE 07/31/18 11:00 07/31/18 12:59 DC 07/31/18 11:19 50 MLS/HR Sucralfate (Carafate) 1 gm BID 08/04/18 09:00 08/04/18 08:55 1 GM Tramadol HCl (Ultram) 50 mg PRN Q4HRS PRN 08/04/18 02:15 08/04/18 06:11 50 MG Lab Laboratory Tests Test 08/04/18 06:15 Sodium Level 133 mmol/L (136-145) Potassium Level 4.7 mmol/L (3.5-5.1) Chloride Level 99 mmol/L (98-107) Carbon Dioxide Level 27 mmol/L (21-32) Anion Gap 7 (6-14) Blood Urea Nitrogen 29 mg/dL (7-20) Creatinine 1.0 mg/dL (0.6-1.0) Estimated GFR (Cockcroft-Gault) 65.4 Glucose Level 95 mg/dL (70-99) Calcium Level 8.3 mg/dL (8.5-10.1) Results All relevant outside records, renal labs, imaging studies, telemetry/EKG's were reviewed. LEIF BIRMINGHAM MD Aug 04, 2018 10:14
[2018-08-04 10:46] VITALS: BP 122/69
--- NOTE | 2018-08-04 14:22 | SNU/HH DC ---
DISCHARGE WITH HOME HEALTH DISCHARGE INFORMATION: Discharge Date: Aug 04, 2018 Condition on Discharge: Stable CODE STATUS: Code Status: Full HOME HEALTH: Face to Face: I certify this patient is under my care and that I, or a nurse practitioner or physician's periodicals library assistant working with me, had a face to face encounter that meets the physician face to face encounter requirements with this patient on 08/04/18. Medical Complications: HTN, Other (RHABDO) Detention For: Assess & Educate Safety, Assess/Skilled Observatio, Medication Management Physical Therapy For: Evalulation/Treatment Occupational Therapy For: Evaluation/Treatment Home Health Aide For: Self-care Pt Meets Homebound Status: Extreme weakness w/ amb. POST DISCHARGE ORDERS: Activity Instructions for Disc: Activity as tolerated Weight Bearing Status after Di: Full weight bearing DIET AFTER DISCHARGE: Regular CHECKS AFTER DISCHARGE: Checks after discharge: Check blood press - daily, Check your Temp as needed TREATMENT/EQUIPMENT ORDERS: Adaptive Equipment Issued: Four wheeled walker CERTIFICATION STATEMENT: Certification Statement: Certification Statement: Based on the above finding, I certify that this patient is confined to the home and needs intermittent [facility] care, physical therapy and/or speech therapy, or continues to need occupational therapy.~ This patient is under my care, and I have initiated the establishment of the plan of care.~ This patient will be followed by myself or a community physician who will periodically review the plan of care. Home Meds Active Scripts Docusate Sodium (COLACE) 100 Mg Capsule, 100 MG PO PRN DAILY PRN for CONSTIPATION, #10 CAP Prov:YING WRIGHT MD 03/12/17 Potassium Chloride (POTASSIUM CHLORIDE) 20 Meq Tablet.er, 20 MEQ PO BID, #60 TAB.SR Prov:ROBERT BAUTISTA MD 10/01/16 Reported Medications Oxycodone/Apap 10-325 (PERCOCET 10-325 MG TABLET ) 1 Each Tablet, 2 TAB PO BID76 for PAIN, TAB 0 Refills 08/04/18 Metoprolol Tartrate (METOPROLOL TARTRATE) 25 Mg Tablet, 0.5 TAB PO BID for HTN, #180 TAB 1 Refill 07/31/18 Isosorbide Mononitrate (ISOSORBIDE MONONITRATE ER) 60 Mg Tab.er.24h, 60 MG PO BID for htn, TAB.SR 07/31/18 Sucralfate (CARAFATE) 1 Gm Tablet, 1 TAB PO BID, #120 TAB 1 Refill 09/27/16 Omeprazole (OMEPRAZOLE) 40 Mg Capsule.dr, 1 CAP PO DAILY, #30 CAP 3 Refills 09/27/16 Atorvastatin Calcium (LIPITOR) 20 Mg Tablet, 20 MG PO HS for FOR CHOLESTEROL, # 30 TAB 0 Refills 08/17/15 Discontinued Reported Medications Dicyclomine Hcl (DICYCLOMINE HCL) 20 Mg Tablet, 1 TAB PO BID for Pt. unaware of indication, #60 TAB 11 Refills 07/31/18 Nortriptyline Hcl (NORTRIPTYLINE HCL) 25 Mg Capsule, 25 MG PO BID for pt unaware of indication, CAP 07/31/18 Diazepam (VALIUM) 5 Mg Tablet, 5 MG PO BID, TAB 09/27/16 Discontinued Scripts Furosemide (LASIX) 80 Mg Tablet, 1 TAB PO DAILY, #30 TAB 0 Refills Prov:ROBERT BAUTISTA MD 10/01/16 WOODROW ROUSE MD Aug 04, 2018 14:22
[2018-08-04 14:52] VITALS: BP 117/57
--- NOTE | 2018-08-04 14:53 | PDOC ---
PROGRESS NOTES Assessment Metabolic encephalopathy, much better. Confusion x 3 to 4 days before admission. Hyponatremia, Na+ 112. Hypokalemia, K+ 1.9. Hypochloride Cl- 70. GI bleeding, Hx. Renal failure. Elevated hepatic enzymes. Elevated troponin. CAD, s/p NE. CHF. HTN. COPD. HLD. Plan Okay for discharge. Follow-up with neurology as needed Also discussed with son Subjective No complaints Objective Vital Signs Date Time Temp Pulse Resp B/P (MAP) Pulse Ox O2 Delivery O2 Flow Rate FiO2 08/04/18 13:39 20 97 Room Air 2.0 08/04/18 10:46 98.9 91 122/69 (86) 98.9 Intake and Output 08/04/18 06:59 Intake Total 50 ml Output Total 1950 ml Balance -1900 ml Intake Oral 50 ml Output Urine Total 1950 ml PHYSICAL EXAM Alert. Oriented to time, place and person. PERRL. EOMI. CN: no focal findings. Muscle tone: normal. Muscle strength: 5 -/5 DTR: 1+ Plantar reflex: flexor Gait: not examined in bed. Sensory exam: no abnormal findings. No cerebellar signs elicited. Review of Relevant I have reviewed the following items scott (where applicable) has been applied. Labs Laboratory Tests Test 08/03/18 07:00 08/04/18 06:15 Sodium Level 132 mmol/L (136-145) 133 mmol/L (136-145) Potassium Level 4.5 mmol/L (3.5-5.1) 4.7 mmol/L (3.5-5.1) Chloride Level 96 mmol/L (98-107) 99 mmol/L (98-107) Carbon Dioxide Level 29 mmol/L (21-32) 27 mmol/L (21-32) Anion Gap 7 (6-14) 7 (6-14) Blood Urea Nitrogen 32 mg/dL (7-20) 29 mg/dL (7-20) Creatinine 1.0 mg/dL (0.6-1.0) 1.0 mg/dL (0.6-1.0) Estimated GFR (Cockcroft-Gault) 65.4 65.4 Glucose Level 110 mg/dL (70-99) 95 mg/dL (70-99) Calcium Level 8.4 mg/dL (8.5-10.1) 8.3 mg/dL (8.5-10.1) Laboratory Tests Test 08/04/18 06:15 Sodium Level 133 mmol/L (136-145) Potassium Level 4.7 mmol/L (3.5-5.1) Chloride Level 99 mmol/L (98-107) Carbon Dioxide Level 27 mmol/L (21-32) Anion Gap 7 (6-14) Blood Urea Nitrogen 29 mg/dL (7-20) Creatinine 1.0 mg/dL (0.6-1.0) Estimated GFR (Cockcroft-Gault) 65.4 Glucose Level 95 mg/dL (70-99) Calcium Level 8.3 mg/dL (8.5-10.1) Microbiology 07/30/18 Urine Culture - Final, Complete 07/30/18 Urine Culture Result 1 (TONI) - Final, Complete 07/30/18 Antimicrobic Susceptibility - Final, Complete Medications Current Medications Sodium Chloride 1,000 ml @ 1,000 mls/hr 1X ONCE IV Last administered on at 06:08; Start 07/30/18 at 05:30; Stop 07/30/18 at 06:29; Status DC Potassium Chloride/Water 100 ml @ 100 mls/hr Q1H IV Last administered on at 07:45; Start 07/30/18 at 06:00; Stop 07/30/18 at 07:59; Status DC Ondansetron HCl (Zofran) 4 mg PRN Q8HRS PRN IV NAUSEA/VOMITING; Start 07/30/18 at 06:45; Stop 07/31/18 at 06:44; Status DC Acetaminophen (Tylenol) 650 mg PRN Q4HRS PRN PO FEVER; Start 07/30/18 at 06:45 ; Stop 07/31/18 at 06:44; Status DC Sodium Chloride 100 ml @ 50 mls/hr 1X ONCE IV Last administered on 07/30/18at 07:44; Start 07/30/18 at 07:00; Stop 07/30/18 at 08:59; Status DC Potassium Chloride (Klor-Con) 40 meq 1X ONCE PO Last administered on at 07:46; Start 07/30/18 at 07:00; Stop 07/30/18 at 07:01; Status DC Potassium Chloride (Klor-Con) 40 meq 1X ONCE PO ; Start 07/30/18 at 12:00; Stop 07/30/18 at 12:01; Status DC Potassium Chloride/Water 50 ml @ 50 mls/hr 1X ONCE IV Last administered on at 14:25; Start 07/30/18 at 13:00; Stop 07/30/18 at 13:59; Status DC Sodium Chloride 150 ml @ 50 mls/hr 1X ONCE IV Last administered on 07/30/18at 14:25; Start 07/30/18 at 13:00; Stop 07/30/18 at 15:59; Status DC Fentanyl Citrate (Fentanyl 2ml Vial) 50 mcg 1X ONCE IV Last administered on at 13:17; Start 07/30/18 at 12:45; Stop 07/30/18 at 12:46; Status DC Midazolam HCl (Versed) 2 mg 1X ONCE IV Last administered on 07/30/18at 12:45; Start 07/30/18 at 12:45; Stop 07/30/18 at 12:46; Status DC Midazolam HCl (Versed) 5 mg STK-MED ONCE .ROUTE ; Start 07/30/18 at 12:34; Stop 07/30/18 at 12:35; Status DC Potassium Chloride/Water 50 ml @ 50 mls/hr Q1H IV Last administered on at 18:54; Start 07/30/18 at 16:00; Stop 07/30/18 at 20:59; Status DC Potassium Chloride/Water 100 ml @ 100 mls/hr Q1H IV ; Start 07/30/18 at 15:00; Stop 07/30/18 at 18:59; Status UNV Potassium Chloride/Water 50 ml @ 50 mls/hr Q1H IV ; Start 07/30/18 at 15:00; Stop 07/30/18 at 16:59; Status UNV Potassium Chloride/Water 100 ml @ 100 mls/hr Q1H IV ; Start 07/30/18 at 15:00; Stop 07/30/18 at 22:59; Status UNV Potassium Chloride/Water 50 ml @ 50 mls/hr Q1H IV ; Start 07/30/18 at 15:00; Stop 07/30/18 at 18:59; Status UNV Potassium Chloride/Water 50 ml @ 50 mls/hr Q1HR IV ; Start 07/30/18 at 15:00; Stop 07/30/18 at 20:59; Status UNV Info (Icu Electrolyte Protocol) 1 ea CONT PRN PRN MC SEE COMMENTS; Start at 15:15 Amino Acids/ Glycerin/ Electrolytes 1,000 ml @ 80 mls/hr [id number] IV Last administered on 08/04/18at 07:43; Start 07/30/18 at 15:15 Midazolam HCl (Versed) 5 mg STK-MED ONCE .ROUTE ; Start 07/30/18 at 12:30; Stop 07/31/18 at 09:07; Status DC Sodium Chloride 100 ml @ 50 mls/hr 1X ONCE IV Last administered on 07/31/18at 11:19; Start 07/31/18 at 11:00; Stop 07/31/18 at 12:59; Status DC Aspirin (Aspirin) 300 mg DAILY [place] ; Start 08/01/18 at 09:00; Stop 08/01/18 at 09 :00; Status DC Heparin Sodium (Porcine) (Heparin Sodium) 5,000 unit Q8HRS SQ Last administered on 08/04/18at 06:20; Start 07/31/18 at 15:00 Acetaminophen (Tylenol) 650 mg PRN Q6HRS PRN PO MILD PAIN Last administered on 08/01/18at 21:22; Start 07/31/18 at 17:30 Tramadol HCl (Ultram) 50 mg PRN Q6HRS PRN PO MODERATE PAIN Last administered on 08/03/18at 22:13; Start 08/01/18 at 04:30; Stop 08/04/18 at 02:14; Status DC Aspirin (Amanda Aspirin) 325 mg DAILYWBKFT PO Last administered on 08/04/18at 07: 43; Start 08/01/18 at 08:30 Fentanyl Citrate (Fentanyl 2ml Vial) 25 mcg 1X ONCE IV Last administered on at 13:24; Start 08/03/18 at 13:15; Stop 08/03/18 at 13:16; Status DC Tramadol HCl (Ultram) 50 mg PRN Q4HRS PRN PO MODERATE PAIN Last administered on 08/04/18at 12:35; Start 08/04/18 at 02:15 Atorvastatin Calcium (Lipitor) 20 mg HS PO ; Start 08/04/18 at 21:00 Docusate Sodium (Colace) 100 mg PRN DAILY PRN PO CONSTIPATION; Start 08/04/18 at 08:45 Metoprolol Tartrate (Lopressor) 12.5 mg BID PO Last administered on 08/04/18 08:54; Start 08/04/18 at 09:00 Isosorbide Mononitrate (Imdur) 60 mg BID PO Last administered on 08/04/18 08: 54; Start 08/04/18 at 09:00 Pantoprazole Sodium (Protonix) 40 mg DAILYAC PO Last administered on 08/04/18 08:54; Start 08/04/18 at 09:00 Sucralfate (Carafate) 1 gm BID PO Last administered on 08/04/18 08:55; Start 08/04/18 at 09:00 Oxycodone/ Acetaminophen (Percocet 5/325) 1 tab PRN Q6HRS PRN PO SEVERE PAIN Last administered on 08/04/18 08:54; Start 08/04/18 at 08:45 Active Scripts Active Colace (Docusate Sodium) 100 Mg Capsule 100 Mg PO PRN DAILY PRN Potassium Chloride 20 Meq Tablet.er 20 Meq PO BID Reported Percocet 10-325 Mg Tablet (Oxycodone/Acetaminophen) 1 Each Tablet 2 Tab PO BID76 Metoprolol Tartrate 25 Mg Tablet 0.5 Tab PO BID Isosorbide Mononitrate Er (Isosorbide Mononitrate) 60 Mg Tab.er.24h 60 Mg PO BID Carafate (Sucralfate) 1 Gm Tablet 1 Tab PO BID Omeprazole 40 Mg Capsule.dr 1 Cap PO DAILY Lipitor (Atorvastatin Calcium) 20 Mg Tablet 20 Mg PO HS Vitals/I & O Vital Sign - Last 24 Hours 08/03/18 08/03/18 08/03/18 08/03/18 15:00 15:48 16:48 19:00 Temp 98.6 98.6 Pulse 62 89 Resp 18 16 16 B/P (MAP) 135/66 (89) 122/65 (84) Pulse Ox 98 98 98 96 O2 Delivery Room Air Room Air Room Air O2 Flow Rate 2.0 08/03/18 08/03/18 08/03/18 08/03/18 20:19 20:50 22:13 23:00 Temp 99.5 99.5 Pulse 83 Resp 20 18 B/P (MAP) 138/69 (92) Pulse Ox 2 O2 Delivery Room Air Room Air Room Air Nasal Cannula O2 Flow Rate 97.0 08/03/18 08/04/18 08/04/18 08/04/18 23:13 02:21 03:00 06:11 Temp 98.9 98.9 Pulse 91 Resp 20 20 20 20 B/P (MAP) 134/79 (97) Pulse Ox 98 O2 Delivery Nasal Cannula Room Air Nasal Cannula Nasal Cannula O2 Flow Rate 2.0 2.0 2.0 08/04/18 08/04/18 08/04/18 08/04/18 07:00 08:00 08:54 08:54 Temp 98.8 98.8 Pulse 98 98 98 Resp 18 B/P (MAP) 120/62 (81) 120/62 120/62 Pulse Ox 98 O2 Delivery Room Air Room Air O2 Flow Rate 2.0 08/04/18 08/04/18 08/04/18 08/04/18 08:54 09:54 10:46 12:35 Temp 98.9 98.9 Pulse 91 Resp 20 20 B/P (MAP) 122/69 (86) Pulse Ox 98 98 97 O2 Delivery Room Air Room Air Nasal Cannula Nasal Cannula O2 Flow Rate 2.0 2.0 2.0 2.0 08/04/18 13:39 Resp 20 Pulse Ox 97 O2 Delivery Room Air O2 Flow Rate 2.0 Intake and Output 08/03/18 08/03/18 08/04/18 14:59 22:59 06:59 Intake Total 50 ml Output Total 1550 ml 400 ml Balance -1550 ml -350 ml YOVANI NESBITT MD Aug 04, 2018 14:53
--- NOTE | 2018-08-04 14:58 | NUR ---
SW following pt. Spoke with pt at bedside. [facility] Pt reported she has a walker at home and also has a ride to take her home. RN aware.
--- NOTE | 2018-08-04 15:13 | NUR ---
Discharge Note: VAIBHAV CARTWRIGHT [address] Discharge instructions and discharge home medications reviewed with Patient and a copy given. All questions have been answered and understanding verbalized. The following instructions and handouts were given: d/c instructions Discontinued lines and drains: Peripheral IV intact. Patient discharged to Home or Self Care with Family Member via Wheelchair
[2018-08-04] MEDS ORDERED: ATORVASTATIN CALCIUM 20 MG TABLET PO SCH (21:00)
--- NOTE | 2018-08-04 21:52 | PDOC3 ---
Discharge Summary Visit Information Date of Admission: Jul 30, 2018 Date of Discharge: Aug 04, 2018 Admitting Diagnosis: Acute encephalopathy Final Diagnosis Acute encephalopathy, GURPREET, Hypokalemia, hyponatremia Brief Hospital Course Allergies Allergies Coded Allergies Type Severity Reaction Last Updated Verified aspirin Adverse Reaction Intermediate Nausea and Vomiting 11/27/16 Yes castor oil Adverse Reaction Intermediate Nausea and Vomiting 11/27/16 Yes Vital Signs Vital Signs Date Time Temp Pulse Resp B/P (MAP) Pulse Ox O2 Delivery O2 Flow Rate FiO2 08/04/18 14:52 98.3 88 19 117/57 (77) 97 Nasal Cannula 2.0 98.3 Lab Results Laboratory Tests Test 08/03/18 07:00 08/04/18 06:15 Sodium Level 132 mmol/L (136-145) 133 mmol/L (136-145) Potassium Level 4.5 mmol/L (3.5-5.1) 4.7 mmol/L (3.5-5.1) Chloride Level 96 mmol/L (98-107) 99 mmol/L (98-107) Carbon Dioxide Level 29 mmol/L (21-32) 27 mmol/L (21-32) Anion Gap 7 (6-14) 7 (6-14) Blood Urea Nitrogen 32 mg/dL (7-20) 29 mg/dL (7-20) Creatinine 1.0 mg/dL (0.6-1.0) 1.0 mg/dL (0.6-1.0) Estimated GFR (Cockcroft-Gault) 65.4 65.4 Glucose Level 110 mg/dL (70-99) 95 mg/dL (70-99) Calcium Level 8.4 mg/dL (8.5-10.1) 8.3 mg/dL (8.5-10.1) Laboratory Tests Test 08/04/18 06:15 Sodium Level 133 mmol/L (136-145) Potassium Level 4.7 mmol/L (3.5-5.1) Chloride Level 99 mmol/L (98-107) Carbon Dioxide Level 27 mmol/L (21-32) Anion Gap 7 (6-14) Blood Urea Nitrogen 29 mg/dL (7-20) Creatinine 1.0 mg/dL (0.6-1.0) Estimated GFR (Cockcroft-Gault) 65.4 Glucose Level 95 mg/dL (70-99) Calcium Level 8.3 mg/dL (8.5-10.1) Brief Hospital Course Ms. Gasca is a 73 year old female w/ PMHx CAD, CHF who was admitted to the ICU in the setting of rhabdomyolysis and severe metabolic derangements was asked to be seen by cardiology for her CHF/CAD and troponin elevations, neurology for encephalopathy, and nephrology for hypokalemia 1.9, hyponatremia 112, hypomagnesemia all of which took nearly a week to improved. She was admitted after apparently being on the toilet try to take her medications for 12 hours according to her . Her mental status cleared after 3-4 days and labs began improving more after that as well. All problems as below: Acute metabolic encephalopathy Severe nonischemic cardiomyopathy Elevated troponin i Chronic anemia, iron deficiency Critical hyponatremia, improved and stabilizing, CRITICAL hypokalemia, hypomagnesemia Hyponatremia, Na+ 112. Hypokalemia, K+ 1.9. Hypochloride Cl- 70. GI bleeding, Hx. Renal failure. Elevated hepatic enzymes. GURPREET, vasomotor CKD2-3 Acute metabolic encephalopathy Moderate severe malnutrition, sCHF - EF 25% GERD H/O GAstric ulcer post EGD X2 2017 non bleeding gastric ulcer and gastritis Ozzie leg neuropathy Rhabdomyolysis She was seen by PT/OT, recommended SNF, however, she refuses to do so, will go with home health. Greater than 30 minutes spent on discharge. Discharge Information Condition at Discharge: Improved Follow Up: Weeks (1) Disposition/Orders: D/C to Home w/ HH Scheduled Atorvastatin Calcium (Lipitor) 20 Mg Tablet, 20 MG PO HS for FOR CHOLESTEROL, # 30 Ref 0 (Reported) Entered as Reported by: Zaynab Bernard on 08/17/152123 Last Action: Continued on 08/04/18837 by WOODROW ROUSE MD Isosorbide Mononitrate (Isosorbide Mononitrate Er) 60 Mg Tab.er.24h, 60 MG PO BID for htn, (Reported) Entered as Reported by: NOE VELEZ RN on 07/31/18915 Last Taken: 60 mg ER on Unknown Date & Time Last Action: Converted on 837 by WOODROW ROUSE MD Metoprolol Tartrate (Metoprolol Tartrate) 25 Mg Tablet, 0.5 TAB PO BID for HTN, #180 Ref 1 (Reported) Entered as Reported by: NOE VELEZ RN on 07/31/18918 Last Taken: Unknown Dose on Unknown Date & Time Last Action: Continued on 08/04/18837 by WOODROW ROUSE MD Omeprazole (Omeprazole) 40 Mg Capsule.dr, 1 CAP PO DAILY, #30 Ref 3 (Reported) Entered as Reported by: Ananth Lord on 09/27/16301 Last Taken: Unknown Dose on Unknown Date & Time Last Action: Converted on 08/04/18837 by WOODROW ROUSE MD Oxycodone/Apap 10-325 (Percocet 10-325 Mg Tablet ) 1 Each Tablet, 2 TAB PO BID76 for PAIN, Ref 0 (Reported) Entered as Reported by: SASHA EISENBERG on 08/04/18840 Last Action: New Order on 08/04/18840 by SASHA EISENBERG Potassium Chloride (Potassium Chloride) 20 Meq Tablet.er, 20 MEQ PO BID, #60 Prescribed by: ROBERT BAUTISTA MD on 10/01/16 1540 Last Action: HELD on 08/04/18836 by WOODROW ROUSE MD Sucralfate (Carafate) 1 Gm Tablet, 1 TAB PO BID, #120 Ref 1 (Reported) Entered as Reported by: Ananth Lord on 09/27/16301 Last Taken: Unknown Dose on Unknown Date & Time Last Action: Converted on 08/04/18837 by WOODROW ROUSE MD Scheduled PRN Docusate Sodium (Colace) 100 Mg Capsule, 100 MG PO PRN DAILY PRN for CONSTIPATION, #10 Prescribed by: YING WRIGHT MD on 03/12/17 1151 Last Action: Continued on 08/04/18837 by WOODROW ROUSE MD Discontinued Medications Diazepam (Valium) 5 Mg Tablet, 5 MG PO BID, (Reported) Entered as Reported by: Ananth Lord on 09/27/16301 Last Action: HELD on 08/04/18836 by WOODROW ROUSE MD Dicyclomine Hcl (Dicyclomine Hcl) 20 Mg Tablet, 1 TAB PO BID for Pt. unaware of indication, #60 Ref 11 (Reported) Entered as Reported by: NOE VELEZ RN on 07/31/18920 Last Taken: Unknown Dose on Unknown Date & Time Last Action: HELD on 08/04 by WOODROW ROUSE MD Furosemide (Lasix) 80 Mg Tablet, 1 TAB PO DAILY, #30 Ref 0 Prescribed by: ROBERT BAUTISTA MD on 10/01/16 1536 Last Action: HELD on 08/04/18836 by WOODROW ROUSE MD Nortriptyline Hcl (Nortriptyline Hcl) 25 Mg Capsule, 25 MG PO BID for pt unaware of indication, (Reported) Entered as Reported by: NOE VELEZ RN on 07/31/18917 Last Taken: Unknown Dose on Unknown Date & Time Last Action: HELD on 08/04 by MD PADMA FRANCOIS CHRISTOPHER S MD Aug 04, 2018 21:52
== END 2018-08-04 18:30 | disposition home health service (06) | DRG 682 ==
LOC: ER 04:06 → 1 WEST ICU 06:16 → 5 NORTH 08-01 15:41 → 5 SOUTH 08-03 21:20
PROVIDERS: ADMIT Family Medicine; ATTEND Family Medicine
PROC: 05HY33Z Insertion of Infusion Device into Upper Vein, Percutaneous Approach (ICD-10-PCS; principal; 2018-07-30)
PROC: B54MZZA Ultrasonography of Right Upper Extremity Veins, Guidance (ICD-10-PCS; 2018-07-30)
PROC: B51M1ZA Fluoroscopy of Right Upper Extremity Veins using Low Osmolar Contrast, Guidance (ICD-10-PCS; 2018-07-30)
DX: N17.0 Acute kidney failure with tubular necrosis (principal); G93.41 Metabolic encephalopathy; E43 Unspecified severe protein-calorie malnutrition; M62.82 Rhabdomyolysis; E87.1 Hypo-osmolality and hyponatremia; I42.9 Cardiomyopathy, unspecified; I13.0 Hypertensive heart and chronic kidney disease with heart failure and stage 1 through stage 4 chronic kidney disease, or unspecified chronic kidney disease; R64 Cachexia; I50.20 Unspecified systolic (congestive) heart failure; J44.9 Chronic obstructive pulmonary disease, unspecified; E83.42 Hypomagnesemia; G62.9 Polyneuropathy, unspecified; E86.0 Dehydration; I44.7 Left bundle-branch block, unspecified; E78.00 Pure hypercholesterolemia, unspecified; E87.6 Hypokalemia; I25.10 Atherosclerotic heart disease of native coronary artery without angina pectoris; F03.90 Unspecified dementia, unspecified severity, without behavioral disturbance, psychotic disturbance, mood disturbance, and anxiety; M19.90 Unspecified osteoarthritis, unspecified site; F41.9 Anxiety disorder, unspecified; K21.9 Gastro-esophageal reflux disease without esophagitis; D50.9 Iron deficiency anemia, unspecified; E78.5 Hyperlipidemia, unspecified; N18.3 Chronic kidney disease, stage 3 (moderate); I25.2 Old myocardial infarction; Z90.710 Acquired absence of both cervix and uterus; Z88.6 Allergy status to analgesic agent; Z88.8 Allergy status to other drugs, medicaments and biological substances; Z68.23 Body mass index [BMI] 23.0-23.9, adult; Z86.73 Personal history of transient ischemic attack (TIA), and cerebral infarction without residual deficits; Z87.11 Personal history of peptic ulcer disease; Z98.84 Bariatric surgery status; K29.70 Gastritis, unspecified, without bleeding
CPT/HCPCS: 36415; 36556; 70450; 71045; 76937; 77001; 80048; 80053; 80307; 81001; 82024; 82533; 82550; 82607; 83735; 83930; 83935; 84100; 84295; 84439; 84443; 84480; 84484; 85025; 87086; 87186; 87641; 93005; 93306; 95816; 96361; 96365; C1892; G0480; J1644; J2250; J3010; J3480; J3490; J7030; 92610; 97116; 97530; 97535; 99285-25

== ENCOUNTER → 2020-01-12 | Outpatient (CLI) | payer MEDICARE, BC ==
[~2020-01-12] MED LIST changes: +ATOR20TA58 PO; +DICY20TA3 PO; +METO25TA4 PO; +OMEP40CA45 PO; -OMEP40CA5 PO; -POTA10TA12 PO; +POTA20TA4 PO; -POTA20TA82 PO; +POTASSIUM CHLO10 ME1 PO
[2020-01-12 17:25] LABS: BASO % 1 % (0-3); EOS # 0.2 x10^3/uL (0.0-0.7); EOS % 4 % (0-3); HEMATOCRIT 30.9 % (36.0-47.0); HEMOGLOBIN 10.2 g/dL (12.0-15.5); LYMPH # 2.1 x10^3/uL (1.0-4.8); LYMPH % 36 % (24-48); MEAN CORPUSCULAR HEMOGLOBIN 27 pg (25-35); MEAN CORPUSCULAR HGB CONC 33 g/dL (31-37); MEAN CORPUSCULAR VOLUME 82 fL (79-100); MONO # 0.4 x10^3/uL (0.0-1.1); MONO % 7 % (0-9); NEUT % 52 % (31-73); PLATELET COUNT 297 x10^3/uL (140-400); RED BLOOD COUNT 3.75 x10^6/uL (3.50-5.40); WHITE BLOOD COUNT 5.7 x10^3/uL (4.0-11.0)
[2020-01-12 17:39] LABS: ALBUMIN 3.5 g/dL (3.4-5.0); ALBUMIN/GLOBULIN RATIO 0.9 (1.0-1.7); CALCIUM 7.5 mg/dL (8.5-10.1); CREATININE 2.5 mg/dL (0.6-1.0); GFR 22.7; MAGNESIUM 4.3 mg/dL (1.8-2.4); POTASSIUM 4.7 mmol/L (3.5-5.1); TOTAL BILIRUBIN 0.6 mg/dL (0.2-1.0); TOTAL PROTEIN 7.6 g/dL (6.4-8.2)
[2020-01-12 17:50] LABS: FREE T4 1.15 ng/dL (0.76-1.46); THYROID STIM HORMONE (TSH) 0.633 uIU/mL (0.358-3.74)
[2020-01-13 01:09] LABS: HEMOGLOBIN A1C 5.9 % (4.8-5.6)
== END ==
LOC: LAB 16:35
PROVIDERS: ATTEND Internal Medicine Cardiovascular Disease
DX: I12.9 Hypertensive chronic kidney disease with stage 1 through stage 4 chronic kidney disease, or unspecified chronic kidney disease (principal); E78.5 Hyperlipidemia, unspecified; I25.10 Atherosclerotic heart disease of native coronary artery without angina pectoris; I42.9 Cardiomyopathy, unspecified; N18.9 Chronic kidney disease, unspecified; Z79.899 Other long term (current) drug therapy
CPT/HCPCS: 36415; 80053; 82306; 83036; 83695; 83700; 83735; 84439; 84443; 84481; 85025; 86141